=== PATIENT | female | born 1955 | race Caucasian/White ===

== ENCOUNTER 2020-05-09 11:45 | Emergency (ER) | payer OTHER, SELFPAY ==
--- NOTE | ~2020-05-09 | XR_ITS ---
EXAMINATION: XR CHEST CLINICAL INFORMATION: Chest pain COMPARISON: CT chest 03/09/2017 and chest radiograph 04/19/2007 TECHNIQUE: Frontal view of the chest was obtained. FINDINGS: No significant abnormality is noted involving the heart, lungs or mediastinum. Patient has undergone rotator cuff surgery on the right with 3 anchors. In addition, there may have been prior resection of the distal ends of both clavicles. XR/XR chest 1V IMPRESSION: No acute intrathoracic disease
[2020-05-09 14:26] VITALS: BP 124/74; PULSE 76; RESP 16; O2SAT 98; BMI 26.4
[2020-05-09 14:33] VITALS: TEMP 36.7
[2020-05-09 16:21] VITALS: BP 128/62; PULSE 63; RESP 18; TEMP 36.7; O2SAT 98
--- NOTE | 2020-05-09 16:21 | ED_ITS ---
HPI - Chest Pain General Chief Complaint: Chest Pain Stated Complaint: chest pain Time Seen by Provider: 05/09/20 16:21 Source: patient Mode of arrival: ambulatory Limitations: no limitations History of Present Illness HPI narrative: Patient with no known coronary artery disease nonsmoker history of GERD on Protonix is complaining of mid chest pain for last few weeks off and on seen by her PCP 3 days ago started on aspirin came here for similar pain started today in the morning around 08:00 lasted for about 30 minutes with mild aching pain in the right shoulder area. No shortness of breath no cough no fever or chills. No diaphoresis no nausea no vomiting patient been feeling increased shortness of breath on mild exertion for last few days also MD complaint: chest pain Onset (ago): hour(s) Timing of current episode: episodic Prior episodes: Yes Related Data Allergies Allergy/AdvReac Type Severity Reaction Status Date / Time Sulfa (Sulfonamide Allergy Unknown Hives Verified 05/09/20 14:32 Antibiotics) Review of Systems Review of Systems: Constitutional : No Weight loss, No Fever, No Chills ENT/Mouth : No sore throat, No Rhinorrhea Eyes: No Eye Pain, No Swelling Cardiovascular : + Chest Pain, no palpitations Respiratory : No Cough, No Sputum, +shortness of breath Gastrointestinal : no Nausea, No Vomiting, No Diarrhea, No abdominal Pain, no bl ack stools Genitourinary : No Dysuria, No Urinary Frequency Musculoskeletal : No joint pain, No Myalgias, No Joint Swelling Skin : No Skin Lesions, No rash Neuro : No Weakness, No Numbness, No Dizziness, No Headache Psych : No Anxiety/Panic, No Depression Heme/Lymph: No Bruising, No Lymphadenopathy Endocrine : No Polyuria, No Polydipsia All other systems reviewed and are negative [facility] Social History Social History Alcohol intake: current Alcohol intake frequency: a few times a month Smoking Status: Never smoker Use of substances other than those prescribed or required for medical reasons: No Advance Directives: No Advance Directives Information Provided: Yes Physical Exam Vital Signs: Vital Signs: Last Vital Signs Temp 98.1 F 05/09/20 16:21 Pulse 63 05/09/20 16:21 Resp 18 05/09/20 16:21 BP 128/62 05/09/20 16:21 Pulse Ox 98 02/17/21 16:21 Body Mass Index 26.4 Appearance: Alert. Oriented X3. No acute distress. Eyes: Pupils equal, round and reactive to light. ENT: Pharynx normal. Neck: Normal inspection. Neck supple. CVS: Normal heart rate and rhythm. Pulses normal. Respiratory: No respiratory distress. Breath sounds normal. Abdomen: Soft and nontender. Bowel sounds are present, no mass palpable, no CVA tenderness Skin: Skin warm and dry. Normal skin color. Normal skin turgor. Extremities: No lower extremity edema. No calf tenderness Neuro: Oriented X 3. No motor deficit. No sensory deficit. MDM - Chest Pain MDM Narrative Medical decision making narrative: Patient has atypical chest pain for couple of weeks high sensitive troponin negative normal EKG D-dimer also negative patient does have history of GERD on Protonix patient advised to continue same and start taking baby aspirin follow with PCP for stress test as outpatient Differential Diagnosis Differential diagnosis: Likely unstable angina pectoris and atypical chest pain Medical Records Data Attestation: I reviewed the patient's medical records. Lab Data Attestation: I reviewed the patient's lab results. Result diagrams: 05/09/20 16:42 05/09/20 16:43 Labs: Lab Results 05/09/20 05/09/20 05/09/20 Range/Units 16:42 16:42 16:43 WBC 6.7 (4.8-10.8) X10*3/uL RBC 4.48 (4.20-5.50) X10*6/uL Hgb 14.0 (12.0-16.0) g/dl Hct 40.8 (37-47) % MCV 91.1 (80-98) fL MCH 31.3 (27.0-33.0) pg MCHC 34.3 (31.0-35.0) g/dl RDW 12.1 (11.0-16.0) % Plt Count 244 (160-400) X10*3/uL MPV 9.7 (9.4-12.3) fL Immature Gran % (Auto) 0.2 (0.0-0.4) % Neut % (Auto) 70.1 (45-73) % Lymph % (Auto) 21.8 (20-40) % Mccormick % (Auto) 5.9 (2-11) % Eos % (Auto) 1.4 (0-4) % Baso % (Auto) 0.6 (0-2) % Lymph # (Auto) 1.5 (1.2-4.9) X10*3/uL Mccormick # (Auto) 0.4 (0.1-1.2) X10*3/uL Eos # (Auto) 0.1 (0.0-0.4) X10*3/uL Baso # (Auto) 0.0 (0.0-0.2) X10*3/uL Abs Immat Gran (auto) 0.01 (0.00-0.03) X10*3/uL Absolute Neuts (auto) 4.7 (2.0-8.3) X10*3/uL Absolute Nucleated RBC 0.000 (0.0-0.012) X10*3/uL Nucleated RBC % (auto) 0.0 (0.0-0.2) /100WBC PT 11.1 (10.8-13.0) SEC INR 0.9 (0.9-1.1) APTT 36.7 (24.1-38.0) SEC D-Dimer < 200 NG/ML Sodium (135-145) mmol/L Potassium (3.3-5.1) mmol/L Chloride (96-108) mmol/L Carbon Dioxide (22-29) mmol/L Anion Gap (12-20) BUN (9-16) mg/dL Creatinine (0.5-1.4) mg/dL Estim Creat Clear Calc Estimated GFR Random Glucose (60-115) mg/dL Calcium (8.4-10.2) mg/dL Troponin I High Sens < 3.5 (<3.5-17.0) ng/L 05/09/20 Range/Units 16:43 WBC (4.8-10.8) X10*3/uL RBC (4.20-5.50) X10*6/uL Hgb (12.0-16.0) g/dl Hct (37-47) % MCV (80-98) fL MCH (27.0-33.0) pg MCHC (31.0-35.0) g/dl RDW (11.0-16.0) % Plt Count (160-400) X10*3/uL MPV (9.4-12.3) fL Immature Gran % (Auto) (0.0-0.4) % Neut % (Auto) (45-73) % Lymph % (Auto) (20-40) % Mccormick % (Auto) (2-11) % Eos % (Auto) (0-4) % Baso % (Auto) (0-2) % Lymph # (Auto) (1.2-4.9) X10*3/uL Mccormick # (Auto) (0.1-1.2) X10*3/uL Eos # (Auto) (0.0-0.4) X10*3/uL Baso # (Auto) (0.0-0.2) X10*3/uL Abs Immat Gran (auto) (0.00-0.03) X10*3/uL Absolute Neuts (auto) (2.0-8.3) X10*3/uL Absolute Nucleated RBC (0.0-0.012) X10*3/uL Nucleated RBC % (auto) (0.0-0.2) /100WBC PT (10.8-13.0) SEC INR (0.9-1.1) APTT (24.1-38.0) SEC D-Dimer NG/ML Sodium 139 (135-145) mmol/L Potassium 4.5 (3.3-5.1) mmol/L Chloride 104 (96-108) mmol/L Carbon Dioxide 25 (22-29) mmol/L Anion Gap 15 (12-20) BUN 15 (9-16) mg/dL Creatinine 0.70 (0.5-1.4) mg/dL Estim Creat Clear Calc 70.2 Estimated GFR > 60 Random Glucose 90 (60-115) mg/dL Calcium 9.2 (8.4-10.2) mg/dL Troponin I High Sens (<3.5-17.0) ng/L ECG Data ECG #1: Attestation: I personally reviewed and interpreted this ECG as follows: Interpretation: Normal sinus rhythm heart rate 66 beats per minute normal intervals normal axis no acute ST T wave changes impression normal EKG Discharge Plan Discharge Clinical Impression: Chest pain Patient Disposition: Home, Self-Care Instructions: Chest Pain (ED) Additional Instructions: Continue Protonix and baby aspirin and follow with PCP for further testing including stress test. Report to the ER if worsening of the chest pain
--- NOTE | 2020-05-09 16:44 | PC.NURSE ---
iv inserted, labs drawn, vss, pt ekg done in triage, will continue to monitor.
[2020-05-09 16:48] LABS: MANUAL DIFF FLAG NO
[2020-05-09 16:56] LABS: Basophils Percent Auto 0.6 % (0-2); Eosinophils Absolute Auto 0.1 X10*3/uL (0.0-0.4); Eosinophils Percent Auto 1.4 % (0-4); Hematocrit 40.8 % (37-47); Imm Gran Abs Auto 0.01 X10*3/uL (0.00-0.03); Imm Gran Pct Auto 0.2 % (0.0-0.4); Lymphocytes Absolute Auto 1.5 X10*3/uL (1.2-4.9); Lymphocytes Percent Auto 21.8 % (20-40); Mean Corpuscular HGB Conc 34.3 g/dl (31.0-35.0); Mean Corpuscular Hemoglobin 31.3 pg (27.0-33.0); Mean Corpuscular Volume 91.1 fL (80-98); Mean Platelet Volume 9.7 fL (9.4-12.3); Monocytes Absolute Auto 0.4 X10*3/uL (0.1-1.2); Monocytes Percent Auto 5.9 % (2-11); Neutrophils Absolute Auto 4.7 X10*3/uL (2.0-8.3); Neutrophils Percent Auto 70.1 % (45-73); Platelet Count 244 X10*3/uL (160-400); Red Blood Count 4.48 X10*6/uL (4.20-5.50); Red Cell Distribution Width 12.1 % (11.0-16.0); White Blood Count 6.7 X10*3/uL (4.8-10.8)
[2020-05-09 17:10] LABS: INTERNATIONAL NORM RATIO 0.9 (0.9-1.1); Prothrombin Time 11.1 SEC (10.8-13.0)
--- NOTE | 2020-05-09 17:12 | PC.NURSE ---
patient ekg was done at 1430pm
[2020-05-09 17:13] LABS: Partial Thromboplastin Time 36.7 SEC (24.1-38.0)
[2020-05-09 17:14] LABS: D Dimer < 200 NG/ML
[2020-05-09 17:16] LABS: Anion Gap 15 (12-20); Blood Urea Nitrogen 15 mg/dL (9-16); Calcium 9.2 mg/dL (8.4-10.2); Carbon Dioxide 25 mmol/L (22-29); Chloride 104 mmol/L (96-108); Creatinine Clr Calc Pharmacy 70.2; Estimated Glomerular Filt Rate > 60; Glucose Random 90 mg/dL (60-115); Potassium 4.5 mmol/L (3.3-5.1); Sodium 139 mmol/L (135-145)
[2020-05-09 17:22] LABS: Troponin-I High Sensitivity < 3.5 ng/L (<3.5-17.0)
[2020-05-09 17:47] VITALS: BP 113/56; PULSE 60; RESP 18; TEMP 36.8; O2SAT 97
--- NOTE | 2020-05-09 17:49 | PC.NURSE ---
patient a&ox3, vitals stable, sinus lawanda 60s on monitor, will continue to monitor.
--- NOTE | 2020-05-10 | ECG_ITS ---
Test Reason : CHEST PAIN Blood Pressure : / mmHG Vent. Rate : 066 BPM Atrial Rate : 066 BPM P-R Int : 142 ms QRS Dur : 072 ms QT Int : 384 ms P-R-T Axes : 043 056 053 degrees QTc Int : 402 ms Normal sinus rhythm Normal ECG When compared with ECG of 13-APR-2007 14:33, No significant change was found Referred By: Markos Mackay Electronically Signed By:Les Wong
== END 2020-05-09 18:00 | disposition home or self-care (01) ==
PROVIDERS: Emergency Provider Internal Medicine; PCP Pediatrics
DX: R07.9 Chest pain, unspecified (principal)
CPT/HCPCS: 36415; 71045; 80048; 84484; 85025; 85379; 85610; 85730; 93005; 99283; 99285

== ENCOUNTER 2022-01-28 13:49 | Outpatient (REF) | payer OTHER, SELFPAY ==
--- NOTE | ~2022-01-28 | MM_ITS ---
EXAMINATION: BONE DENSITOMETRY CLINICAL INDICATION: Asymptomatic menopausal state. COMPARISON: This is the patient's baseline examination. TECHNIQUE: Using a MILI DXA System (software version: 13.1) manufactured by [employer], dual-energy x-ray absorptiometry was performed of the lumbar spine and left hip. The images are of good technical quality. Summary results are attached. FINDINGS: AP SPINE L1-L4: BMD 1.105 g/cm2, Z-score 1.1, T-score -0.6, normal. LEFT FEMUR, NECK: BMD 0.794 g/cm2, Z-score -0.2, T-score -1.8, osteopenia. LEFT FEMUR, TOTAL: BMD 0.817 g/cm2, Z-score -0.3, T-score -1.5, osteopenia. IDENTIFIED RISK FACTORS: Menopause. HISTORY OF FRACTURE: None listed. MEDICATIONS: Multivitamin. MM/XR DEXA axial skeleton IMPRESSION: 1. DIAGNOSIS: Osteopenia based on the lowest T-score value of -1.8 in the femoral neck applying World Health Organization criteria. 2. 10-YEAR FRACTURE RISK PREDICTION, FRAX: Major osteoporotic fracture (clinical spine, forearm, hip or shoulder) 9.8%. Hip fracture 1.3%. 3. Treatment Recommendations: NOF guidelines recommend consideration for treatment in postmenopausal women and men age 50 and older presenting with the following: -A hip or vertebral (clinical or morphometric) fracture. -T-score less than or equal to -2.5 at the femoral neck or spine after appropriate evaluation to exclude secondary causes. -Low bone mass at the hip or spine and a 10-year fracture probability by FRAX of greater than or equal to 3% for hip fracture or greater than or equal to 20% for major osteoporotic fracture based on the [place] adapted WHO algorithm. 4. Other Recommendations: All treatment decisions require clinical judgment and consideration of individual patient factors, including patient preferences, comorbidities, previous drug use, risk factors not captured in the FRAX model (e.g. frailty, falls, vitamin D deficiency, increased bone turnover, interval significant decline in bone density) and possible under or overestimation of fracture risk by FRAX. Additional medical evaluation for secondary cause of low bone mineral density may be appropriate. FUTURE SCAN RECOMMENDATION: People with diagnosed cases of osteoporosis or at high risk for fracture should have regular bone mineral density tests. For patients eligible for Medicare, routine testing is allowed once every 2 years. The testing frequency can be increased to one year for patients who have rapidly progressing disease, those who are receiving or discontinuing medical therapy to restore bone mass, or have additional risk factors.
== END 2022-01-28 13:50 | disposition home or self-care (01) ==
LOC: HO.MAMMO 13:49
PROVIDERS: PCP Nurse Practitioner Family; Visit Provider Nurse Practitioner Family
DX: Z13.820 Encounter for screening for osteoporosis (principal); Z78.0 Asymptomatic menopausal state
CPT/HCPCS: 77080

== ENCOUNTER 2022-02-01 07:04 | Outpatient (REF) | payer OTHER, SELFPAY ==
[2022-02-01 07:20] LABS: MANUAL DIFF FLAG NO
[2022-02-01 08:06] LABS: Appearance Urine Cloudy; Color Urine Yellow; Glucose Urine UA Negative (Negative); Leukocyte Esterase Urine Negative (Negative); Nitrite Urine Negative (Negative); Urine Blood Negative (Negative); Urine Ketones Negative (Negative); Urine Protein Negative (Neg-Trace)
[2022-02-01 08:20] LABS: Basophils Percent Auto 0.7 % (0-2); Eosinophils Absolute Auto 0.1 X10*3/uL (0.0-0.4); Eosinophils Percent Auto 1.7 % (0-4); Hematocrit 39.7 % (37.0-47.0); Hemoglobin 13.6 g/dl (12.0-16.0); Imm Gran Abs Auto 0.01 X10*3/uL (0.00-0.03); Imm Gran Pct Auto 0.2 % (0.0-0.4); Lymphocytes Absolute Auto 1.3 X10*3/uL (1.2-4.9); Lymphocytes Percent Auto 30.2 % (20-40); Mean Corpuscular HGB Conc 34.3 g/dl (31.0-35.0); Mean Corpuscular Hemoglobin 31.2 pg (27.0-33.0); Mean Corpuscular Volume 91.1 fL (80.0-98.0); Mean Platelet Volume 9.7 fL (9.4-12.3); Monocytes Absolute Auto 0.3 X10*3/uL (0.1-1.2); Monocytes Percent Auto 7.5 % (2-11); Neutrophils Absolute Auto 2.5 x10*3/uL (2.0-8.3); Neutrophils Percent Auto 59.7 % (45-73); Platelet Count 237 X10*3/uL (160-400); Red Blood Count 4.36 X10*6/uL (4.20-5.50); White Blood Count 4.2 X10*3/uL (4.8-10.8)
[2022-02-01 08:41] LABS: Alanine Aminotransferase 17 U/L (0-31); Alkaline Phosphatase 118 U/L (39-117); Anion Gap 11 (12-20); Aspartate Amino Transferase 15 U/L (5-31); Bilirubin Total 0.7 mg/dL (0.0-1.0); Blood Urea Nitrogen 14 mg/dL (9-16); Carbon Dioxide 29 mmol/L (22-29); Chloride 105 mmol/L (96-108); Cholesterol 246 mg/dL; Estimated Glomerular Filt Rate > 60; Glucose Fasting 96 mg/dL (60-99); HDL Cholesterol 55 mg/dL; LDL Cholesterol Calculated 179 mg/dl; Potassium 4.4 mmol/L (3.3-5.1); Sodium 141 mmol/L (135-145); TSH reflex Free T4 0.72 uIU/mL (0.32-4.0); Total Protein 6.5 g/dL (6.5-8.0); Triglycerides 61 mg/dL; Vitamin D 25-OH Total 43.9 ng/mL (>30)
== END 2022-02-01 07:05 | disposition home or self-care (01) ==
LOC: HO.LAB 07:04
PROVIDERS: PCP Nurse Practitioner Family; Visit Provider Nurse Practitioner Family
DX: Z00.00 Encounter for general adult medical examination without abnormal findings (principal); Z78.0 Asymptomatic menopausal state
CPT/HCPCS: 36415; 80053; 80061; 81003; 82306; 84443; 85025

== ENCOUNTER 2022-03-29 07:56 | Outpatient (REF) | payer MEDICARE, SELFPAY ==
--- NOTE | ~2022-03-29 | MM_ITS ---
EXAMINATION: MM SCREENING DIGITAL BREAST TOMOSYNTHESIS, BILATERAL CLINICAL INFORMATION: Screening. Asymptomatic. The lifetime risk of breast cancer based on the Tyrer-Cuzick Model is 7%. COMPARISON: Outside mammography: 03/18/2021, 03/12/2020, 03/07/2019 ([address]). TECHNIQUE: Digital breast tomosynthesis is performed in both the craniocaudal and mediolateral oblique views along with computer-aided detection (CAD). Synthesized 2D images are generated from the tomosynthesis. FINDINGS: The breasts are heterogeneously dense, which may obscure small masses (ACR BI-RADS breast composition Category c). There are no significant masses, abnormal calcifications, or other abnormalities. Parenchymal pattern is similar to prior outside studies. There is no developing density or architectural abnormality. The axilla and skin contours are unremarkable. No significant changes. MM/MM tomosynthesis screening BI IMPRESSION: No mammographic evidence of malignancy. ASSESSMENT: BI-RADS 1: Negative RECOMMENDATION: Routine annual mammography screening. This patient's information was entered into a reminder system with a target due date for their next mammogram.
== END 2022-03-29 07:57 | disposition home or self-care (01) ==
LOC: HO.MAMMO 07:56
PROVIDERS: PCP Nurse Practitioner Family; Visit Provider Nurse Practitioner Family
DX: Z12.31 Encounter for screening mammogram for malignant neoplasm of breast (principal)
CPT/HCPCS: 77063; 77067

== ENCOUNTER 2022-04-09 09:21 | Outpatient (REF) | payer MEDICARE, SELFPAY ==
[2022-04-09 12:49] LABS: Influenza A PCR NEGATIVE (Negative); Influenza B PCR NEGATIVE (Negative); Resp Syncy Virus RNA Qual PCR NEGATIVE (Negative); SARS COV2 PCR INHOUSE POSITIVE (Negative)
== END 2022-04-09 09:22 | disposition home or self-care (01) ==
LOC: HO.LAB 09:21
PROVIDERS: Visit Provider Nurse Practitioner Family
DX: J06.9 Acute upper respiratory infection, unspecified (principal); Z20.822 Contact with and (suspected) exposure to COVID-19
CPT/HCPCS: 0241U

== ENCOUNTER 2022-05-26 11:54 | Outpatient (REF) | payer MEDICARE, SELFPAY ==
[2022-05-26 13:54] LABS: MANUAL DIFF FLAG NO
[2022-05-26 14:06] LABS: Basophils Percent Auto 0.5 % (0-2); Eosinophils Absolute Auto 0.3 X10*3/uL (0.0-0.4); Eosinophils Percent Auto 4.6 % (0-4); Hematocrit 41.5 % (37.0-47.0); Imm Gran Abs Auto 0.02 X10*3/uL (0.00-0.03); Imm Gran Pct Auto 0.3 % (0.0-0.4); Lymphocytes Absolute Auto 1.5 X10*3/uL (1.2-4.9); Mean Corpuscular HGB Conc 33.7 g/dl (31.0-35.0); Mean Corpuscular Hemoglobin 30.6 pg (27.0-33.0); Mean Corpuscular Volume 90.6 fL (80.0-98.0); Mean Platelet Volume 9.6 fL (9.4-12.3); Monocytes Absolute Auto 0.3 X10*3/uL (0.1-1.2); Monocytes Percent Auto 5.1 % (2-11); Neutrophils Absolute Auto 4.1 x10*3/uL (2.0-8.3); Neutrophils Percent Auto 65.5 % (45-73); Platelet Count 236 X10*3/uL (160-400); Red Blood Count 4.58 X10*6/uL (4.20-5.50); Red Cell Distribution Width 12.4 % (11.0-16.0); White Blood Count 6.3 X10*3/uL (4.8-10.8)
[2022-05-26 14:21] LABS: Alanine Aminotransferase 25 U/L (0-31); Albumin Level 4.2 g/dL (3.5-5.0); Alkaline Phosphatase 100 U/L (39-117); Anion Gap 15 (12-20); Aspartate Amino Transferase 21 U/L (5-31); Blood Urea Nitrogen 15 mg/dL (9-16); Calcium 9.5 mg/dL (8.4-10.2); Carbon Dioxide 26 mmol/L (22-29); Chloride 104 mmol/L (96-108); Estimated Glomerular Filt Rate > 60; Glucose Random 92 mg/dL (60-115); Sodium 141 mmol/L (135-145); Total Protein 6.6 g/dL (6.5-8.0)
== END 2022-05-26 11:55 | disposition home or self-care (01) ==
LOC: HO.HMGCLDS 11:54
PROVIDERS: PCP Nurse Practitioner Family; Visit Provider Nurse Practitioner Family
DX: R19.7 Diarrhea, unspecified (principal)
CPT/HCPCS: 36415; 80053; 85025

== ENCOUNTER 2022-06-02 15:29 | Outpatient (REF) | payer MEDICARE, SELFPAY ==
[2022-06-02 16:35] LABS: CDiff Gene PCR NEGATIVE (Negative)
[2022-06-03 12:48] LABS: Adenovirus F 40/41 Not Detected (Not Detect.); Astrovirus Not Detected (Not Detect.); Campylobacter Not Detected (Not Detect.); Cryptosporidium Not Detected (Not Detect.); Cyclospora cayetanensis Not Detected (Not Detect.); E. coli EAEC Not Detected (Not Detect.); E. coli EPEC Not Detected (Not Detect.); E. coli ETEC Not Detected (Not Detect.); E. coli STEC Not Detected (Not Detect.); Entamoeba histolytica Not Detected (Not Detect.); Giardia lamblia Not Detected (Not Detect.); Norovirus GI/GII Not Detected (Not Detect.); Plesiomonas shigelloides Not Detected (Not Detect.); Rotavirus A Not Detected (Not Detect.); Salmonella Not Detected (Not Detect.); Sapovirus Not Detected (Not Detect.); Shigella sp./EIEC Not Detected (Not Detect.); Vibrio Not Detected (Not Detect.); Vibrio Cholerae Not Detected (Not Detect.); Yersinia enterocolitica Not Detected (Not Detect.)
== END 2022-06-02 15:30 | disposition home or self-care (01) ==
LOC: HO.LNP 15:29
PROVIDERS: Visit Provider Nurse Practitioner Family
DX: R19.7 Diarrhea, unspecified (principal)
CPT/HCPCS: 87177; 87209; 87493; 87507

== ENCOUNTER 2022-06-16 16:06 | Outpatient (REF) | payer MEDICARE, SELFPAY ==
--- NOTE | ~2022-06-16 | XR_ITS ---
EXAMINATION: XR HIP, LEFT CLINICAL INFORMATION: Left hip pain. COMPARISON: None available. TECHNIQUE: Two views of the left hip. XR/XR hip LT min 2V FINDINGS/IMPRESSION: Examination demonstrates moderate osteoarthritis of the left hip, with joint space narrowing, sclerosis, and osteophyte formation. There is no acute radiographic finding. No fracture or dislocation is seen. Bony mineralization appears preserved. The soft tissues appear unremarkable.
== END 2022-06-16 16:07 | disposition home or self-care (01) ==
LOC: HO.HMGCX 16:06
PROVIDERS: Visit Provider Emergency Medicine
DX: M25.552 Pain in left hip (principal)
CPT/HCPCS: 73502

== ENCOUNTER 2022-07-19 07:18 | Outpatient (REF) | payer MEDICARE, SELFPAY ==
[2022-07-19 07:32] LABS: MANUAL DIFF FLAG NO
[2022-07-19 08:07] LABS: Basophils Absolute Auto 0.1 X10*3/uL (0.0-0.2); Basophils Percent Auto 1.3 % (0-2); Eosinophils Absolute Auto 0.3 X10*3/uL (0.0-0.4); Eosinophils Percent Auto 7.9 % (0-4); Hematocrit 41.3 % (37.0-47.0); Hemoglobin 13.7 g/dl (12.0-16.0); Imm Gran Abs Auto 0.01 X10*3/uL (0.00-0.03); Imm Gran Pct Auto 0.3 % (0.0-0.4); Lymphocytes Absolute Auto 1.2 X10*3/uL (1.2-4.9); Lymphocytes Percent Auto 30.2 % (20-40); Mean Corpuscular HGB Conc 33.2 g/dl (31.0-35.0); Mean Corpuscular Hemoglobin 30.4 pg (27.0-33.0); Mean Corpuscular Volume 91.6 fL (80.0-98.0); Mean Platelet Volume 9.4 fL (9.4-12.3); Monocytes Absolute Auto 0.3 X10*3/uL (0.1-1.2); Monocytes Percent Auto 6.9 % (2-11); Neutrophils Absolute Auto 2.1 x10*3/uL (2.0-8.3); Neutrophils Percent Auto 53.4 % (45-73); Platelet Count 226 X10*3/uL (160-400); Red Blood Count 4.51 X10*6/uL (4.20-5.50); Red Cell Distribution Width 12.5 % (11.0-16.0); White Blood Count 3.9 X10*3/uL (4.8-10.8)
[2022-07-19 14:06] LABS: Alanine Aminotransferase 20 U/L (0-31); Albumin Level 4.2 g/dL (3.5-5.0); Alkaline Phosphatase 97 U/L (39-117); Anion Gap 12 (12-20); Aspartate Amino Transferase 18 U/L (5-31); Blood Urea Nitrogen 11 mg/dL (9-16); Calcium 9.1 mg/dL (8.4-10.2); Carbon Dioxide 26 mmol/L (22-29); Chloride 106 mmol/L (96-108); Cholesterol 238 mg/dL; Estimated Glomerular Filt Rate > 60; Glucose Fasting 91 mg/dL (60-99); HDL Cholesterol 54 mg/dL; Potassium 4.2 mmol/L (3.3-5.1); Sodium 140 mmol/L (135-145); Total Protein 6.7 g/dL (6.5-8.0)
[2022-07-19 16:00] LABS: LDL Cholesterol Calculated 170 mg/dl; Triglycerides 72 mg/dL
== END 2022-07-19 07:19 | disposition home or self-care (01) ==
LOC: HO.LAB 07:18
PROVIDERS: PCP Nurse Practitioner Family; Visit Provider Nurse Practitioner Family
DX: D72.819 Decreased white blood cell count, unspecified (principal); E78.00 Pure hypercholesterolemia, unspecified
CPT/HCPCS: 36415; 80053; 80061; 85025

== ENCOUNTER 2022-07-21 15:46 | Outpatient (REF) | payer MEDICARE, SELFPAY ==
--- NOTE | ~2022-07-21 | XR_ITS ---
EXAMINATION: XR CERVICAL SPINE CLINICAL INFORMATION: Neck pain COMPARISON: None available. TECHNIQUE: 3 views of the cervical spine were obtained. FINDINGS: Limited visualization of the C7 vertebral body on the lateral. Bone alignment is normal. No fracture or dislocation. Mild degenerative spondylosis and disc space narrowing at C4-C5, C5-C6 and C6-C7. Bilateral facet arthritis. Prevertebral soft tissues are normal. XR/XR cervical spine 2V IMPRESSION: Degenerative changes. Limited visualization of the C7 vertebral body.
== END 2022-07-21 15:47 | disposition home or self-care (01) ==
LOC: HO.HMGCX 15:46
PROVIDERS: PCP Nurse Practitioner Family; Visit Provider Nurse Practitioner Family
DX: M54.2 Cervicalgia (principal)
CPT/HCPCS: 72040

== ENCOUNTER 2022-08-05 14:03 | Outpatient (REF) | payer MEDICARE, SELFPAY ==
--- NOTE | ~2022-08-05 | US_ITS ---
EXAMINATION: Ultrasound extremity nonvascular CLINICAL INFORMATION: Lymphadenopathy COMPARISON: None. TECHNIQUE: Grayscale and color imaging of the left lateral hip. Palpable abnormality using a linear transducer FINDINGS: There are 2 solid hyperechoic lesion is seen in the area of palpable abnormality. Largest measures 1.2 x 0.6 x 1.6 cm. This has a slightly hypoechoic center and minimal vascularity. This is 0.5 cm deep from the skin. There is a second 0.7 x 0.5 x 1.4 cm oval shaped hypoechoic area. This appears avascular. There is question of hypoechoic center. This is 0.5 cm deep from the skin. Ultrasound appearance is nonspecific. This does not have the typical appearance of a lymph node. This does not represent a hernia. Possible fat necrosis or atypical appearing lipomas should be considered. US/US extremity nonvascular roth IMPRESSION: Palpable abnormality corresponds to 2 small superficial hyperechoic lesions with hypoechoic center. Areas of fat necrosis and atypical appearance of lipoma should be considered.
== END 2022-08-05 14:04 | disposition home or self-care (01) ==
LOC: HO.US 14:03
PROVIDERS: PCP Nurse Practitioner Family; Visit Provider Nurse Practitioner Family
DX: R59.1 Generalized enlarged lymph nodes (principal)
CPT/HCPCS: 76882

== ENCOUNTER 2022-10-25 06:55 | Outpatient (REF) | payer MEDICARE, SELFPAY ==
[2022-10-25 07:12] LABS: MANUAL DIFF FLAG NO
[2022-10-25 07:41] LABS: Basophils Percent Auto 0.7 % (0-2); Eosinophils Absolute Auto 0.1 X10*3/uL (0.0-0.4); Eosinophils Percent Auto 2.1 % (0-4); Hematocrit 40.5 % (37.0-47.0); Hemoglobin 13.6 g/dl (12.0-16.0); Imm Gran Abs Auto 0.01 X10*3/uL (0.00-0.03); Imm Gran Pct Auto 0.2 % (0.0-0.4); Lymphocytes Absolute Auto 1.2 X10*3/uL (1.2-4.9); Lymphocytes Percent Auto 28.4 % (20-40); Mean Corpuscular HGB Conc 33.6 g/dl (31.0-35.0); Mean Corpuscular Hemoglobin 31.7 pg (27.0-33.0); Mean Corpuscular Volume 94.4 fL (80.0-98.0); Mean Platelet Volume 9.5 fL (9.4-12.3); Monocytes Absolute Auto 0.3 X10*3/uL (0.1-1.2); Monocytes Percent Auto 6.5 % (2-11); Neutrophils Absolute Auto 2.7 x10*3/uL (2.0-8.3); Neutrophils Percent Auto 62.1 % (45-73); Platelet Count 218 X10*3/uL (160-400); Red Blood Count 4.29 X10*6/uL (4.20-5.50); Red Cell Distribution Width 12.7 % (11.0-16.0); White Blood Count 4.3 X10*3/uL (4.8-10.8)
[2022-10-25 08:46] LABS: Alanine Aminotransferase 22 U/L (0-31); Albumin Level 4.1 g/dL (3.5-5.0); Alkaline Phosphatase 108 U/L (39-117); Anion Gap 14 (12-20); Aspartate Amino Transferase 18 U/L (5-31); Bilirubin Total 0.8 mg/dL (0.0-1.0); Blood Urea Nitrogen 14 mg/dL (9-16); Calcium 9.3 mg/dL (8.4-10.2); Carbon Dioxide 26 mmol/L (22-29); Chloride 105 mmol/L (96-108); Cholesterol 170 mg/dL; Estimated Glomerular Filt Rate > 60; Glucose Fasting 95 mg/dL (60-99); HDL Cholesterol 65 mg/dL; LDL Cholesterol Calculated 97 mg/dl; Potassium 4.3 mmol/L (3.3-5.1); Sodium 141 mmol/L (135-145); Total Protein 6.8 g/dL (6.5-8.0); Triglycerides 44 mg/dL
== END 2022-10-25 06:56 | disposition home or self-care (01) ==
LOC: HO.LAB 06:55
PROVIDERS: PCP Nurse Practitioner Family; Visit Provider Nurse Practitioner Family
DX: D72.819 Decreased white blood cell count, unspecified (principal); E78.00 Pure hypercholesterolemia, unspecified
CPT/HCPCS: 36415; 80053; 80061; 85025

== ENCOUNTER 2022-10-30 15:00 | Outpatient (RCR) | payer MEDICARE, SELFPAY | END 2022-11-05 13:50 | disposition home or self-care (01) | LOC: HO.PT 15:00 | PROVIDERS: PCP Nurse Practitioner Family; Visit Provider Nurse Practitioner Family | DX: M54.2 Cervicalgia (principal) | CPT/HCPCS: 97012; 97110; 97140; 97162 ==

== ENCOUNTER 2022-12-09 07:33 | Outpatient (AMB) | payer MEDICARE, SELFPAY ==
--- NOTE | 2022-12-09 07:20 | A.OFFPC_ITS ---
Intake Visit Reasons: Neck pain Allergies Sulfa (Sulfonamide Antibiotics) Allergy (Unknown, Verified 07/21/22 15:08) Hives Medication List - Last Reconciled 12/09/22 by AUGIE Wooten atorvastatin 10 mg PO BEDTIME calcium carbonate-vitamin D3 600 mg-10 mcg (400 unit) (Calcium with Vitamin D) 1 tab PO BID 30 days citalopram 20 mg PO DAILY 90 days pantoprazole 40 mg PO BID 90 days Tobacco use date assessed: 07/21/22 HPI Neck pain HPI Details Pt c/o left-sided cervical neck pain. She had an xr which showed degenerative changes. Pt has gone to PT with no relief. She reports that the pain radiates to her left shoulder. Will order labs. Pt has a hx of Barretts esophagus and esophageal ulcers. She reports GERD symptoms, her GI is retiring. She is on a PPI. Will refer to GI. Pt also reports chronic sinusitis. She would like a referral to ENT, will refer. Denies fever, chills, and dizziness. [facility] Medical History Paresthesias Pulmonary nodule Ground glass opacity present on imaging of lung Diffuse cystic mastopathy of breast Mixed incontinence urge and stress Kidney cyst Esophageal ulcer Hiatal hernia Elevated alkaline phosphatase level Kidney stones Leukopenia Barretts esophagus GERD (gastroesophageal reflux disease) Achalasia and cardiospasm Hypercholesteremia Stable angina Family History Brother Substance use disorder Progressive supranuclear palsy Mother Progressive supranuclear palsy Social History Housing: House Alcohol intake: current Alcohol intake frequency: a few times a month Patient Tobacco Use Status: Former Tobacco user Quit Date: 25 years ago e-Cigarette/Vaping Use: Never Used Second Hand Smoke Exposure: No service: No Current occupational status: employed Current occupation: [employer] Current occupational exposures/hazards: No Cognitive needs: No Hearing needs: No Vision needs: No Questionnaire Thrive Questionnaire Date Thrive assessed: 01/22/22 GENNA-7 AMB Questionnaire GENNA-7 Date GENNA - 7 assessed: 11/02/22 Source: Developed by Drs. Donovan Beck, Zohreh Desir, Kaveh Hernandez and colleagues, with an educational aruna from [employer]. Review of Systems Const Reports as per HPI Physical exam (Primary Care) Tobacco/Smoking Status: Tobacco use Status Tobacco use date assessed 07/21/22 12/09/22 07:26 Patient Tobacco Use Status Former Tobacco user 12/09/22 07:26 e-Cigarette/Vaping Use Never Used 12/09/22 07:26 Thrive Assessment: Date of Thrive Assessment Date Thrive assessed 01/22/22 12/09/22 07:26 Const General: cooperative Orientation/consciousness: patient oriented x3 Neuro General: patient oriented x3 Psych Appearance: grossly normal Mental Status: mental status grossly normal Speech and movement: Clear speech present Affect: normal affect Attitude: cooperative Thought process: Normal thought process present Thought content: Normal thought content present Insight: Good insight present (Psych) Judgement: Good judgement present (Psych) Telehealth Telehealth Location of provider rendering services: practice address Location of patient: address on file Patient Identification confirmed using: Name, : Yes Telehealth method: video Patient verbally consented to treatment: Yes Patient verbally consented to billing insurance company: Yes Patient informed of any privacy concerns related to visit: Yes Minutes spent on Phone/Video with Pt.: 10 Assessment and Plan Assessment & Plan (1) Esophageal ulcer: Code(s): K22.10 - Ulcer of esophagus without bleeding Plan: Referred to GI (2) Barretts esophagus: Code(s): K22.70 - Moraes's esophagus without dysplasia Plan: Referred to GI (3) Chronic sinusitis: Code(s): J32.9 - Chronic sinusitis, unspecified Plan: Referred to ENT Plan The patient agreed to the use of a durable medical equipment repairer for this encounter. Scribed for VALENTINA Dean-BROWN by april Frost scribe, on 12/09/2022 at 07:20 EST. Orders: Orders MR cervical spine wo con Today M54.2 - Cervicalgia Referrals Gastroenterology Referral K22.10 - Ulcer of esophagus without bleeding, K22.70 - Moraes's esophagus without dysplasia Ear/Nose/Throat Referral J32.9 - Chronic sinusitis, unspecified Coding Level of Care Code Tele Est Pt Level 3 (34862) Diagnoses Esophageal ulcer K22.10 Barretts esophagus K22.70 Chronic sinusitis J32.9
== END 2022-12-09 16:18 | disposition home or self-care (01) ==
LOC: HO.HMGC 07:33
PROVIDERS: PCP Nurse Practitioner Family; Visit Provider Nurse Practitioner Family
DX: K22.70 Barrett's esophagus without dysplasia (principal); J32.9 Chronic sinusitis, unspecified
CPT/HCPCS: 99213

== ENCOUNTER 2023-01-21 09:48 | Outpatient (REF) | payer MEDICARE, SELFPAY ==
--- NOTE | ~2023-01-21 | MR_ITS ---
EXAMINATION: MR CERVICAL SPINE WITHOUT CONTRAST CLINICAL INFORMATION: Cervicalgia. Neck pain. COMPARISON: Plain films of the cervical spine 07/21/2022. TECHNIQUE: MRI of the cervical spine was obtained using routine sequences without contrast. FINDINGS: VERTEBRAL BODIES AND PARASPINAL SOFT TISSUES: There is anatomic alignment of the vertebral bodies. There is multilevel narrowing of intervertebral disc height with loss of signal, most severe at C6-C7. There are mild degenerative endplate contour changes with fatty signal at C3-C4 toward the left. The vertebral bodies have normal height and contour, and no fractures are demonstrated. Overall, marrow signal is homogenous. The visualized regional soft tissues are unremarkable. CERVICOMEDULLARY JUNCTION AND VISUALIZED POSTERIOR FOSSA: There is a partially empty sella. There are a few foci of increased T2 and STIR signal in the tyree, most consistent with chronic microvascular ischemic changes. The craniocervical junction appears normal. Accounting for artifact, spinal cord signal appears normal. SPINAL LEVELS: C2-C3: The facet joints appear normal bilaterally. There is a small posterior soft disc protrusion without cord compression or central stenosis. The neural foramina are patent bilaterally. C3-C4: There is mild left facet arthropathy, with edematous signal in the left C3 facet. There is a broad-based posterior soft disc protrusion with minimal distortion of the ventral thecal sac, but there is no cord compression or central stenosis. There are uncovertebral osteophytes, and there is moderate bilateral foraminal narrowing. C4-C5: There is mild bilateral facet arthropathy. There is a posterior soft disc protrusion most prominent in the midline with some effacement of CSF ventral to the cord, but there is no cord compression or central stenosis. There are uncovertebral osteophytes and is moderate right and mild left foraminal narrowing. C5-C6: The facet joints appear normal bilaterally. There is a broad-based posterior disc protrusion which effaces CSF around the cord without cord compression. There is mild central stenosis. There are uncovertebral osteophytes and there is mild bilateral foraminal narrowing. C6-C7: The facet joints appear normal bilaterally. There is a broad-based posterior soft disc protrusion which effaces CSF ventral to the cord without cord compression. There is mild central stenosis. There are uncovertebral osteophytes, and there is moderate left and mild right foraminal narrowing. C7-T1: The facet joints appear normal bilaterally. Posterior disc contour is normal. There is no spinal cord compression or central stenosis. The neural foramina are patent bilaterally. T1-T2: There is mild bilateral facet arthropathy. Posterior disc contour is normal. There is no central stenosis or cord compression and the neural foramina are patent bilaterally. MR/MR cervical spine wo con IMPRESSION: 1. At C3-C4 there is left facet arthropathy with edematous signal in the left C3 facet. There is a posterior disc protrusion without cord compression or central stenosis. There is moderate bilateral foraminal narrowing. 2. At C4-C5 there is facet arthropathy and there is a posterior soft disc protrusion without cord compression or central stenosis. There is moderate right and mild left foraminal narrowing. 3. At C5-C6 there is a broad-based posterior disc protrusion without cord compression. There is mild central stenosis. There is mild bilateral foraminal narrowing. 4. At C6-C7 there is a broad-based posterior soft disc protrusion without cord compression. There is mild central stenosis. There is moderate left and mild right foraminal narrowing.
== END 2023-01-21 09:49 | disposition home or self-care (01) ==
LOC: HO.MRI 09:48
PROVIDERS: PCP Nurse Practitioner Family; Visit Provider Nurse Practitioner Family
DX: M54.2 Cervicalgia (principal)
CPT/HCPCS: 72141

== ENCOUNTER 2023-01-26 15:24 | Outpatient (AMB) | payer MEDICARE, SELFPAY ==
--- NOTE | 2023-01-26 15:26 | MHC.PC.OV ---
Vital Signs 01/26/23 15:31 Height 5 ft 1 in Weight 176 lb BMI 33.3 BP 104/68 Blood Pressure Location Lt brachial Position Sitting Pulse 59 Pulse Source Pulse Oximeter Pulse Oximetry (%) 95 Oxygen Delivery Method Room Air Intake Visit Reasons: Annual PE Allergies Sulfa (Sulfonamide Antibiotics) Allergy (Unknown, Verified 01/26/23 15:31) Hives Medication List - Last Reconciled 01/26/23 by UAGIE Wooten atorvastatin 10 mg PO BEDTIME calcium carbonate-vitamin D3 600 mg-10 mcg (400 unit) (Calcium with Vitamin D) 1 tab PO BID 30 days citalopram 20 mg PO DAILY 90 days pantoprazole 40 mg PO BID 90 days Tobacco use date assessed: 07/21/22 Fall risk assessment: No Falls in past year Last assessed Fall Risk: 01/26/23 Dental Screening Dental Screen Date: 01/26/23 Did you have a dental visit in the last 12 months?: Yes Did you have a dental problem in the last 6 months where you did not have access to dental care?: No Was dental information given to patient?: Patient has dentist HPI Annual PE HPI Details Pt had a recent cervical MRI due to pain, see results. Neurosurgery was consulted and recommended referral to physiatry. Will refer. Denies fever, chills, and dizziness. [facility] Medical History Paresthesias Pulmonary nodule Ground glass opacity present on imaging of lung Diffuse cystic mastopathy of breast Mixed incontinence urge and stress Kidney cyst Esophageal ulcer Hiatal hernia Elevated alkaline phosphatase level Kidney stones Leukopenia Barretts esophagus GERD (gastroesophageal reflux disease) Achalasia and cardiospasm Hypercholesteremia Stable angina Family History Brother Substance use disorder Progressive supranuclear palsy Mother Progressive supranuclear palsy Social History Housing: House Alcohol intake: current Alcohol intake frequency: a few times a month Patient Tobacco Use Status: Former Tobacco user Quit Date: 25 years ago e-Cigarette/Vaping Use: Never Used Second Hand Smoke Exposure: No service: No Current occupational status: employed Current occupation: [employer] Current occupational exposures/hazards: No Cognitive needs: No Hearing needs: No Vision needs: No Questionnaire PHQ-9 Over the last 2 weeks, how often have you been bothered by any of the following problems? 1. Little interest or pleasure in doing things: not at all 2. Feeling down, depressed, or hopeless: not at all 3. Trouble falling or staying asleep, or sleeping too much: several days 4. Feeling tired or having little energy: several days 5. Poor appetite or overeating: not at all 6. Feeling bad about yourself - or that you are a failure or have let yourself or your family down: not at all 7. Trouble concentrating on things, such as reading the newspaper or watching television: not at all 8. Moving or speaking so slowly that other people could have noticed. Or the opposite - being so fidgety or restless that you have been moving around a lot more than usual: not at all 9. Thoughts that you would be better off or of hurting yourself in some way: not at all Total score: 2 Depression Screening Interpretation: Negative Depression Screening Done: Yes 17190 - PHQ-9 Billing: Yes Source: Developed by Drs. Donovan Beck, Zohreh Desir, Kaveh Hernandez and colleagues, with an educational aruna from [employer]. Thrive Questionnaire Date Thrive assessed: 01/22/22 AUDIT C Alcohol Use Questionnaire (AUDIT-C) 1. How often do you have a drink containing alcohol?: 2-4 times a month 2. How many drinks containing alcohol do you have on a typical day when you are drinking?: 1 or 2 3. How often do you have six or more drinks on one occasion?: Never Total Score: 2 GENNA-7 AMB Questionnaire GENNA-7 Date GENNA - 7 assessed: 01/22/22 Feeling nervous, anxious, or on edge: 1 = Several days Not being able to stop or control worryin = Not at all Worrying too much about different things: 1 = Several days Trouble relaxin = Not at all Being so restless that it is hard to sit still: 0 = Not at all Becoming easily annoyed or irritable: 1 = Several days Feeling afraid as if something awful might happen: 0 = Not at all Total GENAN-7 score (0-4 normal; 5-9 mild; 10-14 moderate; 15-21 severe): 3 Source: Developed by Drs. Donovan Beck, Zohreh Desir, Kaveh Hernandez and colleagues, with an educational aruna from [employer]. Review of Systems Const Reports as per HPI Physical exam (Primary Care) Vital Signs: Last Vital Signs Pulse 59 01/26/23 15:31 BP 104/68 01/26/23 15:31 Pulse Ox 95 01/26/23 15:31 Oxygen Delivery Method Room Air 01/26/23 15:31 BMI result Body Mass Index 33.3 Tobacco/Smoking Status: Tobacco use Status Tobacco use date assessed 07/21/22 01/26/23 15:28 Patient Tobacco Use Status Former Tobacco user 01/26/23 15:28 e-Cigarette/Vaping Use Never Used 01/26/23 15:28 PHQ-9: PHQ-9 Score PHQ-9: Total score 2 01/26/23 16:27 Depression Screening Interpretation: Negative Thrive Assessment: Date of Thrive Assessment Date Thrive assessed 01/22/22 01/26/23 15:28 Const General: cooperative Orientation/consciousness: patient oriented x3 Resp Effort & Inspection: normal respiratory effort Auscultation: clear to auscultation bilaterally Cardio Rate: regular rate Rhythm: regular rhythm Heart sounds: S1 normal heart sound present and S2 normal heart sound present Neuro General: patient oriented x3 Psych Appearance: grossly normal Mental Status: mental status grossly normal Speech and movement: Normal speech and movement present Affect: normal affect Attitude: cooperative Thought process: Normal thought process present Thought content: Normal thought content present Insight: Good insight present (Psych) Judgement: Good judgement present (Psych) Immunizations pneumoc 20-mohsen conj-dip cr(PF) 0.5 mL IM syringe Performing Provider: AUGIE Wooten Performing Location: [facility] Administered by: KRIS Soares on 01/26/23 16:25 Dose Route Admin Location Dispensed Lot Number Expiration Date NDC Currency Exchange Specialist 0.5 mL IM Left Deltoid 0.5 mL [id number] 10/22/23 8024-3414-38 WYETH/PFIZER VIS Given Date VIS Provided VIS Publication Date 01/26/23 Single Vaccine 21 Eligibility Eligibility Date Funding Source Not [facility] Eligible 01/26/23 Private Assessment and Plan Assessment & Plan (1) DDD (degenerative disc disease), cervical: Code(s): M50.30 - Other cervical disc degeneration, unspecified cervical region Plan: Referred to physiatry Plan The patient agreed to the use of a medical record administrator for this encounter. Scribed for VALENTINA Dean- by Tatiana Dalton medical record administrator, on 01/26/2023 at 15:45 EST. Orders: Orders Vitamin D 25-OH Total Today Z00.00 - Encounter for general adult medical examination without abnormal findings Pneumococcal 20 Immunization Today Z23 - Encounter for immunization Referrals Physiatry Referral M50.30 - Other cervical disc degeneration, unspecified cervical region Coding Level of Care Code Est Pt Level 3 (21166) Diagnoses DDD (degenerative disc disease), cervical M50.30
[2023-01-26 15:31] VITALS: BP 104/68; PULSE 59; O2SAT 95; BMI 33.3
== END 2023-01-26 16:34 | disposition home or self-care (01) ==
PROVIDERS: Visit Provider Nurse Practitioner Family
DX: Z23 Encounter for immunization (principal); M50.30 Other cervical disc degeneration, unspecified cervical region
CPT/HCPCS: 90471; 90677; 99213

== ENCOUNTER 2023-02-11 10:39 | Outpatient (AMB) | payer MEDICARE, SELFPAY ==
[2023-02-11 10:40] VITALS: BP 98/58; PULSE 61; RESP 13; O2SAT 96; BMI 23.4
--- NOTE | 2023-02-11 10:40 | MHC.OFFWIV ---
Intake Vital Signs 02/11/23 10:40 Height 5 ft 1 in Weight 124 lb BMI 23.4 BP 98/58 L Blood Pressure Location Lt brachial Position Sitting Respiration 13 Pulse 61 Pulse Source Pulse Oximeter Pulse Oximetry (%) 96 Oxygen Delivery Method Room Air Intake Visit Reasons: ? Sinus infection Intake Note: Patient reports she believes she has a sinus infection. Patient reports symptoms of headache, sinus pressure, and stuffy feeling. Patient reports she tested for covid at home and it was negative. 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 Accompanied by: Self / Same As Patient Allergies Sulfa (Sulfonamide Antibiotics) Allergy (Unknown, Verified 02/11/23 11:02) Hives Medication List - Last Reconciled 02/11/23 by AUGIE Snow atorvastatin 10 mg PO BEDTIME calcium carbonate-vitamin D3 600 mg-10 mcg (400 unit) (Calcium with Vitamin D) 1 tab PO BID 30 days citalopram 20 mg PO DAILY 90 days pantoprazole 40 mg PO BID 90 days Do you need a note to return to daycare/school/sports/work: No HPI HPI Comments History of Present Illness Details Here today w worries for sinus infection Hx of recurrent sinus infections at least once per year always around this time of year + allergies, rec'd allergy shots in the past with + effect. sx today include: headache, sinus pressure, dental pain bilat upper , + nasal d/c + PND Home COVID test negative Takes allergy pill QD w/o much relief Using nasonex and/or nasacort to help w/ chronic sx. UTD on vaccines Denies fever, chills. Referred to ENT by PCP [facility] Medical History Paresthesias Pulmonary nodule Ground glass opacity present on imaging of lung Diffuse cystic mastopathy of breast Mixed incontinence urge and stress Kidney cyst Esophageal ulcer Hiatal hernia Elevated alkaline phosphatase level Kidney stones Leukopenia Barretts esophagus GERD (gastroesophageal reflux disease) Achalasia and cardiospasm Hypercholesteremia Stable angina Family History Brother Substance use disorder Progressive supranuclear palsy Mother Progressive supranuclear palsy Housing: House Alcohol intake: current Alcohol intake frequency: a few times a month Patient Tobacco Use Status: Former Tobacco user Quit Date: 25 years ago e-Cigarette/Vaping Use: Never Used Second Hand Smoke Exposure: No service: No Current occupational status: employed Current occupation: [employer] Current occupational exposures/hazards: No Cognitive needs: No Hearing needs: No Vision needs: No Review of Systems Const All systems reviewed & are unremarkable except as noted in HPI and below Physical Exam Vital Signs: Last Vital Signs Pulse 61 02/11/23 10:40 Resp 13 02/11/23 10:40 BP 98/58 L 02/11/23 10:40 Pulse Ox 96 02/11/23 10:40 Oxygen Delivery Method Room Air 02/11/23 10:40 BMI result Body Mass Index 23.4 Const Other: awake alert NAD conjunctive clear bilat TM intact, mild bulging and injection bilat L>R nares patent, turbinates + erythema and edema L>R, + frontal and max sinus tenderness to palp pharynx + PND, no exudate LS CTAB RRR Assessment & Plan Assessment & Plan (1) Chronic sinusitis: Code(s): J32.9 - Chronic sinusitis, unspecified Qualifiers: Sinusitis location: pansinusitis Qualified Code(s): J32.4 - Chronic pansinusitis Orders: Referrals Ear/Nose/Throat Referral J32.9 - Chronic sinusitis, unspecified Medications: New azithromycin For 250 mg dose pack: take 500 mg today (day 1), then 250 mg for 4 days (days 2-5) PO 5 days 6 tabs 0RF Patient Instructions: TAKE AB INSTRUCTED ENCOURAGED REFERRAL TO [facility] FOR ALLERGY SHOTS GIVEN CHRONICITY AND RECURRENCE IF ABLE TO GET IN TO [facility] NO NEED TO F/U WITH [facility] - REFERRAL PLACED 11/2022 NO APPT OF YET [facility] ON REASONS TO SEEK ADDL CARE HAPPY THANKSGIVING! Coding Level of Care Code Est Pt Level 3 (56399) Diagnoses Chronic pansinusitis J32.4 Sinusitis location: pansinusitis
== END 2023-02-11 11:21 | disposition home or self-care (01) ==
PROVIDERS: PCP Nurse Practitioner Family; Visit Provider Nurse Practitioner Family
DX: J32.4 Chronic pansinusitis (principal)
CPT/HCPCS: 99213

== ENCOUNTER 2023-03-06 11:03 | Outpatient (AMB) | payer MEDICARE, SELFPAY ==
--- NOTE | 2023-03-06 11:08 | MHC.OFFVIS ---
Intake Vital Signs 03/06/23 11:14 Height 5 ft 1 in Weight 127 lb BMI 24.0 BP 107/50 L Blood Pressure Location Lt brachial Position Sitting Pulse 59 Intake Visit Reasons: Ulcer of esophagus without bleeding Intake Note: Patient new consult Ulcer of Esophagus without bleeding. Patient cc: abdominal bloating, acid reflex with burning sensation, swallowing with solid and liquid, and constipation. Also no appetite and loosing weight. Foot Worker Required: No Accompanied by: Self / Same As Patient Allergies Sulfa (Sulfonamide Antibiotics) Allergy (Unknown, Verified 03/06/23 11:07) Hives HPI Ulcer of esophagus without bleeding HPI Details 67 yr old f here for assessment she feels well she does get pins and needles around her tongue and citalopram helps she gets awful heartburn she takes pantoprazole bid but she feels it makes her worse she has had dysphagia for years, she has had balloon dilation many years ago she has had manometry testing at [facility] she has nausea and regurgitation she has IBS and has diarrhea usually, now recently more constipated last colonoscopy few yrs ago was normal Medical History Paresthesias Pulmonary nodule Ground glass opacity present on imaging of lung Diffuse cystic mastopathy of breast Mixed incontinence urge and stress Kidney cyst Esophageal ulcer Hiatal hernia Elevated alkaline phosphatase level Kidney stones Leukopenia Barretts esophagus GERD (gastroesophageal reflux disease) Achalasia and cardiospasm Hypercholesteremia Stable angina Family History Brother Substance use disorder Progressive supranuclear palsy Mother Progressive supranuclear palsy Social History Housing: House Alcohol intake: current Alcohol intake frequency: a few times a month Patient Tobacco Use Status: Former Tobacco user Quit Date: 25 years ago e-Cigarette/Vaping Use: Never Used Second Hand Smoke Exposure: No ROS: Constitutional : No Weight loss, No Fever, No Chills ENT/Mouth : No sore throat, No Rhinorrhea Eyes: No Swelling, No Redness Cardiovascular : No Chest Pain, No SOB, No Edema Respiratory : No Cough, No Sputum, No Wheezing Gastrointestinal : see HPI Genitourinary : NO Dysuria, No Urinary Frequency, No Hematuria, No Urgency Musculoskeletal : No joint pain, No Myalgias, No Joint Swelling Skin : No Skin Lesions, No rash Neuro : No Weakness, No Numbness, No Dizziness, No Headache Psych : No Anxiety/Panic, No Depression Heme/Lymph: No Bruising, No Lymphadenopathy Endocrine : No Polyuria, No Polydipsia All other systems reviewed and are negative. EXAM: GENERAL: The patient is well developed and nontoxic. VITAL SIGNS:see workflow HEENT: Nonicteric sclerae, PERRLA, EOMI. Oropharynx clear. Moist mucous membranes. Conjunctivae appear well perfused. No thyroid mass. CHEST: Chest wall is nontender. HEART: Regular rate and rhythm without murmurs. LUNGS: Clear to auscultation bilaterally. ABDOMEN: Soft, positive bowel sounds, nontender, no organomegaly.no flank tenderness SKIN: No rash, no excessive bruising, petechiae, or purpura. NEUROLOGIC: Cranial nerves II-XII intact without motor/sensory deficit. Psych: nml affect A/P: 1/ uncontrolled GERD, likely causing dysphagia, and sinusitis --also hx of barretts PLAN: 1/ EGD with WATS and dilation 2/ change to nexium for better effect 3/ if ongoing sx then GES, can also consider [facility] Medical History (Updated 02/11/23 @ 11:09 by Kylie Vázquez, [facility]) Paresthesias Pulmonary nodule Ground glass opacity present on imaging of lung Diffuse cystic mastopathy of breast Mixed incontinence urge and stress Kidney cyst Esophageal ulcer Hiatal hernia Elevated alkaline phosphatase level Kidney stones Leukopenia Barretts esophagus GERD (gastroesophageal reflux disease) Achalasia and cardiospasm Hypercholesteremia Stable angina Surgical History (Updated 03/06/23 @ 11:14 by Sneha Rutherford) Hx of colonoscopy History of esophagogastroduodenoscopy (EGD) Family History Brother Substance use disorder Progressive supranuclear palsy Mother Progressive supranuclear palsy Social History Housing: House Alcohol intake: current Alcohol intake frequency: a few times a month Patient Tobacco Use Status: Former Tobacco user Quit Date: 25 years ago e-Cigarette/Vaping Use: Never Used Second Hand Smoke Exposure: No service: No Current occupational status: employed Current occupation: [employer] Current occupational exposures/hazards: No Cognitive needs: No Hearing needs: No Vision needs: No Physical Exam Vital Signs: Last Vital Signs Pulse 59 03/06/23 11:14 BP 107/50 L 03/06/23 11:14 BMI result Body Mass Index 24.0 Assessment & Plan Assessment & Plan (1) Barretts esophagus: Code(s): K22.70 - Moraes's esophagus without dysplasia Plan: A/P: 1/ uncontrolled GERD, likely causing dysphagia, and sinusitis --also hx of barretts PLAN: 1/ EGD with WATS and dilation 2/ change to nexium for better effect 3/ if ongoing sx then GES, can also consider [facility] Medications: New esomeprazole magnesium (Nexium 24HR) 20 mg PO BID 90 tabs 2RF Discontinued pantoprazole Discontinued Reason: Doctor's Order 40 mg PO BID 90 days 180 tabs 1RF Coding Level of Care Code New Pt Level 4 (70633) Diagnoses Barretts esophagus K22.70
[2023-03-06 11:14] VITALS: BP 107/50; PULSE 59; BMI 24.0
== END 2023-03-06 13:06 | disposition home or self-care (01) ==
PROVIDERS: PCP Nurse Practitioner Family; Visit Provider Internal Medicine Gastroenterology
DX: K22.70 Barrett's esophagus without dysplasia (principal)
CPT/HCPCS: 99204

== ENCOUNTER → 2023-03-06 11:03 | Outpatient (BNVA) | payer MEDICARE, SELFPAY | PROVIDERS: PCP Nurse Practitioner Family; Visit Provider Internal Medicine Gastroenterology | DX: K22.70 Barrett's esophagus without dysplasia (principal) | CPT/HCPCS: 99202 ==

== ENCOUNTER 2023-03-31 15:07 | Outpatient (REF) | payer MEDICARE, SELFPAY | END 2023-03-31 15:08 | disposition home or self-care (01) | LOC: HO.MAMMO 15:07 | PROVIDERS: PCP Nurse Practitioner Family; Visit Provider Nurse Practitioner Family | DX: Z12.31 Encounter for screening mammogram for malignant neoplasm of breast (principal) | CPT/HCPCS: 77063; 77067 ==

== ENCOUNTER → 2023-03-31 15:30 | Outpatient (BNV) | payer MEDICARE, SELFPAY | PROVIDERS: PCP Nurse Practitioner Family; Visit Provider Radiology Diagnostic Radiology | DX: Z12.31 Encounter for screening mammogram for malignant neoplasm of breast (principal) | CPT/HCPCS: 77063; 77067 ==

== ENCOUNTER 2023-04-11 09:05 | Outpatient (AMB) | payer MEDICARE, SELFPAY ==
--- NOTE | 2023-04-11 09:07 | AM.OFFWIN_ITS ---
Intake Vital Signs 04/11/23 09:08 Height 5 ft 1 in Weight 127 lb BMI 24.0 BP 102/70 Blood Pressure Location Rt brachial Position Sitting Pulse 65 Pulse Source Pulse Oximeter Temp 97.7 F Temp Source Oral Pulse Oximetry (%) 98 Intake Visit Reasons: EST/left eye irritation/lobby (lobby) Intake Note: pt is here for c.o left eye irritation Patient Tobacco Use Status: Former Tobacco user Quit Date: 25 years ago Allergies Sulfa (Sulfonamide Antibiotics) Allergy (Unknown, Verified 04/11/23 09:14) Hives Medication List - Last Reconciled 04/11/23 by Emily Padilla CNP atorvastatin 10 mg PO BEDTIME calcium carbonate-vitamin D3 600 mg-10 mcg (400 unit) (Calcium with Vitamin D) 1 tab PO BID 30 days citalopram 20 mg PO DAILY 90 days esomeprazole magnesium (Nexium 24HR) 20 mg PO BID Do you need a note to return to daycare/school/sports/work: Yes HPI HPI Comments History of Present Illness Details 68-year-old female presents today to [facility] with complaint of left eye irritation, woke up this morning with new onset symptoms; mucousy discharge, irritation, redness, swelling and left eye lid stuck shut w/ yellowish crust. She does endorse having a cold x 1 week, w/ sinus pressure, congestion, sore throat that comes and goes, and dry cough. She tested negative for home covid test yesterday and 04/06/23. She denies fever, chills, general body aches, CP, SOB, abdominal pain, nausea, vomiting, diarrhea or changes in bladder. She does have a hx of frequent sinus infections, and has an upcoming left hip surgery scheduled on 05/07/23. [facility] Medical History Paresthesias Pulmonary nodule Ground glass opacity present on imaging of lung Diffuse cystic mastopathy of breast Mixed incontinence urge and stress Kidney cyst Esophageal ulcer Hiatal hernia Elevated alkaline phosphatase level Kidney stones Leukopenia Barretts esophagus GERD (gastroesophageal reflux disease) Achalasia and cardiospasm Hypercholesteremia Stable angina Surgical History (Updated 03/06/23 @ 11:14 by Sneha Rutherford) Hx of colonoscopy History of esophagogastroduodenoscopy (EGD) Family History Brother Substance use disorder Progressive supranuclear palsy Mother Progressive supranuclear palsy Social History Housing: House Alcohol intake: current Alcohol intake frequency: a few times a month Patient Tobacco Use Status: Former Tobacco user Quit Date: 25 years ago e-Cigarette/Vaping Use: Never Used Second Hand Smoke Exposure: No service: No Current occupational status: employed Current occupation: [employer] Current occupational exposures/hazards: No Cognitive needs: No Hearing needs: No Vision needs: No Review of Systems Const All systems reviewed & are unremarkable except as noted in HPI and below Reports as per HPI Eyes Reports as per HPI ENT Reports no additional complaints Card Reports as per HPI Resp Reports as per HPI GI Reports as per HPI Reports no additional complaints Musc Reports no additional complaints Skin/Breast Reports system reviewed and no additional complaints, except as documented Neuro Reports no additional complaints Aller/Immun Reports no additional complaints Physical Exam Vital Signs: Last Vital Signs Temp 97.7 F 04/11/23 09:08 Pulse 65 04/11/23 09:08 BP 102/70 04/11/23 09:08 Pulse Ox 98 04/11/23 09:08 BMI result Body Mass Index 24.0 Const General: healthy appearing, no acute distress and well developed Nutritional Appearance: average body habitus Orientation/consciousness: patient oriented x3 Limitations: no limitations HEENT Head: Yes normal to inspection, Yes normocephalic and Yes atraumatic Ears: hearing grossly normal bilaterally and TM's normal bilaterally General nose exam: Normal nasal mucous membranes and turbinates present Face and sinus: Yes sinus tenderness Mouth: moist mucous membranes Throat: Yes tonsils normal, Yes uvula midline and Yes other (pharyngeal slightly erythematous ) Eyes Eyelids: Yes eyelid abnormality (left eyelid edema) Conjunctivae: conjunctival abnormal left conjunctival injection and discharge purulent Sclerae: sclerae normal Corneas: corneas normal Neck Neck: Yes normal visual inspection Lymphatic: lymphedema (left cervical) Chest Chest palpation & inspection: normal inspection of the chest and no crepitus Resp Effort & Inspection: normal respiratory effort, Actively coughing Quality: dry, no respiratory distress and not tachypneic Auscultation: clear to auscultation bilaterally, no rales, no rhonchi and no wheezes Cardio Rate: regular rate Rhythm: regular rhythm Heart sounds: S1 normal heart sound present and S2 normal heart sound present Peripheral pulses: Peripheral pulses 2+ throughout GI Inspection: Yes normal to inspection Palpation (GI): Soft to palpation and nontender Auscultation: normal bowel sounds General: Yes no CVA tenderness Back/Spine/Pelvis Back: no CVA tenderness Skin General skin exam: no rashes or lesions noted and turgor normal Neuro General: patient oriented x3, gait normal, moves all extremities and no focal motor deficits Extrem General: Yes normal to inspection, Yes capillary refill normal and Yes no clubbing, cyanosis or edema Psych Appearance: well kempt Mental Status: mental status grossly normal Affect: normal affect Assessment & Plan Assessment & Plan (1) Conjunctivitis due to adenovirus, left eye: Code(s): B30.1 - Conjunctivitis due to adenovirus Plan: 68-year-old female seen today in walk-in clinic for complaint of left eye irritation, woke up this morning with new onset symptoms; mucousy discharge, irritation, redness, swelling and left eye lid stuck shut w/ yellowish crust. She does endorse having a cold x 1 week, w/ sinus pressure, congestion, sore throat that comes and goes, and dry cough.?Upon physical examination patient w/ + left eyelid edema,purulent discharge at the lid margins and in the corners of the eye. ? Most likely Viral is nature as conjunctivitis is typically caused by adenovirus,and may be part of a viral prodrome, which patient does admit to having cold like symptoms x 1 week. ? Will treat with Erythromycin Ophthalmic ointment to eye lid bid. Encouraged to wash her hands frequently, keep hands out of eye, and warm compress soaks to left eyelid. (2) Upper respiratory infection: Code(s): J06.9 - Acute upper respiratory infection, unspecified Qualifiers: Pharyngitis/tonsillitis etiology: unspecified etiology URI type: acute pharyngitis Qualified Code(s): J02.9 - Acute pharyngitis, unspecified Plan: Will also treat upper respiratory infection w/ Z-pack, 2 tabs po today, followed by 1 tab po qd x 4 days. Encouraged to take with food to reduce GI upset. Drink plenty of fluids, and get plenty of rest. Return to clinic with unresolved or worsening symptoms Medications: New erythromycin 0.5 inches ophthalmic (eye) BID 3.5 grams 0RF B30.1 - Conjunctivitis due to adenovirus azithromycin For 250 mg dose pack: take 500 mg today (day 1), then 250 mg for 4 days (days 2-5) PO 6 tabs 0RF J06.9 - Acute upper respiratory infection, unspecified Coding Level of Care Code Est Pt Level 3 (34363) Diagnoses Conjunctivitis due to adenovirus, left eye B30.1 Acute pharyngitis, unspecified etiology J02.9 Pharyngitis/tonsillitis etiology: unspecified etiology URI type: acute pharyngitis
[2023-04-11 09:08] VITALS: BP 102/70; PULSE 65; TEMP 36.5; O2SAT 98; BMI 24.0
== END 2023-04-11 09:27 | disposition home or self-care (01) ==
PROVIDERS: PCP Nurse Practitioner Family; Visit Provider Nurse Practitioner Acute Care
DX: B30.1 Conjunctivitis due to adenovirus (principal); J02.9 Acute pharyngitis, unspecified
CPT/HCPCS: 99213

== ENCOUNTER 2023-04-13 08:03 | Outpatient (AMB) | payer MEDICARE, SELFPAY ==
[2023-04-13 08:07] VITALS: BP 102/70; PULSE 82; TEMP 36.8; O2SAT 98; BMI 24.0
--- NOTE | 2023-04-13 08:07 | AM.OFFWIN_ITS ---
Intake Vital Signs 04/13/23 08:07 Height 5 ft 1 in Weight 127 lb BMI 24.0 BP 102/70 Blood Pressure Location Lt brachial Position Sitting Pulse 82 Pulse Source Pulse Oximeter Temp 98.2 F Temp Source Oral Pulse Oximetry (%) 98 Oxygen Delivery Method Room Air Intake Visit Reasons: EP [place] eye Intake Note: pt is here for c.o pink eye medication causing more redness and irritation, erythromycin eye ointment Patient Tobacco Use Status: Former Tobacco user Quit Date: 25 years ago Allergies Sulfa (Sulfonamide Antibiotics) Allergy (Unknown, Verified 04/13/23 08:11) Hives Do you need a note to return to daycare/school/sports/work: No HPI HPI Comments History of Present Illness Details Patient presents to the walkin today with complaints of left eye irritation X 2 days She was here on Thursday, diagnosed with pink eye and sinus infection. Prescribed erythromycin ointment which she has been using. Reports no improvement in symptoms but states the ointment makes the eye more red and irritated. She denies change in vision, pain with EOM, headaches or feeling of FB in the eye. She has been taking azithromycin as prescribed on Thursday as well. [facility] Medical History Paresthesias Pulmonary nodule Ground glass opacity present on imaging of lung Diffuse cystic mastopathy of breast Mixed incontinence urge and stress Kidney cyst Esophageal ulcer Hiatal hernia Elevated alkaline phosphatase level Kidney stones Leukopenia Barretts esophagus GERD (gastroesophageal reflux disease) Achalasia and cardiospasm Hypercholesteremia Stable angina Surgical History Hx of colonoscopy History of esophagogastroduodenoscopy (EGD) Family History Brother Substance use disorder Progressive supranuclear palsy Mother Progressive supranuclear palsy Social History Housing: House Alcohol intake: current Alcohol intake frequency: a few times a month Patient Tobacco Use Status: Former Tobacco user Quit Date: 25 years ago e-Cigarette/Vaping Use: Never Used Second Hand Smoke Exposure: No service: No Current occupational status: employed Current occupation: [employer] Current occupational exposures/hazards: No Cognitive needs: No Hearing needs: No Vision needs: No Review of Systems Const All systems reviewed & are unremarkable except as noted in HPI and below Physical Exam Vital Signs: Last Vital Signs Temp 98.2 F 04/13/23 08:07 Pulse 82 04/13/23 08:07 BP 102/70 04/13/23 08:07 Pulse Ox 98 04/13/23 08:07 Oxygen Delivery Method Room Air 04/13/23 08:07 BMI result Body Mass Index 24.0 General: awake, alert, oriented. Answers questions appropriately. Fully engaged in examination. Skin: warm, dry, intact HEENT: Normocephalic. Hearing intact. left eye: + mucoid discharge, conjunctival injection. EOM intact. PERRL Cardiac: External chest normal in appearance. Respiratory: No cough, audible wheezing or stridor. Abdomen: without gross distension. MS: No obvious swelling or deformities. Neurological: Oriented to person, place, time and situation. Thought process intact. Psychiatric: Appropriate mood and affect. Good judgment and insight. Assessment & Plan Assessment & Plan (1) Conjunctivitis, left eye: Code(s): H10.9 - Unspecified conjunctivitis Plan Patient reassured that most likely viral conjunctivitis and will resolve with the cold symptoms. Continue with proper hand hygiene and avoid cross contamination with right eye. D/C erythromycin as this is causing worsening irritation ofloxacin 0.3% 1 drp ophthalmic (eye) QID Follow up with pcp or return to walkin as needed. Medications: New ofloxacin 0.3% 1 drp ophthalmic (eye) QID 5 mL 0RF Coding Level of Care Code Est Pt Level 4 (27335) Diagnoses Conjunctivitis, left eye H10.9
== END 2023-04-13 08:46 | disposition home or self-care (01) ==
PROVIDERS: PCP Nurse Practitioner Family; Visit Provider Registered Nurse Emergency
DX: H10.9 Unspecified conjunctivitis (principal)
CPT/HCPCS: 99213

== ENCOUNTER 2023-05-25 12:48 | Outpatient (AMB) | payer MEDICARE, SELFPAY ==
[2023-05-25 12:54] VITALS: BP 110/62; PULSE 64; O2SAT 98; BMI 24.9
--- NOTE | 2023-05-25 12:54 | MHC.PC.OV ---
Vital Signs 05/25/23 12:54 Height 5 ft 1 in Weight 132 lb BMI 24.9 BP 110/62 Blood Pressure Location Rt brachial Position Sitting Pulse 64 Pulse Source Pulse Oximeter Pulse Oximetry (%) 98 Oxygen Delivery Method Room Air Intake Visit Reasons: 3 month follow up Intake Note: Pt is here to follow up for her High Choles Allergies Sulfa (Sulfonamide Antibiotics) Allergy (Unknown, Verified 05/25/23 12:57) Hives Tobacco use date assessed: 05/25/23 Fall risk assessment: No Falls in past year Last assessed Fall Risk: 05/25/23 Dental Screening Dental Screen Date: 05/25/23 Did you have a dental visit in the last 12 months?: Yes Did you have a dental problem in the last 6 months where you did not have access to dental care?: No Was dental information given to patient?: Patient has dentist HPI 3 month follow up HPI Details Pt underwent a left total hip on May 04. Pt is still going to PT. She reports doing well. Dyslipidemia: On atorvastatin 10mg. Will order labs. Hx of leukopenia, will order labs. Denies fever, chills, chest pain, shortness of breath, and dizziness. [facility] Medical History Paresthesias Pulmonary nodule Ground glass opacity present on imaging of lung Diffuse cystic mastopathy of breast Mixed incontinence urge and stress Kidney cyst Esophageal ulcer Hiatal hernia Elevated alkaline phosphatase level Kidney stones Leukopenia Barretts esophagus GERD (gastroesophageal reflux disease) Achalasia and cardiospasm Hypercholesteremia Stable angina Surgical History (Updated 05/25/23 @ 13:07 by AUGIE Wooten) S/P total left hip arthroplasty Hx of colonoscopy History of esophagogastroduodenoscopy (EGD) Family History Brother Substance use disorder Progressive supranuclear palsy Mother Progressive supranuclear palsy Social History Housing: House Alcohol intake: current Alcohol intake frequency: a few times a month Patient Tobacco Use Status: Former Tobacco user Quit Date: 25 years ago e-Cigarette/Vaping Use: Never Used Second Hand Smoke Exposure: No service: No Current occupational status: employed Current occupation: [employer] Current occupational exposures/hazards: No Cognitive needs: No Hearing needs: No Vision needs: No Questionnaire Thrive Questionnaire Date Thrive assessed: 01/22/22 AUDIT C Alcohol Use Questionnaire (AUDIT-C) 1. How often do you have a drink containing alcohol?: Monthly or less 2. How many drinks containing alcohol do you have on a typical day when you are drinking?: 1 or 2 3. How often do you have six or more drinks on one occasion?: Never Total Score: 1 GENNA-7 AMB Questionnaire GENNA-7 Date GENNA - 7 assessed: 01/22/22 Feeling nervous, anxious, or on edge: 0 = Not at all Not being able to stop or control worryin = Not at all Worrying too much about different things: 0 = Not at all Trouble relaxin = Several days Being so restless that it is hard to sit still: 0 = Not at all Becoming easily annoyed or irritable: 0 = Not at all Feeling afraid as if something awful might happen: 0 = Not at all Total GENNA-7 score (0-4 normal; 5-9 mild; 10-14 moderate; 15-21 severe): 1 Source: Developed by Drs. Donovan Beck, Zohreh Desir, Kaveh Hernandez and colleagues, with an educational aruna from [employer]. Review of Systems Const Reports as per HPI Physical exam (Primary Care) Vital Signs: Last Vital Signs Pulse 64 05/25/23 12:54 BP 110/62 05/25/23 12:54 Pulse Ox 98 05/25/23 12:54 Oxygen Delivery Method Room Air 05/25/23 12:54 BMI result Body Mass Index 24.9 Tobacco/Smoking Status: Tobacco use Status Tobacco use date assessed 05/25/23 05/25/23 13:01 Patient Tobacco Use Status Former Tobacco user 05/25/23 12:54 e-Cigarette/Vaping Use Never Used 05/25/23 12:54 Thrive Assessment: Date of Thrive Assessment Date Thrive assessed 01/22/22 05/25/23 12:54 Const General: cooperative, healthy appearing, comfortable and no acute distress Orientation/consciousness: patient oriented x3 Resp Effort & Inspection: normal respiratory effort Auscultation: clear to auscultation bilaterally Cardio Rate: regular rate Rhythm: regular rhythm Heart sounds: S1 normal heart sound present, S2 normal heart sound present and no murmurs Skin Other: + DP pulse to LLE. left anterior hip incision with scabbing, faint erythema up proximal aspect. Minimal tenderness with touch. No signs of infection. Neuro Other: + patellar reflexes bilat General: patient oriented x3 Psych Appearance: grossly normal Mental Status: mental status grossly normal Speech and movement: Normal speech and movement present Affect: normal affect Attitude: cooperative Thought process: Normal thought process present Thought content: Normal thought content present Insight: Good insight present (Psych) Judgement: Good judgement present (Psych) Assessment and Plan Assessment & Plan (1) S/P total left hip arthroplasty: Comment: apr 2023 Code(s): Z96.642 - Presence of left artificial hip joint Plan: incision without signs of infection, continue PT. (2) Leukopenia: Code(s): D72.819 - Decreased white blood cell count, unspecified Plan: Labs ordered Plan The patient agreed to the use of a medical imaging director for this encounter. Scribed for VALENTINA Dean- by Tatiana Dalton medical imaging director, on 05/25/2023 at 13:05 EST. Orders: Orders Complete Blood Count Auto Diff Today Z96.642 - Presence of left artificial hip joint TSH reflex Free T4 Today Z96.642 - Presence of left artificial hip joint UA CC w/rflx Micro + Cult Today Z96.642 - Presence of left artificial hip joint Vitamin D 25-OH Total Today Z96.642 - Presence of left artificial hip joint Comprehensive Met. Panel Today Z96.642 - Presence of left artificial hip joint Lipid Panel Today D72.819 - Decreased white blood cell count, unspecified, E78.00 - Pure hypercholesterolemia, unspecified Coding Level of Care Code Est Pt Level 3 (43718) Diagnoses S/P total left hip arthroplasty Z96.642 Leukopenia D72.819
== END 2023-05-25 13:21 | disposition home or self-care (01) ==
PROVIDERS: PCP Nurse Practitioner Family; Visit Provider Nurse Practitioner Family
DX: Z96.642 Presence of left artificial hip joint (principal); D72.819 Decreased white blood cell count, unspecified
CPT/HCPCS: 99213

== ENCOUNTER 2023-06-02 08:02 | Outpatient (AMB) | payer MEDICARE, SELFPAY ==
[2023-06-02 08:18] VITALS: BP 100/62; PULSE 78; TEMP 36.8; O2SAT 98
--- NOTE | 2023-06-02 08:18 | AM.OFFWIN_ITS ---
Intake Vital Signs 06/02/23 08:18 Height 5 ft 1 in BP 100/62 Blood Pressure Location Lt brachial Position Sitting Pulse 78 Pulse Source Pulse Oximeter Temp 98.2 F Temp Source Oral Pulse Oximetry (%) 98 Oxygen Delivery Method Room Air Intake Visit Reasons: EP ?Sinus infection (masked) Intake Note: pt is here for sinus pain and congestion for the past 5 days pt says her teeth hurt as well pt says she just had a hip replacement and was told she need to be placed on antibiotics Patient Tobacco Use Status: Former Tobacco user Quit Date: 25 years ago Allergies Sulfa (Sulfonamide Antibiotics) Allergy (Unknown, Verified 06/02/23 08:21) Hives HPI HPI Comments History of Present Illness Details Patient is a 68-year-old female in for a sick visit. She has a past medical history significant for esophageal ulcers, chronic sinusitis, GERD. Patient states that she has developed symptoms of sinus tenderness, and headache x5 days. She states that the symptoms feel similar to sinus infection she has had in the past. Denies fever, chest pain, numbness, dizziness, nausea, vomiting, diarrhea. Will give azithromycin. Patient has been educated on the signs of worsening symptoms when to report back to the walk-in or when to present to the ED. [facility] Medical History (Updated 06/02/23 @ 08:38 by VALENTINA Walton) Paresthesias Pulmonary nodule Ground glass opacity present on imaging of lung Diffuse cystic mastopathy of breast Mixed incontinence urge and stress Kidney cyst Esophageal ulcer Hiatal hernia Elevated alkaline phosphatase level Kidney stones Leukopenia Barretts esophagus GERD (gastroesophageal reflux disease) Achalasia and cardiospasm Hypercholesteremia Stable angina Surgical History (Updated 05/25/23 @ 13:07 by VALENTINA Wooten-BROWN) S/P total left hip arthroplasty Hx of colonoscopy History of esophagogastroduodenoscopy (EGD) Family History Brother Substance use disorder Progressive supranuclear palsy Mother Progressive supranuclear palsy Social History Housing: House Alcohol intake: current Alcohol intake frequency: a few times a month Patient Tobacco Use Status: Former Tobacco user Quit Date: 25 years ago e-Cigarette/Vaping Use: Never Used Second Hand Smoke Exposure: No service: No Current occupational status: employed Current occupation: [employer] Current occupational exposures/hazards: No Cognitive needs: No Hearing needs: No Vision needs: No Review of Systems Const All systems reviewed & are unremarkable except as noted in HPI and below Reports headache(s) Eyes Denies change in vision and Denies eye discharge ENT Denies dizziness, Denies otalgia, Reports headache(s), Reports sinus pain and Re ports sinus pressure Neuro Denies dizziness and Reports headache(s) Physical Exam Vital Signs: Last Vital Signs Temp 98.2 F 06/02/23 08:18 Pulse 78 06/02/23 08:18 BP 100/62 06/02/23 08:18 Pulse Ox 98 06/02/23 08:18 Oxygen Delivery Method Room Air 06/02/23 08:18 Vital signs reviewed stable Const Other: Appearance: Alert.? Oriented X3.? No acute distress.? Head: Normocephalic, atraumatic, Eyes: Pupils equal, round and reactive to light.? ENT: Pharynx normal.?+ sinus tenderness, TM intact and pearly vu. Neck: Normal inspection.? Neck supple.? CVS: Normal heart rate and rhythm.? Pulses normal.? Respiratory: No respiratory distress.? Breath sounds normal.? Skin: Skin warm and dry.? Normal skin color.? Normal skin turgor.? Neuro: Oriented X 3.? No motor deficit.? No sensory deficit. CN 2-12 intact Assessment & Plan Assessment & Plan (1) Sinusitis: Comment: Will give patient azithromycin to be taken as directed. Code(s): J32.9 - Chronic sinusitis, unspecified Qualifiers: Chronicity: unspecified Sinusitis location: other Qualified Code(s): J32.9 - Chronic sinusitis, unspecified Plan: Take your medications as prescribed. If you were prescribed antibiotics today, it is important that you take your medication to their entirety, do not skip any doses, do not finish them early. Follow-up with your primary care provider this week. Return to the emergency department with new or worsening symptoms. Such as fevers, chills, chest pain, shortness of breath, nausea, vomiting, dizziness, headache, vision changes, lethargy In case of emergency call 911 Plan Follow-up with PCP. Orders: Orders SARS-CoV2/FLU/RSV Today J06.9 - Acute upper respiratory infection, unspecified Coding Level of Care Code Est Pt Level 3 (82010) Diagnoses Other sinusitis, unspecified chronicity J32.9 Chronicity: unspecified Sinusitis location: other Time Spent (min) 23
== END 2023-06-02 10:08 | disposition home or self-care (01) ==
PROVIDERS: PCP Nurse Practitioner Family; Visit Provider Nurse Practitioner Primary Care
DX: J32.9 Chronic sinusitis, unspecified (principal)
CPT/HCPCS: 99213

== ENCOUNTER 2023-06-02 12:12 | Outpatient (REF) | payer MEDICARE, SELFPAY ==
[2023-06-02 13:29] LABS: Influenza A PCR NEGATIVE (Negative); Influenza B PCR NEGATIVE (Negative); Resp Syncy Virus RNA Qual PCR NEGATIVE (Negative); SARS COV2 PCR INHOUSE NEGATIVE (Negative)
== END 2023-06-02 12:13 | disposition home or self-care (01) ==
LOC: HO.LNP 12:12
PROVIDERS: Visit Provider Nurse Practitioner Primary Care
DX: J06.9 Acute upper respiratory infection, unspecified (principal); Z11.52 Encounter for screening for COVID-19
CPT/HCPCS: 0241U

== ENCOUNTER 2023-09-14 14:26 | Outpatient (AMB) | payer MEDICARE, SELFPAY ==
[2023-09-14 14:28] VITALS: BP 102/66; PULSE 68; TEMP 36.2; O2SAT 95
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
== END 2023-09-14 15:05 | disposition home or self-care (01) ==
PROVIDERS: PCP Nurse Practitioner Family; Visit Provider Nurse Practitioner Family
DX: T63.45 Toxic effect of venom of hornets (principal)
CPT/HCPCS: 99213

== ENCOUNTER 2023-10-13 14:04 | Outpatient (REF) | payer MEDICARE, SELFPAY ==
--- NOTE | ~2023-10-13 | XR_ITS ---
EXAMINATION: XR CHEST CLINICAL INFORMATION: Chest pain. COMPARISON: 05/09/2020. TECHNIQUE: 2 views of the chest were obtained. FINDINGS: Three (3) surgical anchors in the right humeral head characteristic of rotator cuff surgery and widening of the right acromioclavicular joint redemonstrated. There is no gross pneumothorax. Lungs are well-inflated. S-shaped thoracolumbar scoliosis with multilevel degenerative changes. Heart size within normal limits. No pleural effusion. Mild anterior wedging, of the lower thoracic vertebral body of indeterminate age. XR/XR chest 2V IMPRESSION: No focal consolidation. This study was presented today October 28, 2023 for interpretation. Stat results provided at this time as requested by referring provider.
--- NOTE | 2023-10-13 14:08 | ECG_ITS ---
Test Reason : CP Blood Pressure : / mmHG Vent. Rate : 074 BPM Atrial Rate : 074 BPM P-R Int : 130 ms QRS Dur : 074 ms QT Int : 404 ms P-R-T Axes : 033 069 067 degrees QTc Int : 448 ms Artifact in tracing Normal sinus rhythm Normal EKG When compared with ECG of 09-MAY-2020 14:30, No significant changes seen Referred By: Glen Gusman Electronically Signed By:UBALDO LADD
== END 2023-10-13 14:05 | disposition home or self-care (01) ==
LOC: HO.XRAY 14:04
PROVIDERS: PCP Nurse Practitioner Family; Visit Provider Nurse Practitioner Family
DX: R07.89 Other chest pain (principal)
CPT/HCPCS: 71046; 93005

== ENCOUNTER → 2023-10-13 14:08 | Outpatient (BNV) | payer MEDICARE, SELFPAY | PROVIDERS: PCP Nurse Practitioner Family; Visit Provider Internal Medicine | DX: R07.9 Chest pain, unspecified (principal) | CPT/HCPCS: 93010 ==

== ENCOUNTER 2023-10-29 10:22 | Day surgery (SDC) | payer MEDICARE, SELFPAY ==
--- NOTE | 2023-04-27 09:57 | P.CONAN_ITS ---
HPI - Anesthesia Eval Consult details Narrative: 68yo F for Upper Endoscopy with WATS and Dilation [facility] Active Problems Active Problems: All Active Problems (Updated 04/13/23 @ 08:55 by Chacha Garrison APRN, KANNNA) Conjunctivitis, left eye (Acute) Upper respiratory infection (Acute) Conjunctivitis due to adenovirus, left eye (Acute) DDD (degenerative disc disease), cervical (Acute) Chronic sinusitis (Acute) Esophageal ulcer (Acute) Barretts esophagus (Acute) Cervical pain (neck) (Acute) Lymphadenopathy (Acute) Arthritis of left hip (Acute) Strep pharyngitis (Acute) Leukopenia (Acute) Hypercholesteremia (Acute) Postmenopausal (Acute) Physical exam (Acute) Past Medical History Medical History Paresthesias Pulmonary nodule Ground glass opacity present on imaging of lung Diffuse cystic mastopathy of breast Mixed incontinence urge and stress Kidney cyst Esophageal ulcer Hiatal hernia Elevated alkaline phosphatase level Kidney stones Leukopenia Barretts esophagus GERD (gastroesophageal reflux disease) Achalasia and cardiospasm Hypercholesteremia Stable angina Family History Family History Brother Substance use disorder Progressive supranuclear palsy Mother Progressive supranuclear palsy Surgical History Surgical History Hx of colonoscopy History of esophagogastroduodenoscopy (EGD) Social History Social History Housing: House Alcohol intake: current Alcohol intake frequency: a few times a month Patient Tobacco Use Status: Former Tobacco user Quit Date: 25 years ago e-Cigarette/Vaping Use: Never Used Second Hand Smoke Exposure: No service: No Current occupational status: employed Current occupation: [employer] Current occupational exposures/hazards: No Cognitive needs: No Hearing needs: No Vision needs: No Meds Allergies Allergy/AdvReac Type Severity Reaction Status Date / Time Sulfa (Sulfonamide Allergy Unknown Hives Verified 04/13/23 08:11 Antibiotics) Exam Pertinent Lab Results Pertinent Lab Results: Laboratory Tests 10/25/22 07:11 WBC 4.3 L Hgb 13.6 Hct 40.5 Plt Count 218 Sodium 141 Potassium 4.3 Chloride 105 Carbon Dioxide 26 BUN 14 Creatinine 0.78 Assessment and Plan Assessment Anesthesia Assessment: Chart Reviewed
[2023-10-28 06:54] VITALS: BMI 24.9
--- NOTE | 2023-10-28 12:10 | P.CONAN_ITS ---
Documented by User: Dorothy Deshpande NP 10/28/23 12:14 HPI - Anesthesia Eval Consult details Narrative: 68yo F for Upper Endoscopy with WATS and Dilation Recent outpatient EKG and CXR neg (ordered by pcp d/t pt c/o atypical CP) - pt thinks d/t issues with esophagus PMFSH Active Problems Active Problems: All Active Problems Chest discomfort (Acute) Screening for colon cancer (Acute) Sinusitis (Acute) S/P total left hip arthroplasty (Acute) Conjunctivitis, left eye (Acute) Upper respiratory infection (Acute) Conjunctivitis due to adenovirus, left eye (Acute) DDD (degenerative disc disease), cervical (Acute) Chronic sinusitis (Acute) Esophageal ulcer (Acute) Barretts esophagus (Acute) Cervical pain (neck) (Acute) Lymphadenopathy (Acute) Arthritis of left hip (Acute) Strep pharyngitis (Acute) Leukopenia (Acute) Hypercholesteremia (Acute) Postmenopausal (Acute) Physical exam (Acute) Past Medical History Medical History Paresthesias Pulmonary nodule Ground glass opacity present on imaging of lung Diffuse cystic mastopathy of breast Mixed incontinence urge and stress Kidney cyst Esophageal ulcer Hiatal hernia Elevated alkaline phosphatase level Kidney stones Leukopenia Barretts esophagus GERD (gastroesophageal reflux disease) Achalasia and cardiospasm Hypercholesteremia Stable angina Family History Family History Brother Substance use disorder Progressive supranuclear palsy Mother Progressive supranuclear palsy Surgical History Surgical History S/P total left hip arthroplasty Hx of colonoscopy History of esophagogastroduodenoscopy (EGD) Social History Social History Housing: House Alcohol intake: current Alcohol intake frequency: holidays/special occasions only Patient Tobacco Use Status: Former Tobacco user e-Cigarette/Vaping Use: Never Used Second Hand Smoke Exposure: No Are you DNR?: No Advance Directives: No Advance Directives Information Provided: Yes service: No Current occupational status: employed Current occupation: [employer] Current occupational exposures/hazards: No Cognitive needs: No Hearing needs: No Vision needs: No Meds Allergies Allergy/AdvReac Type Severity Reaction Status Date / Time Sulfa (Sulfonamide Allergy Unknown Hives Verified 09/14/23 14:29 Antibiotics) Exam Height,Weight and Vital Signs: Height 5 ft 1 in Weight 59.874 kg Narrative Narrative: EKG 09/2023 Vent. Rate : 074 BPM Atrial Rate : 074 BPM P-R Int : 130 ms QRS Dur : 074 ms QT Int : 404 ms P-R-T Axes : 033 069 067 degrees QTc Int : 448 ms Artifact in tracing Normal sinus rhythm Normal EKG When compared with ECG of 09-MAY-2020 14:30, No significant changes seen XR chest 2V 09/2023 IMPRESSION: No focal consolidation. Assessment and Plan Assessment Anesthesia Assessment: Chart Reviewed Documented by User: Bonnie Edmonds MD 10/29/23 11:26 [facility] Past Medical History Medical History Paresthesias Pulmonary nodule Ground glass opacity present on imaging of lung Diffuse cystic mastopathy of breast Mixed incontinence urge and stress Kidney cyst Esophageal ulcer Hiatal hernia Elevated alkaline phosphatase level Kidney stones Leukopenia Barretts esophagus GERD (gastroesophageal reflux disease) Achalasia and cardiospasm Hypercholesteremia Stable angina Family History Family History Brother Substance use disorder Progressive supranuclear palsy Mother Progressive supranuclear palsy Family history of problems with anesthesia: No Surgical History Surgical History S/P total left hip arthroplasty Hx of colonoscopy History of esophagogastroduodenoscopy (EGD) History of Problems with Anesthesia: No Social History Social History Housing: House Alcohol intake: current Alcohol intake frequency: holidays/special occasions only Patient Tobacco Use Status: Former Tobacco user e-Cigarette/Vaping Use: Never Used Second Hand Smoke Exposure: No Are you DNR?: No Advance Directives: No Advance Directives Information Provided: Yes service: No Current occupational status: employed Current occupation: [employer] Current occupational exposures/hazards: No Cognitive needs: No Hearing needs: No Vision needs: No Meds Allergies Allergy/AdvReac Type Severity Reaction Status Date / Time Sulfa (Sulfonamide Allergy Unknown Hives Verified 09/14/23 14:29 Antibiotics) Exam Airway Mallampati Class: II TM Dist: >3cm Neck ROM: Full Assessment and Plan Assessment Anesthesia Assessment: Anesthesia Plan Discussed Final Anesthetic Review Family History of Problems with Anesthesia: No History of Problems with Anesthesia: No NPO: Yes ASA Class: II and Emergency Final Preanesthetic Review: No Changes in Pt Med Stat, Meds/Allgs Chart Reviewed and Consent Obtained/Reviewed Patient Risk: Low Procedure Risk: Low Anesthetic Plan Anesthetic Plan: TIVA Disposition: Standard PACU
[2023-10-29 10:39] VITALS: BP 130/58; PULSE 59; RESP 19; TEMP 36.1; O2SAT 99
[2023-10-29] MEDS: Lactated Ringers 1,000 ML 100 ML IVCONT (11:05)
--- NOTE | 2023-10-29 11:11 | P.HPSUR_ITS ---
Pre-Procedural Eval Section A - 24 Hr Update-Section A only Date of Service: 10/29/23 Section B - Complete if H&P > 30 days Chief Complaint: Moraes's esophagus without dysplasia Relevant Family History (Specify if Yes): No Relevant Social History: None Present Medications: see Short Stay Collaborative assessment Medical History: Significant History ( Paresthesias Pulmonary nodule Ground glass opacity present on imaging of lung Diffuse cystic mastopathy of breast Mixed incontinence urge and stress Kidney cyst Esophageal ulcer Hiatal hernia Elevated alkaline phosphatase level Kidney stones Leukopenia Barretts esophagus GERD (gastroesophageal refl) History of Previous Operations: Relevant previous surgery/procedure and date(s) (Hx of colonoscopy History of esophagogastroduodenoscopy (EGD)) Allergies: Allergies Allergy/AdvReac Type Severity Reaction Status Date / Time Sulfa (Sulfonamide Allergy Unknown Hives Verified 09/14/23 14:29 Antibiotics) Review of Systems Sugical H&P ROS: Negative: Constitution, Cardiovascular, Respiratory, Neurologic al, Psychiatric, Hem-Onc, Allergic/Immunologic, Gastrointestinal, Genitourinary, Musculoskeletal, Integumentary, Endocrine and Eyes/Ears/Nose/Throat Exam Surgical H&P Exam: Normal: HEENT, Normal: Heart, Normal: Lungs, Normal: Extremities, Normal: Abdomen, Normal: Skin and Normal: Neurological Plan Diagnosis/Plan: Unchanged I have reviewed the history and physical and performed a pertinent physical examination on my patient. No changes have occurred unless specified. Time Spent With Patient Time: Total time managing care of this patient today ____ minutes.
--- NOTE | 2023-10-29 12:37 | W.PM.OPN ---
Operative Note Operative Note Date of Service: 10/29/23 Narrative: Procedure Description: EGD Indication: dysphagia and GERd, ?hx of barretts Anesthesia: MAC FLEXIBLE TRANSORAL UPPER GASTROINTESTINAL ENDOSCOPY UPPER ENDOSCOPY Consent: Indications for the procedure and potential complications of bleeding, perforation, reaction to medications and missed diagnosis were discussed with the patient and informed consent was obtained. Instrument: Olympus GIF H 190 J mid size upper endoscope Monitoring: Vital signs and clinical assessment, continuous EKG monitoring, Pulse oximetry, Carbon Dioxide monitoring and blood pressure monitoring were done throughout the procedure. Procedure: The patient was placed in the left lateral decubitis position and pre-procedure medications were administered and a bite block was placed. The endoscope was inserted into the mouth and advanced under direct vision to the third part of duodenum. A careful inspection was made as the upper endoscope was withdrawn including a retroflexed examination of the proximal stomach; Findings and interventions are described below. Findings: Larynx:normal Esophagus: GE junction at 32 cm, diaphragm hiatus at 35 cm, consistent with 3 cm hiatal hernia, balloon dilation done at GEJ with tear noted to 20 mm at LES, also dilation at UES with superficial tear noted, also La grade A erosive esophagitis noted with some edema and erythema, congestion, bx taken also from distal and proximal esophagus Stomach: patchy erythema . Biopsies were obtained. Grade 2 flap valve on retroflexed examination of the cardia. Duodenum: Normal bulb and descending duodenum, Intervention: Biopsies as noted above, balloon dilation Impression/Findings: gastritis hiatal hernia erosive esophagitis esophageal stricture PLAN: cont with PPI consider adding famotidine at night may benefit from hernia repair GERD precautions
[2023-10-29 12:43] VITALS: BP 107/60; PULSE 71; RESP 18; TEMP 36.4; O2SAT 100
[2023-10-29 12:58] VITALS: BP 114/54; PULSE 72; RESP 16; TEMP 36.4; O2SAT 98
== END 2023-10-29 13:34 | disposition home or self-care (01) ==
PROVIDERS: PCP Nurse Practitioner Family; Visit Provider Internal Medicine Gastroenterology
PROC: 0DJ08ZZ Inspection of Upper Intestinal Tract, Via Natural or Artificial Opening Endoscopic (ICD-10-PCS; CPT 43235; principal; 2023-10-29 13:20)
DX: K22.2 Esophageal obstruction (principal); Z87.19 Personal history of other diseases of the digestive system; K21.9 Gastro-esophageal reflux disease without esophagitis; K22.10 Ulcer of esophagus without bleeding; K29.60 Other gastritis without bleeding; K44.9 Diaphragmatic hernia without obstruction or gangrene; Z79.899 Other long term (current) drug therapy; Z88.2 Allergy status to sulfonamides; Z87.891 Personal history of nicotine dependence
CPT/HCPCS: 43249; 43239; 88305; 88313; 88342; C1726; J2704

== ENCOUNTER → 2023-10-29 10:22 | Outpatient (BNV) | payer MEDICARE, SELFPAY | PROVIDERS: PCP Nurse Practitioner Family; Visit Provider Internal Medicine Gastroenterology | DX: R13.10 Dysphagia, unspecified (principal); K21.00 Gastro-esophageal reflux disease with esophagitis, without bleeding; K22.2 Esophageal obstruction | CPT/HCPCS: 43239; 43249 ==

== ENCOUNTER 2023-11-06 11:26 | Outpatient (AMB) | payer MEDICARE, SELFPAY ==
[2023-11-06 11:28] VITALS: BP 100/64; PULSE 54; O2SAT 98; BMI 26.0
--- NOTE | 2023-11-06 11:28 | A.OFFVIS_ITS ---
Vital Signs 11/06/23 11:28 Height 5 ft 1 in Weight 137 lb 9.095 oz BMI 26.0 BP 100/64 Blood Pressure Location Lt brachial Position Sitting Pulse 54 Pulse Source Pulse Oximeter Pulse Oximetry (%) 98 Oxygen Delivery Method Room Air Intake Visit Reasons: s/p egd Intake Note: Pt presents to the office today for a s/p EGD. Pt states she is still experiencing food getting stuck in her throat but otherwise is feeling okay. Allergies Sulfa (Sulfonamide Antibiotics) Allergy (Unknown, Verified 11/06/23 11:29) Hives HPI HPI s/p egd: Details: 68 yr old f here for f/u RECAP: she does get pins and needles around her tongue and citalopram helps she gets awful heartburn she takes pantoprazole bid but she feels it makes her worse she has had dysphagia for years, she has had balloon dilation many years ago she has had manometry testing [facility] she has nausea and regurgitation she has IBS and has diarrhea usually, now recently more constipated last colonoscopy few yrs ago was normal EGD: 11/13 balloon dilation to 20 mm gastritis hiatal hernia erosive esophagitis esophageal stricture INTERIM: She feels no better since dilation she still feels food sticking upper esophagus no nausea or vomiting she has been taking esomeprazole BID avoiding wine as makes sx worse EXAM: GENERAL: The patient is well developed and nontoxic. VITAL SIGNS:see workflow HEENT: Nonicteric sclerae, PERRLA, EOMI. Oropharynx clear. Moist mucous membranes. Conjunctivae appear well perfused. No thyroid mass. CHEST: Chest wall is nontender. HEART: Regular rate and rhythm without murmurs. LUNGS: Clear to auscultation bilaterally. ABDOMEN: Soft, positive bowel sounds, nontender, no organomegaly.no flank tenderness SKIN: No rash, no excessive bruising, petechiae, or purpura. NEUROLOGIC: Cranial nerves II-XII intact without motor/sensory deficit. Psych: nml affect A/P: 1/ uncontrolled GERD, likely causing dysphagia, and sinusitis -partial response to PPI PLAN: 1/ Referred to Dr Martin for further assessment, might need hernia repair 2/ cont with PPi meantime, take MV and Vit D supplement 3/ can consider EGD with jeremías if declines surgery [facility] Medical History Paresthesias Pulmonary nodule Ground glass opacity present on imaging of lung Diffuse cystic mastopathy of breast Mixed incontinence urge and stress Kidney cyst Esophageal ulcer Hiatal hernia Elevated alkaline phosphatase level Kidney stones Leukopenia Barretts esophagus GERD (gastroesophageal reflux disease) Achalasia and cardiospasm Hypercholesteremia Stable angina Surgical History S/P total left hip arthroplasty Hx of colonoscopy History of esophagogastroduodenoscopy (EGD) Family History Brother Substance use disorder Progressive supranuclear palsy Mother Progressive supranuclear palsy Social History Housing: House Alcohol intake: current Alcohol intake frequency: holidays/special occasions only Patient Tobacco Use Status: Former Tobacco user e-Cigarette/Vaping Use: Never Used Second Hand Smoke Exposure: No service: No Current occupational status: employed Current occupation: [email or web address] Current occupational exposures/hazards: No Cognitive needs: No Hearing needs: No Vision needs: No Physical Exam Vital Signs: Last Vital Signs Pulse 54 11/06/23 11:28 BP 100/64 11/06/23 11:28 Pulse Ox 98 11/06/23 11:28 Oxygen Delivery Method Room Air 11/06/23 11:28 BMI result Body Mass Index 26.0 Assessment & Plan Assessment & Plan (1) Chest discomfort: Code(s): R07.89 - Other chest pain Category: Medical Plan: see above Coding Level of Care Code Est Pt Level 3 (06531) Diagnoses Chest discomfort R07.89
== END 2023-11-06 12:09 | disposition home or self-care (01) ==
PROVIDERS: PCP Nurse Practitioner Family; Visit Provider Internal Medicine Gastroenterology
DX: R07.89 Other chest pain (principal)
CPT/HCPCS: 99213

== ENCOUNTER → 2023-11-06 11:26 | Outpatient (BNVA) | payer MEDICARE, SELFPAY | PROVIDERS: PCP Nurse Practitioner Family; Visit Provider Internal Medicine Gastroenterology | DX: R09.A2 Foreign body sensation, throat (principal); K58.0 Irritable bowel syndrome with diarrhea; R47.02 Dysphasia; R12 Heartburn | CPT/HCPCS: 99212 ==

== ENCOUNTER 2023-11-27 10:11 | Outpatient (AMB) | payer MEDICARE, SELFPAY ==
--- NOTE | 2023-11-27 10:14 | MHC.OFFWIV ---
Intake Vital Signs 11/27/23 10:19 Height 5 ft 1 in Weight 137 lb 6 oz BMI 26.0 BP 106/58 L Blood Pressure Location Rt brachial Position Sitting Pulse 52 Pulse Source Pulse Oximeter Temp 98.2 F Temp Source Oral Pulse Oximetry (%) 98 Oxygen Delivery Method Room Air Intake Visit Reasons: est/ rib pain Intake Note: Rib pain left side. Patient Tobacco Use Status: Former Tobacco user Allergies Sulfa (Sulfonamide Antibiotics) Allergy (Unknown, Verified 11/27/23 10:33) Hives Medication List - Last Reconciled 11/27/23 by Megan Mccoy CNP atorvastatin 10 mg PO BEDTIME calcium carbonate-vitamin D3 600 mg-10 mcg (400 unit) (Calcium with Vitamin D) 1 tab PO BID citalopram 20 mg PO DAILY 90 days esomeprazole magnesium 20 mg PO BID Do you need a note to return to daycare/school/sports/work: No HPI HPI Comments History of Present Illness Details 68 y/o female presents with complaints of pain to her left ribs, underneath her breast. She notes that her symptoms have been ongoing for the past week and half and has progressively gotten worse. She notes that she was reaching down for an object when her left ribcage struck an object; her symptoms started afterward. She denies fall or trauma. She has been applying cool compresses. She describes the pain as soreness, 5-6/10 on the pain scale. She is not taking any medication for her symptoms. She reports history of esophageal disease, GERD, and stomach ulcers. [facility] Medical History Paresthesias Pulmonary nodule Ground glass opacity present on imaging of lung Diffuse cystic mastopathy of breast Mixed incontinence urge and stress Kidney cyst Esophageal ulcer Hiatal hernia Elevated alkaline phosphatase level Kidney stones Leukopenia Barretts esophagus GERD (gastroesophageal reflux disease) Achalasia and cardiospasm Hypercholesteremia Stable angina Surgical History S/P total left hip arthroplasty Hx of colonoscopy History of esophagogastroduodenoscopy (EGD) Family History Brother Substance use disorder Progressive supranuclear palsy Mother Progressive supranuclear palsy Social History (Reviewed 11/06/23 @ 11:29 by CHANEL Sharp Housing: House Alcohol intake: current Alcohol intake frequency: holidays/special occasions only Patient Tobacco Use Status: Former Tobacco user e-Cigarette/Vaping Use: Never Used Second Hand Smoke Exposure: No service: No Current occupational status: employed Current occupation: [employer] Current occupational exposures/hazards: No Cognitive needs: No Hearing needs: No Vision needs: No Review of Systems Const Details: Const Denies chills, Denies fatigue, Denies fever(s), Denies headache(s) and Denies weakness ENT Denies change in vision, Denies dizziness, Denies headache(s), Denies hearing loss, Denies nasal congestion, Denies sinus pain, Denies sinus pressure and Denies sore throat Resp Denies cough, Denies dyspnea, Denies wheezing and Denies other (shortness of breath) Cardio Denies chest pain, Denies lightheadedness, Denies dyspnea and Denies other (palpitations) Neuro Denies dizziness, Denies headache(s), Denies numbness, Denies tingling and Denies weakness Musc Reports as per HPI Endo Denies fatigue Aller/Immun Denies wheezing Physical Exam Vital Signs: Last Vital Signs Temp 98.2 F 11/27/23 10:19 Pulse 52 11/27/23 10:19 BP 106/58 L 11/27/23 10:19 Pulse Ox 98 11/27/23 10:19 Oxygen Delivery Method Room Air 11/27/23 10:19 BMI result Body Mass Index 26.0 Const Other: Const General: well developed; No acute distress Nutritional Appearance: well nourished Orientation/consciousness: patient oriented x3 HEENT Head: Yes normocephalic and Yes atraumatic Eyes General: appearance normal, both eyes and all related structures Pupils: Equal, round and reactive pupils present EOM: EOMs intact bilaterally Resp Effort & Inspection: normal respiratory effort Auscultation: clear to auscultation bilaterally Cardio Rate: regular rate Rhythm: regular rhythm Heart sounds: S1 normal heart sound present, S2 normal heart sound present, no gallops, no murmurs and no rubs Bruits: no abdominal aortic bruits and no carotid bruits Neuro General: patient oriented x3 and gait normal, no focal neuro deficit Cranial nerves: Yes Equal, round and reactive pupils present Musc Slight tenderness with palpation of the left upper ribcage below the breast. No erythema, edema, or overt injury/trauma Psych Affect: normal affect Assessment & Plan Assessment & Plan (1) Rib pain on left side: Code(s): R07.81 - Pleurodynia Plan: Left-sided rib pain x1.5 week from striking the side on an object, progressively worsened Slight tenderness with palpation of the left upper ribcage below the breast. No erythema, edema, or overt injury/trauma Will avoid ordering NSAIDs due to history of esophageal disease and stomach ulcers Prednisone 20 mg daily ordered. Advised to take as prescribed. Instructed on the risks, benefits, and potential adverse reactions of the medications Warm/cool compresses encouraged Follow-up with PCP or the walk-in clinic with worsening or new symptoms Verbalized understanding and agreed with treatment plan Medications: New prednisone 20 mg PO DAILY 5 tabs 0RF 5 days Coding Level of Care Code New Pt Level 3 (12952) Diagnoses Rib pain on left side R07.81
[2023-11-27 10:19] VITALS: BP 106/58; PULSE 52; TEMP 36.8; O2SAT 98; BMI 26.0
== END 2023-11-27 11:56 | disposition home or self-care (01) ==
PROVIDERS: PCP Nurse Practitioner Family; Visit Provider Nurse Practitioner Family
DX: R07.81 Pleurodynia (principal)
CPT/HCPCS: 99213

== ENCOUNTER 2023-11-28 07:15 | Outpatient (REF) | payer MEDICARE, SELFPAY ==
[2023-11-28 07:54] LABS: MANUAL DIFF FLAG NO
[2023-11-28 08:24] LABS: Basophils Percent Auto 0.7 % (0-2); Eosinophils Absolute Auto 0.1 X10*3/uL (0.0-0.4); Eosinophils Percent Auto 2.9 % (0-4); Hematocrit 39.2 % (37.0-47.0); Hemoglobin 13.4 g/dl (12.0-16.0); Imm Gran Abs Auto 0.02 X10*3/uL (0.00-0.03); Imm Gran Pct Auto 0.5 % (0.0-0.4); Lymphocytes Absolute Auto 1.3 X10*3/uL (1.2-4.9); Lymphocytes Percent Auto 30.3 % (20-40); Mean Corpuscular HGB Conc 34.2 g/dl (31.0-35.0); Mean Corpuscular Hemoglobin 31.4 pg (27.0-33.0); Mean Corpuscular Volume 91.8 fL (80.0-98.0); Mean Platelet Volume 9.3 fL (9.4-12.3); Monocytes Absolute Auto 0.2 X10*3/uL (0.1-1.2); Monocytes Percent Auto 5.4 % (2-11); Neutrophils Absolute Auto 2.7 x10*3/uL (2.0-8.3); Neutrophils Percent Auto 60.2 % (45-73); Platelet Count 244 X10*3/uL (160-400); Red Blood Count 4.27 X10*6/uL (4.20-5.50); Red Cell Distribution Width 12.1 % (11.0-16.0); White Blood Count 4.4 X10*3/uL (4.8-10.8)
[2023-11-28 08:58] LABS: Alanine Aminotransferase 22 U/L (0-31); Alkaline Phosphatase 117 U/L (39-117); Anion Gap 12 (12-20); Aspartate Amino Transferase 16 U/L (5-31); Bilirubin Total 0.6 mg/dL (0.0-1.0); Blood Urea Nitrogen 16 mg/dL (9-16); Carbon Dioxide 29 mmol/L (22-29); Chloride 104 mmol/L (96-108); Cholesterol 147 mg/dL (<200); Estimated Glomerular Filt Rate > 60; Glucose Random 111 mg/dL (60-115); HDL Cholesterol 48 mg/dL (>40); LDL Cholesterol Calculated 86 mg/dL (<100); Sodium 141 mmol/L (135-145); Total Protein 6.8 g/dL (6.5-8.0); Triglycerides 69 mg/dL (<150)
[2023-11-28 09:00] LABS: Appearance Urine Clear; Color Urine Yellow; Glucose Urine UA Negative (Negative); Leukocyte Esterase Urine Negative (Negative); Nitrite Urine Negative (Negative); PH 5.5 (5.0-9.0); Urine Blood Negative (Negative); Urine Ketones Negative (Negative); Urine Protein Negative (Neg-Trace)
[2023-11-28 09:13] LABS: TSH reflex Free T4 0.86 uIU/mL (0.32-4.0); Vitamin D 25-OH Total 46.8 ng/mL (>30)
== END 2023-11-28 07:16 | disposition home or self-care (01) ==
LOC: HO.LAB 07:15
PROVIDERS: PCP Nurse Practitioner Family; Visit Provider Nurse Practitioner Family
DX: Z96.642 Presence of left artificial hip joint (principal); E78.00 Pure hypercholesterolemia, unspecified; D72.819 Decreased white blood cell count, unspecified
CPT/HCPCS: 36415; 80053; 80061; 81003; 82306; 84443; 85025

== ENCOUNTER 2023-12-09 13:51 | Outpatient (AMB) | payer MEDICARE, SELFPAY ==
--- NOTE | 2023-12-09 13:53 | MHC.PC.OV ---
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 She reports that she is able to sleep at night. Will order labs. Will also refer for sleep study. Pt also c/o joint pain and cracking. She does not have joint swelling or erythema. Will order further labs, though know arthritis/aging is a likely cause. Denies fever, chills, and dizziness. GERD: recommended by GI for HH repair. PFSH Medical History Paresthesias Pulmonary nodule Ground glass opacity present on imaging of lung Diffuse cystic mastopathy of breast Mixed incontinence urge and stress Kidney cyst Esophageal ulcer Hiatal hernia Elevated alkaline phosphatase level Kidney stones Leukopenia Barretts esophagus GERD (gastroesophageal reflux disease) Achalasia and cardiospasm Hypercholesteremia Stable angina Surgical History S/P total left hip arthroplasty Hx of colonoscopy History of esophagogastroduodenoscopy (EGD) Family History Brother Substance use disorder Progressive supranuclear palsy Mother Progressive supranuclear palsy Social History Housing: House Alcohol intake: current Alcohol intake frequency: holidays/special occasions only Patient Tobacco Use Status: Former Tobacco user e-Cigarette/Vaping Use: Never Used Second Hand Smoke Exposure: No service: No Current occupational status: employed Current occupation: [employer] Current occupational exposures/hazards: No Cognitive needs: No Hearing needs: No Vision needs: No Questionnaire PHQ-9 Over the last 2 weeks, how often have you been bothered by any of the following problems? 1. Little interest or pleasure in doing things: not at all 2. Feeling down, depressed, or hopeless: not at all 3. Trouble falling or staying asleep, or sleeping too much: not at all 4. Feeling tired or having little energy: several days 5. Poor appetite or overeating: not at all 6. Feeling bad about yourself - or that you are a failure or have let yourself or your family down: not at all 7. Trouble concentrating on things, such as reading the newspaper or watching television: not at all 8. Moving or speaking so slowly that other people could have noticed. Or the opposite - being so fidgety or restless that you have been moving around a lot more than usual: not at all 9. Thoughts that you would be better off or of hurting yourself in some way: not at all Total score: 1 Depression Screening Interpretation: Positive Depression Screening Done: Yes 66760 - PHQ-9 Billing: Yes Source: Developed by Drs. Donovan Beck, Zohreh Desir, Kaveh Hernandez and colleagues, with an educational aruna from [employer]. Thrive Questionnaire Date Thrive assessed: 12/09/23 I am a: Patient What is your living situation today?: I have a steady place to live Within the past 12 months, did the food you bought not last and you didn't have the money to get more?: Never true Within the past 12 months, did you worry whether your food would run out before you got money to buy more?: Never true Do you have trouble paying for medicines?: No Do you have trouble getting transportation to medical appointments?: No Do you have trouble paying your heating and electricity bill?: No Do you have trouble taking care of your child, family member or friend?: No Do you have trouble with day-to-day activities such as bathing, preparing meals, shopping, managing finances, etc.?: No Are you currently unemployed and looking for a job?: No Are you interested in more education?: No Please select the resources that you would like help with: None Currently or been in a relationship where the following occur: No concerns reported THRIVE Score: 0 AUDIT C Alcohol Use Questionnaire (AUDIT-C) 1. How often do you have a drink containing alcohol?: 2-4 times a month 2. How many drinks containing alcohol do you have on a typical day when you are drinking?: 1 or 2 3. How often do you have six or more drinks on one occasion?: Never Total Score: 2 Score Reviewed/Action Taken: Yes GENNA-7 AMB Questionnaire GENNA-7 Date GENNA - 7 assessed: 12/09/23 Feeling nervous, anxious, or on edge: 0 = Not at all Not being able to stop or control worryin = Not at all Worrying too much about different things: 0 = Not at all Trouble relaxin = Not at all Being so restless that it is hard to sit still: 0 = Not at all Becoming easily annoyed or irritable: 0 = Not at all Feeling afraid as if something awful might happen: 0 = Not at all Total GENNA-7 score (0-4 normal; 5-9 mild; 10-14 moderate; 15-21 severe): 0 Source: Developed by Drs. Donovan Beck, Zohreh Desir, Kaveh Hernandez and colleagues, with an educational aruna from [employer]. GENNA-7 Assessment Billing GENNA-7 Assessment Tool: GENNA-7 Assessment 55255 Review of Systems Const Reports as per HPI Physical exam (Primary Care) Vital Signs: Last Vital Signs Pulse 65 12/09/23 13:56 BP 110/62 12/09/23 13:56 Pulse Ox 98 12/09/23 13:56 BMI result Body Mass Index 26.2 Tobacco/Smoking Status: Tobacco use Status Tobacco use date assessed 05/25/23 12/09/23 13:55 Patient Tobacco Use Status Former Tobacco user 12/09/23 13:55 e-Cigarette/Vaping Use Never Used 12/09/23 13:55 PHQ-9: PHQ-9 Score PHQ-9: Total score 1 12/09/23 14:18 Depression Screening Interpretation: Positive Thrive Assessment: Date of Thrive Assessment Date Thrive assessed 12/09/23 12/09/23 13:59 Currently or been in a relationship where the following occur: No concerns reported Const General: cooperative Orientation/consciousness: patient oriented x3 Resp Effort & Inspection: normal respiratory effort Auscultation: clear to auscultation bilaterally Cardio Rate: regular rate Rhythm: regular rhythm Heart sounds: S1 normal heart sound present and S2 normal heart sound present Neuro General: patient oriented x3 Psych Appearance: grossly normal Mental Status: mental status grossly normal Speech and movement: Normal speech and movement present Affect: normal affect Attitude: cooperative Thought process: Normal thought process present Thought content: Normal thought content present Insight: Good insight present (Psych) Judgement: Good judgement present (Psych) Assessment and Plan Assessment & Plan (1) Fatigue: Code(s): R53.83 - Other fatigue Plan: Labs ordered, referred for sleep study (2) Arthralgia: Code(s): M25.50 - Pain in unspecified joint Plan: Labs ordered Plan The patient agreed to the use of a coroner/medical examiner for this encounter. Scribed for Glen Gusman [employer]USTRI[employer] AUTOMATION ENGINEER- by Tatiana Dalton coroner/medical examiner, on 12/09/2023 at 14:00 EST. Orders: Orders Complete Blood Count Auto Diff Today R53.83 - Other fatigue Ferritin Today R53.83 - Other fatigue Vitamin B12 and Folate Today R53.83 - Other fatigue Tick-borne Disease Molecular Today R53.83 - Other fatigue Lyme IgG/IgM w/reflex to WB Today R53.83 - Other fatigue C Reactive Protein Today M25.50 - Pain in unspecified joint IRON PROFILE Today R53.83 - Other fatigue ALEXANDRO Reflex Titer and Pattern Today R53.83 - Other fatigue Sjogren's Antibodies Today R53.83 - Other fatigue Erythrocyte Sedimentation Rate Today M25.50 - Pain in unspecified joint Rheumatoid Factor Today M25.50 - Pain in unspecified joint Cyclic Citrullinated Peptide Today M25.50 - Pain in unspecified joint DNA Double Stranded-Crithidia Today M25.50 - Pain in unspecified joint Anti DNA DS Antibody Today M25.50 - Pain in unspecified joint Referrals Sleep Medicine Referral R53.83 - Other fatigue Coding Level of Care Code Est Pt Level 3 (75174) Diagnoses Fatigue R53.83 Arthralgia M25.50 Additional Codes GENNA-7 Assessment Billing - GENNA-7 Assessment Tool: GENNA-7 Assessment 38061 ([id number])
[2023-12-09 13:56] VITALS: BP 110/62; PULSE 65; O2SAT 98; BMI 26.2
== END 2023-12-09 14:58 | disposition home or self-care (01) ==
PROVIDERS: PCP Nurse Practitioner Family; Visit Provider Nurse Practitioner Family
DX: R53.83 Other fatigue (principal); M25.50 Pain in unspecified joint

== ENCOUNTER → 2023-12-09 13:51 | Outpatient (BNVA) | payer MEDICARE, SELFPAY | PROVIDERS: PCP Nurse Practitioner Family; Visit Provider Nurse Practitioner Family ==

== ENCOUNTER 2023-12-09 14:23 | Outpatient (REF) | payer MEDICARE, SELFPAY ==
[2023-12-09 16:15] LABS: MANUAL DIFF FLAG NO
[2023-12-09 16:20] LABS: Basophils Absolute Auto 0.1 X10*3/uL (0.0-0.2); Basophils Percent Auto 0.9 % (0-2); Eosinophils Absolute Auto 0.1 X10*3/uL (0.0-0.4); Eosinophils Percent Auto 2.2 % (0-4); Hematocrit 37.6 % (37.0-47.0); Imm Gran Abs Auto 0.01 X10*3/uL (0.00-0.03); Imm Gran Pct Auto 0.2 % (0.0-0.4); Lymphocytes Absolute Auto 1.2 X10*3/uL (1.2-4.9); Lymphocytes Percent Auto 22.6 % (20-40); Mean Corpuscular HGB Conc 34.6 g/dl (31.0-35.0); Mean Corpuscular Hemoglobin 31.3 pg (27.0-33.0); Mean Corpuscular Volume 90.6 fL (80.0-98.0); Mean Platelet Volume 9.8 fL (9.4-12.3); Monocytes Absolute Auto 0.4 X10*3/uL (0.1-1.2); Monocytes Percent Auto 6.5 % (2-11); Neutrophils Absolute Auto 3.6 x10*3/uL (2.0-8.3); Neutrophils Percent Auto 67.6 % (45-73); Platelet Count 248 X10*3/uL (160-400); Red Blood Count 4.15 X10*6/uL (4.20-5.50); Red Cell Distribution Width 12.2 % (11.0-16.0); White Blood Count 5.4 X10*3/uL (4.8-10.8)
[2023-12-09 16:30] LABS: Iron 65 mcg/dL (30-160); Percent Iron Saturation 24 % (15-50); Total Iron Binding Capacity 271 mcg/dL (228-428); Unsaturated Iron Binding 206 ug/dL
[2023-12-09 16:39] LABS: C Reactive Protein 0.19 mg/dL (< or = 0.50); Rheumatoid Factor < 13.0 IU/mL (<15.0)
[2023-12-09 17:00] LABS: Ferritin 172 ng/mL (10-250)
[2023-12-09 17:10] LABS: Vitamin B12 567 pg/mL (200-900)
[2023-12-09 17:15] LABS: Erythrocyte Sedimentation Rate 18 MM/HR (0-20)
[2023-12-11 06:23] LABS: Lyme Abs Screen <0.90 index
[2023-12-11 11:54] LABS: A. Phagocytphilium DNA,RT-PCR NOT DETECTED (NOT DETECTED); Babesia Microti DNA, RT-PCR NOT DETECTED (NOT DETECTED); Borrelia Miyamotoi,DNA RT-PCR NOT DETECTED (NOT DETECTED); E.Chaffeensis DNA RT-PCR NOT DETECTED (NOT DETECTED); Lyme(Borrelia ssp)DNA RT-PCR NOT DETECTED (NOT DETECTED)
[2023-12-11 21:18] LABS: Anti DNA DS Antibody <1 IU/mL; Antibody to SS-A Antigen <1.0 NEG AI (<1.0 NEG); Antibody to SS-B Antigen <1.0 NEG AI (<1.0 NEG)
[2023-12-13 12:49] LABS: Cyclic Citrullinated Peptide <16 UNITS
[2023-12-14 11:44] LABS: Anti Nuclear Antibody Screen POSITIVE (NEGATIVE)
[2023-12-18 05:28] LABS: DNAds, Crithidia Antibody Negative (Negative)
== END 2023-12-09 14:24 | disposition home or self-care (01) ==
LOC: HO.HMGCLDS 14:23
PROVIDERS: PCP Nurse Practitioner Family; Visit Provider Nurse Practitioner Family
DX: R53.83 Other fatigue (principal); M25.50 Pain in unspecified joint
CPT/HCPCS: 36415; 82607; 82728; 82746; 83540; 85025; 85652; 86038; 86039; 86140; 86200; 86225; 86235; 86255; 86431; 86617; 86618; 87468; 87469; 87478; 87484; 87798; 96127; 99212

== ENCOUNTER 2024-01-15 10:08 | Outpatient (AMB) | payer MEDICARE, SELFPAY ==
--- NOTE | 2024-01-15 10:11 | A.OFFVIS_ITS ---
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 Pryor Ref. Allergies Sulfa (Sulfonamide Antibiotics) Allergy (Unknown, Verified 01/15/24 10:42) Hives Medication List - Last Reconciled 01/15/24 by Marcus Jolly MD albuterol sulfate 90 mcg/actuation inhalation atorvastatin 10 mg PO BEDTIME calcium carbonate-vitamin D3 600 mg-10 mcg (400 unit) (Calcium with Vitamin D) 1 tab PO BID citalopram 20 mg PO DAILY 90 days esomeprazole magnesium 20 mg PO BID HPI Comments Details: Patient was referred by Dr. Pryor for a hiatal hernia. 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 Pryor 10/2023: 3cm HH without Moraes's on biopsies [facility] Medical History Paresthesias Pulmonary nodule Ground glass opacity present on imaging of lung Diffuse cystic mastopathy of breast Mixed incontinence urge and stress Kidney cyst Esophageal ulcer Hiatal hernia Elevated alkaline phosphatase level Kidney stones Leukopenia Barretts esophagus GERD (gastroesophageal reflux disease) Achalasia and cardiospasm Hypercholesteremia Stable angina Surgical History S/P total left hip arthroplasty Hx of colonoscopy History of esophagogastroduodenoscopy (EGD) Family History Brother Substance use disorder Progressive supranuclear palsy Mother Progressive supranuclear palsy Social History Housing: House Alcohol intake: current Alcohol intake frequency: holidays/special occasions only Patient Tobacco Use Status: Former Tobacco user e-Cigarette/Vaping Use: Never Used Second Hand Smoke Exposure: No service: No Current occupational status: employed Current occupation: [employer] Current occupational exposures/hazards: No Cognitive needs: No Hearing needs: No Vision needs: No Physical Exam Vital Signs: Last Vital Signs Temp 97.8 F 01/15/24 10:39 Pulse 63 01/15/24 10:39 BP 116/55 L 01/15/24 10:39 Pulse Ox 97 01/15/24 10:39 Oxygen Delivery Method Room Air 01/15/24 10:39 BMI result Body Mass Index 26.0 GI Inspection: Yes normal to inspection (Android body habitus) and Yes incision (well healed) Palpation (GI): Soft to palpation Extrem Right lower extremity: normal to inspection Left lower extremity: normal to inspection Assessment & Plan Assessment & Plan (1) Diaphragmatic hernia: Code(s): K44.9 - Diaphragmatic hernia without obstruction or gangrene Category: Medical Qualifiers: Obstruction and gangrene presence: with obstruction but without gangrene Qualified Code(s): K44.0 - Diaphragmatic hernia with obstruction, without gangrene Plan: 1. We discussed the potential etiology of the hernia. We discussed the details of the diaphragmatic hernia repair and the potential technical challenges such as being able to achieve enough mobilization of the esophagus back in the abdomen and being able to close the diaphragmatic muscle (crura) primarily with sutures. We also discussed the possibility of using a biologic mesh to close the hernia defect if the crura cannot be adequately re-approximated primarily with sutures. We also discussed the option of doing a gastropexy or a fundoplication to prevent postoperative reflux and prevent hernia recurrence. As we discussed, I favor the gastropexy as the fundoplication can cause several distrurbing symptoms such as gas-bloating, flatulence, inability to burp which can be bothersome to patients. Also we discussed the complexity of a potential hernia recurrence in association with a hernia recurrence. Shee was in agreement not to have a fundoplication. The patient is in agreement to proceed with surgery in [facility] and we will schedule it.
[2024-01-15 10:39] VITALS: BP 116/55; PULSE 63; TEMP 36.6; O2SAT 97; BMI 26.0
== END 2024-01-15 11:33 | disposition home or self-care (01) ==
PROVIDERS: PCP Nurse Practitioner Family; Visit Provider Surgery
DX: K44.0 Diaphragmatic hernia with obstruction, without gangrene (principal)
CPT/HCPCS: 99204

== ENCOUNTER → 2024-01-15 10:08 | Outpatient (BNVA) | payer MEDICARE, SELFPAY | PROVIDERS: PCP Nurse Practitioner Family; Visit Provider Surgery | DX: K44.9 Diaphragmatic hernia without obstruction or gangrene (principal) | CPT/HCPCS: 99202 ==

== ENCOUNTER 2024-02-15 09:45 | Outpatient (AMB) | payer MEDICARE, SELFPAY ==
--- NOTE | 2024-02-15 09:48 | MHC.OFFVISWM ---
VS Expanded 02/15/24 10:04 BP 115/58 L Blood Pressure Location Rt brachial Blood Pressure Position Sitting Pulse 65 Pulse Source Pulse Oximeter Temp 96.7 F L Temperature Source Temporal Artery Scan Pulse Oximetry 96 Oxygen Delivery Method Room Air Height 5 ft 1 in Weight 136 lb 3.2 oz BMI 25.7 Body Fat % 35.8 Body Fat Mass 48.8 Fat Free Mass 87.4 Visceral Fat Rating 9.0 Body Water % 45.2 Body Water Mass 61.6 Muscle Mass/Score 82.8 Basal Metabolic Rate/Score 1,197 Intake Visit Reasons: (OV) Pre Op Diaphragmatic Hernia 02/23/24 Allergies Sulfa (Sulfonamide Antibiotics) Allergy (Unknown, Verified 02/15/24 10:41) Hives Medication List - Last Reconciled 02/15/24 by Marcus Jolly MD albuterol sulfate 90 mcg/actuation inhalation atorvastatin 10 mg PO BEDTIME calcium carbonate-vitamin D3 600 mg-10 mcg (400 unit) (Calcium with Vitamin D) 1 tab PO BID citalopram 20 mg PO DAILY 90 days epinephrine 0.3 mg IM Q10M PRN esomeprazole magnesium 20 mg PO BID HPI HPI (OV) Pre Op Diaphragmatic Hernia 02/23/24: Details: Start time: 10.23am, End time: 10.53am ?I spent 25 minutes speaking with the patient on the phone plus an additional 5 minutes reviewing and updating records for a total of 30 minutes HPI Comments Details: Here for her preop appointment for laparoscopic diaphragmatic hernia repair Wakes up: 6.30am and Sleeps: 10pm [facility] Medical History (Updated 02/15/24 @ 10:46 by Marcus Jolly MD) Paresthesias Pulmonary nodule Ground glass opacity present on imaging of lung Diffuse cystic mastopathy of breast Mixed incontinence urge and stress Kidney cyst Esophageal ulcer Hiatal hernia Elevated alkaline phosphatase level Kidney stones Leukopenia Barretts esophagus GERD (gastroesophageal reflux disease) Achalasia and cardiospasm Hypercholesteremia Stable angina Surgical History S/P total left hip arthroplasty Hx of colonoscopy History of esophagogastroduodenoscopy (EGD) Family History Brother Substance use disorder Progressive supranuclear palsy Mother Progressive supranuclear palsy Social History Housing: House Alcohol intake: current Alcohol intake frequency: holidays/special occasions only Patient Tobacco Use Status: Former Tobacco user e-Cigarette/Vaping Use: Never Used Second Hand Smoke Exposure: No service: No Current occupational status: employed Current occupation: [place] [employer] Current occupational exposures/hazards: No Cognitive needs: No Hearing needs: No Vision needs: No Physical Exam Vital Signs: Last Vital Signs Temp 96.7 F L 02/15/24 10:04 Pulse 65 02/15/24 10:04 BP 115/58 L 02/15/24 10:04 Pulse Ox 96 02/15/24 10:04 Oxygen Delivery Method Room Air 02/15/24 10:04 BMI result Body Mass Index 25.7 Telehealth Telehealth Telehealth Platform: Telephone Location of provider rendering services: practice address Location of patient: address on file Patient Identification confirmed using: Name, : Yes Telehealth method: voice only Patient verbally consented to treatment: Yes Patient verbally consented to billing insurance company: Yes Patient informed of any privacy concerns related to visit: Yes Minutes spent on Phone/Video with Pt.: 30 Assessment & Plan Assessment & Plan (1) GERD (gastroesophageal reflux disease): Code(s): K21.9 - Gastro-esophageal reflux disease without esophagitis Category: Medical Qualifiers: Esophagitis presence: with esophagitis Esophagitis bleeding: without hemorrhage Qualified Code(s): K21.00 - Gastro-esophageal reflux disease with esophagitis, without bleeding Plan: 1. We discussed the potential etiology of the hernia that could be of traumatic etiology worsened by his weight. We discussed the details of the diaphragmatic hernia repair and the potential technical challenges such as being able to achieve enough mobilization of the esophagus back in the abdomen and being able to close the diaphragmatic muscle (crura) primarily with sutures. We also discussed the possibility of using a biologic mesh to close the hernia defect if the crura cannot be adequately re-approximated primarily with sutures. We also discussed the option of doing a gastropexy or a fundoplication to prevent postoperative reflux and prevent hernia recurrence. As we discussed, I favor the gastropexy as the fundoplication can cause several distrurbing symptoms such as gas-bloating, flatulence, inability to burp which can be bothersome to patients especially for him with a history of IBS. Also we discussed the complexity of a potential hernia recurrence in association with a hernia recurrence. He was in agreement not to have a fundoplication. 2. Preop prescriptions were provided and explained the purpose of each one. Need to be purchased preop. Start Pantoprazole now as you get it from the pharmacy, 1 pill per day. Sucralfate and Zofran are for after surgery as needed. 3. Bowel prep: please do 7 packets ?of Miralax mixing each one with a an 8oz glass of water, crystal light, gatorade zero, or propel ?on 02/21/24 and the same amount on 02/22/24. The Miralax you begin with one packet at a time in 8oz water or crystal light, gatorade zero, or propel ?as early in the day as you can and you do them back to back until you finish them. Continue the protein shakes during ?the bowel prep. 4. Needs to purchase 1oz medicine cups . 5. Needs to purchase Children's liquid Tylenol for postop pain control. 6. Avoid aspirin, motrin, Advil, Aleve, Ibuprofen, Naproxyn. Tylenol is OK. 7. She needs to purchase the Celebrate Rebuild protein shakes from the hospital's gift shop. 8. Will do basic preop blood work-up any day between Thursday02/24/22 and Thursday02/28/22 fasting for 12 hours and is scheduled to see the Anesthesiologist prior to the day of surgery. 9. Importance of adherence to postop folllow-up and recommendations was underscored and she understands that. 10. Stop food and bars as of tomorrow 02/16/24 and continue with 5 Celebrate REBUILD protein shakes (ONE scoop EACH in 8oz almond milk) at 7am-9am, 10am-12pm, 1pm-3pm, 4pm-6pm and at 7pm-9pm. The day you can replace 2 shakes with a small meal with your family, 11. No soups, broths or V8 12. The patient's?medical?history has been reviewed and they are considered low risk for post op DVT and therefore DVT prophylaxis is not considered necessary. Travel after surgery was reviewed. The patient has not disclosed any travel plans during the first 30 days after surgery and they have been advised that within the first 30 days after surgery any bus, plane, train or car travel over 2 hours in duration is contraindicated due to the possibility of developing blood clots from immobility. Any travel, needs to include periods of ambulation of 10 minutes in duration every 2 hours.? Patient was instructed to discuss any plans for travel during this period with their bariatric surgeon.? 13. Please take at the day of surgery the following medications: NONE 14. Stop any control pills and don't use them for one month after surgery 15. Absolutely no smoking or vaping, or marijuana until the surgery and for at least the first 4 weeks. Only nicotine patches are allowed. 16. Send me weight measurement on Thursday02/23/24, the day of surgery before you go to the hospital. 17. Avoid any steroids by mouth for any reason. Let me know if someone prescribes them to you Orders: Orders TSH reflex Free T4 Today E78.00 - Pure hypercholesterolemia, unspecified, K44.0 - Diaphragmatic hernia with obstruction, without gangrene Prothrombin Time INR Today E78.00 - Pure hypercholesterolemia, unspecified, K44.0 - Diaphragmatic hernia with obstruction, without gangrene Vitamin B1 Today E78.00 - Pure hypercholesterolemia, unspecified, K44.0 - Diaphragmatic hernia with obstruction, without gangrene Lipid Panel Today E78.00 - Pure hypercholesterolemia, unspecified, K44.0 - Diaphragmatic hernia with obstruction, without gangrene Type and Screen Today E78.00 - Pure hypercholesterolemia, unspecified, K44.0 - Diaphragmatic hernia with obstruction, without gangrene Vitamin B12 Today E78.00 - Pure hypercholesterolemia, unspecified, K44.0 - Diaphragmatic hernia with obstruction, without gangrene Complete Blood Count Auto Diff Today E78.00 - Pure hypercholesterolemia, unspecified, K44.0 - Diaphragmatic hernia with obstruction, without gangrene IRON PROFILE Today E78.00 - Pure hypercholesterolemia, unspecified, K44.0 - Diaphragmatic hernia with obstruction, without gangrene Comprehensive Met. Panel Today E78.00 - Pure hypercholesterolemia, unspecified, K44.0 - Diaphragmatic hernia with obstruction, without gangrene Vitamin A Today E78.00 - Pure hypercholesterolemia, unspecified, K44.0 - Diaphragmatic hernia with obstruction, without gangrene Hemoglobin A1c Today E78.00 - Pure hypercholesterolemia, unspecified, K44.0 - Diaphragmatic hernia with obstruction, without gangrene C Reactive Protein Today E78.00 - Pure hypercholesterolemia, unspecified, K44.0 - Diaphragmatic hernia with obstruction, without gangrene Partial Thromboplastin Time Today E78.00 - Pure hypercholesterolemia, unspecified, K44.0 - Diaphragmatic hernia with obstruction, without gangrene Vitamin D 25-OH Total Today E78.00 - Pure hypercholesterolemia, unspecified, K44.0 - Diaphragmatic hernia with obstruction, without gangrene Ferritin Today E78.00 - Pure hypercholesterolemia, unspecified, K44.0 - Diaphragmatic hernia with obstruction, without gangrene Zinc Today E78.00 - Pure hypercholesterolemia, unspecified, K44.0 - Diaphragmatic hernia with obstruction, without gangrene Insulin Today E78.00 - Pure hypercholesterolemia, unspecified, K44.0 - Diaphragmatic hernia with obstruction, without gangrene Medications: New sucralfate 10 mL PO BID 600 mL 2RF K21.9 - Gastro-esophageal reflux disease without esophagitis polyethylene glycol 3350 Mix each measuring cup with 8oz of water, Crystal light, or Gatorade zero, or Propel and do 7 measuring cups on 02/21/24 and another 7 measuring cups on 02/22/24 17 grams PO DAILY 238 grams 0RF Z01.818 - Encounter for other preprocedural examination ondansetron Only take one every 12 hours as needed if you have nausea 4 mg PO Q12H PRN 20 tabs 0RF nausea and vomiting R11.0 - Nausea
[2024-02-15 10:04] VITALS: BP 115/58; PULSE 65; TEMP 35.9; O2SAT 96; BMI 25.7
== END 2024-02-15 10:54 | disposition home or self-care (01) ==
PROVIDERS: PCP Nurse Practitioner Family; Visit Provider Surgery
DX: K21.00 Gastro-esophageal reflux disease with esophagitis, without bleeding (principal)
CPT/HCPCS: 99499

== ENCOUNTER 2024-02-15 09:45 | Outpatient (REF) | payer MEDICARE, SELFPAY ==
[2024-02-15 11:10] LABS: MANUAL DIFF FLAG NO
[2024-02-15 11:51] LABS: Basophils Percent Auto 0.9 % (0-2); Eosinophils Absolute Auto 0.1 X10*3/uL (0.0-0.4); Eosinophils Percent Auto 2.5 % (0-4); Hematocrit 40.7 % (37.0-47.0); Hemoglobin 14.1 g/dl (12.0-16.0); Imm Gran Abs Auto 0.02 X10*3/uL (0.00-0.03); Imm Gran Pct Auto 0.5 % (0.0-0.4); Lymphocytes Absolute Auto 1.2 X10*3/uL (1.2-4.9); Lymphocytes Percent Auto 27.5 % (20-40); Mean Corpuscular HGB Conc 34.6 g/dl (31.0-35.0); Mean Corpuscular Hemoglobin 31.4 pg (27.0-33.0); Mean Corpuscular Volume 90.6 fL (80.0-98.0); Mean Platelet Volume 9.4 fL (9.4-12.3); Monocytes Absolute Auto 0.3 X10*3/uL (0.1-1.2); Monocytes Percent Auto 6.5 % (2-11); Neutrophils Absolute Auto 2.8 x10*3/uL (2.0-8.3); Neutrophils Percent Auto 62.1 % (45-73); Platelet Count 239 X10*3/uL (160-400); Red Blood Count 4.49 X10*6/uL (4.20-5.50); Red Cell Distribution Width 12.6 % (11.0-16.0); White Blood Count 4.4 X10*3/uL (4.8-10.8)
[2024-02-15 11:53] LABS: INTERNATIONAL NORM RATIO 0.9 (0.9-1.1); Prothrombin Time 10.2 SEC (10.9-12.4)
[2024-02-15 11:56] LABS: Partial Thromboplastin Time 27.7 SEC (26.0-36.8)
[2024-02-15 12:04] LABS: Estimated Average Glucose 105 mg/dL; Hemoglobin A1C 124.6327 umol/L; Hemoglobin A1c % 5.3 % (<6.0); Total Hemoglobin (HGBA1C) 3590.1636 umol/L
[2024-02-15 12:23] LABS: Alanine Aminotransferase 32 U/L (0-31); Albumin Level 4.3 g/dL (3.5-5.0); Alkaline Phosphatase 116 U/L (39-117); Anion Gap 9 (12-20); Aspartate Amino Transferase 28 U/L (5-31); Bilirubin Total 0.9 mg/dL (0.0-1.0); Blood Urea Nitrogen 14 mg/dL (9-16); C Reactive Protein < 0.10 mg/dL (< or = 0.50); Calcium 9.5 mg/dL (8.4-10.2); Carbon Dioxide 32 mmol/L (22-29); Chloride 103 mmol/L (96-108); Cholesterol 186 mg/dL (<200); Estimated Glomerular Filt Rate > 60; Glucose Random 97 mg/dL (60-115); HDL Cholesterol 67 mg/dL (>40); Iron 110 mcg/dL (30-160); LDL Cholesterol Calculated 103 mg/dL (<100); Percent Iron Saturation 35 % (15-50); Potassium 4.1 mmol/L (3.3-5.1); Sodium 140 mmol/L (135-145); Total Iron Binding Capacity 313 mcg/dL (228-428); Total Protein 7.1 g/dL (6.5-8.0); Triglycerides 80 mg/dL (<150); Unsaturated Iron Binding 203 ug/dL
[2024-02-15 12:45] LABS: Vitamin B12 504 pg/mL (200-900)
[2024-02-15 12:49] LABS: Ferritin 130 ng/mL (10-250); TSH reflex Free T4 0.92 uIU/mL (0.32-4.0); Vitamin D 25-OH Total 47.9 ng/mL (>30)
[2024-02-15 13:05] LABS: Insulin 5 uU/mL (2-29)
[2024-02-18 17:03] LABS: Zinc 63 mcg/dL (60-130)
[2024-02-20 17:18] LABS: Vitamin B1 18 nmol/L (8-30)
[2024-02-21 14:09] LABS: Vitamin A 61 mcg/dL (38-98)
== END 2024-02-15 09:46 | disposition home or self-care (01) ==
LOC: HO.LAB 09:45
PROVIDERS: PCP Nurse Practitioner Family; Visit Provider Surgery
DX: Z01.818 Encounter for other preprocedural examination (principal); E78.00 Pure hypercholesterolemia, unspecified; K44.0 Diaphragmatic hernia with obstruction, without gangrene; Z79.01 Long term (current) use of anticoagulants; Z13.1 Encounter for screening for diabetes mellitus; R11.0 Nausea
CPT/HCPCS: 36415; 80053; 80061; 82306; 82607; 82728; 83036; 83525; 83540; 84425; 84443; 84590; 84630; 85025; 85610; 85730; 86140

== ENCOUNTER 2024-02-17 09:58 | Outpatient (AMB) | payer MEDICARE, SELFPAY ==
[2024-02-17 09:59] VITALS: BP 112/72; PULSE 78; BMI 25.8
--- NOTE | 2024-02-17 09:59 | A.OFFVIS_ITS ---
Vital Signs 02/17/24 09:59 Height 5 ft 1 in Weight 136 lb 10.986 oz BMI 25.8 BP 112/72 Blood Pressure Location Rt brachial Position Sitting Pulse 78 Pulse Source Pulse Oximeter Intake Visit Reasons: joint pain/CM Intake Note: NEW Patient presents today to establish treatment for join Pain: Pain Scale 1- 10, 4 Supervisor Photocomposition Required: No Accompanied by: Self / Same As Patient Allergies Sulfa (Sulfonamide Antibiotics) Allergy (Unknown, Verified 02/17/24 10:00) Hives Medication List - Last Reconciled 02/17/24 by Stephanie Galvez MD albuterol sulfate 90 mcg/actuation 2 inhalations inhalation Q4H PRN atorvastatin 10 mg PO BEDTIME calcium carbonate-vitamin D3 600 mg-10 mcg (400 unit) (Calcium with Vitamin D) 1 tab PO BID citalopram 20 mg PO DAILY 90 days epinephrine 0.3 mg IM Q10M PRN esomeprazole magnesium 20 mg PO BID ondansetron 4 mg PO Q12H PRN polyethylene glycol 3350 17 grams PO DAILY sucralfate 10 mL PO BID HPI Comments Details: Patient is a 68-year-old female with GERD, hyperlipidemia, coronary artery disease with stable angina, bilateral hip OA status post left hip arthroplasty who presents for evaluation of polyarthralgias in the setting of a positive ALEXANDRO. Patient reports progressive joint pain involving her bilateral hands, bilateral knees and hips over the past several years. Pain is worse in the evenings. Not associated with prolonged morning stiffness Denies rashes, photosensitivity, alopecia, oral/nasal ulcers, sicca symptoms, lymphadenopathy, chest pain/shortness of breath, inflammatory type joint pain, foamy urine, lower extremity edema, muscle weakness, Raynaud's Also denies history of seizure, CVA, psychosis, history of kidney problems, history of cytopenias, history of VTE including PE or DVTs OB History: Had difficulty getting . Did IVF x2 had to terminate 1 at 6 months due to complications and another was miscarried during the 2nd trimester while she was in her late 30s (about [age]). She finally conceived using her sister's egg. [facility] Medical History (Updated 02/17/24 @ 14:08 by Stephanie Galvez MD) Osteopenia Osteoarthritis, hand Paresthesias Pulmonary nodule Ground glass opacity present on imaging of lung Diffuse cystic mastopathy of breast Mixed incontinence urge and stress Kidney cyst Esophageal ulcer Hiatal hernia Elevated alkaline phosphatase level Kidney stones Leukopenia Barretts esophagus GERD (gastroesophageal reflux disease) Achalasia and cardiospasm Hypercholesteremia Stable angina Surgical History S/P total left hip arthroplasty Hx of colonoscopy History of esophagogastroduodenoscopy (EGD) Family History Brother Substance use disorder Progressive supranuclear palsy Mother Progressive supranuclear palsy Social History Housing: House Alcohol intake: current Alcohol intake frequency: holidays/special occasions only Patient Tobacco Use Status: Former Tobacco user e-Cigarette/Vaping Use: Never Used Second Hand Smoke Exposure: No service: No Current occupational status: employed Current occupation: [employer] Current occupational exposures/hazards: No Cognitive needs: No Hearing needs: No Vision needs: No Review of Systems Const Details: Review of Systems Constitutional: Denies fever, chills, weight loss ENT: Denies vision changes, eye pain or eye redness, dental caries, dry mouth GI: Denies nausea, vomiting, diarrhea, abdominal pain, change in BM Pulm: Denies SOB, CARRANZA, hemoptysis, wheezing Cards: Denies chest pain, palpitations Skin: Denies Raynaud's, rash, nail changes, photosensitivity, LOAN ASSOCIATE: Denies headaches, weakness, paresthesias, recurrent falls MSK: as per HPI All other systems reviewed and are unremarkable except noted above Physical Exam Vital Signs: Last Vital Signs Pulse 78 02/17/24 09:59 BP 112/72 02/17/24 09:59 BMI result Body Mass Index 25.8 Physical Examination CONSTITUITIONAL Patient alert and cooperative. Well appearing and in no apparent painful distress HEENT Conjunctiva and sclera clear. ?Pupils equal round and reactive to light. ?No lymphadenopathy. ?Normal dentition. No oral or nasal ulcers noted. No evidence of discoid rash to the bianca of ears CHEST/RESPIRATORY SYSTEM Normal respiratory effort and able to speak in complete sentences. ?Clear to auscultation bilaterally. ?No crackles, rales, rhonchi, wheezes heard. CARDIAC SYSTEM Regular rate and rhythm. ?S1 and S2 heard no murmurs. ?Radial pulses intact bilaterally MSK Hands: ?Good public service officer strength bilaterally - 5/5. ?Heberden's and Sukhdev's nodes noted throughout bilateral hands. ?No synovitis noted to the MCPs, PIPs or DIPs. ?No tenderness to palpation of these joints. Wrists: ?Full range of motion at the wrists without pain. ?No tenderness to palpation or synovitis noted to the wrists. Elbows: Full range of motion without pain. No tenderness, weakness, swelling, increased warmth or erythema. Shoulders: Full range of motion without pain. No tenderness, weakness, swelling, increased warmth or erythema. Clicking heard with shoulder movement. Hips: Full range of motion without pain. Hip bursa: No tenderness to palpation Knees: ?Full range of motion. ?No tenderness, swelling, increased warmth or erythema.? Crepitations noted. Ankles: Full range of motion. ?No tenderness, swelling, increased warmth or erythema.? Feet: ?Negative squeeze test. ?No tenderness to palpation or swelling of the MTPs. Tender points:??No tenderness to palpation of the neck, shoulders, chest, elbows, hips, buttocks or knees. SKIN Skin intact without rashes. Results Reviewed Results Reviewed: Laboratory Tests 12/09/23 02/15/24 14:35 11:07 WBC 4.4 L RBC 4.49 Hgb 14.1 Hct 40.7 Plt Count 239 ESR 18 Sodium 140 Potassium 4.1 Chloride 103 Carbon Dioxide 32 H BUN 14 Creatinine 0.78 AST 28 ALT 32 H Alkaline Phosphatase 116 C-Reactive Protein 0.19 < 0.10 25-OH Vitamin D Total 47.9 TSH 0.92 Rheumatoid Factor < 13.0 Cycl Citrul Peptide IgG <16 ALEXANDRO Screen POSITIVE A ALEXANDRO Titer 1:80 H SS-A/Ro Antibody <1.0 NEG SS-B/La Antibody <1.0 NEG Double Strand DNA Ab <1 Anti-ds DNA (Crithidia) Negative DEXA 01/28/22 AP SPINE L1-L4: BMD 1.105 g/cm2, Z-score 1.1, T-score -0.6, normal. LEFT FEMUR, NECK: BMD 0.794 g/cm2, Z-score -0.2, T-score -1.8, osteopenia. LEFT FEMUR, TOTAL: BMD 0.817 g/cm2, Z-score -0.3, T-score -1.5, osteopenia. Assessment & Plan Assessment & Plan (1) Osteoarthritis, hand: Code(s): M19.049 - Primary osteoarthritis, unspecified hand Category: Medical Qualifiers: Osteoarthritis type: primary Laterality: bilateral Qualified Code(s): M19.041 - Primary osteoarthritis, right hand; M19.042 - Primary osteoarthritis, left hand Plan: #Polyarthralgias #Primary Hand OA Patient with polyarthralgias involving her hands which is likely secondary to hand osteoarthritis. Low suspicion for autoimmune disease at this time. We will check x-rays of her hands. Recommended topical diclofenac Hand exercises printed and given (2) Osteopenia: Code(s): M85.80 - Other specified disorders of bone density and structure, unspecified site Category: Medical Qualifiers: Osteopenia location: multiple sites Qualified Code(s): M85.89 - Other specified disorders of bone density and structure, multiple sites Plan: #Osteopenia Osteopenia involving her left neck of the femur and left femur. Spine is normal. Weight-bearing exercises printed and given to patient Vitamin-D is normal (3) ALEXANDRO positive: Code(s): R76.8 - Other specified abnormal immunological findings in serum Category: Medical Plan: #Positive ALEXANDRO The presence of antinuclear antibodies (ALEXANDRO) is mainly associated with connective tissue diseases (CTD). ?However, their presence is found in healthy people especially in women and patients >65. ?In healthy individuals, the frequency of ALEXANDRO has been shown to be 31.7% of individuals at 1:40 serum dilution, 13.3% at 1:80, 5.0% at 1:160, and 3.3% at 1:320 (2). Some drugs and xenobiotics are also important for the development of ALEXANDRO (hydralazine, hydrochlorothiazide, minocycline, terbinafine, ciprofloxacin, furosemide, omeprazole). Moreover, the deficiency of vitamin D in the body of patients correlates with occurrence of these antibodies (1). At this time there is low suspicion for a connective tissue disease. ? 1. Candie?manuel Greer, Wilma Méndez, Mac Crowder. Antinuclear antibodies in healthy people and non-rheumatic diseases - diagnostic and clinical implications. Reumatologia. 2018;56(4):243-248. doi: 10.5114/reum.2018.45303. Epub 2017Nov 20. PMID: 05698730; PMCID: [id number]. 2. Borrego EM, Channing TE, Eugenia JS, Evie B, Tim R, Cammy MJ, Patel T, Walker JA, Alvarado JR, Verena RG, Jonny RN, Elaine JS, Fatemeh NF, Glenn RJ, Portillo Y, Nia A, Karthik MR, Keiko KNOWLES. Range of antinuclear antibodies in healthy individuals. Arthritis Rheum. 1996;40(9):1601-11. doi: 10.1002/art.1567948283. PMID: 7705231. Plan I spent 30 minutes reviewing the record and labs, seeing the patient, discussing the treatment plan and documenting in the medical record ? For next visit: * Orders: Orders XR hand wrist RT Today M19.049 - Primary osteoarthritis, unspecified hand XR hand wrist LT Today M19.049 - Primary osteoarthritis, unspecified hand Medications: New diclofenac sodium 1% (Arthritis Pain (diclofenac)) apply to single knee, ankle, foot; for foot includes sole/toes/top of foot 4 grams topical QID 100 grams 3RF M19.049 - Primary osteoarthritis, unspecified hand Coding Level of Care Code New Pt Level 3 (91443) Diagnoses Primary osteoarthritis of both hands M19.041; M19.042 Osteoarthritis type: primary Laterality: bilateral Osteopenia of multiple sites M85.89 Osteopenia location: multiple sites ALEXANDRO positive R76.8
== END 2024-02-17 10:57 | disposition home or self-care (01) ==
PROVIDERS: PCP Nurse Practitioner Family; Visit Provider Student in an Organized Health Care Education/Training Program
DX: M19.041 Primary osteoarthritis, right hand (principal); M19.042 Primary osteoarthritis, left hand; M85.89 Other specified disorders of bone density and structure, multiple sites; R76.8 Other specified abnormal immunological findings in serum
CPT/HCPCS: 99203

== ENCOUNTER 2024-02-17 09:58 | Outpatient (REF) | payer MEDICARE, SELFPAY | END 2024-02-17 09:59 | disposition home or self-care (01) | LOC: HO.XRAY 09:58 | PROVIDERS: PCP Nurse Practitioner Family; Visit Provider Student in an Organized Health Care Education/Training Program | DX: M19.041 Primary osteoarthritis, right hand (principal); M19.042 Primary osteoarthritis, left hand; M85.89 Other specified disorders of bone density and structure, multiple sites; R76.8 Other specified abnormal immunological findings in serum | CPT/HCPCS: 73110; 73130; 99202 ==

== ENCOUNTER 2024-02-23 06:19 | Inpatient (IN) | payer MEDICARE, SELFPAY ==
[2024-02-17 09:16] VITALS: BMI 25.7
--- NOTE | 2024-02-22 10:08 | HO.ANESPROP2 ---
Documented by User: Dorothy Deshpande NP 02/22/24 10:09 HPI - Anesthesia Eval Consult details Narrative: 68yo F for Hernia Diaphragmatic Lap s/p EGD 10/2023 with [facility] Active Problems Active Problems: All Active Problems Osteopenia (Acute) Osteoarthritis, hand (Acute) Diaphragmatic hernia (Acute) ALEXANDRO positive (Acute) Arthralgia (Acute) Fatigue (Acute) Rib pain on left side (Acute) Chest discomfort (Acute) Screening for colon cancer (Acute) Sinusitis (Acute) Conjunctivitis, left eye (Acute) Upper respiratory infection (Acute) Conjunctivitis due to adenovirus, left eye (Acute) DDD (degenerative disc disease), cervical (Acute) Chronic sinusitis (Acute) Cervical pain (neck) (Acute) Lymphadenopathy (Acute) Arthritis of left hip (Acute) Strep pharyngitis (Acute) Leukopenia (Acute) Postmenopausal (Acute) Physical exam (Acute) GERD (gastroesophageal reflux disease) (Acute) S/P total left hip arthroplasty (Acute) Esophageal ulcer (Acute) Barretts esophagus (Acute) Hypercholesteremia (Acute) Past Medical History Medical History Anxiety Depression Asthma Osteopenia Osteoarthritis, hand Paresthesias Pulmonary nodule Ground glass opacity present on imaging of lung Diffuse cystic mastopathy of breast Mixed incontinence urge and stress Kidney cyst Esophageal ulcer Hiatal hernia Elevated alkaline phosphatase level Kidney stones Leukopenia Barretts esophagus GERD (gastroesophageal reflux disease) Achalasia and cardiospasm Hypercholesteremia Stable angina Family History Family History Brother Substance use disorder Progressive supranuclear palsy Mother Progressive supranuclear palsy Family history of problems with anesthesia: No Surgical History Surgical History S/P total left hip arthroplasty Hx of colonoscopy History of esophagogastroduodenoscopy (EGD) History of Problems with Anesthesia: No Social History Social History Housing: House Are you a primary date night caregiver to a significant other at home: No Do you presently have visiting nurse or other home services: No Alcohol intake: current Alcohol intake frequency: holidays/special occasions only Patient Tobacco Use Status: Former Tobacco user e-Cigarette/Vaping Use: Never Used Second Hand Smoke Exposure: No Use of substances other than those prescribed or required for medical reasons: No Have you been hit, kicked, punched, or otherwise hurt by someone within the past year? 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 Current occupational exposures/hazards: No Cognitive needs: No Hearing needs: No Vision needs: No Meds Allergies Allergy/AdvReac Type Severity Reaction Status Date / Time Sulfa (Sulfonamide Allergy Unknown Hives Verified 02/17/24 10:00 Antibiotics) Home Medications ?Medication ?Instructions ?Recorded ?Confirmed ?Last Taken ?Type albuterol sulfate 90 mcg/actuation 2 inh inhalation Q4H PRN Shortness 01/15/24 02/17/24 Unknown History aerosol inhaler Of Breath Or Wheezing epinephrine 0.3 mg/0.3 mL 0.3 mg IM Q10M PRN Anaphylaxis 02/15/24 02/17/24 Unknown History injection, auto-injector Exam Height,Weight and Vital Signs: Height 5 ft 1 in Weight 61.689 kg Pertinent Lab Results Pertinent Lab Results: Laboratory Tests 02/15/24 10:57 Blood Type O Positive Antibody Screen NEGATIVE Narrative Narrative: EKG 09/2023 Vent. Rate : 074 BPM Atrial Rate : 074 BPM P-R Int : 130 ms QRS Dur : 074 ms QT Int : 404 ms P-R-T Axes : 033 069 067 degrees QTc Int : 448 ms Artifact in tracing Normal sinus rhythm Normal EKG When compared with ECG of 09-MAY-2020 14:30, No significant changes seen XR chest 2V 09/2023 IMPRESSION: No focal consolidation. Assessment and Plan Assessment Anesthesia Assessment: Chart Reviewed Final Anesthetic Review Family History of Problems with Anesthesia: No History of Problems with Anesthesia: No Documented by User: Jazmine Al MD 02/23/24 08:11 [facility] Past Medical History Medical History Anxiety Depression Asthma Osteopenia Osteoarthritis, hand Paresthesias Pulmonary nodule Ground glass opacity present on imaging of lung Diffuse cystic mastopathy of breast Mixed incontinence urge and stress Kidney cyst Esophageal ulcer Hiatal hernia Elevated alkaline phosphatase level Kidney stones Leukopenia Barretts esophagus GERD (gastroesophageal reflux disease) Achalasia and cardiospasm Hypercholesteremia Stable angina Family History Family History Brother Substance use disorder Progressive supranuclear palsy Mother Progressive supranuclear palsy Surgical History Surgical History S/P total left hip arthroplasty Hx of colonoscopy History of esophagogastroduodenoscopy (EGD) Social History Social History Housing: House Are you a primary date night caregiver to a significant other at home: No Do you presently have visiting nurse or other home services: No Alcohol intake: current Alcohol intake frequency: holidays/special occasions only Patient Tobacco Use Status: Former Tobacco user e-Cigarette/Vaping Use: Never Used Second Hand Smoke Exposure: No Use of substances other than those prescribed or required for medical reasons: No Have you been hit, kicked, punched, or otherwise hurt by someone within the past year? 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 [employer] Current occupational exposures/hazards: No Cognitive needs: No Hearing needs: No Vision needs: No Meds Allergies Allergy/AdvReac Type Severity Reaction Status Date / Time Sulfa (Sulfonamide Allergy Unknown Hives Verified 02/17/24 10:00 Antibiotics) Home Medications ?Medication ?Instructions ?Recorded ?Confirmed ?Last Taken ?Type albuterol sulfate 90 mcg/actuation 2 inh inhalation Q4H PRN Shortness 01/15/24 02/17/24 Unknown History aerosol inhaler Of Breath Or Wheezing epinephrine 0.3 mg/0.3 mL 0.3 mg IM Q10M PRN Anaphylaxis 02/15/24 02/17/24 Unknown History injection, auto-injector Exam Airway Mallampati Class: III (prominent upper central incisors) TM Dist: >3cm Neck ROM: Full Loose/Missing/Broken Teeth: No Heart: RRR Lungs: CTA Assessment and Plan Assessment Anesthesia Assessment: Anesthesia Plan Discussed Final Anesthetic Review NPO: Yes ASA Class: II Final Preanesthetic Review: Meds/Allgs Chart Reviewed, Consent Obtained/Reviewed and Anes Risks/Benef Reviewed Patient Risk: Low Procedure Risk: Intermediate Anesthetic Plan Anesthetic Plan: GA Disposition: Standard PACU
[2024-02-23] VITALS (18 sets, daily range): BP systolic 94–115; BP diastolic 53–71; PULSE 68–103; RESP 13–18; TEMP 36.6–37.2; O2SAT 92–100
[2024-02-23] MEDS: Aprepitant 32 MG/4.4 ML VIAL IVPUSH (06:40)
[2024-02-23] MEDS: Lactated Ringers 1,000 ML 999 ML IV (06:42)
--- NOTE | 2024-02-23 07:31 | MHC.SHP ---
Pre-Procedural Eval Section A - 24 Hr Update-Section A only Date of Service: 02/23/24 The patient is an INPATIENT: Yes The patient has been examined within 24 hours of the surgical procedure. The History & Physical has been completed within 30 days and I have reviewed it.: Yes Section B - Complete if H&P > 30 days Chief Complaint: Diaphragmatic hernia Relevant Family History (Specify if Yes): No Relevant Social History: None Present Medications: None Medical History: No relevant PMH History of Previous Operations: No relevant previous surgery Allergies: Allergies Allergy/AdvReac Type Severity Reaction Status Date / Time Sulfa (Sulfonamide Allergy Unknown Hives Verified 02/17/24 10:00 Antibiotics) Review of Systems Sugical H&P ROS: Negative: Constitution, Cardiovascular, Respiratory, Neurological, Psychiatric, Hem-Onc, Allergic/Immunologic, Gastrointestinal, Genitourinary, Musculoskeletal, Integumentary, Endocrine and Eyes/Ears/Nose/Throat Exam Surgical H&P Exam: Normal: HEENT, Normal: Heart, Normal: Lungs, Normal: Extremities, Normal: Abdomen, Normal: Skin and Normal: Neurological Plan Diagnosis/Plan: Unchanged I have reviewed the history and physical and performed a pertinent physical examination on my patient. No changes have occurred unless specified. Time Spent With Patient Time: Total time managing care of this patient today ____ minutes.
--- NOTE | 2024-02-23 07:33 | PM.OP ---
Brief Operative Note Date of Service: 02/23/24 Pre-op diagnosis: Diaphragmatic hernia Post-op diagnosis: same Procedure: Date of Service: 02/23/2024 Pre-op diagnosis: Diaphragmatic hernia Post-op diagnosis: same Procedure: Procedure: COMORBIDITIES: GERD, diaphragmatic hernia, hyperlipidemia, anxiety, depression, hypertension, knee pain ?INDICATIONS: The patient is a 68 year old female who was referred to me from Dr. Pryor for a diaphragmatic hernia and GERD confirmed by EGD and UGI. The patient is scheduled today for diaphragmatic hernia repair. Risks of recurrent hernia, dysphagia, persistent GERD, VTE, leak, infection and bleeding were discussed with the patient and he is in agreement with the plan. PROCEDURE: Esophago-gastroscopy, laparoscopic lysis of adhesions, laparoscopic repair of incarcerated diaphragmatic hernia and laparoscopic gastropexy. DESCRIPTION OF PROCEDURE: After informed consent was obtained from the patient, the patient was given preoperative antibiotics, and was transferred to the operating room. After successful induction of general anesthesia, pneumatic compression devices were placed on both lower extremities. An upper endoscopy was performed next. The oropharynx and upper esophagus appeared to be within normal limits. The stomach was entered and the scope was advanced all the way to the pylorus.? After all fluid and air were suctioned and the stomach was fully decompressed, the scope was withdrawn and secured in the mid esophagus. The patient was then prepped and draped in the usual sterile manner. Abdominal access was established at the right upper quadrant with the Umer technique. A 12 mm blunt trocar was inserted and the abdomen was insufflated with CO2 to a pressure of 15 mmHg. Following that additional ports were placed, specifically two 5 mm Versi-step ports to the left upper and one 5 mm Versi-step to the right upper quadrant. 1% lidocaine plain was used to infiltrate all port sites as well as all fascia defects. Following that, the patient was placed in a steep reverse Trendelenburg position. An additional 5 mm port was placed to the right flank for the Mediflex retractor that was used to retract the left lobe of the liver. There was a moderate size diaphragmatic hernia present. I then opened the gastrocolic ligament between the transverse colon and the greater curvature of the stomach with the ultrasonic device to enter the lesser sac and facilitate the ligation of the short gastric vessels. I started at at the upper third along the greater curvature and using the Thunderbeat, all attachments were divided. There was a moderate size diaphragmatic hernia. The stomach was incarcerated into the mediastinum with multiple thick adhesions. Mobilization of the hernia was very difficult as there were several large vessels near the left gordo and required tedious and careful dissection. I continued dissecting along the hiatus toward the left gordo into the mediastinum mobilizing the hernia sac from the mediastinum. The esophagus was carefully dissected off the aorta. The pleura spaces were not violated in either side. The pars flaccida was opened. The vena cava was not dilated and it was carefully protected. I then continued by dissecting even further into the posterior retro-esophageal space all the way to the angle of His. I continued to mobilize the esophagus into the mediastinum circumferentially. The esophagus was densely adherent to the aorta and the majority of these adhesions were mobilized. Both vagal nerves were seen and preserved. With extensive circumferential dissection into the mediastinum, I was able to bring the GE junction at least 3cm below the crura. I closed the hernia defect with three interrupted #0 Surgidac sutures using the Endo Stitch device, two of which were placed posterior and one of which anterior to the esophagus. The bites were carefully placed to include both the ventral and dorsal aspect of the two crura, advancing slightly more at the left gordo as it was located more diagonally than the right. ? A gastropexy was not required as the short gastric vessels were not ligated. ?An upper endoscopy was performed. There was no narrowing at the GE junction or any esophageal injury. The scope was easily advanced all the way to the pylorus which was clearly visualized. There was no narrowing anywhere. I confirmed that the GE junction was 3cm intra-abdominally. At that point the gastroscope was withdrawn from the patient?s mouth while we were decompressing the bowel and the stomach from any remaining air. I looked into the lesser sac to see how the stomach was situating and it was situating well. There was no bleeding from the, spleen, or short gastric vessels. The Mediflex retractor was removed, and the undersurface of the liver was inspected and there was no bleeding. The patient was placed in supine position. Then 30cc of Ropivacaine plain with 10 mg of Dexamethasone were used to infiltrate the fascial closure as well as all skin incisions. At this point, the abdomen was deflated, all ports were removed under direct vision, and no bleeding was noted from any of the port sites. The skin incisions were irrigated with saline and were closed with 4-0 absorbable monofilament sutures. Steri-Strips and OpSites were used to cover all incisions. The patient was extubated and was transferred in stable condition to the recovery room for further care. I was present and performed all clement parts of the procedure. Vinicio George was the first sampler. There were no residents to assist with this case. Tito Jolly MD, PhD, FACS Surgeon: Marcus Jolly MD Anesthesia: GETA, local and other (TAP block) Was an Burglar Alarm Installer used for this Procedure?: No Burglar Alarm Installer: Seun George Estimated blood loss (mL): 10 IV fluids (mL): 2,100 Urine output (mL): 0 (No Pope to record output) Pathology: other (Gastro-esophageal fat pad) Condition: stable Disposition: PACU
--- NOTE | 2024-02-23 07:35 | P.PNGS_ITS ---
Subjective Subjective Date of Service: 02/24/24 Interval history: Feels well. Mild incisional pain. She is tolerating phase 1 bariatric diet Physical Exam 2 Vital Signs: Vital Signs: Last Vital Signs Temp 98.9 F 02/23/24 06:28 Pulse 74 02/23/24 06:28 Resp 16 02/23/24 06:28 BP 111/63 02/23/24 06:28 Pulse Ox 98 02/23/24 06:28 O2 Del Method Room Air 02/23/24 06:28 BMI result Body Mass Index 25.7 GI: Inspection: Yes normal to inspection and Yes incision (dry, clean and intact) Palpation (GI): Soft to palpation Extrem: Right lower extremity: normal to inspection (no calf tenderness) L eft lower extremity: normal to inspection (no calf tenderness) Objective Data Active Medications Lactated Ringer's (Lr) 1,000 mls @ 100 mls/hr IVCONT .Q10H [facility] Labs 02/24/24 06:01 02/24/24 06:01 Procedures Date of Service Date of Service: 02/24/24 Progress Note: A&P Assessment and plan (1) Diaphragmatic hernia: Status: Acute Assessment and Plan: s/p laparoscopic lysis of adhesions, diaphragmatic hernia repair Doing well Will check am labs and if OK the patient will be discharged home (2) GERD (gastroesophageal reflux disease): Status: Acute (3) Barretts esophagus: Status: Acute (4) DDD (degenerative disc disease), cervical: Status: Acute (5) Hypercholesteremia: Status: Acute (6) Asthma: Status: Acute (7) Depression: Status: Acute (8) Anxiety: Status: Acute (9) Status post repair of paraesophageal diaphragmatic hernia: Status: Acute Time Spent With Patient Time: Total time managing care of this patient today ____ minutes. Quality Stroke Does the patient have a stroke diagnosis?: No VTE Prior VTE?: No VTE Risk Level:: Surgical - moderate VTE Device Contraindication: N/A - Device Ordered VTE Drug Contraindication: Treatment Not Indicated
--- NOTE | 2024-02-23 10:03 | PM.DS ---
DS: Providers Provider Date of Service: 02/24/24 Date of admission: 02/23/24 06:19 Primary care physician: Glen Gusman [facility]ANG[facility] TENDERCarlos Eduardo DS: Diagnosis Discharge Diagnosis (1) Diaphragmatic hernia: Status: Acute (2) GERD (gastroesophageal reflux disease): Status: Acute (3) Barretts esophagus: Status: Acute (4) DDD (degenerative disc disease), cervical: Status: Acute (5) Hypercholesteremia: Status: Acute (6) Asthma: Status: Acute (7) Depression: Status: Acute (8) Anxiety: Status: Acute DS: Summary Hospital Course Hospital Course: ADMITTING DIAGNOSIS: diaphragmatic hernia, gerd ? DISCHARGE DIAGNOSIS: same, s/p repair diaphragmatic hernia ? PAST SURGICAL HISTORY: Left THR ? PROCEDURE: upper endoscopy, laparoscopic repair of diaphragmatic hernia ? DISCHARGE SUMMARY: ? History of Present Illness: ? The patient is a?58 year-old woman with a BMI of?25.7 kg/m2 and associated co-morbidities as described above. The patient had extensive work-up, and was electively scheduled for laparoscopic, possible open repair of diaphragmatic hernia. Risks and complications of the surgery were discussed with the patient in advance, particularly the possibility of , pulmonary embolism, anastomotic leak, bleeding, bowel injury, GERD, cardiac, renal or pulmonary complications. The patient understood all the risks and was in agreement with the surgical plan. ? Hospital Course: ? The patient underwent an uneventful laparoscopic sleeve repair of diaphragmatic hernia on the day of admission. Postoperatively, the patient was transferred to the surgical floor. The patient received IV Acetaminophen and IV dilaudid for pain control. Patient was started on bariatric phase 1 diet POD #0. On postoperative day one, the patient was feeling well without nausea, vomiting, fevers, or tachycardia. The patient had some mild incisional pain and the abdomen was soft. ? On the morning of postoperative day one, the patient was continued on 1 ounce of water or ice every half hour. During the day, the patient did fairly well, having some incisional pain, but able to ambulate adequately and to tolerate liquids well. ? Since the patient is doing well, we decided that the patient was ready to be discharged. The patient was given instructions to follow-up with me next week and to call my office for any fever over 101, persistent abdominal pain, nausea, vomiting, GERD, symptoms of DVT such as calf tenderness, or leg swelling, or pulmonary embolism such as chest pain or shortness of breath. The patient was also instructed to drink 40-60 ounces of liquids per day using the 1-ounce cups. The patient had been given prescriptions for Tylenol for pain, Zofran prn for nausea, and pantoprazole and carafate previously. The patient was encouraged to ambulate and use the incentive spirometer. The patient was allowed to shower, but no baths, and encouraged to stay active at home. All of these instructions were given to the patient personally. All questions were answered and the patient understood all instructions, the instructions were also given to the patient in print. Time Attestation Total time managing care of this patient today: 25 mintues. Discharge Coordination Time (in mins): 25 Quality: Safe Use of Opioids Does Pt have an Active Cancer Diagnosis on the Problem List?: No Quality: Stroke Does the patient have a stroke diagnosis?: No Physical Exam Vital Signs: Vital Signs: Last Vital Signs Temp 98.9 F 02/23/24 06:28 Pulse 74 02/23/24 06:28 Resp 16 02/23/24 06:28 BP 111/63 02/23/24 06:28 Pulse Ox 98 02/23/24 06:28 O2 Del Method Room Air 02/23/24 06:28 BMI result Body Mass Index 25.7 DS: Data Data Completed and Pending Pending studies at discharge: Pending at discharge 02/23/24 09:30 Surgical [PTH] Routine Discharge Plan Discharge Anticipated Discharge Date/Time: 02/24/24 10:00 Patient Disposition: Home, Self-Care Discharge Diagnosis: s/p laparoscopic diaphragmatic hernia repair Referrals: Glen Gusman, [facility] [Primary Care Provider] - 1 Week Discharge Medications: Continued esomeprazole magnesium 20 mg capsule,delayed release(DR/EC) 20 mg PO BID Qty: 90 2RF citalopram 20 mg tablet 20 mg PO DAILY 90 Days Qty: 90 1RF atorvastatin 10 mg tablet 10 mg PO BEDTIME Qty: 90 1RF calcium carbonate-vitamin D3 [Calcium with Vitamin D] 600 mg-10 mcg (400 unit) tablet 1 tab PO BID Qty: 180 1RF albuterol sulfate 90 mcg/actuation HFA aerosol inhaler 2 inh inhalation Q4H PRN (Reason: Shortness Of Breath Or Wheezing) epinephrine 0.3 mg/0.3 mL auto-injector 0.3 mg IM Q10M PRN (Reason: Anaphylaxis) Rx Instructions: for 2 doses sucralfate 100 mg/mL suspension 10 ml PO BID Qty: 600 2RF ondansetron 4 mg tablet,disintegrating 4 mg PO Q12H PRN (Reason: nausea and vomiting) Qty: 20 0RF Rx Instructions: Only take one every 12 hours as needed if you have nausea Discharge Orders: Discharge Order (Routine); Ordered 02/24/24 Ordered By: Marcus Jolly Activity on Discharge: No heavy lifting Stand Alone Forms: Patient Portal Discharge page Print Language: Panamanian Care Plan Goals: improve gerd Health Concerns: diaphragmatic hernia Plan of Treatment: No tub baths, sex or returning to work until discussed at first post op appointment. No exercise, alcohol, tobacco or illegal drug use. Continue to use incentive spirometer hourly while awake. Walk in home for 5- 10 minutes every 2 hours during the first week. Follow all instructions in the bariatric handbook and call with any questions.Discharge Instructions 1. Please call your doctor or come back to the emergency room should any new symptoms arise. 2. You will receive a courtesy call from [facility] 24-48 hours after discharge. 3. Activity: abstain from alcohol, practice limited stair climbing, no bending, no driving, no exercise, no illicit substances, no lifting, no sex, no tub bath, no work. 4. Diet: continue as discussed with Dr. Jolly. 5. Dressing Change/Wound Care: Your incision is covered by clear bandages and guaze underneath. If the area is tender, you may apply an ice pack for short intervals (no more than 20 minutes on, followed by at least 20 minutes off). Do not apply heat. Do not use creams, lotions, or topical antibiotics unless instructed to do so by your surgeon. These can cause infection or allergic reaction. 6. Call your doctor if: - Your temperature exceeds 101.5 F - You experience excessive pain or swelling - You have an unexpected reaction to medication - You have excessive bleeding - You experience continued vomiting/nausea - Your incision begins to separate - Your incision shows signs of infection such as increased redness, swelling, excessive pain, heat, or drainage (light blood or clear fluid is normal) 7. General instructions: No lifting greater than 5 lbs for 1 week and not more than 20lbs the next 3?weeks. No driving until seen at the office in 5-7 days after surgery. If you do not move your bowels in the next 2 days, please tell?Dr. Jolly. Please walk around your home every hour or two to prevent blood clots from forming in your legs. You do not need to wake from sleeping to walk. Please sleep in a bed or couch to prevent kinking at the hips and knees. Please take your incentive spirometer (your lung nurse epidemiologist) home with you and use it for the next few days to prevent pneumonia. You may shower, no hot tubs, baths or swimming pools.?Please follow the post op diet instructions you are?given by Dr Jolly? and text me daily at 5-6pm for an update.?If you have any issues or concerns or questions please communicate this to him via text.? The Celebrate shakes have all of the bariatric vitamins you need if you consume these shakes. If you are drinking other protein shakes, you will need to purchase the Celebrate multivitamins and calcium that are available in the hospital gift shop on the first floor of the main hospital.??Do not take anything without first discussing with Dr Jolly. Please make sure you are consuming at least 40 ounces of fluids per day starting the?day AFTER your discharge from the hospital. Always drink 1-2 ml per minute using the 5ml?syringe. If you drink faster you may experience?bloating,?gas pain, burping, nausea or heartburn. In that case please slow down your pace and use the syringe to?understand better the?proper?pace and volume of drinking. Do not hesitate to contact the office with any questions at . The patient's medical history has been reviewed and they are considered low risk for post op DVT and therefore DVT prophylaxis is not considered necessary. Travel after surgery was reviewed. The patient has not disclosed any travel plans during the first 30 days after surgery and they have been advised that within the first 30 days after surgery any bus, plane, train or car travel over 2 hours in duration is contraindicated due to the possibility of developing blood clots from immobility. Any travel, needs to include periods of ambulation of 10 minutes in duration every 2 hours.? The patient was instructed to discuss any plans for travel during this period with their bariatric surgeon. Assessment: stable s/p laparoscopic diaphragmatic hernia repair
[2024-02-23 10:54] LABS: Hematocrit 36.7 % (37.0-47.0); Hemoglobin 12.6 g/dl (12.0-16.0)
[2024-02-23 11:24] LABS: Anion Gap 13 (12-20); Blood Urea Nitrogen 13 mg/dL (9-16); Calcium 8.3 mg/dL (8.4-10.2); Carbon Dioxide 22 mmol/L (22-29); Chloride 106 mmol/L (96-108); Estimated Glomerular Filt Rate > 60; Glucose Random 119 mg/dL (60-115); Sodium 137 mmol/L (135-145)
[2024-02-23] MEDS: Lactated Ringers 1,000 ML 100 ML IVCONT ×2 (13:07→23:31)
[2024-02-23] MEDS: Acetaminophen 1,000 MG/100 ML PIGGYBACK 16.7 MG IV ×2 (13:08→21:44)
--- NOTE | 2024-02-23 13:58 | PHA.MEDREC ---
Pharmacy Consult ? Medication Reconciliation Followed up med rec done by nursing. Matches claims well, home meds already continued. Plan to discharge tomorrow morning.
[2024-02-23] MEDS: ceFAZolin Sodium/Dextrose,Iso 2 GM/50 ML PIGGYBACK IV (14:33)
[2024-02-23] MEDS: Atorvastatin Calcium 10 MG TABLET PO (21:06)
[2024-02-23] MEDS: Calcium + Vitamin D 250 MG TABLET 500 MG PO (21:06)
[2024-02-24] MEDS: Acetaminophen 1,000 MG/100 ML PIGGYBACK 16.7 MG IV (02:04)
[2024-02-24 03:09] VITALS: BP 92/63; PULSE 66; RESP 18; TEMP 36.8; O2SAT 97
[2024-02-24] MEDS: Pantoprazole Sodium 40 MG/10 ML VIAL IVPUSH (05:52)
[2024-02-24 06:33] LABS: MANUAL DIFF FLAG NO
[2024-02-24 06:49] LABS: Hematocrit 35.1 % (37.0-47.0); Hemoglobin 12.3 g/dl (12.0-16.0); Imm Gran Abs Auto 0.03 X10*3/uL (0.00-0.03); Imm Gran Pct Auto 0.4 % (0.0-0.4); Lymphocytes Absolute Auto 0.7 X10*3/uL (1.2-4.9); Lymphocytes Percent Auto 10.2 % (20-40); Mean Corpuscular Hemoglobin 31.2 pg (27.0-33.0); Mean Corpuscular Volume 89.1 fL (80.0-98.0); Mean Platelet Volume 9.6 fL (9.4-12.3); Monocytes Absolute Auto 0.4 X10*3/uL (0.1-1.2); Monocytes Percent Auto 5.6 % (2-11); Neutrophils Absolute Auto 6.1 x10*3/uL (2.0-8.3); Neutrophils Percent Auto 83.8 % (45-73); Platelet Count 219 X10*3/uL (160-400); Red Blood Count 3.94 X10*6/uL (4.20-5.50); Red Cell Distribution Width 12.1 % (11.0-16.0); White Blood Count 7.3 X10*3/uL (4.8-10.8)
[2024-02-24 07:00] LABS: Anion Gap 12 (12-20); Blood Urea Nitrogen 11 mg/dL (9-16); Calcium 8.7 mg/dL (8.4-10.2); Carbon Dioxide 24 mmol/L (22-29); Chloride 107 mmol/L (96-108); Creatinine Clr Calc Pharmacy 72.8; Estimated Glomerular Filt Rate > 60; Glucose Random 105 mg/dL (60-115); Potassium 4.1 mmol/L (3.3-5.1); Sodium 139 mmol/L (135-145)
[2024-02-24 07:52] VITALS: BP 105/50; PULSE 56; RESP 18; TEMP 36.6; O2SAT 94
[2024-02-24] MEDS: Calcium + Vitamin D 250 MG TABLET 500 MG PO (09:00)
[2024-02-24] MEDS: Escitalopram Oxalate 10 MG TABLET PO (09:00)
--- NOTE | 2024-02-24 09:30 | MHC.CM.PN ---
pt dcd home self care has own ride home
--- NOTE | 2024-02-24 09:34 | HO.POSTANES ---
Post Anesthesia Evaluation Post Anesthesia Evaluation Date of Service: 02/24/24 Vital Signs: Vital Signs Temp Pulse Resp BP Pulse Ox O2 Del Method 02/24/24 07:52 98 F 56 18 105/50 L 94 Room Air 02/24/24 03:09 98.2 F 66 18 92/63 97 Room Air 02/23/24 23:40 98.0 F 68 18 101/54 L 94 Room Air Anesthesia: General Endotracheal-GETA Mental Status: Awake Pain Control: Satisfactory Nausea/Vomiting: None Hydration: Adequate Anesthesia-Related Issues: No Anes. Related Issues
== END 2024-02-24 09:53 | disposition home or self-care (01) | DRG 328 ==
LOC: HO.SSSA 10:12 → HO.S3 11:44
PROVIDERS: Physician Assistant Surgical; Admitting Provider Surgery; PCP Nurse Practitioner Family; Visit Provider Surgery
PROC: 0BQT4ZZ Repair Diaphragm, Percutaneous Endoscopic Approach (ICD-10-PCS; principal; 2024-02-23 07:30)
DX: K44.0 Diaphragmatic hernia with obstruction, without gangrene (principal); E78.5 Hyperlipidemia, unspecified; K21.9 Gastro-esophageal reflux disease without esophagitis; F41.9 Anxiety disorder, unspecified; J45.909 Unspecified asthma, uncomplicated; K66.0 Peritoneal adhesions (postprocedural) (postinfection); F32.A Depression, unspecified; I10 Essential (primary) hypertension; Z87.891 Personal history of nicotine dependence; Z79.899 Other long term (current) drug therapy
CPT/HCPCS: 36415; 80048; 85014; 85018; 85025; 86850; 86900; 86901; 88304; 88305; C9145; J0131; J0690; J1100; J1171; J2003; J2250; J2371; J2405; J2470; J2704; J2795; J3010; J7120

== ENCOUNTER → 2024-02-23 06:19 | Outpatient (BNV) | payer MEDICARE, SELFPAY | PROVIDERS: Admitting Provider Surgery; PCP Nurse Practitioner Family; Visit Provider Surgery | DX: K44.0 Diaphragmatic hernia with obstruction, without gangrene (principal) | CPT/HCPCS: 43281; 99024; 99499 ==

== ENCOUNTER 2024-02-29 13:42 | Outpatient (AMB) | payer MEDICARE, SELFPAY ==
--- NOTE | 2024-02-29 13:45 | MHC.OFFVISWM ---
VS Expanded 02/29/24 14:03 BP 117/56 L Blood Pressure Location Rt brachial Blood Pressure Position Sitting Pulse 74 Pulse Source Pulse Oximeter Temp 95.5 F L Temperature Source Temporal Artery Scan Pulse Oximetry 97 Oxygen Delivery Method Room Air Height 5 ft 1 in Weight 136 lb 3.2 oz BMI 25.7 Body Fat % 35.8 Body Fat Mass 48.8 Fat Free Mass 87.4 Visceral Fat Rating 9.0 Body Water % 45.2 Body Water Mass 61.6 Muscle Mass/Score 32.4 Basal Metabolic Rate/Score 1,197 Intake Visit Reasons: (OV) s/p Diaphragmatic Hernia 02/23/24 Allergies Sulfa (Sulfonamide Antibiotics) Allergy (Unknown, Verified 02/29/24 13:53) Hives HPI Comments Details: 68-year-old female, status post hiatal hernia repair on 02/23/2024. She is approximately 6 days postoperative. She states that she his been tolerating 3 celebrate rebuild shakes and approximately 50 to 55 oz of water daily. She has moved her bowels. Offers no significant complaints. [facility] Medical History Anxiety Depression Asthma Osteopenia Osteoarthritis, hand Paresthesias Pulmonary nodule Ground glass opacity present on imaging of lung Diffuse cystic mastopathy of breast Mixed incontinence urge and stress Kidney cyst Esophageal ulcer Hiatal hernia Elevated alkaline phosphatase level Kidney stones Leukopenia Barretts esophagus GERD (gastroesophageal reflux disease) Achalasia and cardiospasm Hypercholesteremia Stable angina Surgical History S/P total left hip arthroplasty Hx of colonoscopy History of esophagogastroduodenoscopy (EGD) Family History Brother Substance use disorder Progressive supranuclear palsy Mother Progressive supranuclear palsy Social History Household Members: Spouse Housing: House Are you a primary resident care supervisor to a significant other at home: No Do you presently have visiting nurse or other home services: No Alcohol intake: current Alcohol intake frequency: holidays/special occasions only Patient Tobacco Use Status: Former Tobacco user e-Cigarette/Vaping Use: Never Used Second Hand Smoke Exposure: No service: No Current occupational status: employed Current occupation: [employer] Current occupational exposures/hazards: No Cognitive needs: No Hearing needs: No Vision needs: No Physical Exam Vital Signs: Last Vital Signs Temp 95.5 F L 02/29/24 14:03 Pulse 74 02/29/24 14:03 BP 117/56 L 02/29/24 14:03 Pulse Ox 97 02/29/24 14:03 Oxygen Delivery Method Room Air 02/29/24 14:03 BMI result Body Mass Index 25.7 GI Inspection: Yes incision (Clean, dry, intact.) Assessment & Plan Assessment & Plan (1) Status post repair of paraesophageal diaphragmatic hernia: Code(s): Z98.890 - Other specified postprocedural states; Z87.19 - Personal history of other diseases of the digestive system Category: Surgical Plan: Continue to follow meal plan as directed by Dr. Jolly. Wear abdominal binder for the next 2 weeks with exercise and activity. Return to the office in 3 weeks
[2024-02-29 14:03] VITALS: BP 117/56; PULSE 74; TEMP 35.3; O2SAT 97; BMI 25.7
== END 2024-02-29 14:35 | disposition home or self-care (01) ==
PROVIDERS: PCP Nurse Practitioner Family; Visit Provider Physician Assistant Surgical
DX: Z98.890 Other specified postprocedural states (principal); Z87.19 Personal history of other diseases of the digestive system
CPT/HCPCS: 99024

== ENCOUNTER → 2024-02-29 13:42 | Outpatient (BNVA) | payer MEDICARE, SELFPAY | PROVIDERS: PCP Nurse Practitioner Family; Visit Provider Physician Assistant Surgical | DX: Z48.815 Encounter for surgical aftercare following surgery on the digestive system (principal); Z98.890 Other specified postprocedural states; Z87.19 Personal history of other diseases of the digestive system | CPT/HCPCS: 99212 ==

== ENCOUNTER 2024-03-25 09:18 | Outpatient (AMB) | payer MEDICARE, SELFPAY ==
--- NOTE | 2024-03-25 09:43 | MHC.OFFVISWM ---
VS Expanded 03/25/24 09:49 BP 114/55 L Blood Pressure Location Rt brachial Blood Pressure Position Sitting Pulse 72 Pulse Source Pulse Oximeter Temp 96.4 F L Temperature Source Temporal Artery Scan Pulse Oximetry 96 Oxygen Delivery Method Room Air Height 5 ft 1 in Weight 126 lb BMI 23.8 Body Fat % 35.6 Body Fat Mass 44.8 Fat Free Mass 81.2 Visceral Fat Rating 8.0 Body Water % 45.2 Body Water Mass 56.8 Muscle Mass/Score 77.0 Basal Metabolic Rate/Score 1,121 Intake Visit Reasons: (OV) s/p Diaphragmatic Hernia 02/23/24 Allergies Sulfa (Sulfonamide Antibiotics) Allergy (Unknown, Verified 03/25/24 09:46) Hives HPI Comments Details: 68-year-old female, status post hiatal hernia repair on 02/23/2024. She is approximately 1 month postoperative. Weight today is 126 lb with a BMI of 23.8. She has changed her meal plan to two shakes and a bar and a yogurt, meal recommended meal plan: 1 celebrate rebuild shake, 1 scoop, 8-10, 2-4, 7-9 celebrate bar 11-1 meal 4 forks, 5 forks, 5 pm drinkin to 55 oz of water daily. exercise: stationary bike 3-4 x per week, can't track calories, 1 hr walking outside 1-2 x per week, not tracking calories [facility] Medical History (Updated 02/25/24 @ 00:02 by Sharlene Danate) Chest discomfort Screening for colon cancer Sinusitis Conjunctivitis, left eye Upper respiratory infection Conjunctivitis due to adenovirus, left eye Strep pharyngitis Leukopenia Physical exam Anxiety Depression Asthma Osteopenia Osteoarthritis, hand Paresthesias Pulmonary nodule Ground glass opacity present on imaging of lung Diffuse cystic mastopathy of breast Mixed incontinence urge and stress Kidney cyst Esophageal ulcer Hiatal hernia Elevated alkaline phosphatase level Kidney stones Leukopenia Barretts esophagus GERD (gastroesophageal reflux disease) Achalasia and cardiospasm Hypercholesteremia Stable angina Surgical History (Updated 03/25/24 @ 09:46 by Kenia Vega CMA) Status post repair of paraesophageal diaphragmatic hernia S/P total left hip arthroplasty Hx of colonoscopy History of esophagogastroduodenoscopy (EGD) Family History Brother Substance use disorder Progressive supranuclear palsy Mother Progressive supranuclear palsy Social History Household Members: Spouse Housing: House Are you a primary child care assistant to a significant other at home: No Do you presently have visiting nurse or other home services: No Alcohol intake: current Alcohol intake frequency: holidays/special occasions only Patient Tobacco Use Status: Former Tobacco user e-Cigarette/Vaping Use: Never Used Second Hand Smoke Exposure: No service: No Current occupational status: employed Current occupation: [employer] Current occupational exposures/hazards: No Cognitive needs: No Hearing needs: No Vision needs: No Physical Exam Vital Signs: Last Vital Signs Temp 96.4 F L 03/25/24 09:49 Pulse 72 03/25/24 09:49 BP 114/55 L 03/25/24 09:49 Pulse Ox 96 03/25/24 09:49 Oxygen Delivery Method Room Air 03/25/24 09:49 BMI result Body Mass Index 23.8 Const General: healthy appearing and no acute distress Resp Effort & Inspection: normal respiratory effort Auscultation: clear to auscultation bilaterally Cardio Rate: regular rate Rhythm: regular rhythm GI Auscultation: normal bowel sounds Extrem General: Yes normal to inspection Assessment & Plan Assessment & Plan (1) Status post repair of paraesophageal diaphragmatic hernia: Code(s): Z98.890 - Other specified postprocedural states; Z87.19 - Personal history of other diseases of the digestive system Category: Surgical Plan: Change meal plans slightly based on her previous changes New Zealander yogurt at 8-10 1 celebrate rebuild shake, 1 scoop, 2-4, 7-9 1/2 celebrate bar 11-1 meal 4 forks, 5 forks, 5 pm Increase exercise to 4 days per week consistently. Continue to text weekly with weights and any questions. Follow-up in the office in 1 month
[2024-03-25 09:49] VITALS: BP 114/55; PULSE 72; TEMP 35.8; O2SAT 96; BMI 23.8
== END 2024-03-25 10:08 | disposition home or self-care (01) ==
PROVIDERS: PCP Nurse Practitioner Family; Visit Provider Physician Assistant Surgical
DX: Z98.890 Other specified postprocedural states (principal); Z87.19 Personal history of other diseases of the digestive system
CPT/HCPCS: 99024

== ENCOUNTER → 2024-03-25 09:18 | Outpatient (BNVA) | payer MEDICARE, SELFPAY | PROVIDERS: PCP Nurse Practitioner Family; Visit Provider Physician Assistant Surgical | DX: Z48.815 Encounter for surgical aftercare following surgery on the digestive system (principal); Z87.19 Personal history of other diseases of the digestive system; Z98.890 Other specified postprocedural states | CPT/HCPCS: 99212 ==

== ENCOUNTER 2024-04-05 14:57 | Outpatient (REF) | payer MEDICARE, SELFPAY | END 2024-04-05 14:58 | disposition home or self-care (01) | LOC: HO.MAMMO 14:57 | PROVIDERS: PCP Nurse Practitioner Family; Visit Provider Nurse Practitioner Family | DX: Z12.31 Encounter for screening mammogram for malignant neoplasm of breast (principal) | CPT/HCPCS: 77063; 77067 ==

== ENCOUNTER 2024-04-25 14:06 | Outpatient (AMB) | payer MEDICARE, SELFPAY ==
--- NOTE | 2024-04-25 14:14 | MHC.NURWM ---
Intake Intake Visit Reasons: (OV) s/p Diaphragmatic Hernia 02/23/24 Allergies Sulfa (Sulfonamide Antibiotics) Allergy (Unknown, Verified 03/25/24 09:46) Hives Coding
--- NOTE | 2024-04-25 14:25 | MHC.OFFVISWM ---
VS Expanded 04/25/24 14:27 BP 121/58 L Blood Pressure Location Rt brachial Blood Pressure Position Sitting Pulse 69 Pulse Source Pulse Oximeter Temp 97.3 F Temperature Source Temporal Artery Scan Pulse Oximetry 98 Oxygen Delivery Method Room Air Height 5 ft 1 in Weight 129 lb 3.2 oz BMI 24.4 Body Fat % 32.6 Body Fat Mass 42.2 Fat Free Mass 87.0 Visceral Fat Rating 8.0 Body Water % 47.4 Body Water Mass 61.2 Muscle Mass/Score 82.6 Basal Metabolic Rate/Score 1,183 Intake Visit Reasons: (OV) s/p Diaphragmatic Hernia 02/23/24 Allergies Sulfa (Sulfonamide Antibiotics) Allergy (Unknown, Verified 04/25/24 14:25) Hives HPI Comments Details: 68-year-old female, status post hiatal hernia repair on 02/23/2024. She is approximately 2 months postoperative. Weight today is 129.2 lb with a BMI of 24.4. She has changed her meal plan to two shakes and a bar and a yogurt, meal. She has no complaints of reflux but has been eating some junk food (chips, chocolate). She has started eating cottage cheese and yogurt on her own. recommended meal plan: 1 celebrate rebuild shake, 1 scoop, 8-10, 2-4, 7-9 celebrate bar 11-1 meal 4 forks, 5 forks, 5 pm 2 eggs in the morning w a banana or 1/2 c yogurt w 2 tbsp granola protein and cucumbers meat and veg at night, not measuring. drinkin to 55 oz of water daily. exercise: stationary bike 3 x per week, can't track calories, 45 min walking outside 2 x per week, not tracking calories [facility] Medical History Chest discomfort Screening for colon cancer Sinusitis Conjunctivitis, left eye Upper respiratory infection Conjunctivitis due to adenovirus, left eye Strep pharyngitis Leukopenia Physical exam Anxiety Depression Asthma Osteopenia Osteoarthritis, hand Paresthesias Pulmonary nodule Ground glass opacity present on imaging of lung Diffuse cystic mastopathy of breast Mixed incontinence urge and stress Kidney cyst Esophageal ulcer Hiatal hernia Elevated alkaline phosphatase level Kidney stones Leukopenia Barretts esophagus GERD (gastroesophageal reflux disease) Achalasia and cardiospasm Hypercholesteremia Stable angina Surgical History Status post repair of paraesophageal diaphragmatic hernia S/P total left hip arthroplasty Hx of colonoscopy History of esophagogastroduodenoscopy (EGD) Family History Brother Substance use disorder Progressive supranuclear palsy Mother Progressive supranuclear palsy Social History Household Members: Spouse Housing: House Are you a primary gericare aide to a significant other at home: No Do you presently have visiting nurse or other home services: No Alcohol intake: current Alcohol intake frequency: holidays/special occasions only Patient Tobacco Use Status: Former Tobacco user e-Cigarette/Vaping Use: Never Used Second Hand Smoke Exposure: No service: No Current occupational status: employed Current occupation: [employer] Current occupational exposures/hazards: No Cognitive needs: No Hearing needs: No Vision needs: No Physical Exam Const General: healthy appearing and no acute distress Resp Effort & Inspection: normal respiratory effort Auscultation: clear to auscultation bilaterally Cardio Rate: regular rate Rhythm: regular rhythm GI Auscultation: normal bowel sounds Extrem General: Yes normal to inspection Assessment & Plan Assessment & Plan (1) Status post repair of paraesophageal diaphragmatic hernia: Code(s): Z98.890 - Other specified postprocedural states; Z87.19 - Personal history of other diseases of the digestive system Category: Surgical Plan: Discussed the importance of measuring food quantity, being consistent, measuring calories burned while exercising. Change meal plan: 1 celebrate salima garcia, 1 scoop, 8-10, 2-4 [place] yogurt with berries at 11:21 meal 4 forks, 5 forks, 5 pm She may use the recumbent bike at [employer], where she works, to identify how many calories that she wolfe in a parallel fashion when she uses her recumbent bike at home. Her bike at home was brought 2nd hand and does not track calories. Recommend [employer] radha to be used when she walks outside. Return to clinic 1 month.
[2024-04-25 14:27] VITALS: BP 121/58; PULSE 69; TEMP 36.3; O2SAT 98; BMI 24.4
--- OUTSIDE RECORDS SUMMARY | 2024-04-25 15:45 | XMS_ITS | Encounter Summary ---
Author Organization [facility] Address [address] [place] [address] Care Team Providers Care Photostat Operator Helper Name Role Phone Smitha Garcia MD Primary Care Provider Jorgito Hyde MD Unavailable [phone] [facility], Pcp Primary Care Provider Unavailabl e Reason for Referral * EXTERNAL (Routine) - Authorized/Booked Specialty Diagnoses / Procedures Referred By Contchau t Referred To Contact Chiropractor / Chiropractic Procedures REFERRAL TO CHIROPRACTIC Smitha Garcia MD [address] [place] [id number] External Chiropractic Referral ID Status Reason Start Date Expiration Date V isits Requested Visits Authorized SEE NOTE Authorized/B ooked 05/20/2018 08/21/2018 1 1 Encounter Details Date Type Department Care Team Description 05/19/2018 Pt. Non Urgent Medic al Question Medicine/Pediatrics - [address] [phone] Smitha Garcia MD Social History Tobacco Use Types Packs/Day Years Used Date Smoking Tobacco: Former Cigarettes 1 4 Q uit: 03/23/1997 Smokeless Tobacco: Never Comments:quit 1989 1pp week prior Alcohol Use Standard Drinks/Week Comments Yes 5 (1 standard drink = 0.6 oz pure alcohol) 1 drink daily in summer & 1-2 per week in winter Physical Activity Answer Date Recorded On average, how many days pe r week do you engage in moderate to strenuous exercise (like walking fast, running, jogging, dancing, swimming, biking, or other activities that cause a light or heavy sweat)? 0 days 06/15/2020 On average, how many minutes do you engage in exercise at this level? 0 min 06/15/2020 Sex Assigned at Date Recorded Not on file Job Start Date Occupation Industry Not on file Not on file Not on file documented as of this encounter Progress Notes * Airam Garcia RN - 05/19/2018 4:39 PM ESTFrom: Vanesa Wayne To: Smitha Garcia MD Sent: 05/19/2018 4:34 PM EST Subject: Chiropractor Hi Dr. Garcia If I'm going to see a Chiroprator I don't want to go to [facility]. Just not a good match for me.I did go today he said to go 3 times a week and not sure it would help. I will go to someone else if that's what you believe would help. Just need to find someone else on my plan. Thanks, Deena documented in this encounter Plan of Treatment Not on file documented as of this encounter Visit Diagnoses Not on filedocumented in this encounter Care Teams Photostat Operator Helper Relationship Specialty Start Date End Date Smitha Garcia MD PCP - General Internal Medicine 04/03/14 01/01/22 [facility], Pcp [address] [address] PCP - General Internal Medicine 01/02/22 Jorgito Robles MD [address] [address] Specialist Cardiovascular Disease 08/16/20 documented as of this encounter
--- OUTSIDE RECORDS SUMMARY | 2024-04-25 15:46 | XMS_ITS | Encounter Summary ---
Author Organization [facility] Address [address] [place] [address] Care Team Providers Care Interactive Marketing Strategist Name Role Phone Smitha Garcia MD Primary Care Provider Jorgito Hyde MD Unavailable [phone] [facility], [facility] Primary Care [facility] Encounter Details Date Type Department Care Team Description 12/30/2018 Steam Cleaner Report Medical Records [address] [place] [address] Mauricio Stovall MD Social History Tobacco Use Types Packs/Day [...] on file documented as of this encounter Plan of Treatment Not on file documented as of this encounter Visit Diagnoses Not on filedocumented in this encounter Care Teams Interactive Marketing Strategist Relationship Specialty Start Date End Date Smitha Garcia MD PCP - General Internal Medicine 04/03/14 01/01/22 [facility], Pcp [address] [place] [address] PCP - General Internal Medicine 01/02/22 Jorgito Robles MD 300 [facility] [address] [place] [address] Specialist Cardiovascular Disease 08/16/20 documented as of this encounter
--- OUTSIDE RECORDS SUMMARY | 2024-04-25 15:46 | XMS_ITS | Encounter Summary ---
Author Organization [facility] Address [address] [place] [address] Care Team Providers Care Hide Grader Name Role Phone mSitha Garcia MD Primary Care Provider Jorgito Hyde MD Unavailable [phone] [facility], Pcp Primary Care Provider [facility] Encounter Details Date Type Department Care Team Description 04/11/2017 Release of Information Medical Records [address] [place] [address] Abstract, Provider Social History Tobacco Use Types Packs/Day Years [...] on filedocumented in this encounter Care Teams Hide Grader Relationship Specialty Start Date End Date Smitha Garcia MD PCP - General Internal Medicine 04/03/14 01/01/22 [facility], Pcp [address] [place] [address] PCP - General Internal Medicine 01/02/22 [facility]les MD [facility] [address] [place] [address] Specialist Cardiovascular Disease 08/16/20 documented as of this encounter
--- OUTSIDE RECORDS SUMMARY | 2024-04-25 15:46 | XMS_ITS | Encounter Summary ---
Author Organization [facility] Address [address] [place] [address] Care Team Providers Care Lan Support Specialist Name Role Phone Smitha Garcia MD Primary Care Provider Jorgito Hyde MD Unavailable [phone] [facility], Pcp Primary Care Provider [facility] e Encounter Details Date Type Department Care Team Description 03/24/2019 Release of Information Medical Records [address] [place] [id number] Abstract, Provider Social History Tobacco Use Types [...] on filedocumented in this encounter Care Teams Lan Support Specialist Relationship Specialty Start Date End Date Smitha Garcia MD PCP - General Internal Medicine 04/03/14 01/01/22 [facility], Pcp [address] [place] [address] PCP - General Internal Medicine 01/02/22 Jorgito Robles MD [facility] [address] [place] [address] Specialist Cardiovascular Disease 08/16/20 documented as of this encounter
--- OUTSIDE RECORDS SUMMARY | 2024-04-25 15:46 | XMS_ITS | Encounter Summary ---
Author Organization [facility] Address [address] [place] [address] Care Team Providers Care Technical Trainer Name Role Phone Darren Parekh MD Primary Care Provider Smitha Del Rosario MD Primary Care Provider Jorgito Hyde MD Unavailable [phone] [facility], Pcp Primary Care Provider [facility] Encounter Details Date Type Department Care Team Description 06/01/2013 Hospital Medical Records [address] [place] [address] Social History Tobacco Use Types Packs/Day Years Used Date Smoking Tobacco: Former Cigarettes 1 4 Q uit: 03/23/1997 Smokeless Tobacco: Never Comments:quit 1989 1pp week prior Alcohol Use Standard Drinks/Week Comments Yes 4 (1 standard drink = 0.6 oz pure [...] on filedocumented in this encounter Care Teams Technical Trainer Relationship Specialty Start Date End Date Darren Parekh MD PCP - General 11/17/03 03/22/14 Smitha Garcia MD PCP - General Internal Medicine 04/03/14 01/01/22 [facility], Pcp [address] [address] PCP - General Internal Medicine 01/02/22 Jorgito Robles MD 300 [facility] [address] [place] [address] Specialist Cardiovascular Disease 08/16/20 documented as of this encounter
--- OUTSIDE RECORDS SUMMARY | 2024-04-25 15:46 | XMS_ITS | Encounter Summary ---
Author Organization [facility] Address [address] [place] [address] Care Team Providers Care Job Placement Counselor Name Role Phone Smitha Garcia MD Primary Care Provider Jorgito Hyde MD Unavailable [facility], [facility] Primary Care Provider Unavailabl e Encounter Details Date Type Department Care Team Description 05/06/2021 Refill Medicine/Pediatrics - [address] [phone] Napoleon Lares PA-C Social History Tobacco Use Types Packs/Day Years [...] file Not on file Not on file COVID-19 Exposure Response Date Recorded In the last month, have you been in contact with someone who was confirmed or suspected to have Coronavirus / COVID-19? No / Unsure 05/07/2021 1:56 PM EST documented as of this encounter Miscellaneous Notes * Telephone Encounter - Moreno Tapia - 05/07/2021 10:00 AM EST Last OV 01/16/21. Upcoming Appt: TODAY. Lab Results Component Value Date ALB 3.8 05/08/2020 SGOT 16 05/08/2020 SGPT 36 05/08/2020 TBILI 0.7 05/08/2020 ALKPHOS 136 05/08/2020 TP 7.4 05/08/2020 documented in this encounter Plan of Treatment Not on file documented as of this encounter Visit Diagnoses Not on filedocumented in this encounter Care Teams Job Placement Counselor Relationship Specialty Start Date End Date Smitha Garcia MD PCP - General Internal Medicine 04/03/14 01/01/22 [facility], Pcp [address] [address] PCP - General Internal Medicine 01/02/22 Jorgito Robles MD 300 [facility] [address] [place] [address] Specialist Cardiovascular Disease 08/16/20 documented as of this encounter
--- OUTSIDE RECORDS SUMMARY | 2024-04-25 15:46 | XMS_ITS | Encounter Summary ---
Author Organization [facility] Address [address] [place] [address] Care Team Providers Care Gold Leaf Printer Name Role Phone Smitha Garcia MD Primary Care Provider Jorgito Hyde MD Unavailable [phone] [facility] Primary Care Provider [facility] Encounter Details Date Type Department Care Team Description 07/07/2018 Orders Only Medical Records [address] [place] [address] Shahriar Levin MD Social History Tobacco Use Types Packs/Day [...] on file documented as of this encounter Procedures Procedure Name Priority Date/Time Associated Diagnosis Comments OUTSIDE PATHOLOGY Routine 07/02/2018 documented in this encounter Results * OUTSIDE PATHOLOGY (07/02/2018) Shahriar Levin MD OUTSIDE LAB documented in this encounter Visit Diagnoses Not on filedocumented in this encounter Care Teams Gold Leaf Printer Relationship Specialty Start Date End Date Smitha Garcia MD PCP - General Internal Medicine 04/03/14 01/01/22 [facility], Pcp 300 [facility] [address] [place] [address] PCP - General Internal Medicine 01/02/22 Jorgito Robles MD 300 [facility] [address] [place] [address] Specialist Cardiovascular Disease 08/16/20 documented as of this encounter
--- OUTSIDE RECORDS SUMMARY | 2024-04-25 15:46 | XMS_ITS | Encounter Summary ---
Author Organization [facility] Address [address] [place] [address] Care Team Providers Care Lunch Truck Driver Name Role Phone Smitha Garcia MD Primary Care Provider Jorgito Hyde MD Unavailable [phone] [facility], [facility] Primary Care Provider [facility] Encounter Details Date Type Department Care Team Description 02/08/2016 Pt. Non Urgent Medic al Question Medicine/Pediatrics - [address] [address] Smitha Garcia MD Social History Tobacco Use Types Packs/Day Years Used Date Smoking Tobacco: Former Cigarettes 1 4 Q uit: 03/23/1997 Smokeless Tobacco: Never Comments:quit 1989 1pp week prior Alcohol Use Standard Drinks/Week Comments Yes 0 (1 standard drink = 0.6 oz pure [...] as of this encounter Progress Notes * Layla Rodríguez Rn - 02/08/2016 3:37 PM ESTFrom: Vanesa Wayne To: Smitha Garcia MD Sent: 02/08/2016 3:07 PM EST Subject: MRI Hi Dr. Garcia , I'M wondering if my MRI from workers comp results have come in. I called but was told Oumou Costello was out this week . Would you have the results. Thank you, Vanesa Wayne documented in this encounter Plan of Treatment Not on file documented as of this encounter Visit Diagnoses Not on filedocumented in this encounter Care Teams Lunch Truck Driver Relationship Specialty Start Date End Date Smitha Garcia MD PCP - General Internal Medicine 04/03/14 01/01/22 [facility], Pcp [address] [facility] [address] [place] [address] PCP - General Internal Medicine 01/02/22 Jorgito Robles MD 300 [facility] [address] [place] [address] Specialist Cardiovascular Disease 08/16/20 documented as of this encounter
--- OUTSIDE RECORDS SUMMARY | 2024-04-25 15:46 | XMS_ITS | Encounter Summary ---
Author Organization [facility] Address [address] [place] [address] Care Team Providers Care Political Scientist Name Role Phone Smitha Garcia MD Primary Care Provider Jorgito Hyde MD Unavailable [phone] [facility], [facility] Primary Care Provider Unavailabl e Encounter Details Date Type Department Care Team Description 2017 Orders Only Pulmonology [address] [place] [address] Klaus France MD 175 [facility] [address] [place] [address] Pulmonary nodule Social History Tobacco Use Types Packs/Day Years [...] Procedure Name Priority Date/Time Associated Diagnosis Comments CAT SCAN OF CHEST NO CONTRAST Routine 03/09/2017 Pulmonary nodule documented in this encounter Results * CAT SCAN OF CHEST NO CONTRAST (03/09/2017) Klaus France MD CT SCANS documented in this encounter Visit Diagnoses Diagnosis Pulmonary nodule Solitary pulmonary nodule documented in this encounter Care Teams Political Scientist Relationship Specialty Start Date End Date Smitha Garcia MD PCP - General Internal Medicine 04/03/14 01/01/22 [facility], Pcp [address] [place] [address] PCP - General Internal Medicine 01/02/22 Jorgito Robles MD [address] [place] [address] Specialist Cardiovascular Disease 08/16/20 documented as of this encounter
--- OUTSIDE RECORDS SUMMARY | 2024-04-25 15:46 | XMS_ITS | Encounter Summary ---
Author Organization [facility] Address [address] [place] [address] Care Team Providers Care Flat Bed Knitter Name Role Phone Smitha Garcia MD Primary Care Provider Jorgito Hyde MD Unavailable [phone] [facility], [facility] Primary Care Provider [facility] e Encounter Details Date Type Department Care Team Description 09/17/2016 Pt. Non Urgent Medic al Question Medicine/Pediatrics - [address] [phone] Kina Kohli PA-C Social History Tobacco Use Types Packs/Day [...] as of this encounter Progress Notes * Samira Diaz M.A. - 09/18/2016 9:36 AM EDTFrom: Vanesa Wayne To: Kina Kohli PA-C Sent: 09/17/2016 9:03 PM EDT Subject: X-ray Hi Kina, I would like to get the results of the chest X-ray on lungs if you could call me. I got a call and scheduled a appointment for pulmonary test. It's not until November. Is it possible to get it sooner? Thanks, Deena [phone] documented in this encounter Plan of Treatment Not on file documented as of this encounter Visit Diagnoses Not on filedocumented in this encounter Care Teams Flat Bed Knitter Relationship Specialty Start Date End Date Smitha Garcia MD PCP - General Internal Medicine 04/03/14 01/01/22 [facility], Pcp [address] [address] PCP - General Internal Medicine 01/02/22 Jorgito Robles MD 300 [facility] [address] [place] [address] Specialist Cardiovascular Disease 08/16/20 documented as of this encounter
--- OUTSIDE RECORDS SUMMARY | 2024-04-25 15:46 | XMS_ITS | Encounter Summary ---
Author Organization [facility] Address [address] [place] [address] Care Team Providers Care Roving Teller Name Role Phone Smitha Garcia MD Primary Care Provider Jorgito Hyde MD Unavailable [phone] [facility], Pcp Primary Care Provider [facility] e Encounter Details Date Type Department Care Team Description 07/02/2020 Pt. Non Urgent Medic al Question Gastroenterology - [address] [place] [address] Shahriar Levin MD Social History Tobacco Use [...] have Coronavirus / COVID-19? No / Unsure 06/26/2020 2:39 PM EDT documented as of this encounter Plan of Treatment Not on file documented as of this encounter Visit Diagnoses Not on filedocumented in this encounter Care Teams Roving Teller Relationship Specialty Start Date End Date Smitha Garcia MD PCP - General Internal Medicine 04/03/14 01/01/22 [facility], Pcp [address] [address] PCP - General Internal Medicine 01/02/22 Jorgito Robles MD [address] [address] Specialist Cardiovascular Disease 08/16/20 documented as of this encounter
--- OUTSIDE RECORDS SUMMARY | 2024-04-25 15:46 | XMS_ITS | Encounter Summary ---
Author Organization [facility] Address [address] [place] [address] Care Team Providers Care Freight Car Loader Name Role Phone Smitha Garcia MD Primary Care Provider Jorgito Hyde MD Unavailable [facility]cp [facility] Encounter Details Date Type Department Care Team Description 02/06/2016 Release of Information Medical Records [address] [place] [address] Abstract, Provider Social History Tobacco Use Types [...] on filedocumented in this encounter Care Teams Freight Car Loader Relationship Specialty Start Date End Date Smitha Garcia MD PCP - General Internal Medicine 04/03/14 01/01/22 [facility] Pcp [address] [place] [address] PCP - General Internal Medicine 01/02/22 Jorgito Robles MD [address] [facility] [address] [place] [address] Specialist Cardiovascular Disease 08/16/20 documented as of this encounter
--- OUTSIDE RECORDS SUMMARY | 2024-04-25 15:46 | XMS_ITS | Encounter Summary ---
Author Organization [facility] Address [address] [place] [address] Care Team Providers Care Collateral Analyst Name Role Phone Darren Parekh MD Primary Care Provider Smitha Del Rosario MD Primary Care Provider Jorgito Hyde MD Unavailable [phone] [facility] [place], Pcp Primary Care Provider [facility] e Encounter Details Date Type Department Care Team Description 09/12/2013 Release of Information Medical Records [address] [place] [address] Abstract, Provider Social History Tobacco Use Types [...] on filedocumented in this encounter Care Teams Collateral Analyst Relationship Specialty Start Date End Date Darren Parekh MD PCP - General 11/17/03 03/22/14 Smitha Garcia MD PCP - General Internal Medicine 04/03/14 01/01/22 [facility] [place], [facility] 300 [facility] 154 [place] [address] PCP - General Internal Medicine 01/02/22 Jorgito Robles MD 300 [facility] 154 [place] [address] Specialist Cardiovascular Disease 08/16/20 documented as of this encounter
--- OUTSIDE RECORDS SUMMARY | 2024-04-25 15:46 | XMS_ITS | Encounter Summary ---
Author Organization [facility] Address [address] [place] [address] Care Team Providers Care Head Nurse Name Role Phone Smitha Garcia MD Primary Care Provider Jorgito Hyde MD Unavailable [phone] [facility], [facility] Primary Care Provider [facility] Encounter Details Date Type Department Care Team Description 07/27/2020 Physical Therapy Aide Report Medical Records [address] [place] [address] Nico Hutchinson I., PH.D Social History Tobacco Use Types Packs/Day Years [...] on filedocumented in this encounter Care Teams Head Nurse Relationship Specialty Start Date End Date Smitha Garcia MD PCP - General Internal Medicine 04/03/14 01/01/22 [facility], Pcp [address] [place] [address] PCP - General Internal Medicine 01/02/22 Jorgito Robles MD 300 [facility] [address] [place] [address] Specialist Cardiovascular Disease 08/16/20 documented as of this encounter
--- OUTSIDE RECORDS SUMMARY | 2024-04-25 15:46 | XMS_ITS | Encounter Summary ---
Author Organization [facility] Address [address] [place] [address] Care Team Providers Care Habilitation Training Specialist Name Role Phone Smitha Garcia MD Primary Care Provider Jorgito Hyde MD Unavailable [phone] [facility] Primary [facility] Encounter Details Date Type Department Care Team Description 10/21/2019 Orders Only Medical Records [address] [place] [address] Shahriar Levin MD Social History Tobacco Use [...] Date/Time Associated Diagnosis Comments OUTSIDE PATHOLOGY Routine 10/19/2019 documented in this encounter Results * OUTSIDE PATHOLOGY (10/19/2019) Shahriar Levin MD OUTSIDE LAB documented in this encounter Visit Diagnoses Not on filedocumented in this encounter Care Teams Habilitation Training Specialist Relationship Specialty Start Date End Date Smitha Garcia MD PCP - General Internal Medicine 04/03/14 01/01/22 [facility], Pcp 300 [facility] [address] [place] [address] PCP - General Internal Medicine 01/02/22 Jorgito Robles MD 300 [facility] [address] [place] [address] Specialist Cardiovascular Disease 08/16/20 documented as of this encounter
--- OUTSIDE RECORDS SUMMARY | 2024-04-25 15:46 | XMS_ITS | Encounter Summary ---
Author Organization [facility] Address [address] [place] [address] Care Team Providers Care Certified Emergency Vehicle Technician Name Role Phone Smitha Garcia MD Primary Care Provider Jorgito Hyde MD Unavailable [phone] [facility] [place], [facility] Primary Care Provider [facility] Encounter Details Date Type Department Care Team Description 10/21/2019 Telephone Gastroenterology - [place] [address] [facility] [address] [place] [address] Shahriar Levin MD Social History [...] on file documented as of this encounter Miscellaneous Notes * Telephone Encounter - Xiomy Mckay - 10/21/2019 2:37 PM EDT Called patient to schedule office visit per dr. Levin; M for her to call to schedule. documented in this encounter Plan of Treatment Not on file documented as of this encounter Visit Diagnoses Not on filedocumented in this encounter Care Teams Certified Emergency Vehicle Technician Relationship Specialty Start Date End Date Smitha Garcia MD PCP - General Internal Medicine 04/03/14 01/01/22 [facility] [place], Pcp 300 [facility] [address] [place] [address] PCP - General Internal Medicine 01/02/22 Jorgito Robles MD 300 [facility] [address] [place] [address] Specialist Cardiovascular Disease 08/16/20 documented as of this encounter
--- OUTSIDE RECORDS SUMMARY | 2024-04-25 15:46 | XMS_ITS | Encounter Summary ---
Author Organization [facility] Address [address] [place] [address] Care Team Providers Care Chemistry Associate Name Role Phone Darren Parekh MD Primary Care Provider Donovan Baez Primary Care Provider [phone] Smitha Garcia MD Primary Care Provider Jorgito Hyde MD Unavailable [phone] [facility] Pcp Primary Care Provider Opal santacruz Encounter Details Date Type Department Care Team Description 03/11/2001 Orders Only OBGYN - [place] [address] [place] [address] Emil Tom MD Social History Tobacco Use Types Packs/Day Years Used Date Smoking Tobacco: Never Assessed Physical Activity Answer Date Recorded On average, [...] on filedocumented in this encounter Care Teams Chemistry Associate Relationship Specialty Start Date End Date Darren Parekh MD PCP - General 11/17/03 03/22/14 Donovan Maria [address] [place] [address] PCP - General 03/23/1995 11/16/03 Smitha Garcia MD [address] [place] [address] PCP - General Internal Medicine 04/03/14 01/01/22 [facility], Pcp [address] [address] PCP - General Internal Medicine 01/02/22 Jorgito Robles MD 300 [facility] 154 [place] [address] Specialist Cardiovascular Disease 08/16/20 documented as of this encounter
--- OUTSIDE RECORDS SUMMARY | 2024-04-25 15:46 | XMS_ITS | Encounter Summary ---
Author Organization [facility] Address [address] [place] [address] Care Team Providers Care Ticket Dispatcher Name Role Phone Smitha Garcia MD Primary Care Provider Jorgito Hyde MD Unavailable [phone] [facility], [facility] Primary Care Provider Unavailabl e Encounter Details Date Type Department Care Team Description 10/19/2019 Orders Only Gastroenterology - [address] [place] [address] Shahriar Levin MD Social History [...] on filedocumented in this encounter Care Teams Ticket Dispatcher Relationship Specialty Start Date End Date Smitha Garcia MD PCP - General Internal Medicine 04/03/14 01/01/22 [facility], Pcp 300 [facility] [address] [place] [address] PCP - General Internal Medicine 01/02/22 Jorgito Robles MD 300 [facility] [address] [place] [address] Specialist Cardiovascular Disease 08/16/20 documented as of this encounter
--- OUTSIDE RECORDS SUMMARY | 2024-04-25 15:46 | XMS_ITS | Encounter Summary ---
Author Organization [facility] Address [address] [place] [address] Care Team Providers Care Records Coordinator Name Role Phone Smitha Garcia MD Primary Care Provider Jorgito Hyde MD Unavailable [phone] [facility], Pcp Primary Care [facility] e Encounter Details Date Type Department Care Team Description 03/13/2018 Release of Information Medical Records [address] [place] [address] Abstract, Provider Social History Tobacco Use Types [...] on filedocumented in this encounter Care Teams Records Coordinator Relationship Specialty Start Date End Date Smitha Garcia MD PCP - General Internal Medicine 04/03/14 01/01/22 [facility], Pcp [address] [place] [address] PCP - General Internal Medicine 01/02/22 Jorgito Robles MD 300 [facility] [address] [place] [address] Specialist Cardiovascular Disease 08/16/20 documented as of this encounter
--- OUTSIDE RECORDS SUMMARY | 2024-04-25 15:46 | XMS_ITS | Encounter Summary ---
Author Organization [facility] Address [address] [place] [address] Care Team Providers Care Physics And Astronomy Professor Name Role Phone Darren Parekh MD Primary Care Provider Donovan Baez Primary Care Provider [phone] Smitha Garcia MD Primary Care Provider Jorgito Hyde MD Unavailable [phone] [facility] Primary Care Provider Opal Reason for Visit * Reason Comments APPOINTMENT Encounter Details Date Type Department Care Team Description 05/03/2002 Telephone Orthopedics-[address] [address] Scotty Thompson PA APPOINTMENT Social History Tobacco Use Types Packs/Day Years [...] encounter Miscellaneous Notes * Telephone Encounter - 05/03/2002 10:47 AM ESTCALL RECEIVED. Contact: 05/03/02==left message on machine for patient to call to make an appt with gordon Miller documented in this encounter Plan of Treatment Not on file documented as of this encounter Visit Diagnoses Not on filedocumented in this encounter Care Teams Physics And Astronomy Professor Relationship Specialty Start Date End Date Darren Parekh MD PCP - General 11/17/03 03/22/14 Donovan Maria [address] [place] [address] PCP - General 03/23/1995 11/16/03 Smitha Garcia MD [address] [place] [address] PCP - General Internal Medicine 04/03/14 01/01/22 [facility] [address] [address] PCP - General Internal Medicine 01/02/22 Jorgito Robles MD 300 [facility] 154 [place] [address] Specialist Cardiovascular Disease 08/16/20 documented as of this encounter
--- OUTSIDE RECORDS SUMMARY | 2024-04-25 15:46 | XMS_ITS | Encounter Summary ---
Author Organization [facility] Address [address] [place] [address] Care Team Providers Care Director Risk Name Role Phone Smitha Garcia MD Primary Care Provider Jorgito Hyde MD Unavailable [phone] [facility], [facility] Primary Care Provider [facility] e Encounter Details Date Type Department Care Team Description 05/09/2020 SCAN Medical Records [address] [place] [address] Abstract, Provider Social History Tobacco Use Types [...] have Coronavirus / COVID-19? No / Unsure 05/11/2020 1:59 PM EST documented as of this encounter Plan of Treatment Not on file documented as of this encounter Procedures Procedure Name Priority Date/Time Associated Diagnosis Comments OUTSIDE IMAGING Routine 05/09/2020 documented in this encounter Results * OUTSIDE IMAGING (05/09/2020) Provider Default RADIOLOGY documented in this encounter Visit Diagnoses Not on filedocumented in this encounter Care Teams Director Risk Relationship Specialty Start Date End Date Smitha Garcia MD PCP - General Internal Medicine 04/03/14 01/01/22 [facility], Pcp 300 [facility] [address] [place] [address] PCP - General Internal Medicine 01/02/22 Jorgito Robles MD 300 [facility] [address] [place] [address] Specialist Cardiovascular Disease 08/16/20 documented as of this encounter
--- OUTSIDE RECORDS SUMMARY | 2024-04-25 15:46 | XMS_ITS | Encounter Summary ---
Author Organization [facility] Address [address] [place] [address] Care Team Providers Care Capsule Inspector Name Role Phone Smitha Garcia MD Primary Care Provider Jorgito Hyde MD Unavailable [phone] [facility], [facility] Primary Care Provider [facility] Encounter Details Date Type Department Care Team Description 06/27/2014 Field Specialist Report Medical Records [address] [place] [address] Afshin Barbour MD Social History Tobacco Use Types Packs/Day [...] on filedocumented in this encounter Care Teams Capsule Inspector Relationship Specialty Start Date End Date Smitha Garcia MD PCP - General Internal Medicine 04/03/14 01/01/22 [facility], Pcp [address] [place] [address] PCP - General Internal Medicine 01/02/22 Jorgito Robles MD 300 [facility] 154 [place] [address] Specialist Cardiovascular Disease 08/16/20 documented as of this encounter
--- OUTSIDE RECORDS SUMMARY | 2024-04-25 15:46 | XMS_ITS | Encounter Summary ---
Author Organization [facility] Address [address] [place] [address] Care Team Providers Care Slip Seat Coverer Name Role Phone Darren Parekh MD Primary Care Provider Smitha Del Rosario MD Primary Care Provider Jorgito Hyde MD Unavailable [facility], Pcp Primary Care Provider [facility] e Encounter Details Date Type Department Care Team Description 06/03/2013 Hospital Medical Records [address] [place] [address] Benedicto Austin MD Social History Tobacco Use Types Packs/Day [...] on filedocumented in this encounter Care Teams Slip Seat Coverer Relationship Specialty Start Date End Date Darren Parekh MD PCP - General 11/17/03 03/22/14 Smitha Garcia MD PCP - General Internal Medicine 04/03/14 01/01/22 [facility], Pcp [address] [address] PCP - General Internal Medicine 01/02/22 Jorgito Robles MD 300 [facility] [address] [place] [address] Specialist Cardiovascular Disease 08/16/20 documented as of this encounter
--- OUTSIDE RECORDS SUMMARY | 2024-04-25 15:46 | XMS_ITS | Encounter Summary ---
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) Social History Tobacco Use Types Packs/Day Years [...] on file documented as of this encounter Results * CYCLIC CITRULLINATED PEPTIDE (02/08/2018 4:30 PM EST) CCP NEGATIVE NEGATIVE 02/09/2018 12:22 PM EST [facility] CCP QUANT 19 <20 UNITS 02/09/2018 12:22 PM EST [facility] 02/08/2018 4:30 PM EST 02/08/2018 4:30 PM EST Cyndy Flores DO LAB [facility] documented in this encounter Visit Diagnoses Diagnosis 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
--- OUTSIDE RECORDS SUMMARY | 2024-04-25 15:46 | XMS_ITS | Encounter Summary ---
Author Organization [facility] Address [address] [place] [address] Care Team Providers Care Hose Finisher Name Role Phone Darren Parekh MD Primary Care Provider Smitha Del Rosario MD Primary Care Provider Jorgito Hyde MD Unavailable [phone] [facility], Pcp Primary Care Provider [facility] e Encounter Details Date Type Department Care Team Description 10/23/2011 Casing Fluid Tender Report Medical Records [address] [place] [address] Martin Morales Social History Tobacco Use Types Packs/Day Years Used Date Smoking Tobacco: Former Cigarettes 4 Q uit: 03/23/1997 Smokeless Tobacco: Never [...] on filedocumented in this encounter Care Teams Hose Finisher Relationship Specialty Start Date End Date Darren Parekh MD PCP - General 11/17/03 03/22/14 Smitha Garcia MD PCP - General Internal Medicine 04/03/14 01/01/22 [facility], Pcp 300 [facility] [address] [place] [address] PCP - General Internal Medicine 01/02/22 Jorgito Robles MD 300 [facility] [address] [place] [address] Specialist Cardiovascular Disease 08/16/20 documented as of this encounter
--- OUTSIDE RECORDS SUMMARY | 2024-04-25 15:46 | XMS_ITS | Encounter Summary ---
Author Organization [facility] Address [address] [place] [address] Care Team Providers Care Parking Assistant Name Role Phone Smitha Garcia MD Primary Care Provider Jorgito Hyde MD Unavailable [phone] [facility], [facility] Primary Care Provider Unavailabl e Encounter Details Date Type Department Care Team Description 08/21/2017 Orders Only Medicine/Pediatrics - [address] [address] Kina Kohli PA-C Odynophagia; Dysphagia, unspecified type; Achalasia and cardiospasm; Gastroesophageal reflux disease, esophagitis presence not specified Social History Tobacco Use Types Packs/Day Years [...] Procedure Name Priority Date/Time Associated Diagnosis Comments CHG RADIOLOGIC EXAM ESOPHAGUS SINGLE CONTRAST STUDY Routine 08/06/2017 Odynophagia Dysphagia, unspecified type Achalasia and cardiospasm Gastroesophageal reflux disease, esophagitis presence not specified documented in this encounter Results * BARIUM SWALLOW (08/06/2017) Kina Kohli PA-C RADIOLOGY documented in this encounter Visit Diagnoses Diagnosis Odynophagia Dysphagia, unspecified Dysphagia, unspecified type Achalasia and cardiospasm Gastroesophageal reflux disease, esophagitis presence not specified documented in this encounter Care Teams Parking Assistant Relationship Specialty Start Date End Date Smitha Garcia MD PCP - General Internal Medicine 04/03/14 01/01/22 [facility], Pcp 300 [facility] [address] [place] [address] PCP - General Internal Medicine 01/02/22 Jorgito Robles MD 300 [facility] [address] [place] [address] Specialist Cardiovascular Disease 08/16/20 documented as of this encounter
--- OUTSIDE RECORDS SUMMARY | 2024-04-25 15:46 | XMS_ITS | Encounter Summary ---
Author Organization [facility] Address [address] [place] [address] Care Team Providers Care Bath Attendant Name Role Phone Darren Parekh MD Primary Care Provider Smitha Del Rosario MD Primary Care Provider Jorgito Hyde MD Unavailable [phone] [facility], Pcp Primary Care Provider [facility] Encounter Details Date Type Department Care Team Description 08/06/2010 Release of Information Medical Records [address] [place] [address] Abstract, Provider Social History Tobacco Use Types Packs/Day Years Used Date Smoking Tobacco: Former Smokeless Tobacco: Never Comments:quit 1989 1pp week prior Alcohol Use Standard Drinks/Week Comments Yes 0 (1 standard drink = 0.6 oz pur e alcohol) rare Physical Activity Answer Date Recorded On average, [...] on filedocumented in this encounter Care Teams Bath Attendant Relationship Specialty Start Date End Date Iglesia, Darren M., MD PCP - General 11/17/03 03/22/14 Smitha Garcia MD PCP - General Internal Medicine 04/03/14 01/01/22 [facility], Pcp 300 [facility] [address] [place] [address] PCP - General Internal Medicine 01/02/22 Jorgito Robles MD 300 [facility] [address] [place] [address] Specialist Cardiovascular Disease 08/16/20 documented as of this encounter
--- OUTSIDE RECORDS SUMMARY | 2024-04-25 15:46 | XMS_ITS | Encounter Summary ---
Author Organization [facility] Address [address] [place] [address] Care Team Providers Care Uncrater Name Role Phone Smitha Garcia MD Primary Care Provider Jorgito Hyde MD Unavailable [phone] [facility], Pcp Primary Care Provider [facility] e Encounter Details Date Type Department Care Team Description 04/11/2019 Release of Information Medical Records [address] [place] [address] Abstract, Provider Social History Tobacco Use Types [...] on filedocumented in this encounter Care Teams Uncrater Relationship Specialty Start Date End Date Smitha Garcia MD PCP - General Internal Medicine 04/03/14 01/01/22 [facility], Pcp [address] [place] [address] PCP - General Internal Medicine 01/02/22 Jorgito Robles MD 300 [facility] [address] [place] [address] Specialist Cardiovascular Disease 08/16/20 documented as of this encounter
--- OUTSIDE RECORDS SUMMARY | 2024-04-25 15:46 | XMS_ITS | Encounter Summary ---
Author Organization [facility] Address [address] [place] [address] Care Team Providers Care Control Equipment Electrician Name Role Phone Smitha Garcia MD Primary Care Provider Jorgito Hyde MD Unavailable [phone] [facility], [facility] Primary Care [facility] e Encounter Details Date Type Department Care Team Description 09/08/2019 [place] Fishing Boat Crewman Report Medical Records [address] [place] [address] Paolo Guerrero MD Social History Tobacco Use Types Packs/Day [...] on filedocumented in this encounter Care Teams Control Equipment Electrician Relationship Specialty Start Date End Date Smitha Garcia MD PCP - General Internal Medicine 04/03/14 01/01/22 [facility], Pcp [address] [place] [address] PCP - General Internal Medicine 01/02/22 Jorgito Robles MD 300 [facility] [address] [place] [address] Specialist Cardiovascular Disease 08/16/20 documented as of this encounter
--- OUTSIDE RECORDS SUMMARY | 2024-04-25 15:46 | XMS_ITS | Encounter Summary ---
Author Organization [facility] Address [address] [place] [address] Care Team Providers Care Can Filling Room Sweeper Name Role Phone mSitha Garcia MD Primary Care Provider Tarava Jorgito Nevarez MD Unavailable [phone] [facility], [facility] Primary Care Provider Unavailabl e Reason for Referral * Non ABEL (Routine) - Authorized/Booked Specialty Diagnoses / Procedures Referred By Contact Referred To Contact Chiropractor / Chiropractic Diagnoses Cervical radicular pain Procedures REFERRAL TO CHIROPRACTIC Aman Lynn MD [address] [place] [address] Chaitanya Brown D.C. [address] [place] [address] Referral ID Status Reason Start Date Expiration Date V isits Requested Visits Authorized [id number] Authorized/B ooked 05/19/2018 03/22/2019 60 53 Encounter Details Date Type Department Care Team Description 05/17/2018 Pt. Non Urgent Medical Question Medicine/Pediatrics - [address] [phone] Smitha Garcia MD Cervical radicular pain (Primary Dx) Social History Tobacco Use Types [...] as of this encounter Progress Notes * Marisol Berman L.P.N. - 05/18/2018 8:36 AM ESTFrom: Vanesa Wayne To: Smitha Garcia MD Sent: 05/17/2018 8:03 PM EST Subject: Medication Hi Dr. Gracia, The Ranitidine is helping some. Could you send in a refill? My shoulder pain is gone but I still have pins and needle feeling in the finger tip and sometimes the hand depending on position of my arm. Deena documented in this encounter Plan of Treatment Not on file documented as of this encounter Visit Diagnoses Diagnosis Cervical radicular pain- Primary Brachial neuritis or radiculitis nos documented in this encounter Care Teams Can Filling Room Sweeper Relationship Specialty Start Date End Date Smitha Garcia MD PCP - General Internal Medicine 04/03/14 01/01/22 [facility], Pcp [address] [address] PCP - General Internal Medicine 01/02/22 Jorgito Robles MD [address] [address] Specialist Cardiovascular Disease 08/16/20 documented as of this encounter
--- OUTSIDE RECORDS SUMMARY | 2024-04-25 15:46 | XMS_ITS | Encounter Summary ---
Author Organization [facility] Address [address] [place] [address] Care Team Providers Care Turbo Generator Oiler Name Role Phone Darren Parekh MD Primary Care Provider Smitha Del Rosario MD Primary Care Provider Jorgito Hyde MD Unavailable [phone] On License Of [facility], Pcp Primary Care Provider [facility] e Encounter Details Date Type Department Care Team Description 08/21/2011 Head Men'S Golf Coach Report Medical Records [address] [place] [id number] Martin Morales Social History Tobacco Use Types [...] on filedocumented in this encounter Care Teams Turbo Generator Oiler Relationship Specialty Start Date End Date Darren Parekh MD PCP - General 11/17/03 03/22/14 Smitha Garcia MD PCP - General Internal Medicine 04/03/14 01/01/22 On License Of [facility], Pcp 300 [facility] [address] [place] [address] PCP - General Internal Medicine 01/02/22 Jorgito Robles MD 300 [facility] [address] [place] [address] Specialist Cardiovascular Disease 08/16/20 documented as of this encounter
--- OUTSIDE RECORDS SUMMARY | 2024-04-25 15:46 | XMS_ITS | Encounter Summary ---
Author Organization [facility] Address [address] [place] [address] Care Team Providers Care Compliance Advisor Name Role Phone Darren Parekh MD Primary Care Provider Donovan Baez Primary Care Provider [phone] Smitha Garcia MD Primary Care Provider Jorgito Hyde MD Unavailable [phone] [facility] Pcp Primary Care Provider Opal santacruz Encounter Details Date Type Department Care Team Description 04/09/2001 Telephone OBGYN - [place] [address] [place] [address] Social History Tobacco Use Types Packs/Day Years [...] on filedocumented in this encounter Care Teams Compliance Advisor Relationship Specialty Start Date End Date Darren Parekh MD PCP - General 11/17/03 03/22/14 Donovan Maria [address] [place] [address] PCP - General 03/23/1995 11/16/03 Smitha Garcia MD [address] [place] [address] PCP - General Internal Medicine 04/03/14 01/01/22 [facility], Pcp [address] [address] PCP - General Internal Medicine 01/02/22 Jorgito Robles MD [address] [address] Specialist Cardiovascular Disease 08/16/20 documented as of this encounter
--- OUTSIDE RECORDS SUMMARY | 2024-04-25 15:47 | XMS_ITS | Encounter Summary ---
Author Organization [facility] Address [address] [place] [address] Care Team Providers Care Fifth Hand Name Role Phone Smitha Garcia MD Primary Care Provider Jorgito Hyde MD Unavailable [phone] [facility], [facility] Primary Care Provider Unavailabl e Reason for Visit * Reason Onset Date Comments Principal Technical Writer Feedback 04/10/2014 Dr. Wilman Méndez eurology Encounter Details Date Type Department Care Team Description 04/10/2014 Telephone Medicine/Pediatrics - [address] [phone] Smitha Garcia MD Principal Technical Writer Feedback (Dr. Stovall Neurology) Social History Tobacco Use Types Packs/Day Years [...] encounter Miscellaneous Notes * Telephone Encounter - Katlyn Contreras - 04/27/2014 1:47 PM EST MARLENY mailed to patient for sensitive information Order faxed to [phone] * Telephone Encounter - Myrtle Castillo - 04/12/2014 8:25 AM EST No insurance referral required. Letter with appointment information mailed to patient. DX tongue numbness and tingling; abn MRI, demyelinating lesions, migraine Message forwarded to fax notes [phone] * Telephone Encounter - Myrtle Castillo - 04/10/2014 2:13 PM EST Faxed the Order and Insurance [phone] documented in this encounter Plan of Treatment Not on file documented as of this encounter Visit Diagnoses Not on filedocumented in this encounter Care Teams Fifth Hand Relationship Specialty Start Date End Date Smitha Garcia MD PCP - General Internal Medicine 04/03/14 01/01/22 [facility], Pcp [address] [address] PCP - General Internal Medicine 01/02/22 Jorgito Robles MD [address] [address] Specialist Cardiovascular Disease 08/16/20 documented as of this encounter
--- OUTSIDE RECORDS SUMMARY | 2024-04-25 15:47 | XMS_ITS | Encounter Summary ---
Author Organization [facility] Address [address] [place] [address] Care Team Providers Care Mental Health Tech Name Role Phone Smitha Garcia MD Primary Care Provider Tarava Jorgito Nevarez MD Unavailable [phone] [facility] Primary Care Provider Unavailabl e Reason for Visit * Reason Onset Date Comments Faxed Refill 06/08/2020 Encounter Details Date Type Department Care Team Description 06/08/2020 Refill Gastroenterology - [address] [place] [phone] Shahriar Levin MD Faxed Refill Social History Tobacco Use Types Packs/Day Years [...] have Coronavirus / COVID-19? No / Unsure 06/05/2020 4:01 PM EDT documented as of this encounter Miscellaneous Notes * Telephone Encounter - Natalia Negrete M.A. - 06/08/2020 3:36 PM EDT MARY KATE 11/23/2019 No future apt 90 day supply * Telephone Encounter - Michael Hartmann - 06/08/2020 3:25 PM EDT MARY KATE 11/23/2019 No future apt 90 day supply documented in this encounter Plan of Treatment Not on file documented as of this encounter Visit Diagnoses Not on filedocumented in this encounter Care Teams Mental Health Tech Relationship Specialty Start Date End Date Smitha Garcia MD PCP - General Internal Medicine 04/03/14 01/01/22 Counts Include [address] [facility], Pcp 300 [facility] [address] [place] [address] PCP - General Internal Medicine 01/02/22 Jorgito Robles MD 300 [facility] [address] [place] [address] Specialist Cardiovascular Disease 08/16/20 documented as of this encounter
--- OUTSIDE RECORDS SUMMARY | 2024-04-25 15:47 | XMS_ITS | Encounter Summary ---
Author Organization [facility] Address [address] [place] [address] Care Team Providers Care Clinical Research Associate Name Role Phone Smitha Garcia MD Primary Care Provider Jorgito Hyde MD Unavailable [phone] [facility], Pcp Primary Care Provider [facility] e Encounter Details Date Type Department Care Team Description 06/08/2020 Pt. Non Urgent Medical Question Medicine/Pediatrics - [address] [phone] Jennifer Salazar NP [address] [place] [address] Social History Tobacco Use Types Packs/Day Years [...] encounter Miscellaneous Notes * Telephone Encounter - Monique Brown M.A. - 06/08/2020 9:52 AM EDTFrom: Vanesa Wayne To: Jennifer Salazar NP Sent: 06/08/2020 9:51 AM EDT Subject: Barium swallow I have a barium swallow scheduled on July 03. documented in this encounter Plan of Treatment Not on file documented as of this encounter Visit Diagnoses Not on filedocumented in this encounter Care Teams Clinical Research Associate Relationship Specialty Start Date End Date Smitha Garcia MD PCP - General Internal Medicine 04/03/14 01/01/22 [facility], Pcp [address] [address] PCP - General Internal Medicine 01/02/22 Jorgito Robles MD 300 [facility] [address] [place] [address] Specialist Cardiovascular Disease 08/16/20 documented as of this encounter
--- OUTSIDE RECORDS SUMMARY | 2024-04-25 15:47 | XMS_ITS | Encounter Summary ---
Author Organization [facility] Address [address] [place] [address] Care Team Providers Care Automatic Machines Supervisor Name Role Phone Smitha Garcia MD Primary Care Provider Jorgito Hyde MD Unavailable [phone] [facility], Pcp Primary Care [facility] e Encounter Details Date Type Department Care Team Description 05/15/2014 Release of Information Medical Records [address] [place] [id number] Abstract, Provider Social History Tobacco Use Types [...] on filedocumented in this encounter Care Teams Automatic Machines Supervisor Relationship Specialty Start Date End Date Smitha Garcia MD PCP - General Internal Medicine 04/03/14 01/01/22 [facility], Pcp [address] [place] [address] PCP - General Internal Medicine 01/02/22 [facility]orgito Robles MD [facility] [address] [place] [address] Specialist Cardiovascular Disease 08/16/20 documented as of this encounter
== END 2024-04-25 14:50 | disposition home or self-care (01) ==
PROVIDERS: PCP Nurse Practitioner Family; Visit Provider Physician Assistant Surgical
DX: Z98.890 Other specified postprocedural states (principal); Z87.19 Personal history of other diseases of the digestive system
CPT/HCPCS: 99024

== ENCOUNTER → 2024-04-25 14:06 | Outpatient (BNVA) | payer MEDICARE, SELFPAY | PROVIDERS: PCP Nurse Practitioner Family; Visit Provider Physician Assistant Surgical | DX: Z98.890 Other specified postprocedural states (principal); Z87.19 Personal history of other diseases of the digestive system | CPT/HCPCS: 99212 ==

== ENCOUNTER 2024-05-04 10:36 | Outpatient (REF) | payer MEDICARE, SELFPAY ==
--- NOTE | ~2024-05-04 | XR_ITS ---
EXAMINATION: XR CERVICAL SPINE CLINICAL INFORMATION: W19.XXXA - Unspecified fall, initial encounter COMPARISON: 07/21/2022. TECHNIQUE: 7 views of the cervical spine, inclusive of bilateral oblique views, and flexion and extension views, were obtained. FINDINGS: Normal lordosis. No scoliosis. Mild osteopenia. No fracture, compression deformity or traumatic subluxation evident. There is a trace degenerative retrolisthesis C5 on C6. Alignment is otherwise anatomic. Craniocervical junction and C1-2 articulation are intact and aligned. There is mild to moderate disc space narrowing noted at C5-6 and C6-7. Facets are normally aligned with multilevel facet degeneration and multilevel uncinate spurring. Oblique views demonstrate no high-grade bony neural foraminal narrowing. There is moderate left neural foraminal narrowing at C6-7. On the right, there is mild bony neural foraminal narrowing at C4-5. Flexion and extension views demonstrate no new or worsening subluxation to suggest instability. Prevertebral soft tissues appear normal. Lung apices appear clear. XR/XR cervical spine w flex/ext IMPRESSION: 1. No acute findings of the cervical spine. 2. Mild to moderate degenerative spondylosis as detailed. There is no evidence of instability on flexion and extension. Electronically signed by: Ian Lopez MD 05/04/2024 02:17 PM [facility]
--- NOTE | ~2024-05-04 | XR_ITS ---
EXAMINATION: XR SHOULDER, RIGHT CLINICAL INFORMATION: W19.XXXA - Unspecified fall, initial encounter COMPARISON: None available. TECHNIQUE: Two views of the right shoulder. FINDINGS: Minimal osteopenia. No fracture, dislocation, or suspicious bone lesion. Normal alignment. There are surgical anchors in the humeral head greater tuberosity. The glenohumeral joint intact with mild degenerative arthrosis. There has been partial resection of the distal clavicle related to subacromial decompression. Mildly downsloping lateral acromion with small undersurface spurs. There is mild subacromial narrowing. The scapula is intact. Remainder of the soft tissue and bony structures appear normal. XR/XR shoulder RT min 2V IMPRESSION: 1. No acute findings right shoulder. 2. Prior rotator cuff repair with subacromial decompression. 3. Mild glenohumeral joint degenerative arthritis. 4. Mild narrowing of the subacromial space. Electronically signed by: Ian Lopez MD 05/04/2024 02:13 PM [facility]
--- NOTE | ~2024-05-04 | XR_ITS ---
EXAMINATION: XR SCAPULA, RIGHT CLINICAL INFORMATION: W19.XXXA - Unspecified fall, initial encounter COMPARISON: None available. TECHNIQUE: AP and scapular Y views of the right scapula. FINDINGS: No acute cortical disruption. No lytic or blastic lesions. Radiopaque anchors in the greater tuberosity of the humerus. Well-corticated irregularity of the acromioclavicular joint likely postsurgical changes. XR/XR scapula RT IMPRESSION: No acute fracture, right scapula. Post surgical changes. Electronically signed by: Iraj Lorenzo MD 05/04/2024 02:12 PM [facility]
--- NOTE | ~2024-05-04 | XR_ITS ---
EXAMINATION: XR THORACIC SPINE CLINICAL INFORMATION: W19.XXXA - Unspecified fall, initial encounter COMPARISON: None available. TECHNIQUE: AP and lateral views of the thoracic spine. FINDINGS: There is a mild levoconvex scoliosis of the lower thoracic spine. Mildly exaggerated kyphosis. There is mild osteopenia. No fracture, compression deformity, or subluxation. No suspicious bone lesion. Mild degenerative disc disease present throughout the thoracic spine. Normal facet alignment. The imaged soft tissues, lungs, and mediastinal structures appear normal. XR/XR thoracic spine 2V IMPRESSION: No acute findings of the thoracic spine. Electronically signed by: Ian Lopez MD 05/04/2024 02:09 PM [facility]
== END 2024-05-04 10:37 | disposition home or self-care (01) ==
LOC: HO.HMGCX 10:36
PROVIDERS: PCP Nurse Practitioner Family; Visit Provider Nurse Practitioner Family
DX: M54.2 Cervicalgia (principal); M25.511 Pain in right shoulder; M89.8X1 Other specified disorders of bone, shoulder; M79.601 Pain in right arm; M85.89 Other specified disorders of bone density and structure, multiple sites
CPT/HCPCS: 72052; 72070; 73010; 73030; 99212

== ENCOUNTER → 2024-05-04 10:36 | Outpatient (AMB) | payer MEDICARE, SELFPAY ==
--- NOTE | 2024-05-04 11:06 | AM.OFFWIN_ITS ---
Intake Vital Signs 05/04/24 11:10 Height 5 ft 1 in Weight 129 lb BMI 24.4 BP 122/60 Blood Pressure Location Lt brachial Position Sitting Pulse 66 Pulse Source Pulse Oximeter Temp 97.5 F Temp Source Oral Pulse Oximetry (%) 97 Intake Visit Reasons: est/ fell on ice/back/neck/shoulder pain Patient Tobacco Use Status: Former Tobacco user Allergies Sulfa (Sulfonamide Antibiotics) Allergy (Unknown, Verified 05/04/24 11:21) Hives Medication List - Last Reconciled 05/04/24 by Kylie Vázquez, [facility]- albuterol sulfate 90 mcg/actuation 2 inhalations inhalation Q4H PRN atorvastatin 10 mg PO BEDTIME calcium carbonate-vitamin D3 600 mg-10 mcg (400 unit) (Calcium with Vitamin D) 1 tab PO BID citalopram 20 mg PO DAILY 90 days epinephrine 0.3 mg IM Q10M PRN esomeprazole magnesium 20 mg PO BID ondansetron 4 mg PO Q12H PRN sucralfate 10 mL PO BID Do you need a note to return to daycare/school/sports/work: No HPI HPI Comments History of Present Illness Details The patient is a 69-year-old female presenting with right shoulder pain and cervical spine pain following a recent fall. The fall occurred on when the patient slipped on ice and landed on her back and head during a weekend trip to [place]. The incident did not result in loss of consciousness, but the patient experienced immediate pain in the R shoulder and discomfort in the cervical region. Since the fall, the patient has reported constant pain in the right shoulder and neck, which extends to the lower part of her head. The neck pain includes achiness and some discomfort on movement. The patient has tried various interventions including CBD oil and Tylenol but reports persistent pain that she describes as burning and hurting arely to muscle pain. The patient has a history of osteopenia diagnosed in 2021, raising concerns for potential fractures. Physical Exam Awake, alert. No apparent distress, atraumatic PERRLA, EOMI Full but restricted ROM with bilat lateral flexion c/o pain/tightness into her shoulders, no nuchal rigidity Tenderness over midthoracic spine w/ palpation Pain paraspinally on the right, anterior to scalpula No clavicular pain or obvious deformity on the R Right arm neurovasc intact; FROM R arm. Mild weakess d/t pain. C/o pain below deltoid on the R side No obvious deformity GUPTA x 4 No neuro deficits LS CTAB Results Xrays ordered and pending Discussion Notes During this visit, I recommended obtaining X-rays of the cervical spine, thoracic spine, and right shoulder to rule out any fractures, considering the patient's recent fall and history of osteopenia. We discussed the possibility of supportive care if no fractures are found, including the use of topical analgesic like Voltaren for localized pain management and magnesium supplements as a muscle relaxant. The patient expressed concerns about medication effects due to existing atorvastatin but was reassured about magnesium's compatibility. We explored additional non-invasive options such as Voltaren gel for pain relief localized to the shoulder area. I advised the patient to have the diagnostic imaging done at the [facility] for quicker results. I also provided anticipatory guidance on avoiding further falls and staying safe on icy surfaces. Follow-up actions depend on the imaging outcomes, with possible referral to spine or shoulder specialists if fractures are identified. Assessment and Plan 69-year-old female with history of osteo penia presenting with right shoulder pain and cervical spine pain post-fall. The immediate post-fall pain has persisted, raising concerns for musculoskeletal injury. The cervical spine pain is notable for restricted movements, suggesting soft tissue involvement or possible underlying bony injury, particularly given the osteopenia history. Differential diagnoses include soft tissue damage, fracture, or exacerbation of pre-existing conditions such as osteopenia. 1. Right Shoulder Pain The plan is to perform a right shoulder X-ray to rule out any fractures or structural injury following the fall. Management includes topical diclofenac (Voltaren) for analgesia and avoidance of systemic NSAIDs owing to patient preference. Consider physical therapy and follow up with orthopedic evaluation if imaging reveals abnormalities. 2. Cervical Spine Pain A cervical spine X-ray is recommended to assess for any fractures. In absence of fractures, recommend conservative management including magnesium supplementation as a natural muscle relaxant. Consideration for cervical physical therapy contingent on imaging results. 3. Chronic Cough Address underlying inflammation with supportive treatments such as honey and mucolytic agents for post-influenza bronchial irritation. 4. Osteopenia Continue current management with bone-strengthening strategies considering the increased fracture risk, highlighted by the recent fall. Bi-yearly bone density assessment to monitor progression. Patient Instructions - Proceed to [facility] for cervi ryder and thoracic spine, and shoulder X- rays. - Use Voltaren gel on the affected shoul maggie area for pain relief as needed. - Consider magnesium supplementation for muscle relaxation after discussing with a medical professional. - Avoid activities that may exacerbate t he shoulder and neck pain or lead to another fall. - Follow up once imaging results are echo ilable to determine the next steps in treatment. - Use honey and warm fluids like tea to help with cough and throat irritation. - Report any new or worsening symptoms, particularly if experiencing severe pain, weakness, or other concerning changes. Patient was informed and verbally consented to the use of an ambient scribe for clinic note documentation during this visit. Total time spent caring for the patient today was 45 minutes. This includes time spent before the visit reviewing the chart, time spent during the visit, and time spent after the visit on documentation, reviewing laboratory results, diagnostic imaging, medications, performing a medically necessary evaluation, counseling on diagnoses, care coordination, ordering appropriate tests, ordering appropriate medications, review of tests performed by other providers, reporting test results with the patient, communication with other healthcare providers. [facility] Medical History Chest discomfort Screening for colon cancer Sinusitis Conjunctivitis, left eye Upper respiratory infection Conjunctivitis due to adenovirus, left eye Strep pharyngitis Leukopenia Physical exam Anxiety Depression Asthma Osteopenia Osteoarthritis, hand Paresthesias Pulmonary nodule Ground glass opacity present on imaging of lung Diffuse cystic mastopathy of breast Mixed incontinence urge and stress Kidney cyst Esophageal ulcer Hiatal hernia Elevated alkaline phosphatase level Kidney stones Leukopenia Barretts esophagus GERD (gastroesophageal reflux disease) Achalasia and cardiospasm Hypercholesteremia Stable angina Surgical History Status post repair of paraesophageal diaphragmatic hernia S/P total left hip arthroplasty Hx of colonoscopy History of esophagogastroduodenoscopy (EGD) Family History Brother Substance use disorder Progressive supranuclear palsy Mother Progressive supranuclear palsy Social History Household Members: Spouse Housing: House Are you a primary day care director to a significant other at home: No Do you presently have visiting nurse or other home services: No Alcohol intake: current Alcohol intake frequency: holidays/special occasions only Patient Tobacco Use Status: Former Tobacco user e-Cigarette/Vaping Use: Never Used Second Hand Smoke Exposure: No service: No Current occupational status: employed Current occupation: [employer] Current occupational exposures/hazards: No Cognitive needs: No Hearing needs: No Vision needs: No Physical Exam Vital Signs: Last Vital Signs Temp 97.5 F 05/04/24 11:10 Pulse 66 05/04/24 11:10 BP 122/60 05/04/24 11:10 Pulse Ox 97 05/04/24 11:10 BMI result Body Mass Index 24.4 Assessment & Plan Assessment & Plan (1) Fall: Code(s): W19.XXXA - Unspecified fall, initial encounter Qualifiers: Encounter type: initial encounter Qualified Code(s): W19.XXXA - Unspecified fall, initial encounter (2) Cervical pain (neck): Code(s): M54.2 - Cervicalgia (3) Right shoulder pain: Code(s): M25.511 - Pain in right shoulder Qualifiers: Chronicity: acute Qualified Code(s): M25.511 - Pain in right shoulder (4) Pain of right scapula: Code(s): M89.8X1 - Other specified disorders of bone, shoulder (5) Right arm pain: Code(s): M79.601 - Pain in right arm (6) Osteopenia: Code(s): M85.80 - Other specified disorders of bone density and structure, unspecified site Qualifiers: Osteopenia location: multiple sites Qualified Code(s): M85.89 - Other specified disorders of bone density and structure, multiple sites Plan . Orders: Orders XR cervical spine w flex/ext Today M25.511 - Pain in right shoulder, M54.2 - Cervicalgia, M79.601 - Pain in right arm, M85.89 - Other specified disorders of bone density and structure, multiple sites, M89.8X1 - Other specified disorders of bone, shoulder, W19.XXXA - Unspecified fall, initial encounter XR thoracic spine 2V Today M25.511 - Pain in right shoulder, M54.2 - Cervicalgia, M79.601 - Pain in right arm, M85.89 - Other specified disorders of bone density and structure, multiple sites, M89.8X1 - Other specified disorders of bone, shoulder, W19.XXXA - Unspecified fall, initial encounter XR shoulder RT min 2V Today M25.511 - Pain in right shoulder, M54.2 - Cervicalgia, M79.601 - Pain in right arm, M85.89 - Other specified disorders of bone density and structure, multiple sites, M89.8X1 - Other specified disorders of bone, shoulder, W19.XXXA - Unspecified fall, initial encounter XR scapula RT Today M25.511 - Pain in right shoulder, M54.2 - Cervicalgia, M79.601 - Pain in right arm, M85.89 - Other specified disorders of bone density and structure, multiple sites, M89.8X1 - Other specified disorders of bone, shoulder, W19.XXXA - Unspecified fall, initial encounter Coding Level of Care Code Est Pt Level 5 (69265) Diagnoses Fall, initial encounter W19.XXXA Encounter type: initial encounter Cervical pain (neck) M54.2 Acute pain of right shoulder M25.511 Chronicity: acute Pain of right scapula M89.8X1 Right arm pain M79.601 Osteopenia of multiple sites M85.89 Osteopenia location: multiple sites
[2024-05-04 11:10] VITALS: BP 122/60; PULSE 66; TEMP 36.4; O2SAT 97; BMI 24.4
--- OUTSIDE RECORDS SUMMARY | 2024-05-04 12:22 | XMS_ITS | Encounter Summary ---
Author Organization [facility] Address [address] [place] [address] Care Team Providers Care Bath Steward Name Role Phone Smitha Garcia MD Primary Care Provider Jorgito Hyde MD Unavailable [phone] [facility] Primary Care Provider [facility] Encounter Details Date Type Department Care Team Description 12/27/2014 Main Entree Cook And Cashier Report Medical Records [address] [place] [address] Mauricio Stovall MD Social History Tobacco Use [...] filedocumented in this encounter Care Teams Bath Steward Relationship Specialty Start Date End Date Smitha Garcia MD PCP - General Internal Medicine 04/03/14 01/01/22 [facility], Pcp [address] [place] [address] PCP - General Internal Medicine 01/02/22 Jorgito Robles MD 300 [facility] [address] [place] [address] Specialist Cardiovascular Disease 08/16/20 documented as of this encounter
--- OUTSIDE RECORDS SUMMARY | 2024-05-04 12:22 | XMS_ITS | Encounter Summary ---
Author Organization [facility] Address [address] [place] [address] Care Team Providers Care Spray Gun Repairer Helper Name Role Phone Smitha Garcia MD Primary Care Provider Jorgito Hyde MD Unavailable [phone] [facility], Pcp Primary Care Provider [facility] Encounter Details Date Type Department Care Team Description 03/13/2018 Release of Information Medical Records [address] [place] [id number] Abstract, Provider Social History Tobacco Use Types [...] on filedocumented in this encounter Care Teams Spray Gun Repairer Helper Relationship Specialty Start Date End Date Smitha Garcia MD PCP - General Internal Medicine 04/03/14 01/01/22 [facility], Pcp [address] [place] [address] PCP - General Internal Medicine 01/02/22 Jorgito Robles MD 300 [facility] [address] [place] [address] Specialist Cardiovascular Disease 08/16/20 documented as of this encounter
--- OUTSIDE RECORDS SUMMARY | 2024-05-04 12:22 | XMS_ITS | Encounter Summary ---
Author Organization [facility] Address [address] [place] [address] Care Team Providers Care Hunter Trapper Name Role Phone Smitha Garcia MD Primary Care Provider Jorgito Hyde MD Unavailable [phone] [facility], [facility] Primary Care Provider [facility] Encounter Details Date Type Department Care Team Description 01/28/2018 Pt. Non Urgent Medic al Question Sports Medicine [address] [phone] Aman Lynn MD Social History Tobacco Use Types Packs/Day [...] Progress Notes * Marisol Berman L.P.N. - 01/28/2018 8:39 AM ESTFrom: Vanesa Wayne To: Aman Lynn MD Sent: 01/28/2018 3:54 AM EST Subject: MRI I'm wondering if the MRI has been approved? Thanks Deena Wayne documented in this encounter Plan of Treatment Not on file documented as of this encounter Visit Diagnoses Not on filedocumented in this encounter Care Teams Hunter Trapper Relationship Specialty Start Date End Date Smitha Garcia MD PCP - General Internal Medicine 04/03/14 01/01/22 [facility], Pcp 300 [facility] [address] [place] [address] PCP - General Internal Medicine 01/02/22 Jorgito Robles MD 300 [facility] [address] [place] [address] Specialist Cardiovascular Disease 08/16/20 documented as of this encounter
--- OUTSIDE RECORDS SUMMARY | 2024-05-04 12:22 | XMS_ITS | Encounter Summary ---
Author Organization [facility] Address [address] [place] [address] Care Team Providers Care Cath Lab Nurse Name Role Phone Smitha Garcia MD Primary Care Provider Jorgito Hyde MD Unavailable [phone] [facility], [facility] Primary Care Provider [facility] e Encounter Details Date Type Department Care Team Description 09/08/2019 Command Post Craftsman Report Medical Records [address] [place] [address] Paolo Guerrero MD Social History Tobacco Use [...] on filedocumented in this encounter Care Teams Cath Lab Nurse Relationship Specialty Start Date End Date Smitha Garcia MD PCP - General Internal Medicine 04/03/14 01/01/22 [facility], Pcp [address] [place] [address] PCP - General Internal Medicine 01/02/22 Jorgito Robles MD 300 [facility] [address] [place] [address] Specialist Cardiovascular Disease 08/16/20 documented as of this encounter
--- OUTSIDE RECORDS SUMMARY | 2024-05-04 12:22 | XMS_ITS | Encounter Summary ---
Author Organization [facility] Address [address] [place] [address] Care Team Providers Care Bit Bender Name Role Phone Darren Parekh MD Primary Care Provider Smitha Del Rosario MD Primary Care Provider Jorgito Hyde MD Unavailable [phone] [facility], Pcp Primary Care Provider [facility] e Encounter Details Date Type Department Care Team Description 10/23/2011 Stiff Leg Operator Report Medical Records [address] [place] [address] Martin Morales Social History Tobacco Use Types [...] on filedocumented in this encounter Care Teams Bit Bender Relationship Specialty Start Date End Date Darren Parekh MD PCP - General 11/17/03 03/22/14 Smitha Garcia MD PCP - General Internal Medicine 04/03/14 01/01/22 [facility], Pcp 300 [facility] [address] [place] [address] PCP - General Internal Medicine 01/02/22 Jorgito Robles MD 300 [facility] [address] [place] [address] Specialist Cardiovascular Disease 08/16/20 documented as of this encounter
--- OUTSIDE RECORDS SUMMARY | 2024-05-04 12:22 | XMS_ITS | Encounter Summary ---
Author Organization [facility] Address [address] [place] [address] Care Team Providers Care Leather Stretcher Name Role Phone Smitha Garcia MD Primary Care Provider Jorgito Hyde MD Unavailable [phone] [facility], [facility] Primary Care Provider Unavailabl e Encounter Details Date Type Department Care Team Description 10/19/2019 Orders Only Gastroenterology - [address] [place] [address] Shahriar Levin MD Social History [...] on filedocumented in this encounter Care Teams Leather Stretcher Relationship Specialty Start Date End Date Smitha Garcia MD PCP - General Internal Medicine 04/03/14 01/01/22 [facility], Pcp 300 [facility] [address] [place] [address] PCP - General Internal Medicine 01/02/22 Jorgito Robles MD 300 [facility] [address] [place] [address] Specialist Cardiovascular Disease 08/16/20 documented as of this encounter
--- OUTSIDE RECORDS SUMMARY | 2024-05-04 12:22 | XMS_ITS | Encounter Summary ---
Author Organization [facility] Address [address] [place] [address] Care Team Providers Care Physical Therapy Supervisor Name Role Phone Smitha Garcia MD Primary Care Provider Jorgito Hyde MD Unavailable [phone] [facility], [facility] Primary Care Provider [facility] Encounter Details Date Type Department Care Team Description 07/27/2020 Vehicle Cost Engineer Report Medical Records [address] [place] [address] Nico Hutchinson I., PH.D Social History Tobacco [...] on filedocumented in this encounter Care Teams Physical Therapy Supervisor Relationship Specialty Start Date End Date Smitha Garcia MD PCP - General Internal Medicine 04/03/14 01/01/22 [facility], Pcp [address] [place] [address] PCP - General Internal Medicine 01/02/22 Jorgito Robles MD 300 [facility] [address] [place] [address] Specialist Cardiovascular Disease 08/16/20 documented as of this encounter
--- OUTSIDE RECORDS SUMMARY | 2024-05-04 12:22 | XMS_ITS | Clinical Summary ---
Author Organization [facility] Address [address] [place] [address] Care Team Providers Care Fisher Trawl Line Name Role Phone Jorgito Robles MD Unavailable [phone] [facility], Pcp Primary Care Provider Unavailabl e Allergies Active Allergy Reactions Severity Noted Date Comments Omeprazole Diarrhea Low 05/17/2018 diarrhea Sulfacetamide Sodium Rash/Dermatitis 02/18/2005 Medications Medication Sig Dispensed Refills Start Date End Date Status MULTIPLE VITAMIN OR TABS 1 po qd 0 Active ALBUTEROL SULFATE (PROAIR HFA) 108 (90 Base) MCG/ACT Aero Soln Inhale 2 Puffs into the lungs every 4 hours as needed for Shortness of Breath for up to 180 days. 1 Inhaler 1 12/06/2019 Active Estradiol [address] 1 tablet vaginally at bedtime. 20 tablet 5 01/23/2021 Active pantoprazole (PROTONIX) 40 MG tablet Take 1 Tablet by mouth every morning (before breakfast). 90 Tablet 1 07/26/2021 Active citalopram (CELEXA) 20 MG tablet TAKE 1 TABLET BY MOUTH EVERY DAY 90 Tablet 0 10/02/2021 Active Active Problems Problem Noted Date Paresthesias of the mouth 05/08/2021 Overview: Treated w/ Celexa w/ benefit Stable angina 06/14/2020 Short-segment Moraes's esophagus 2019 Overview: EGD and biopsies 10/19/2019. Consider endoscopy again in [address] Levin Esophageal ulcer 07/02/2018 Overview: EGD; Dr. Levin Hypercholesterolemia 02/08/2018 Overview: 10 year risk 2.3% 08/07 Hiatal hernia 08/06/2017 FH: neurologic disorder 12/15/2016 Chronic sinusitis 10/13/2016 Ground glass opacity present on imaging of lung 10/13/2016 Former smoker 10/13/2016 Pulmonary nodule 10/13/2016 Elevated alkaline phosphatase level 08/22 Gastroesophageal reflux disease without esophagitis 10/02/2015 Kidney stone 06/16/2014 Kidney cysts 06/16/2014 Leukopenia 04/04/2014 FH: thyroid disease 04/04/2014 Mixed incontinence urge and stress 04/04 Achalasia and cardiospasm 02/18/2005 Overview: Diagnosis when she was in her 20s. Had large balloon dilation in [place] when she was in her 20's. Normal EGD 06/03 Dr. Austin [facility]. Esophageal motility study consistent with achalasia 06/01/13 at [facility], with poor esophageal contractility and LES pressure, and relaxation normal. Diffuse cystic mastopathy 02/18/2005 Resolved Problems Problem Noted Date Resolved Date Shortness of breath 10/13/2016 06/20/[address] of the chest 10/13/2016 021 Reflux 05/05/2012 10/02/2015 SINUSITIS (CHRONIC) 03/25/2006 05/07/2020 Overview: IMO update Immunizations Name Administration Dates Next Due COVID-19 (Pfizer) Pt Reported 06/27/2020, 021 Influenza (> 6 Months) 04/21/2017,2013,12/14/2012, 013 Influenza Vaccine-preservati ve Free-quadrivalent 4 Years 01/16/2021,12/06/2019,01/05/2019, 018 Shingrix (Recombinant zoster vaccine) 03/24/2020,01/10/2020 TD (STATE SUPPLIED FOR ADULT S AND CHILDREN) 03/13/2005 Tdap 10/13/2011 Family History Medical History Relation Name Comments progressive supranuclear palsy Brother 1 CAD Father Mi age 68 Hypertension Father CA Breast Father's side p cousin 55 cousin, both b reasts Diabetes Mother progressive supernuclear palsy Mother [place] Paternal Grandfather age 41 Blindness Negative Hx CA Colon Negative Hx CA Ovarian Negative Hx Cancer of Small Bowel Negative Hx Cancer of the Pancreas Negative Hx Cancer of the Renal Cell Negative Hx Cataract Negative Hx Glaucoma Negative Hx Macular Degeneration Negative Hx Strabismus Negative Hx Uterine Cancer Negative Hx Relation Name Status Comments Brother 1 Grant; HTN, DM, heart issue (unk) Brother 2 Alive Donovan; 1956; d ementia - alcohol related Brother 3 Alive Redd - skin is lexx Father (Age 68) cad Father's side p cousin 55 Alive Mother (Age 64) supranucle ar palsy Paternal Grandfather Sister Alive hypothyroid, mi tral valve prolapse Son Alive healthy; ADHD; 2001 Social History Tobacco Use Types Packs/Day Years [...] file Not on file Not on file Last Filed Vital Signs Vital Sign Reading Time Taken Comments Blood Pressure 90/60 05/07/2021 2:01 PM EST Pulse 65 05/07/2021 2:01 PM EST Temperature 36.2 ??C (97.2 ??F) 05/07/2021 2:01 PM ES T Respiratory Rate 16 05/07/2021 2:01 PM EST Oxygen Saturation 98% 06/15/2020 1:47 PM EDT Inhaled Oxygen Concentration - - Weight 65 kg (143 lb 6.4 oz) 05/07/2021 2:01 PM EST Height 154.9 cm (5' 1 ) 05/07/2021 2:01 PM EST Body Mass Index 27.1 05/07/2021 2:01 PM EST Plan of Treatment Health Maintenance Due Date Last Done Comments DTAP/TDAP/TD (2 - Td or Tdap) 10/12/2021 10/13/2011, 03/13/2005 MAMMOGRAM 03/18/2022 03/18/2021, 02/21, 03/07/2019, Additional history exists BONE DENSITY SCREENING 2022 06/14/2008 PNEUMOCOCCAL VACCINE (1 - PCV) 2022 Covid-19 Vaccine (3 - 2022-2 4 season) 2023 06/27/2020, 06/06/2020 INFLUENZA (#1) 2023 01/16/2021, 11/21, 01/05/2019, Additional history exists BMI CHECK/ADVISE 03/23/2024 05/07/2021, 06/2020, 06/26/2020, Additional history exists COLON CANCER SCREENING 09/05/2024 , 2005 (External Completion) CHOLESTEROL SCREENING 12/23/2024 12/24/2019 , 08/04/2017, 09/15/2016, Additional history exists HEPATITIS C SCREENING Completed 09/29/2012 SHINGLES VACCINE Completed 03/24/2020, 01/10/2020 Care Teams Fisher Trawl Line Relationship Specialty Start Date End Date Community, Pcp 300 [facility] [address] [place] [address] PCP - General Internal Medicine 01/02/22 Jorgito Robles MD 300 [facility] [address] [place] [address] Specialist Cardiovascular Disease 08/16/20
--- OUTSIDE RECORDS SUMMARY | 2024-05-04 12:22 | XMS_ITS | Encounter Summary ---
Author Organization [facility] Address [address] [place] [address] Care Team Providers Care Coordinate Measuring Machine Programmer Name Role Phone Smitha Garcia MD Primary Care Provider Jorgito Hyde MD Unavailable [phone] [facility], Pcp Primary [facility] Encounter Details Date Type Department Care Team Description 03/24/2019 Release of Information Medical Records [address] [place] [address] Abstract, Provider Social History Tobacco Use Types [...] on filedocumented in this encounter Care Teams Coordinate Measuring Machine Programmer Relationship Specialty Start Date End Date Smitha Garcia MD PCP - General Internal Medicine 04/03/14 01/01/22 [facility], Pcp [address] [place] [address] PCP - General Internal Medicine 01/02/22 Jorgito [facility]les MD [facility] [address] [place] [address] Specialist Cardiovascular Disease 08/16/20 documented as of this encounter
--- OUTSIDE RECORDS SUMMARY | 2024-05-04 12:22 | XMS_ITS | Encounter Summary ---
Author Organization [facility] Address [address] [place] [address] Care Team Providers Care Axle Polisher Name Role Phone Smitha Garcia MD Primary Care Provider Jorgito Hyde MD Unavailable [phone] [facility], [facility] Primary Care Provider [facility] Encounter Details Date Type Department Care Team Description 02/08/2016 Pt. Non Urgent Medic al Question Medicine/Pediatrics - [address] [phone] Smitha Garcia MD Social History Tobacco Use [...] on filedocumented in this encounter Care Teams Axle Polisher Relationship Specialty Start Date End Date Smitha Garcia MD PCP - General Internal Medicine 04/03/14 01/01/22 [facility], Pcp [address] [facility] [address] [place] [address] PCP - General Internal Medicine 01/02/22 oJrgito Robles MD 300 [facility] [address] [place] [address] Specialist Cardiovascular Disease 08/16/20 documented as of this encounter
--- OUTSIDE RECORDS SUMMARY | 2024-05-04 12:22 | XMS_ITS | Encounter Summary ---
Author Organization [facility] Address [address] [place] [address] Care Team Providers Care Field Sales Consultant Name Role Phone Smitha Garcia MD Primary Care Provider Jorgito Hyde MD Unavailable [phone] [facility], [facility] Primary Care Provider [facility] Encounter Details Date Type Department Care Team Description 02/22/2018 Pt. Non Urgent Medic al Question Sports Medicine [address] [phone] Aman Lynn MD Social History Tobacco Use [...] as of this encounter Progress Notes * Lisa Garcia R.N. - 02/22/2018 11:26 AM ESTFrom: Vanesa Wayne To: Aman Lynn MD Sent: 02/22/2018 10:40 AM EST Subject: Knee results Good Morning I would like to know the next steps for my knee. Thank you Deena Wayne documented in this encounter Plan of Treatment Not on file documented as of this encounter Visit Diagnoses Not on filedocumented in this encounter Care Teams Field Sales Consultant Relationship Specialty Start Date End Date Smitha Garcia MD PCP - General Internal Medicine 04/03/14 01/01/22 [facility], Pcp 300 [facility] [address] [place] [address] PCP - General Internal Medicine 01/02/22 Jorgito Robles MD 300 [facility] [address] [place] [address] Specialist Cardiovascular Disease 08/16/20 documented as of this encounter
--- OUTSIDE RECORDS SUMMARY | 2024-05-04 12:22 | XMS_ITS | Encounter Summary ---
Author Organization [facility] Address [address] [place] [address] Care Team Providers Care Aeronautical Project Engineer Name Role Phone Smitha Garcia MD Primary Care Provider Jorgito Hyde MD Unavailable [phone] [facility], [facility] Primary Care Provider [facility] e Encounter Details Date Type Department Care Team Description 12/30/2017 Community Relations Advisor Report Medical Records [address] [place] [address] Mauricio Stovall MD Social History Tobacco Use [...] on filedocumented in this encounter Care Teams Aeronautical Project Engineer Relationship Specialty Start Date End Date Smitha Garcia MD PCP - General Internal Medicine 04/03/14 01/01/22 [facility], Pcp [address] [place] [address] PCP - General Internal Medicine 01/02/22 Jorgito Robles MD 300 [facility] [address] [place] [address] Specialist Cardiovascular Disease 08/16/20 documented as of this encounter
--- OUTSIDE RECORDS SUMMARY | 2024-05-04 12:22 | XMS_ITS | Encounter Summary ---
Author Organization [facility] Address [address] [place] [address] Care Team Providers Care Substation Operator Transforming Name Role Phone Smitha Garcia MD Primary Care Provider Jorgito Hyde MD Unavailable [phone] [facility], [facility] Primary Care Provider [facility] e Encounter Details Date Type Department Care Team Description 10/19/2019 Hospital Medical Records [address] [place] [address] Shahriar Levin MD Social History Tobacco Use [...] on filedocumented in this encounter Care Teams Substation Operator Transforming Relationship Specialty Start Date End Date Smitha Garcia MD PCP - General Internal Medicine 04/03/14 01/01/22 [facility], Pcp [address] [place] [address] PCP - General Internal Medicine 01/02/22 Jorgito Robles MD 300 [facility] [address] [place] [address] Specialist Cardiovascular Disease 08/16/20 documented as of this encounter
--- OUTSIDE RECORDS SUMMARY | 2024-05-04 12:22 | XMS_ITS | Encounter Summary ---
Author Organization [facility] Address [address] [place] [address] Care Team Providers Care Cosmetology Teacher Name Role Phone Smitha Garcia MD Primary Care Provider Jorgito Hyde MD Unavailable [phone] [facility], Pcp Primary Care Provider Opal santacruz Encounter Details Date Type Department Care Team Description 09/18/2014 Block Operator Report Medical Records [address] [place] [address] Deshawn Nick Social History Tobacco Use Types Packs/Day Years [...] on filedocumented in this encounter Care Teams Cosmetology Teacher Relationship Specialty Start Date End Date Smitha Garcia MD PCP - General Internal Medicine 04/03/14 01/01/22 [facility], Pcp [address] [facility] [address] [place] [address] PCP - General Internal Medicine 01/02/22 Jorgito Robles MD 300 [facility] [address] [place] [address] Specialist Cardiovascular Disease 08/16/20 documented as of this encounter
--- OUTSIDE RECORDS SUMMARY | 2024-05-04 12:22 | XMS_ITS | Encounter Summary ---
Author Organization [facility] Address [address] [place] [address] Care Team Providers Care Real Estate Attorney Name Role Phone Smitha Garcia MD Primary Care Provider Jorgito Hyde MD Unavailable [phone] [facility] Primary Care Provider Unavailabl e Reason for Visit * Reason Onset Date Comments TEST RESULTS 06/28/2015 Encounter Details Date Type Department Care Team Description 06/28/2015 Telephone Medicine/Pediatrics - [address] [phone] Smitha Garcia MD TEST RESULTS Social History Tobacco Use Types Packs/Day Years [...] encounter Miscellaneous Notes * Telephone Encounter - Layla Rodríguez Rn - 06/28/2015 12:20 PM EDT Pt notified, and agreed Asking for dosages of calcium and Vit D * Telephone Encounter - Kina Kohli P.A.-C. - 06/28/2015 12:12 PM EDT Labs significant for slightly elevated liver enzyme May need to be repeated Could be due to bone density loss. Take calcium and vit d daily Sjrogens abs not drawn. Not sure why? Will CC to CM * Telephone Encounter - Marisol Berman L.P.N. - 06/28/2015 9:41 AM EDT please review dr Garcia is off pt was seen for a Physical * Telephone Encounter - Marisa Smith - 06/28/2015 9:28 AM EDT Inform patient: ANY URGENT OR ABNORMAL RESULTS WIILL RESULT IN A CALL BACK TO THE PATIENT LEVON. Type of test: :labs Date test was performed: 06/21/15 Where was the test performed: [facility] Who ordered this test?: Dr Garcia Is the doctor here today?: NO Can the message wait until the doctor returns?: NO IF PATIENT'S PCP IS NOT IN INSTRUCT PATIENT THAT THEY WILL RECEIVE A CALL BACK WHEN THE PCP IS IN THE OFFICE NEXT. documented in this encounter Plan of Treatment Not on file documented as of this encounter Visit Diagnoses Not on filedocumented in this encounter Care Teams Real Estate Attorney Relationship Specialty Start Date End Date Smitha Garcia MD PCP - General Internal Medicine 04/03/14 01/01/22 [facility], [facility], Pcp [address] [place] [address] PCP - General Internal Medicine 01/02/22 Jorgito Robles MD [address] [place] [address] Specialist Cardiovascular Disease 08/16/20 documented as of this encounter
--- OUTSIDE RECORDS SUMMARY | 2024-05-04 12:23 | XMS_ITS | Encounter Summary ---
Author Organization [facility] Address [address] [place] [address] Care Team Providers Care Paleology Professor Name Role Phone Smitha Garcia MD Primary Care Provider Jorgito Hyde MD Unavailable [phone] [facility], [facility] Primary Care Provider Unavailabl e Reason for Visit * Reason Onset Date Comments Pin Inserter Feedback 04/10/2014 Dr. Wilman Méndez eurology Encounter Details Date Type Department Care Team Description 04/10/2014 Telephone Medicine/Pediatrics - [address] [phone] Smitha Garcia MD Pin Inserter Feedback (Dr. Stovall Neurology) Social History Tobacco [...] patient for sensitive information Order faxed to [phone] * Telephone Encounter - Myrtle Castillo - 04/12/2014 8:25 AM EST No insurance referral required. Letter with appointment information mailed to patient. DX tongue numbness and tingling; abn MRI, demyelinating lesions, migraine Message forwarded to fax notes [phone] * Telephone Encounter - Myrtle Castillo - 04/10/2014 2:13 PM EST Faxed the Order and Insurance [phone] documented in this encounter Plan of Treatment Not on file documented as of this encounter Visit Diagnoses Not on filedocumented in this encounter Care Teams Paleology Professor Relationship Specialty Start Date End Date Smitha Garcia MD PCP - General Internal Medicine 04/03/14 01/01/22 [facility], Pcp [address] [address] PCP - General Internal Medicine 01/02/22 Jorgito Robles MD [address] [address] Specialist Cardiovascular Disease 08/16/20 documented as of this encounter
--- OUTSIDE RECORDS SUMMARY | 2024-05-04 12:23 | XMS_ITS | Encounter Summary ---
Author Organization [facility] Address [address] [place] [address] Care Team Providers Care Senior Research Engineer Name Role Phone Smitha Garcia MD Primary Care Provider Jorgito Hyde MD Unavailable [phone] [facility], Pcp Primary Care Provider [facility] e Encounter Details Date Type Department Care Team Description 04/11/2017 Release of Information Medical Records [address] [place] [address] Abstract, Provider Social History Tobacco Use Types [...] on filedocumented in this encounter Care Teams Senior Research Engineer Relationship Specialty Start Date End Date Smitha Garcia MD PCP - General Internal Medicine 04/03/14 01/01/22 [facility], Pcp [address] [place] [address] PCP - General Internal Medicine 01/02/22 Jorgito Robles MD 300 [facility] [address] [place] [address] Specialist Cardiovascular Disease 08/16/20 documented as of this encounter
--- OUTSIDE RECORDS SUMMARY | 2024-05-04 12:23 | XMS_ITS | Encounter Summary ---
Author Organization [facility] Address [address] [place] [address] Care Team Providers Care Curriculum Assistant Principal Name Role Phone Darren Parekh MD Primary Care Provider Smitha Del Rosario MD Primary Care Provider Jorgito Hyde MD Unavailable [phone] [facility], Pcp Primary Care Provider [facility] Encounter Details Date Type Department Care Team Description 06/01/2013 Hospital Medical Records [address] [place] [address] [facility] MD Social History Tobacco Use Types Packs/Day [...] on filedocumented in this encounter Care Teams Curriculum Assistant Principal Relationship Specialty Start Date End Date Darren Parekh MD PCP - General 11/17/03 03/22/14 Smitha Garcia MD PCP - General Internal Medicine 04/03/14 01/01/22 [facility], Pcp [address] [address] PCP - General Internal Medicine 01/02/22 Jorgito Robles MD 300 [facility] [address] [place] [address] Specialist Cardiovascular Disease 08/16/20 documented as of this encounter
--- OUTSIDE RECORDS SUMMARY | 2024-05-04 12:23 | XMS_ITS | Encounter Summary ---
Author Organization [facility] Address [address] [place] [address] Care Team Providers Care Porcelain Enamel Laborer Name Role Phone Darren Parekh MD Primary Care Provider Smitha Del Rosario MD Primary Care Provider Jorgito Hyde MD Unavailable [facility], Pcp Primary Care Provider [facility] e Encounter Details Date Type Department Care Team Description 09/12/2013 Release of Information Medical Records [address] [place] [address] Abstract, Provider Social History Tobacco Use Types [...] on filedocumented in this encounter Care Teams Porcelain Enamel Laborer Relationship Specialty Start Date End Date Darren Parekh MD PCP - General 11/17/03 03/22/14 Smitha Garcia MD PCP - General Internal Medicine 04/03/14 01/01/22 [facility], [facility] 300 [facility] [address] [place] [address] PCP - General Internal Medicine 01/02/22 Jorgito Robles MD 300 [facility] [address] [place] [address] Specialist Cardiovascular Disease 08/16/20 documented as of this encounter
--- OUTSIDE RECORDS SUMMARY | 2024-05-04 12:23 | XMS_ITS | Encounter Summary ---
Author Organization [facility] Address [address] [place] [address] Care Team Providers Care Manufacturing Sales Representative Name Role Phone Smitha Garcia MD Primary Care Provider Jorgito Hyde MD Unavailable [phone] [facility] Primary Care Provider [facility] e Encounter Details Date Type Department Care Team Description 07/02/2018 Hospital Medical Records [address] [place] [address] Shahriar Levin MD Social History Tobacco Use [...] on filedocumented in this encounter Care Teams Manufacturing Sales Representative Relationship Specialty Start Date End Date Smitha Garcia MD PCP - General Internal Medicine 04/03/14 01/01/22 [facility], Pcp [address] [place] [address] PCP - General Internal Medicine 01/02/22 Jorgito Robles MD 300 [facility] [address] [place] [address] Specialist Cardiovascular Disease 08/16/20 documented as of this encounter
--- OUTSIDE RECORDS SUMMARY | 2024-05-04 12:23 | XMS_ITS | Encounter Summary ---
Author Organization [facility] Address [address] [place] [address] Care Team Providers Care Rehabilitation Team Lead Name Role Phone Darren Parekh MD Primary Care Provider Smitha Del Rosario MD Primary Care Provider Jorgito Hyde MD Unavailable [phone] [facility], Pcp Primary Care Provider [facility] e Encounter Details Date Type Department Care Team Description 07/10/2011 Retirement Actuary Report Medical Records [address] [place] [address] Martin Morales Social History Tobacco Use Types [...] on filedocumented in this encounter Care Teams Rehabilitation Team Lead Relationship Specialty Start Date End Date Darren Parekh MD PCP - General 11/17/03 03/22/14 Smitha Garcia MD PCP - General Internal Medicine 04/03/14 01/01/22 [facility], Pcp 300 [facility] [address] [place] [address] PCP - General Internal Medicine 01/02/22 Jorgito Robles MD 300 [facility] [address] [place] [address] Specialist Cardiovascular Disease 08/16/20 documented as of this encounter
--- OUTSIDE RECORDS SUMMARY | 2024-05-04 12:23 | XMS_ITS | Encounter Summary ---
Author Organization [facility] Address [address] [place] [address] Care Team Providers Care Conformal Pad Former Name Role Phone Smitha Garcia MD Primary Care Provider Jorgito Hyde MD Unavailable [phone] [facility], [facility] Primary Care Provider [facility] Encounter Details Date Type Department Care Team Description 08/28/2014 Imaging Assistant Report Medical Records [address] [place] [address] Mauricio Stovall MD Social History Tobacco Use [...] on filedocumented in this encounter Care Teams Conformal Pad Former Relationship Specialty Start Date End Date Smitha Garcia MD PCP - General Internal Medicine 04/03/14 01/01/22 [facility], Pcp [address] [place] [address] PCP - General Internal Medicine 01/02/22 Jorgito Robles MD 300 [facility] [address] [place] [address] Specialist Cardiovascular Disease 08/16/20 documented as of this encounter
--- OUTSIDE RECORDS SUMMARY | 2024-05-04 12:23 | XMS_ITS | Encounter Summary ---
Author Organization [facility] Address [address] [place] [address] Care Team Providers Care Weaver Tire Cord Name Role Phone Smitha Garcia MD Primary Care Provider Jorgito Hyde MD Unavailable [phone] [facility] Primary Care Provider Unavailabl e Encounter Details Date Type Department Care Team Description 08/21/2017 Orders Only Medicine/Pediatrics - [address] [phone] Kina Kohli PA-C Odynophagia; Dysphagia, unspecified type; [...] specified documented in this encounter Care Teams Weaver Tire Cord Relationship Specialty Start Date End Date Smitha Garcia MD PCP - General Internal Medicine 04/03/14 01/01/22 [facility], Pcp 300 [facility] [address] [place] [address] PCP - General Internal Medicine 01/02/22 Jorgito Robles MD 300 [facility] [address] [place] [address] Specialist Cardiovascular Disease 08/16/20 documented as of this encounter
--- OUTSIDE RECORDS SUMMARY | 2024-05-04 12:23 | XMS_ITS | Encounter Summary ---
Author Organization [facility] Address [address] [place] [address] Care Team Providers Care Hydroelectric Component Machinist Name Role Phone Darren Parekh MD Primary Care Provider Smitha Del Rosario MD Primary Care Provider Jorgito Hyde MD Unavailable [phone] On License Of [facility], Pcp Primary Care Provider [facility] e Encounter Details Date Type Department Care Team Description 08/21/2011 [facility] Report Medical Records [address] [place] [address] Martin Morales Social History Tobacco Use Types [...] on filedocumented in this encounter Care Teams Hydroelectric Component Machinist Relationship Specialty Start Date End Date Darren Parekh MD PCP - General 11/17/03 03/22/14 Smitha Garcia MD PCP - General Internal Medicine 04/03/14 01/01/22 On License Of [facility], Pcp 300 [facility] [address] [place] [address] PCP - General Internal Medicine 01/02/22 Jorgito Robles MD 300 [facility] [address] [place] [address] Specialist Cardiovascular Disease 08/16/20 documented as of this encounter
--- OUTSIDE RECORDS SUMMARY | 2024-05-04 12:23 | XMS_ITS | Encounter Summary ---
Author Organization [facility] Address [address] [place] [address] Care Team Providers Care Nurse Practitioner Per Diem Name Role Phone Smitha Garcia MD Primary Care Provider Jorgito Hyde MD Unavailable [phone] [facility], Pcp Primary Care Provider [facility] e Encounter Details Date Type Department Care Team Description 05/15/2014 Release of Information Medical Records [address] [place] [address] Abstract, Provider Social History Tobacco Use Types [...] on filedocumented in this encounter Care Teams Nurse Practitioner Per Diem Relationship Specialty Start Date End Date Smitha Garcia MD PCP - General Internal Medicine 04/03/14 01/01/22 [facility], Pcp [address] [place] [address] PCP - General Internal Medicine 01/02/22 Jorgito Robles MD 300 [facility] [address] [place] [address] Specialist Cardiovascular Disease 08/16/20 documented as of this encounter
--- OUTSIDE RECORDS SUMMARY | 2024-05-04 12:23 | XMS_ITS | Encounter Summary ---
Author Organization [facility] Address [address] [place] [address] Care Team Providers Care Real Estate Marketing Coordinator Name Role Phone Smitha Garcia MD Primary Care Provider Jorgito Hyde MD Unavailable [phone] [facility] Primary Care Provider Unavailabl e Reason for Visit * Reason Onset Date Comments Testing 02/17/2017 External Echo CP [id number] Encounter Details Date Type Department Care Team Description 02/17/2017 Telephone Adult Medicine - [address] [id number] Smitha Garcia MD Testing (External Echo [id number]) Social History Tobacco Use Types Packs/Day Years [...] encounter Miscellaneous Notes * Telephone Encounter - Tasia Bryon - 02/17/2017 12:29 PM EST Zeinabna Auth # [id number] 02/10/17 - 05/11/17 To be done at [address]/df documented in this encounter Plan of Treatment Not on file documented as of this encounter Visit Diagnoses Not on filedocumented in this encounter Care Teams Real Estate Marketing Coordinator Relationship Specialty Start Date End Date Smitha Garcia MD PCP - General Internal Medicine 04/03/14 01/01/22 [facility], Pcp [address] [place] [address] PCP - General Internal Medicine 01/02/22 Jorgito Robles MD [address] [place] [address] Specialist Cardiovascular Disease 08/16/20 documented as of this encounter
--- OUTSIDE RECORDS SUMMARY | 2024-05-04 12:23 | XMS_ITS | Encounter Summary ---
Author Organization [facility] Address [address] [place] [address] Care Team Providers Care Senior Planning Analyst Name Role Phone Darren Parekh MD Primary Care Provider Donovan Baez Primary Care Provider [phone] Smitha Garcia MD Primary Care Provider Jorgito Hyde MD Unavailable [phone] [facility] Pcp Primary Care Provider Opal santacruz Encounter Details Date Type Department Care Team Description 03/11/2001 Orders Only OBGYN - [place] [address] [place] [address] Emil Tom MD Social History Tobacco Use [...] filedocumented in this encounter Care Teams Senior Planning Analyst Relationship Specialty Start Date End Date Darren Parekh MD PCP - General 11/17/03 03/22/14 Donovan Maria [address] [place] [address] PCP - General 03/23/1995 11/16/03 Smitha Garcia MD [address] [place] [address] PCP - General Internal Medicine 04/03/14 01/01/22 [facility], Pcp [address] [address] PCP - General Internal Medicine 01/02/22 Jorgito Robles MD 300 [facility] [address] [place] [address] Specialist Cardiovascular Disease 08/16/20 documented as of this encounter
--- OUTSIDE RECORDS SUMMARY | 2024-05-04 12:23 | XMS_ITS | Encounter Summary ---
Author Organization [facility] Address [address] [place] [address] Care Team Providers Care Security Guards Dispatcher Name Role Phone Darren Parekh MD Primary Care Provider Smitha Del Rosario MD Primary Care Provider Jorgito Hyde MD Unavailable [facility], Pcp Primary Care Provider Unavailabl e Reason for Visit * Reason Onset Date Comments REFERRAL 07/29/2004 dr nhi drummond Encounter Details Date Type Department Care Team Description 07/29/2004 Telephone Adult Medicine [address] [address] Jah Gordon [address] [place] [id number] REFERRAL (dr nhi drummond) Social History Tobacco Use Types Packs/Day Years [...] encounter Miscellaneous Notes * Telephone Encounter - 07/29/2004 2:30 PM [id number] SRG 00 VISITS-6 START-5.9.05 DX-[id number]=ALLERGIES FAXED TO OFFICE * Telephone Encounter - 07/29/2004 9:52 AM EDT REFERRAL REQUESTS FIRST and LAST NAME of SPECIALIST PATIENT is seeing:dr nhi drummond DIAGNOSIS Patient is being seen for: allergies Have you seen this SPECIALIST for this PROBLEM/DX before?YES If YES, when:05/15/04 Referred to this Specialist by:dr gordon/dr escobedo Is this visit:Initial Visit Address of Specialist:[facility] Phone # of Specialist:[phone] Fax #: (if applicable): Date of Appointment: 08/12/04 If a Retro-Request what should the referral start date be? Patients current Insurance: Payor: [employer]/CAP COMM Plan: [employer] [place] $10 CAP Product Type: HMO PRE- PAID Is this appointment related to: Not MVA, WC or Surgery related documented in this encounter Plan of Treatment Not on file documented as of this encounter Visit Diagnoses Not on filedocumented in this encounter Care Teams Security Guards Dispatcher Relationship Specialty Start Date End Date Darren Parekh MD PCP - General 11/17/03 03/22/14 Smitha Garcia MD PCP - General Internal Medicine 04/03/14 01/01/22 [facility], Pcp [address] [address] PCP - General Internal Medicine 01/02/22 Jorgito Robles MD [address] [address] Specialist Cardiovascular Disease 08/16/20 documented as of this encounter
--- OUTSIDE RECORDS SUMMARY | 2024-05-04 12:23 | XMS_ITS | Encounter Summary ---
Author Organization [facility] Address [address] [place] [address] Care Team Providers Care Burglar Alarm Installer Name Role Phone Smitha Garcia MD Primary Care Provider Jorgito Hyde MD Unavailable [phone] [facility], Pcp Primary Care Provider [facility] e Encounter Details Date Type Department Care Team Description 07/29/2018 Pt. Non Urgent Medic al Question Medicine/Pediatrics - [address] [id number] Smitha Garcia MD Social History Tobacco Use [...] Progress Notes * Marisol Berman L.P.N. - 07/30/2018 8:59 AM EDTFrom: Vanesa Wayne To: Smitha Garcia MD Sent: 07/29/2018 5:02 PM EDT Subject: TB Hi Dr. Garcia, For a new job they are asking for last date of inoculation TB? Thanks Vanesa Wayne documented in this encounter Plan of Treatment Not on file documented as of this encounter Visit Diagnoses Not on filedocumented in this encounter Care Teams Burglar Alarm Installer Relationship Specialty Start Date End Date Smitha Garcia MD PCP - General Internal Medicine 04/03/14 01/01/22 [facility], Pcp 300 [facility] [address] [place] [address] PCP - General Internal Medicine 01/02/22 Jorgito Robles MD 300 [facility] [address] [place] [address] Specialist Cardiovascular Disease 08/16/20 documented as of this encounter
--- OUTSIDE RECORDS SUMMARY | 2024-05-04 12:23 | XMS_ITS | Encounter Summary ---
Author Organization [facility] Address [address] [place] [address] Care Team Providers Care Cableman Name Role Phone Smitha Garcia MD Primary Care Provider Jorgito Hyde MD Unavailable [phone] [facility] Primary Care Provider Unavailabl e Reason for Visit * Reason Onset Date Comments Cough 05/07/2020 Encounter Details Date Type Department Care Team Description 05/07/2020 Telephone Adult Medicine [address] [address] Smitha Garcia MD Cough Social History Tobacco Use Types Packs/Day Years [...] have Coronavirus / COVID-19? No / Unsure 05/08/2020 10:57 AM EST documented as of this encounter Miscellaneous Notes * Telephone Encounter - Marisol Berman L.P.N. - 05/07/2020 9:43 AM EST Spoke with pt she is having labored breathing No wheezing no temp Hurts to take a deep breath Apt booked * Telephone Encounter - Megan Bell - 05/07/2020 8:41 AM EST Symptoms patient is presenting: patient has lung nodules, is feeling her breathing is labored especially when Active, also acid reflux came up last week and patient had coughing fit For ALL patients calling to schedule any appointment (routine, sick visit, follow up, consult, etc.) in the outpatient setting please ask the following questions: ?? Do you have fever of higher than 101, sore throat with difficulty swallowing or severe shortnessof breath? YES If YES to any of these above symptoms, send a message to triage and do not book. Red dot. If no, an audio or video visit should be booked. ?? Have you had close contact with someone with Coronavirus in the last 14 days? NO ?? Have you traveled abroad? NO ?? Have you traveled recently to another state outside of [place], [place], [place], [place], [place], [place], [place]? NO o If yes, did you quarantine for 14 days or have a negative covid test? NO If yes to any of the above, patient is not to be scheduled in office until after 14 day quarantine or negative covid test. If pain or injury related was it due to an accident at work or from a motor vehicle accident? NO If yes, gather 3rd republican insurance information Date of accident/Injury: How long has patient had these symptoms?: weeks PCP: Smitha Garcia Payor: [employer] COMBS / Plan: O $20 [place] 1 / Product Type: HMO [id number] documented in this encounter Plan of Treatment Not on file documented as of this encounter Visit Diagnoses Not on filedocumented in this encounter Care Teams Cableman Relationship Specialty Start Date End Date Smitha Garcia MD PCP - General Internal Medicine 04/03/14 01/01/22 [facility], Pcp 300 [facility] [address] [place] [address] PCP - General Internal Medicine 01/02/22 Jorgito Robles MD 300 [facility] [address] [place] [address] Specialist Cardiovascular Disease 08/16/20 documented as of this encounter
--- OUTSIDE RECORDS SUMMARY | 2024-05-04 12:23 | XMS_ITS | Encounter Summary ---
Author Organization [facility] Address [address] [place] [address] Care Team Providers Care Wallcovering Hanger Name Role Phone Smitha Garcia MD Primary Care Provider Jorgito Hyde MD Unavailable [phone] [facility], [facility] Primary Care Provider [facility] e Encounter Details Date Type Department Care Team Description 06/27/2014 Director Of Training Report Medical Records [address] [place] [address] Afshin Barbour MD Social History Tobacco Use [...] on filedocumented in this encounter Care Teams Wallcovering Hanger Relationship Specialty Start Date End Date Smitha Garcia MD PCP - General Internal Medicine 04/03/14 01/01/22 [facility], Pcp [address] [place] [address] PCP - General Internal Medicine 01/02/22 Jorgito Robles MD 300 [facility] [address] [place] [address] Specialist Cardiovascular Disease 08/16/20 documented as of this encounter
--- OUTSIDE RECORDS SUMMARY | 2024-05-04 12:23 | XMS_ITS | Encounter Summary ---
Author Organization [facility] Address [address] [place] [address] Care Team Providers Care Senior Quality Methods Specialist Name Role Phone Smitha Garcia MD Primary Care Provider Jorgito Hyde MD Unavailable [phone] [facility], [facility] Primary Care Provider [facility] e Encounter Details Date Type Department Care Team Description 12/22/2017 Orders Only Rheumatology - [address] [address] Cyndy Flores DO Positive anti-CCP test (Primary [...] findings documented in this encounter Care Teams Senior Quality Methods Specialist Relationship Specialty Start Date End Date Smitha Garcia MD PCP - General Internal Medicine 04/03/14 01/01/22 [facility], Pcp [address] [facility] [address] [place] [address] PCP - General Internal Medicine 01/02/22 Jorgito Robles MD [address] [place] [address] Specialist Cardiovascular Disease 08/16/20 documented as of this encounter
--- OUTSIDE RECORDS SUMMARY | 2024-05-04 12:23 | XMS_ITS | Encounter Summary ---
Author Organization [facility] Address [address] [place] [address] Care Team Providers Care Campus Supervisor Name Role Phone Smitha Garcia MD Primary Care Provider Jorgito Hyde MD Unavailable [phone] [facility], [facility] Primary Care Provider [facility] e Encounter Details Date Type Department Care Team Description 10/21/2019 Telephone Gastroenterology - [place] [address] [facility] [address] [place] [address] Shahriar Levin MD Social History [...] on filedocumented in this encounter Care Teams Campus Supervisor Relationship Specialty Start Date End Date Smitha Garcia MD PCP - General Internal Medicine 04/03/14 01/01/22 [facility], Pcp 300 [facility] [address] [place] [address] PCP - General Internal Medicine 01/02/22 Jorgito Robles MD 300 [facility] [address] [place] [address] Specialist Cardiovascular Disease 08/16/20 documented as of this encounter
--- OUTSIDE RECORDS SUMMARY | 2024-05-04 12:23 | XMS_ITS | Encounter Summary ---
Author Organization [facility] Address [address] [place] [address] Care Team Providers Care Flatbed Stitcher Name Role Phone Smitha Garcia MD Primary Care Provider Jorgito Hyde MD Unavailable [phone] [facility], [facility] Primary Care Provider [facility] e Encounter Details Date Type Department Care Team Description 05/09/2020 SCAN Medical Records [address] [place] [address] Abstract, Provider Social History Tobacco Use Types [...] on filedocumented in this encounter Care Teams Flatbed Stitcher Relationship Specialty Start Date End Date Smitha Garcia MD PCP - General Internal Medicine 04/03/14 01/01/22 [facility], Pcp 300 [facility] [address] [place] [address] PCP - General Internal Medicine 01/02/22 Jorgito Robles MD 300 [facility] [address] [place] [address] Specialist Cardiovascular Disease 08/16/20 documented as of this encounter
--- OUTSIDE RECORDS SUMMARY | 2024-05-04 12:23 | XMS_ITS | Encounter Summary ---
Author Organization [facility] Address [address] [place] [address] Care Team Providers Care Field Laboratory Operator Name Role Phone Smitha Garcia MD Primary Care Provider Jorgito Hyde MD Unavailable [phone] [facility], [facility] Primary Care Provider [facility] e Encounter Details Date Type Department Care Team Description 05/09/2020 Hospital Medical Records [address] [place] [address] Markos Mackay MD Social History Tobacco Use Types Packs/Day [...] Name Priority Date/Time Associated Diagnosis Comments OUTSIDE EKG Routine 05/10/2020 documented in this encounter Results * OUTSIDE EKG (05/10/2020) Provider Default CARDIOLOGY documented in this encounter Visit Diagnoses Not on filedocumented in this encounter Care Teams Field Laboratory Operator Relationship Specialty Start Date End Date Smitha Garcia MD PCP - General Internal Medicine 04/03/14 01/01/22 [facility], Pcp [address] [place] [address] PCP - General Internal Medicine 01/02/22 Jorgito Robles MD 300 [facility] [address] [place] [address] Specialist Cardiovascular Disease 08/16/20 documented as of this encounter
--- OUTSIDE RECORDS SUMMARY | 2024-05-04 12:23 | XMS_ITS | Encounter Summary ---
Author Organization [facility] Address [address] [place] [address] Care Team Providers Care Apparel Machinery Instructor Name Role Phone Smitha Garcia MD Primary Care Provider Jorgito Hyde MD Unavailable [phone] [facility], Pcp [facility] Encounter Details Date Type Department Care Team Description 07/07/2018 Pt. Non Urgent Medic al Question Gastroenterology - [address] [place] [address] Shahriar Levin MD Social History [...] as of this encounter Progress Notes * Mana Russell M.A. - 07/07/2018 12:10 PM EDTFrom: Vanesa Wayne To: Shahriar Levin MD Sent: 07/07/2018 10:22 AM EDT Subject: Test results Hi Dr. Szymanski, I was wondering if the results have come back yet? Thank you, Vanesa Wayne documented in this encounter Plan of Treatment Not on file documented as of this encounter Visit Diagnoses Not on filedocumented in this encounter Care Teams Apparel Machinery Instructor Relationship Specialty Start Date End Date Smitha Garcia MD PCP - General Internal Medicine 04/03/14 01/01/22 [facility], Pcp 300 [facility] [address] [place] [address] PCP - General Internal Medicine 01/02/22 Jorgito Robles MD 300 [facility] [address] [place] [address] Specialist Cardiovascular Disease 08/16/20 documented as of this encounter
--- OUTSIDE RECORDS SUMMARY | 2024-05-04 12:23 | XMS_ITS | Encounter Summary ---
Author Organization [facility] Address [address] [place] [address] Care Team Providers Care Plaque Maker Name Role Phone Darren Parekh MD Primary Care Provider Donovan Baez Primary Care Provider [phone] Smitha Garcia MD Primary Care Provider Jorgito Hyde MD Unavailable [phone] [facility] Primary Care Provider Opal Reason for Visit * Reason Comments APPOINTMENT Encounter Details Date Type Department Care Team Description 05/03/2002 Telephone Orthopedics-[address] [address] Scotty Thompson PA APPOINTMENT Social History Tobacco [...] on filedocumented in this encounter Care Teams Plaque Maker Relationship Specialty Start Date End Date Darren Parekh MD PCP - General 11/17/03 03/22/14 Donovan Maria [address] [place] [address] PCP - General 03/23/1995 11/16/03 Smitha Garcia MD [address] [place] [address] PCP - General Internal Medicine 04/03/14 01/01/22 [facility] [address] [address] PCP - General Internal Medicine 01/02/22 Jorgito Robles MD 300 [facility] [address] [place] [address] Specialist Cardiovascular Disease 08/16/20 documented as of this encounter
--- OUTSIDE RECORDS SUMMARY | 2024-05-04 12:23 | XMS_ITS | Encounter Summary ---
Author Organization [facility] Address [address] [place] [address] Care Team Providers Care Covered Buckle Assembler Name Role Phone Smitha Garcia MD Primary Care Provider Jorgito Hyde MD Unavailable [facility], Pcp Primary Care Provider [facility] Encounter Details Date Type Department Care Team Description 06/08/2020 Pt. Non Urgent Medical Question Medicine/Pediatrics - [address] [address] Jennifer Salazar NP [address] [place] [address] Social History Tobacco Use Types Packs/Day Years [...] on filedocumented in this encounter Care Teams Covered Buckle Assembler Relationship Specialty Start Date End Date Smitha Garcia MD PCP - General Internal Medicine 04/03/14 01/01/22 [facility], Pcp [address] [address] PCP - General Internal Medicine 01/02/22 Jorgito Robles MD 300 [facility] [address] [place] [address] Specialist Cardiovascular Disease 08/16/20 documented as of this encounter
== END ==
LOC: HO.HMCWIW 10:36
PROVIDERS: PCP Nurse Practitioner Family; Visit Provider Nurse Practitioner Family
DX: M54.2 Cervicalgia (principal); M25.511 Pain in right shoulder; W19.XXXA Unspecified fall, initial encounter; M89.8X1 Other specified disorders of bone, shoulder; M79.601 Pain in right arm; M85.89 Other specified disorders of bone density and structure, multiple sites

== ENCOUNTER → 2024-05-04 13:11 | Outpatient (BNV) | payer MEDICARE, SELFPAY | PROVIDERS: PCP Nurse Practitioner Family; Visit Provider Radiology Diagnostic Radiology | DX: M25.511 Pain in right shoulder (principal); M54.2 Cervicalgia | CPT/HCPCS: 72052; 72070; 73010; 73030 ==

== ENCOUNTER 2024-05-06 09:51 | Outpatient (AMB) | payer MEDICARE, SELFPAY ==
[2024-05-06 09:59] VITALS: BP 97/53; PULSE 64; BMI 23.7
--- NOTE | 2024-05-06 09:59 | MHC.OFFVIS ---
Vital Signs 05/06/24 09:59 Height 5 ft 1 in Weight 125 lb 10.616 oz BMI 23.7 BP 97/53 L Blood Pressure Location Lt brachial Position Sitting Pulse 64 Intake Visit Reasons: 6 month follow up Intake Note: Vanesa presents in the office as as 6 month follow up. CC: Denies any GI concerns at this time. Wealth Management Manager Required: No Allergies Sulfa (Sulfonamide Antibiotics) Allergy (Unknown, Verified 05/06/24 10:04) Hives HPI HPI 6 month follow up: Details: 68 yr old f here for f/u RECAP: she does get pins and needles around her tongue and citalopram helps she gets awful heartburn she takes pantoprazole bid but she feels it makes her worse she has had dysphagia for years, she has had balloon dilation many years ago she has had manometry testing at [facility] she has nausea and regurgitation she has IBS and has diarrhea usually, now recently more constipated last colonoscopy few yrs ago was normal EGD: 11/13 balloon dilation to 20 mm gastritis hiatal hernia erosive esophagitis esophageal stricture She was referred and had hernia repair 03/15 INTERIM: she has v occasional problems with regurg and dysphagia but she had a lot of sputum recently no nausea or vomiting still taking PPI BID also taking carafate, but she feels overall better with the surgery EXAM: GENERAL: The patient is well developed and nontoxic. VITAL SIGNS:see workflow HEENT: Nonicteric sclerae, PERRLA, EOMI. Oropharynx clear. Moist mucous membranes. Conjunctivae appear well perfused. No thyroid mass. CHEST: Chest wall is nontender. HEART: Regular rate and rhythm without murmurs. LUNGS: Clear to auscultation bilaterally. ABDOMEN: Soft, positive bowel sounds, nontender, no organomegaly.no flank tenderness SKIN: No rash, no excessive bruising, petechiae, or purpura. NEUROLOGIC: Cranial nerves II-XII intact without motor/sensory deficit. Psych: nml affect A/P: 1/ S/p hiatal hernia repair, still having occ problems wit dysphagia and regurg but its still early PLAN: 1/ cont with BID PPI for the moment and reduce at next visit 2/ if ongoing sx as above after 1-2 months to call me and will book EGD with possible dilation [facility] Medical History Chest discomfort Screening for colon cancer Sinusitis Conjunctivitis, left eye Upper respiratory infection Conjunctivitis due to adenovirus, left eye Strep pharyngitis Leukopenia Physical exam Anxiety Depression Asthma Osteopenia Osteoarthritis, hand Paresthesias Pulmonary nodule Ground glass opacity present on imaging of lung Diffuse cystic mastopathy of breast Mixed incontinence urge and stress Kidney cyst Esophageal ulcer Hiatal hernia Elevated alkaline phosphatase level Kidney stones Leukopenia Barretts esophagus GERD (gastroesophageal reflux disease) Achalasia and cardiospasm Hypercholesteremia Stable angina Surgical History Status post repair of paraesophageal diaphragmatic hernia S/P total left hip arthroplasty Hx of colonoscopy History of esophagogastroduodenoscopy (EGD) Family History Brother Substance use disorder Progressive supranuclear palsy Mother Progressive supranuclear palsy Social History Household Members: Spouse Housing: House Are you a primary acute care registered nurse to a significant other at home: No Do you presently have visiting nurse or other home services: No Alcohol intake: current Alcohol intake frequency: holidays/special occasions only Patient Tobacco Use Status: Former Tobacco user e-Cigarette/Vaping Use: Never Used Second Hand Smoke Exposure: No service: No Current occupational status: employed 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 [employer] Current occupational exposures/hazards: No Cognitive needs: No Hearing needs: No Vision needs: No Physical Exam Vital Signs: Last Vital Signs Pulse 64 05/06/24 09:59 BP 97/53 L 05/06/24 09:59 BMI result Body Mass Index 23.7 Assessment & Plan Assessment & Plan (1) GERD (gastroesophageal reflux disease): Code(s): K21.9 - Gastro-esophageal reflux disease without esophagitis Category: Medical Qualifiers: Esophagitis presence: with esophagitis Esophagitis bleeding: without hemorrhage Qualified Code(s): K21.00 - Gastro-esophageal reflux disease with esophagitis, without bleeding Plan: as above Coding Level of Care Code Est Pt Level 3 (02837) Diagnoses Gastroesophageal reflux disease with esophagitis without hemorrhage K21.00 Esophagitis presence: with esophagitis Esophagitis bleeding: without hemorrhage
--- OUTSIDE RECORDS SUMMARY | 2024-05-06 10:23 | XMS_ITS | Encounter Summary ---
Author Organization [facility] Address [address] [place] [address] Care Team Providers Care Jumpbasting Canvas Baster Name Role Phone Darren Parekh MD Primary Care Provider Smitha Del Rosario MD Primary Care Provider Jorgito Hyde MD Unavailable [phone] [facility], Pcp Primary Care Provider [facility] Encounter Details Date Type Department Care Team Description 06/01/2013 Hospital Medical Records [address] [place] [address] Social History Tobacco Use Types Packs/Day [...] on filedocumented in this encounter Care Teams Jumpbasting Canvas Baster Relationship Specialty Start Date End Date Darren Parekh MD PCP - General 11/17/03 03/22/14 Smitha Garcia MD PCP - General Internal Medicine 04/03/14 01/01/22 [facility], Pcp [address] [address] PCP - General Internal Medicine 01/02/22 Jorgito Robles MD 300 [facility] [address] [place] [address] Specialist Cardiovascular Disease 08/16/20 documented as of this encounter
--- OUTSIDE RECORDS SUMMARY | 2024-05-06 10:23 | XMS_ITS | Encounter Summary ---
Author Organization [facility] Address [address] [place] [address] Care Team Providers Care Hook Up Name Role Phone Smitha Garcia MD Primary Care Provider Jorgito Hyde MD Unavailable [phone] [facility]cp Primary Care Provider Opal santacruz Encounter Details Date Type Department Care Team Description 05/20/2016 Hospital Medical Records [address] [place] [address] Deshawn Nick Social History Tobacco Use Types [...] on filedocumented in this encounter Care Teams Hook Up Relationship Specialty Start Date End Date Smitha Garcia MD PCP - General Internal Medicine 04/03/14 01/01/22 [facility] 300 [facility] [address] [place] [address] PCP - General Internal Medicine 01/02/22 Jorgito Robles MD 300 [facility] [address] [place] [address] Specialist Cardiovascular Disease 08/16/20 documented as of this encounter
--- OUTSIDE RECORDS SUMMARY | 2024-05-06 10:23 | XMS_ITS | Encounter Summary ---
Author Organization [facility] Address [address] [place] [address] Care Team Providers Care Pewter Fabricator Name Role Phone Smitha Garcia MD Primary Care Provider Jorgito Hyde MD Unavailable [phone] [facility], Pcp Primary Care Provider [facility] Encounter Details Date Type Department Care Team Description 02/06/2016 Release of Information Medical Records [address] [place] [address] Abstract, Provider Social History Tobacco Use Types [...] on filedocumented in this encounter Care Teams Pewter Fabricator Relationship Specialty Start Date End Date Smitha Garcia MD PCP - General Internal Medicine 04/03/14 01/01/22 [facility], Pcp [address] [place] [address] PCP - General Internal Medicine 01/02/22 Jorgito Robles MD 300 [facility] [address] [place] [address] Specialist Cardiovascular Disease 08/16/20 documented as of this encounter
--- OUTSIDE RECORDS SUMMARY | 2024-05-06 10:23 | XMS_ITS | Encounter Summary ---
Author Organization [facility] Address [address] [place] [address] Care Team Providers Care Dry Ice Maker Name Role Phone Smitha Garcia MD Primary Care Provider Jorgito yHde MD Unavailable [facility], [facility] Primary Care Provider [facility] Encounter Details Date Type Department Care Team Description 06/27/2014 Quality Control Analyst Report Medical Records [address] [place] [address] Afshin Barbour MD Social History Tobacco Use [...] on filedocumented in this encounter Care Teams Dry Ice Maker Relationship Specialty Start Date End Date Smitha Garcia MD PCP - General Internal Medicine 04/03/14 01/01/22 [facility], Pcp [address] [place] [address] PCP - General Internal Medicine 01/02/22 Jorgito Robles MD 300 [facility] [address] [place] [address] Specialist Cardiovascular Disease 08/16/20 documented as of this encounter
--- OUTSIDE RECORDS SUMMARY | 2024-05-06 10:23 | XMS_ITS | Encounter Summary ---
Author Organization [facility] Address [address] [place] [address] Care Team Providers Care Brokerage Manager Name Role Phone Smitha Garcia MD Primary Care Provider Jorgito Hyde MD Unavailable [phone] [facility], Pcp Primary Care Provider Unavailabl e Reason for Referral * Non ABEL (Routine) - Closed Specialty Diagnoses / Procedures Referred By Rosalia t Referred To Contact Rheumatology Procedures REFERRAL TO RHEUMATOLOGY Taj Matthews PA-C [address] [place] [address] Rheum/[place] [address] [place] [address] Referral ID Status Reason Start Date Expiration Date Visits Re quested Visits Authorized [id number] Closed 10/02/2017 10/02/2018 1 1 Encounter Details Date Type Department Care Team Description 10/02/2017 Orders Only Medicine/Pediatrics - [address] [id number] Taj Matthews PA-C Social History Tobacco Use Types Packs/Day [...] on filedocumented in this encounter Care Teams Brokerage Manager Relationship Specialty Start Date End Date Smitha Garcia MD PCP - General Internal Medicine 04/03/14 01/01/22 [facility], Pcp [address] [address] PCP - General Internal Medicine 01/02/22 Jorgito Robles MD 300 [facility] [address] [place] [address] Specialist Cardiovascular Disease 08/16/20 documented as of this encounter
--- OUTSIDE RECORDS SUMMARY | 2024-05-06 10:23 | XMS_ITS | Encounter Summary ---
Author Organization [facility] Address [address] [place] [address] Care Team Providers Care Ophthalmic Medical Assistant Name Role Phone Smitha Garcia MD Primary Care Provider Jorgito Hyde MD Unavailable [phone] [facility], Pcp Primary Care Provider [facility] e Encounter Details Date Type Department Care Team Description 03/13/2018 Release of Information Medical Records [address] [place] [address] Abstract, Provider Social History Tobacco Use Types [...] on filedocumented in this encounter Care Teams Ophthalmic Medical Assistant Relationship Specialty Start Date End Date Smitha Garcia MD PCP - General Internal Medicine 04/03/14 01/01/22 [facility], Pcp [address] [place] [address] PCP - General Internal Medicine 01/02/22 Jorgito Robles MD [facility] [address] [place] [address] Specialist Cardiovascular Disease 08/16/20 documented as of this encounter
--- OUTSIDE RECORDS SUMMARY | 2024-05-06 10:23 | XMS_ITS | Encounter Summary ---
Author Organization [facility] Address [address] [place] [address] Care Team Providers Care Cylinder Die Machine Helper Name Role Phone Smitha Garcia MD Primary Care Provider Jorgito Hyde MD Unavailable [phone] [facility] Primary Care Provider [facility] Encounter Details Date Type Department Care Team Description 12/27/2014 Nuisance Wildlife Control Operator Report Medical Records [address] [place] [address] Mauricio Stovall MD Social History Tobacco Use [...] on filedocumented in this encounter Care Teams Cylinder Die Machine Helper Relationship Specialty Start Date End Date Smitha Garcia MD PCP - General Internal Medicine 04/03/14 01/01/22 [facility], Pcp [address] [place] [address] PCP - General Internal Medicine 01/02/22 Jorgito Robles MD 300 [facility] [address] [place] [address] Specialist Cardiovascular Disease 08/16/20 documented as of this encounter
--- OUTSIDE RECORDS SUMMARY | 2024-05-06 10:23 | XMS_ITS | Encounter Summary ---
Author Organization [facility] Address [address] [place] [address] Care Team Providers Care Special Education Teachers Name Role Phone Smitha Garcia MD Primary Care Provider Jorgito Hyde MD Unavailable [phone] [facility], Pcp Primary Care Provider [facility] Encounter Details Date Type Department Care Team Description 07/02/2020 Pt. Non Urgent Medic al Question Gastroenterology - [address] [place] [address] Shahriar Levin MD Social History [...] on filedocumented in this encounter Care Teams Special Education Teachers Relationship Specialty Start Date End Date Smitha Garcia MD PCP - General Internal Medicine 04/03/14 01/01/22 [facility], Pcp [address] [address] PCP - General Internal Medicine 01/02/22 Jorgito Robles MD [address] [address] Specialist Cardiovascular Disease 08/16/20 documented as of this encounter
--- OUTSIDE RECORDS SUMMARY | 2024-05-06 10:23 | XMS_ITS | Encounter Summary ---
Author Organization [facility] Address [address] [place] [address] Care Team Providers Care Hotel Houseman Name Role Phone Smitha Garcia MD Primary Care Provider Jorgito Hyde MD Unavailable [phone] [facility] Primary Care Provider [facility] Encounter Details Date Type Department Care Team Description 09/08/2019 Interstate Bus Driver Report Medical Records [address] [place] [address] Paolo Guerrero MD Social History Tobacco Use [...] on filedocumented in this encounter Care Teams Hotel Houseman Relationship Specialty Start Date End Date Smitha Garcia MD PCP - General Internal Medicine 04/03/14 01/01/22 [facility], Pcp [address] [place] [address] PCP - General Internal Medicine 01/02/22 Jorgito Robles MD 300 [facility] [address] [place] [address] Specialist Cardiovascular Disease 08/16/20 documented as of this encounter
--- OUTSIDE RECORDS SUMMARY | 2024-05-06 10:23 | XMS_ITS | Encounter Summary ---
Author Organization [facility] Address [address] [place] [address] Care Team Providers Care Surgical Garment Fitter Name Role Phone Darren Parekh MD Primary Care Provider Donovan Baez Primary Care Provider [phone] Smitha Garcia MD Primary Care Provider Jorgito Hyde MD Unavailable [phone] [facility] Pcp Primary Care Provider Opal Reason for Visit * Reason Comments other Encounter Details Date Type Department Care Team Description 05/17/2001 Telephone OBGYN - [place] [address] [place] [address] MusaFawn salazar [facility] [address] [place] [address] other Social History Tobacco Use Types Packs/Day Years [...] encounter Miscellaneous Notes * Telephone Encounter - 05/17/2001 10:18 PM ESTCALL RECEIVED. Contact: self [phone] due June 02,some contractions,passing fluid, call to Arleen Vigil, Cinder Pit Worker documented in this encounter Plan of Treatment Not on file documented as of this encounter Visit Diagnoses Not on filedocumented in this encounter Care Teams Surgical Garment Fitter Relationship Specialty Start Date End Date Darren Parekh MD PCP - General 11/17/03 03/22/14 Donovan Maria [address] [place] [address] PCP - General 03/23/1995 11/16/03 Smitha Garcia MD [address] [place] [address] PCP - General Internal Medicine 04/03/14 01/01/22 [facility], Pcp [address] [address] PCP - General Internal Medicine 01/02/22 Jorgito Robles MD 300 [facility] [address] [place] [address] Specialist Cardiovascular Disease 08/16/20 documented as of this encounter
--- OUTSIDE RECORDS SUMMARY | 2024-05-06 10:23 | XMS_ITS | Encounter Summary ---
Author Organization [facility] Address [address] [place] [address] Care Team Providers Care Bridge Manager Name Role Phone Smitha Garcia MD Primary Care Provider Jorgito Hyde MD Unavailable [phone] [facility], Pcp Primary Care Provider [facility] e Encounter Details Date Type Department Care Team Description 07/07/2018 Pt. Non Urgent Medic al Question Gastroenterology - [address] [place] [address] Shahriar Levin MD Social History [...] on filedocumented in this encounter Care Teams Bridge Manager Relationship Specialty Start Date End Date Smitha Garcia MD PCP - General Internal Medicine 04/03/14 01/01/22 [facility], Pcp 300 [facility] [address] [place] [address] PCP - General Internal Medicine 01/02/22 Jorgito Robles MD 300 [facility] [address] [place] [address] Specialist Cardiovascular Disease 08/16/20 documented as of this encounter
--- OUTSIDE RECORDS SUMMARY | 2024-05-06 10:23 | XMS_ITS | Encounter Summary ---
Author Organization [facility] Address [address] [place] [address] Care Team Providers Care Tea Bag Machine Tender Name Role Phone Darren Parekh MD Primary Care Provider Smitha Del Rosario MD Primary Care Provider Jorgito Hyde MD Unavailable [phone] [facility], Pcp Primary Care Provider Unavailabl e Reason for Visit * Reason Onset Date Comments REFERRAL 03/10/2013 Encounter Details Date Type Department Care Team Description 03/10/2013 Telephone Adult Medicine [address] [address] Darren Parekh MD REFERRAL Social History Tobacco Use Types Packs/Day Years [...] encounter Miscellaneous Notes * Telephone Encounter - Kenyatta Lovell - 03/10/2013 11:44 AM EST ON CX LIST * Telephone Encounter - Shahriar Levin MD - 03/10/2013 10:47 AM EST We can put her on the cancel list. * Telephone Encounter - Darren Parekh MD - 03/10/2013 10:45 AM EST Shahriar, can you get her in sooner ? * Telephone Encounter - Lilliam Bee - 03/10/2013 9:01 AM EST Patient was referred to Dr. Flores and can not get into until May. Patient feels this is too long and does not want to go through pain eating for that long. Wants to know if there is something wecan do or is there some one else we can refer her to outside of [facility]. documented in this encounter Plan of Treatment Not on file documented as of this encounter Visit Diagnoses Not on filedocumented in this encounter Care Teams Tea Bag Machine Tender Relationship Specialty Start Date End Date Darren Parekh MD PCP - General 11/17/03 03/22/14 Smitha Garcia MD PCP - General Internal Medicine 04/03/14 01/01/22 [facility], Pcp 300 [facility] [address] [place] [address] PCP - General Internal Medicine 01/02/22 Jorgito Robles MD 300 [facility] [address] [place] [address] Specialist Cardiovascular Disease 08/16/20 documented as of this encounter
--- OUTSIDE RECORDS SUMMARY | 2024-05-06 10:23 | XMS_ITS | Encounter Summary ---
Author Organization [facility] Address [address] [place] [address] Care Team Providers Care Bank Vault Attendant Name Role Phone Smitha Garcia MD Primary Care Provider Jorgito Hyde MD Unavailable [phone] [facility], [facility] Primary Care Provider [facility] e Encounter Details Date Type Department Care Team Description 07/02/2018 Hospital Medical Records [address] [place] [address] Shahriar Levin MD Social History Tobacco Use [...] on filedocumented in this encounter Care Teams Bank Vault Attendant Relationship Specialty Start Date End Date Smitha Garcia MD PCP - General Internal Medicine 04/03/14 01/01/22 [facility], Pcp [address] [place] [address] PCP - General Internal Medicine 01/02/22 Jorgito Robles MD 300 [facility] [address] [place] [address] Specialist Cardiovascular Disease 08/16/20 documented as of this encounter
--- OUTSIDE RECORDS SUMMARY | 2024-05-06 10:23 | XMS_ITS | Encounter Summary ---
Author Organization [facility] Address [address] [place] [address] Care Team Providers Care Director Of Alumni Relations Name Role Phone Smitha Garcia MD Primary Care Provider Jrogito Hyde MD Unavailable [phone] [facility], Pcp Primary Care Provider Unavailabl e Reason for Referral * EXTERNAL (Routine) - Authorized/Booked Specialty Diagnoses / Procedures Referred By Contchau t Referred To Contact Chiropractor / Chiropractic Procedures REFERRAL TO CHIROPRACTIC Smitha Garcia MD [address] [place] [id number] External Chiropractic Referral ID Status Reason Start Date Expiration Date V isits Requested Visits Authorized SEE NOTE Authorized/B ooked 05/20/2018 08/21/2018 1 1 Encounter Details Date Type Department Care Team Description 05/19/2018 Pt. Non Urgent Medic al Question Medicine/Pediatrics - [address] [address] Smitha Garcia MD Social History Tobacco Use [...] filedocumented in this encounter Care Teams Director Of Alumni Relations Relationship Specialty Start Date End Date Smitha Garcia MD PCP - General Internal Medicine 04/03/14 01/01/22 [facility], Pcp [address] [address] PCP - General Internal Medicine 01/02/22 Jorgito Robles MD [address] [address] Specialist Cardiovascular Disease 08/16/20 documented as of this encounter
--- OUTSIDE RECORDS SUMMARY | 2024-05-06 10:23 | XMS_ITS | Encounter Summary ---
Author Organization [facility] Address [address] [place] [address] Care Team Providers Care Vegetable Ii Farmworker Name Role Phone Smitha Garcia MD Primary Care Provider Jorgito Hyde MD Unavailable [phone] [facility], [facility] Primary Care Provider [facility] e Encounter Details Date Type Department Care Team Description 02/08/2016 Pt. Non Urgent Medic al Question Medicine/Pediatrics - [address] [address] Smitha Garcia MD Social History Tobacco Use [...] on filedocumented in this encounter Care Teams Vegetable Ii Farmworker Relationship Specialty Start Date End Date Smitha Garcia MD PCP - General Internal Medicine 04/03/14 01/01/22 [facility], Pcp [address] [facility] [address] [place] [address] PCP - General Internal Medicine 01/02/22 Jorgito Robles MD 300 [facility] [address] [place] [address] Specialist Cardiovascular Disease 08/16/20 documented as of this encounter
--- OUTSIDE RECORDS SUMMARY | 2024-05-06 10:23 | XMS_ITS | Encounter Summary ---
Author Organization [facility] Address [address] [place] [address] Care Team Providers Care Marketing Regional Consultant Name Role Phone Smitha Garcia MD Primary Care Provider Jorgito Hyde MD Unavailable [facility], [facility] Primary Care Provider Unavailabl e Encounter Details Date Type Department Care Team Description 10/19/2019 Orders Only Gastroenterology - [address] [place] [address] Shahriar Levin MD Social [...] on filedocumented in this encounter Care Teams Marketing Regional Consultant Relationship Specialty Start Date End Date Smitha Garcia MD PCP - General Internal Medicine 04/03/14 01/01/22 [facility], Pcp 300 [facility] [address] [place] [address] PCP - General Internal Medicine 01/02/22 Jorgito Robles MD 300 [facility] [address] [place] [address] Specialist Cardiovascular Disease 08/16/20 documented as of this encounter
--- OUTSIDE RECORDS SUMMARY | 2024-05-06 10:23 | XMS_ITS | Encounter Summary ---
Author Organization [facility] Address [address] [place] [address] Care Team Providers Care Skilled Laborer Name Role Phone Smitha Garcia MD Primary Care Provider Jorgito Hyde MD Unavailable [phone] [facility], [facility] Primary Care Provider [facility] e Encounter Details Date Type Department Care Team Description 12/22/2017 Orders Only Rheumatology - [address] [address] Cyndy Flores DO Positive anti-CCP test (Primary [...] findings documented in this encounter Care Teams Skilled Laborer Relationship Specialty Start Date End Date Smitha Garcia MD PCP - General Internal Medicine 04/03/14 01/01/22 [facility], Pcp [address] [facility] [address] [place] [address] PCP - General Internal Medicine 01/02/22 Jorgito Robles MD [address] [place] [address] Specialist Cardiovascular Disease 08/16/20 documented as of this encounter
--- OUTSIDE RECORDS SUMMARY | 2024-05-06 10:23 | XMS_ITS | Encounter Summary ---
Author Organization [facility] Address [address] [place] [address] Care Team Providers Care Flight Communications Specialist Name Role Phone Smitha Garcia MD Primary Care Provider Jorgito Hyde MD Unavailable [phone] [facility], [facility] Primary Care Provider Unavailabl e Encounter Details Date Type Department Care Team Description 05/06/2021 Refill Medicine/Pediatrics - [address] [address] Napoleon Lares PA-C Social History Tobacco Use [...] on filedocumented in this encounter Care Teams Flight Communications Specialist Relationship Specialty Start Date End Date Smitha Garcia MD PCP - General Internal Medicine 04/03/14 01/01/22 [facility], Pcp [address] [address] PCP - General Internal Medicine 01/02/22 Jorgito Robles MD 300 [facility] [address] [place] [address] Specialist Cardiovascular Disease 08/16/20 documented as of this encounter
--- OUTSIDE RECORDS SUMMARY | 2024-05-06 10:23 | XMS_ITS | Encounter Summary ---
Author Organization [facility] Address [address] [place] [address] Care Team Providers Care Stock Repairer Name Role Phone Darren Parekh MD Primary Care Provider Smitha Del Rosario MD Primary Care Provider Jorgito Hyde MD Unavailable [phone] [facility], Pcp Primary Care Provider [facility] e Encounter Details Date Type Department Care Team Description 09/22/2013 Medical Data Entry Clerk Report Medical Records [address] [place] [address] Afshin Barbour MD Social History Tobacco Use [...] on filedocumented in this encounter Care Teams Stock Repairer Relationship Specialty Start Date End Date Darren Parekh MD PCP - General 11/17/03 03/22/14 Smitha Garcia MD PCP - General Internal Medicine 04/03/14 01/01/22 [facility], Pcp [address] [address] PCP - General Internal Medicine 01/02/22 Jorgito Robles MD 300 [facility] [address] [place] [address] Specialist Cardiovascular Disease 08/16/20 documented as of this encounter
--- OUTSIDE RECORDS SUMMARY | 2024-05-06 10:23 | XMS_ITS | Encounter Summary ---
Author Organization [facility] Address [address] [place] [address] Care Team Providers Care Child Care Giver Name Role Phone Smitha Garcia MD Primary Care Provider Jorgito Hyde MD Unavailable [phone] [facility], [facility] Primary Care Provider [facility] e Encounter Details Date Type Department Care Team Description 05/09/2020 Hospital Medical Records [address] [place] [address] Markos Mackay MD Social History Tobacco Use [...] on filedocumented in this encounter Care Teams Child Care Giver Relationship Specialty Start Date End Date Smitha Garcia MD PCP - General Internal Medicine 04/03/14 01/01/22 [facility], Pcp [address] [place] [address] PCP - General Internal Medicine 01/02/22 Jorgito Robles MD 300 [facility] 154 [place] [address] Specialist Cardiovascular Disease 08/16/20 documented as of this encounter
--- OUTSIDE RECORDS SUMMARY | 2024-05-06 10:23 | XMS_ITS | Encounter Summary ---
Author Organization [facility] Address [address] [place] [address] Care Team Providers Care Wastewater Operator Name Role Phone Smitha Garcia MD Primary Care Provider Jorgito Hyde MD Unavailable [phone] [facility], [facility] Primary Care Provider [facility] e Encounter Details Date Type Department Care Team Description 07/27/2020 Photo Manager Report Medical Records [address] [place] [address] Nico Hutchinson I., PH.D Social History Tobacco [...] on filedocumented in this encounter Care Teams Wastewater Operator Relationship Specialty Start Date End Date Smitha Garcia MD PCP - General Internal Medicine 04/03/14 01/01/22 [facility], Pcp [address] [place] [address] PCP - General Internal Medicine 01/02/22 Jorgito Robles MD 300 [facility] [address] [place] [address] Specialist Cardiovascular Disease 08/16/20 documented as of this encounter
--- OUTSIDE RECORDS SUMMARY | 2024-05-06 10:23 | XMS_ITS | Encounter Summary ---
Author Organization [facility] Address [address] [place] [address] Care Team Providers Care Kardex Clerk Name Role Phone Smitha Garcia MD Primary Care Provider Jorgito Hyde MD Unavailable [phone] [facility], Pcp Primary Care Provider [facility] e Encounter Details Date Type Department Care Team Description 05/15/2014 Release of Information Medical Records [address] [place] [address] Abstract, Provider Social History Tobacco Use Types [...] on filedocumented in this encounter Care Teams Kardex Clerk Relationship Specialty Start Date End Date Smitha Garcia MD PCP - General Internal Medicine 04/03/14 01/01/22 [facility], Pcp [address] [place] [address] PCP - General Internal Medicine 01/02/22 Jorgito Robles MD 300 [facility] [address] [place] [address] Specialist Cardiovascular Disease 08/16/20 documented as of this encounter
--- OUTSIDE RECORDS SUMMARY | 2024-05-06 10:23 | XMS_ITS | Encounter Summary ---
Author Organization [facility] Address [address] [place] [address] Care Team Providers Care Therapeutic Radiologist Name Role Phone Smitha Garcia MD Primary Care Provider Jorgito Hyde MD Unavailable [phone] [facility] Primary Care Provider Unavailabl e Reason for Visit * Reason Onset Date Comments Testing 02/17/2017 External Echo CP [id number] Encounter Details Date Type Department Care Team Description 02/17/2017 Telephone Adult Medicine - [address] [id number] Smitha Garcia MD Testing (External Echo [id number]) Social History Tobacco Use Types Packs/Day Years [...] 02/17/2017 12:29 PM EST [employer] Auth # [id number] 02/10/17 - 05/11/17 To be done at [facility] [address]/df documented in this encounter Plan of Treatment Not on file documented as of this encounter Visit Diagnoses Not on filedocumented in this encounter Care Teams Therapeutic Radiologist Relationship Specialty Start Date End Date Smitha Garcia MD PCP - General Internal Medicine 04/03/14 01/01/22 [facility], Pcp [address] [place] [address] PCP - General Internal Medicine 01/02/22 Jorgito Robles MD [address] [place] [address] Specialist Cardiovascular Disease 08/16/20 documented as of this encounter
--- OUTSIDE RECORDS SUMMARY | 2024-05-06 10:23 | XMS_ITS | Encounter Summary ---
Author Organization [facility] Address [address] [place] [address] Care Team Providers Care Conceptor Name Role Phone Darren Parekh MD Primary Care Provider Smitha Del Rosario MD Primary Care Provider Jorgito Hyde MD Unavailable [phone] [facility], Pcp Primary Care Provider [facility] e Encounter Details Date Type Department Care Team Description 07/10/2011 Health Safety Coordinator Report Medical Records [address] [place] [address] Martin Morales Social History Tobacco Use Types [...] on filedocumented in this encounter Care Teams Conceptor Relationship Specialty Start Date End Date Darren Parekh MD PCP - General 11/17/03 03/22/14 Smitha Garcia MD PCP - General Internal Medicine 04/03/14 01/01/22 [facility], Pcp 300 [facility] [address] [place] [address] PCP - General Internal Medicine 01/02/22 Jorgito Robles MD 300 [facility] [address] [place] [address] Specialist Cardiovascular Disease 08/16/20 documented as of this encounter
--- OUTSIDE RECORDS SUMMARY | 2024-05-06 10:23 | XMS_ITS | Encounter Summary ---
Author Organization [facility] Address [address] [place] [address] Care Team Providers Care Script Artist Name Role Phone Smitha Garcia MD Primary Care Provider Jorgito Hyde MD Unavailable [phone] Counts Include [facility], Pcp Primary Care Provider [facility]ways[facility] e Encounter Details Date Type Department Care Team Description 06/08/2020 Pt. Non Urgent Medical Question Medicine/Pediatrics - [address] [address] Jennifer Salazar NP [address] [place] [address] Social History Tobacco Use Types Packs/Day Years [...] on filedocumented in this encounter Care Teams Script Artist Relationship Specialty Start Date End Date Smitha Garcia MD PCP - General Internal Medicine 04/03/14 01/01/22 Counts Include [facility], Pcp [address] [address] PCP - General Internal Medicine 01/02/22 Jorgito Robles MD 300 [facility] [address] [place] [address] Specialist Cardiovascular Disease 08/16/20 documented as of this encounter
--- OUTSIDE RECORDS SUMMARY | 2024-05-06 10:23 | XMS_ITS | Encounter Summary ---
Author Organization [facility] Address [address] [place] [address] Care Team Providers Care Superintendent Electric Power Name Role Phone Darren Parekh MD Primary Care Provider Smitha Del Rosario MD Primary Care Provider Jorgito Hyde MD Unavailable [phone] [facility], Pcp Primary Care Provider [facility] e Encounter Details Date Type Department Care Team Description 09/12/2013 Duralumin Mechanic Report Medical Records [address] [place] [address] Afhsin Barbour MD Social History Tobacco Use Types [...] on filedocumented in this encounter Care Teams Superintendent Electric Power Relationship Specialty Start Date End Date Darren Parekh MD PCP - General 11/17/03 03/22/14 Smitha Garcia MD PCP - General Internal Medicine 04/03/14 01/01/22 [facility], Pcp [address] [address] PCP - General Internal Medicine 01/02/22 Jorgito Robles MD 300 [facility] 154 [place] [address] Specialist Cardiovascular Disease 08/16/20 documented as of this encounter
--- OUTSIDE RECORDS SUMMARY | 2024-05-06 10:23 | XMS_ITS | Encounter Summary ---
Author Organization [facility] Address [address] [place] [address] Care Team Providers Care Billet Assembler Name Role Phone Smitha Garcia MD Primary Care Provider Jorgito Hyde MD Unavailable [phone] [facility], [facility] Primary Care Provider Unavailabl e Encounter Details Date Type Department Care Team Description 08/21/2017 Orders Only Medicine/Pediatrics - [address] [address] Kina Kohli PA-C Odynophagia; Dysphagia, unspecified type; [...] this encounter Results * BARIUM SWALLOW (08/06/2017) iKna Kohli PA-C RADIOLOGY documented in this encounter Visit Diagnoses Diagnosis Odynophagia Dysphagia, unspecified Dysphagia, unspecified type Achalasia and cardiospasm Gastroesophageal reflux disease, esophagitis presence not specified documented in this encounter Care Teams Billet Assembler Relationship Specialty Start Date End Date Smitha Garcia MD PCP - General Internal Medicine 04/03/14 01/01/22 [facility], Pcp 300 [facility] [address] [place] [address] PCP - General Internal Medicine 01/02/22 Jorgito Robles MD 300 [facility] [address] [place] [address] Specialist Cardiovascular Disease 08/16/20 documented as of this encounter
--- OUTSIDE RECORDS SUMMARY | 2024-05-06 10:23 | XMS_ITS | Encounter Summary ---
Author Organization [facility] Address [address] [place] [address] Care Team Providers Care Reproductive Surgeon Name Role Phone Darren Parekh MD Primary Care Provider Smitha Del Rosario MD Primary Care Provider Jorgito Hyde MD Unavailable [phone] [facility], Pcp Primary Care Provider [facility] Encounter Details Date Type Department Care Team Description 06/03/2013 Hospital Medical Records [address] [place] [address] Benedicto Austin MD Social History Tobacco Use [...] on filedocumented in this encounter Care Teams Reproductive Surgeon Relationship Specialty Start Date End Date Darren Parekh MD PCP - General 11/17/03 03/22/14 Smitha Garcia MD PCP - General Internal Medicine 04/03/14 01/01/22 [facility], Pcp [address] [address] PCP - General Internal Medicine 01/02/22 Jorgito Robles MD 300 [facility] [address] [place] [address] Specialist Cardiovascular Disease 08/16/20 documented as of this encounter
--- OUTSIDE RECORDS SUMMARY | 2024-05-06 10:23 | XMS_ITS | Encounter Summary ---
Author Organization [facility] Address [address] [place] [address] Care Team Providers Care Promotions Officer Name Role Phone Smitha Garcia MD Primary Care Provider Jorgito Hyde MD Unavailable [phone] [facility], [facility] Primary Care Provider [facility] e Encounter Details Date Type Department Care Team Description 08/28/2014 Application Penetration Tester Report Medical Records [address] [place] [address] Mauricio Stovall MD Social History Tobacco Use [...] on filedocumented in this encounter Care Teams Promotions Officer Relationship Specialty Start Date End Date Smitha Garcia MD PCP - General Internal Medicine 04/03/14 01/01/22 [facility], Pcp [address] [place] [address] PCP - General Internal Medicine 01/02/22 Jorgito Robles MD 300 [facility] [address] [place] [address] Specialist Cardiovascular Disease 08/16/20 documented as of this encounter
--- OUTSIDE RECORDS SUMMARY | 2024-05-06 10:23 | XMS_ITS | Clinical Summary ---
Author Organization [facility] Address [address] [place] [address] Care Team Providers Care Motorcycle Sales Associate Name Role Phone Jorgito Robles MD Unavailable [phone] [facility], Pcp Primary Care Provider Unavailabl e Allergies [...] her 20s. Had large balloon dilation in [place] when she was in her 20's. Normal EGD 06/03 Dr. Austin [facility]. Esophageal motility study consistent with achalasia 06/01/13 at [facility], with poor esophageal contractility and LES pressure, [...] reasts Diabetes Mother progressive supernuclear palsy Mother [place] Paternal Grandfather age 41 Blindness Negative Hx [...] SHINGLES VACCINE Completed 03/24/2020, 01/10/2020 Care Teams Motorcycle Sales Associate Relationship Specialty Start Date End Date Community, Pcp 300 [facility] [address] [place] [address] PCP - General Internal Medicine 01/02/22 Jorgito Robles MD 300 [facility] [address] [place] [address] Specialist Cardiovascular Disease 08/16/20
--- OUTSIDE RECORDS SUMMARY | 2024-05-06 10:23 | XMS_ITS | Encounter Summary ---
Author Organization [facility] Address [address] [place] [address] Care Team Providers Care Billet Examiner Name Role Phone Smitha Garcia MD Primary Care Provider Jorgito Hyde MD Unavailable [phone] [facility], Pcp Primary Care Provider [facility] e Encounter Details Date Type Department Care Team Description 09/06/2018 Combination Welder Apprentice Report Medical Records [address] [place] [address] Abstract, Provider Social History Tobacco Use Types [...] on filedocumented in this encounter Care Teams Billet Examiner Relationship Specialty Start Date End Date Smitha Garcia MD PCP - General Internal Medicine 04/03/14 01/01/22 [facility], Pcp [address] [place] [address] PCP - General Internal Medicine 01/02/22 Jorgito Robles MD 300 [facility] [address] [place] [address] Specialist Cardiovascular Disease 08/16/20 documented as of this encounter
--- OUTSIDE RECORDS SUMMARY | 2024-05-06 10:23 | XMS_ITS | Encounter Summary ---
Author Organization [facility] Address [address] [place] [address] Care Team Providers Care System Development Manager Name Role Phone Smitha Garcia MD Primary Care Provider Jorgito Hyde MD Unavailable [phone] [facility], [facility] Primary Care Provider Unavailabl e Reason for Visit * Reason Onset Date Comments Museum Attendant Feedback 04/10/2014 Dr. Wilman Méndez eurology Encounter Details Date Type Department Care Team Description 04/10/2014 Telephone Medicine/Pediatrics - [address] [phone] Smitha Garcia MD Museum Attendant Feedback (Dr. Stovall Neurology) Social History Tobacco [...] patient for sensitive information Order faxed to [phone] * Telephone Encounter - Myrtle Castillo - 04/12/2014 8:25 AM EST No insurance referral required. Letter with appointment information mailed to patient. DX tongue numbness and tingling; abn MRI, demyelinating lesions, migraine Message forwarded to fax notes [phone] * Telephone Encounter - Myrtle Castillo - 04/10/2014 2:13 PM EST Faxed the Order and Insurance [phone] documented in this encounter Plan of Treatment Not on file documented as of this encounter Visit Diagnoses Not on filedocumented in this encounter Care Teams System Development Manager Relationship Specialty Start Date End Date Smitha Garcia MD PCP - General Internal Medicine 04/03/14 01/01/22 [facility], Pcp [address] [address] PCP - General Internal Medicine 01/02/22 Jorgito Robles MD [address] [address] Specialist Cardiovascular Disease 08/16/20 documented as of this encounter
--- OUTSIDE RECORDS SUMMARY | 2024-05-06 10:24 | XMS_ITS | Encounter Summary ---
Author Organization [facility] Address [address] [place] [address] Care Team Providers Care Supervisor Slitting And Shipping Name Role Phone Smitha Garcia MD Primary Care Provider Jorgito Hyde MD Unavailable [phone] [facility], [facility] Primary Care Provider [facility] e Encounter Details Date Type Department Care Team Description 05/24/2020 SCAN Medical Records [address] [place] [address] Abstract, Provider Social History Tobacco Use Types [...] on filedocumented in this encounter Care Teams Supervisor Slitting And Shipping Relationship Specialty Start Date End Date Smitha Garcia MD PCP - General Internal Medicine 04/03/14 01/01/22 [facility], Pcp 300 [facility] [address] [place] [address] PCP - General Internal Medicine 01/02/22 Jorgito Robles MD 300 [facility] [address] [place] [address] Specialist Cardiovascular Disease 08/16/20 documented as of this encounter
== END 2024-05-06 10:36 | disposition home or self-care (01) ==
PROVIDERS: PCP Nurse Practitioner Family; Visit Provider Internal Medicine Gastroenterology
DX: K21.00 Gastro-esophageal reflux disease with esophagitis, without bleeding (principal)
CPT/HCPCS: 99213

== ENCOUNTER → 2024-05-06 09:51 | Outpatient (BNVA) | payer MEDICARE, SELFPAY | PROVIDERS: PCP Nurse Practitioner Family; Visit Provider Internal Medicine Gastroenterology | DX: K21.00 Gastro-esophageal reflux disease with esophagitis, without bleeding (principal) | CPT/HCPCS: 99212 ==

== ENCOUNTER 2024-05-12 08:14 | Outpatient (AMB) | payer MEDICARE, SELFPAY ==
--- OUTSIDE RECORDS SUMMARY | 2024-05-12 08:16 | XMS_ITS | Encounter Summary ---
Author Organization [facility] Address [address] [place] [address] Care Team Providers Care Plate Mill Mill Hand Name Role Phone Smitha Garcia MD Primary Care Provider Jorgito Hyde MD Unavailable [phone] [facility], [facility] Primary Care Provider [facility] Encounter Details Date Type Department Care Team Description 12/27/2014 Granite Countertop Installer Report Medical Records [address] [place] [address] Mauricio Stovall MD Social History Tobacco Use [...] on filedocumented in this encounter Care Teams Plate Mill Mill Hand Relationship Specialty Start Date End Date Smitha Garcia MD PCP - General Internal Medicine 04/03/14 01/01/22 [facility], Pcp [address] [place] [address] PCP - General Internal Medicine 01/02/22 Jorgito Robles MD 300 [facility] [address] [place] [address] Specialist Cardiovascular Disease 08/16/20 documented as of this encounter
--- OUTSIDE RECORDS SUMMARY | 2024-05-12 08:16 | XMS_ITS | Encounter Summary ---
Author Organization [facility] Address [address] [place] [address] Care Team Providers Care Devulcanizer Operator Name Role Phone Smitha Garcia MD Primary Care Provider Jorgito Hyde MD Unavailable [phone] [facility], [facility] Primary Care Provider [facility] e Encounter Details Date Type Department Care Team Description 12/30/2017 Grade Recorder Report Medical Records [address] [place] [address] Mauricio Stovall MD Social History Tobacco Use [...] on filedocumented in this encounter Care Teams Devulcanizer Operator Relationship Specialty Start Date End Date Smitha Garcia MD PCP - General Internal Medicine 04/03/14 01/01/22 [facility], Pcp [address] [place] [address] PCP - General Internal Medicine 01/02/22 Jorgito Roblse MD 300 [facility] [address] [place] [address] Specialist Cardiovascular Disease 08/16/20 documented as of this encounter
--- OUTSIDE RECORDS SUMMARY | 2024-05-12 08:16 | XMS_ITS | Encounter Summary ---
Author Organization [facility] Address [address] [place] [address] Care Team Providers Care Manager Mba Name Role Phone Smitha Garcia MD Primary Care Provider Tarava Jorgito Nevarez MD Unavailable [phone] [facility], [facility] Primary Care Provider Unavailabl e Reason for Referral * Non ABEL (Routine) - Authorized/Booked Specialty Diagnoses / Procedures Referred By Contact Referred To Contact Chiropractor / Chiropractic Diagnoses Cervical radicular pain Procedures REFERRAL TO CHIROPRACTIC Aman Lynn MD [address] [place] [address] Chaitanya Brown D.C. [address] [place] [address] Referral ID Status Reason Start Date Expiration Date V isits Requested Visits Authorized [id number] Authorized/B ooked 05/19/2018 03/22/2019 60 53 Encounter Details Date Type Department Care Team Description 05/17/2018 Pt. Non Urgent Medical Question Medicine/Pediatrics - [address] [phone] Smitha Garcia MD Cervical radicular pain (Primary [...] 8:36 AM ESTFrom: Vanesa Wayne To: Smitha Gracia MD Sent: 05/17/2018 8:03 PM EST Subject: Medication Hi Dr. Garcia, The Ranitidine is helping some. Could you [...] nos documented in this encounter Care Teams Manager Mba Relationship Specialty Start Date End Date Smitha Garcia MD PCP - General Internal Medicine 04/03/14 01/01/22 [facility], Pcp [address] [address] PCP - General Internal Medicine 01/02/22 Jorgito Robles MD [address] [address] Specialist Cardiovascular Disease 08/16/20 documented as of this encounter
--- OUTSIDE RECORDS SUMMARY | 2024-05-12 08:16 | XMS_ITS | Encounter Summary ---
Author Organization [facility] Address [address] [place] [address] Care Team Providers Care Time Study Technician Name Role Phone Smitha Garcia MD Primary Care Provider Jorgito Hyde MD Unavailable [phone] [facility], [facility] Primary Care Provider Unavailabl e Encounter Details Date Type Department Care Team Description 05/06/2021 Refill Medicine/Pediatrics - [address] [phone] Napoleon Lares PA-C Social History Tobacco Use [...] on filedocumented in this encounter Care Teams Time Study Technician Relationship Specialty Start Date End Date Smitha Garcia MD PCP - General Internal Medicine 04/03/14 01/01/22 [facility], Pcp [address] [address] PCP - General Internal Medicine 01/02/22 Jorgito Robles MD 300 [facility] [address] [place] [address] Specialist Cardiovascular Disease 08/16/20 documented as of this encounter
--- OUTSIDE RECORDS SUMMARY | 2024-05-12 08:16 | XMS_ITS | Encounter Summary ---
Author Organization [facility] Address [address] [place] [address] Care Team Providers Care Elevator Technician Name Role Phone Smitha Garcia MD Primary Care Provider Jorgito Hyde MD Unavailable [facility], Pcp Primary Care Provider [facility] e Encounter Details Date Type Department Care Team Description 03/13/2018 Release of Information Medical Records [address] [place] [address] Abstract, Provider Social History Tobacco Use Types [...] on filedocumented in this encounter Care Teams Elevator Technician Relationship Specialty Start Date End Date Smitha Garcia MD PCP - General Internal Medicine 04/03/14 01/01/22 [facility], Pcp [address] [place] [address] PCP - General Internal Medicine 01/02/22 Jorgito Robles MD [facility] [address] [place] [address] Specialist Cardiovascular Disease 08/16/20 documented as of this encounter
--- OUTSIDE RECORDS SUMMARY | 2024-05-12 08:17 | XMS_ITS | Encounter Summary ---
Author Organization [facility] Address [address] [place] [address] Care Team Providers Care Firepot Operator And Tender Name Role Phone Smitha Garcia MD Primary Care Provider Jorgito Hyde MD Unavailable [phone] [facility], Pcp Primary Care Provider [facility] e Encounter Details Date Type Department Care Team Description 02/06/2016 Release of Information Medical Records [address] [place] [address] Abstract, Provider Social History Tobacco Use Types [...] on filedocumented in this encounter Care Teams Firepot Operator And Tender Relationship Specialty Start Date End Date Smitha Garcia MD PCP - General Internal Medicine 04/03/14 01/01/22 [facility], Pcp [address] [place] [address] PCP - General Internal Medicine 01/02/22 Jorgito Robles MD [facility] [address] [place] [address] Specialist Cardiovascular Disease 08/16/20 documented as of this encounter
--- OUTSIDE RECORDS SUMMARY | 2024-05-12 08:17 | XMS_ITS | Encounter Summary ---
Author Organization [facility] Address [address] [place] [address] Care Team Providers Care Product Analyst Name Role Phone Darren Parekh MD Primary Care Provider Smitha Del Rosario MD Primary Care Provider Jorgito Hyde MD Unavailable [phone] [facility], Pcp Primary Care Provider [facility] e Encounter Details Date Type Department Care Team Description 09/01/2012 Park Recreation Manager Report Medical Records [address] [place] [address] Dept., [facility] Occupational & Pt Social History Tobacco Use Types Packs/Day Years [...] on filedocumented in this encounter Care Teams Product Analyst Relationship Specialty Start Date End Date Darren Parekh MD PCP - General 11/17/03 03/22/14 Smitha Garcia MD PCP - General Internal Medicine 04/03/14 01/01/22 [facility], [facility] 300 [facility] [address] [place] [address] PCP - General Internal Medicine 01/02/22 Jorgito Robles MD 300 [facility] [address] [place] [address] Specialist Cardiovascular Disease 08/16/20 documented as of this encounter
--- OUTSIDE RECORDS SUMMARY | 2024-05-12 08:17 | XMS_ITS | Encounter Summary ---
Author Organization [facility] Address [address] [place] [address] Care Team Providers Care Truck Sales Representative Name Role Phone Smitha Garcia MD Primary Care Provider Jorgito Hyde MD Unavailable [phone] [facility], [facility] Primary Care Provider [facility] e Encounter Details Date Type Department Care Team Description 07/27/2020 Die Presser Report Medical Records [address] [place] [address] Nico Hutchinson I., PH.D Social History Tobacco [...] on filedocumented in this encounter Care Teams Truck Sales Representative Relationship Specialty Start Date End Date Smitha Garcia MD PCP - General Internal Medicine 04/03/14 01/01/22 [facility], Pcp [address] [place] [address] PCP - General Internal Medicine 01/02/22 Jorgito Robles MD 300 [facility] [address] [place] [address] Specialist Cardiovascular Disease 08/16/20 documented as of this encounter
--- OUTSIDE RECORDS SUMMARY | 2024-05-12 08:17 | XMS_ITS | Encounter Summary ---
Author Organization [facility] Address [address] [place] [address] Care Team Providers Care Logistics Supervisor Name Role Phone Smitha Garcia MD Primary Care Provider Jorgito Hyde MD Unavailable [phone] [facility], [facility] Primary Care Provider [facility] e Encounter Details Date Type Department Care Team Description 02/22/2018 Pt. Non Urgent Medic al Question Sports Medicine [address] [phone] Aman Lynn MD Social History Tobacco Use [...] on filedocumented in this encounter Care Teams Logistics Supervisor Relationship Specialty Start Date End Date Smitha Garcia MD PCP - General Internal Medicine 04/03/14 01/01/22 [facility], Pcp 300 [facility] [address] [place] [address] PCP - General Internal Medicine 01/02/22 Jorgito Robles MD 300 [facility] [address] [place] [address] Specialist Cardiovascular Disease 08/16/20 documented as of this encounter
--- OUTSIDE RECORDS SUMMARY | 2024-05-12 08:17 | XMS_ITS | Encounter Summary ---
Author Organization [facility] Address [address] [place] [address] Care Team Providers Care Transitional Living Specialist Name Role Phone Smitha Garcia MD Primary Care Provider Jorgito Hyde MD Unavailable [phone] [facility], Pcp Primary Care Provider [facility] e Encounter Details Date Type Department Care Team Description 04/11/2019 Release of Information Medical Records [address] [place] [address] Abstract, Provider Social History Tobacco Use Types [...] on filedocumented in this encounter Care Teams Transitional Living Specialist Relationship Specialty Start Date End Date Smitha Garcia MD PCP - General Internal Medicine 04/03/14 01/01/22 [facility], Pcp [address] [place] [address] PCP - General Internal Medicine 01/02/22 Jorgito Robles MD [facility] [address] [place] [address] Specialist Cardiovascular Disease 08/16/20 documented as of this encounter
--- OUTSIDE RECORDS SUMMARY | 2024-05-12 08:17 | XMS_ITS | Encounter Summary ---
Author Organization [facility] Address [address] [place] [address] Care Team Providers Care Batch Plant Supervisor Name Role Phone Smitha Garcia MD Primary Care Provider Jorgito Hyde MD Unavailable [phone] [facility], [facility] Primary Care Provider [facility] e Encounter Details Date Type Department Care Team Description 09/08/2019 Ice Cutter Report Medical Records [address] [place] [address] Paolo Guerrero MD Social History Tobacco Use [...] on filedocumented in this encounter Care Teams Batch Plant Supervisor Relationship Specialty Start Date End Date Smitha Garcia MD PCP - General Internal Medicine 04/03/14 01/01/22 [facility], Pcp [address] [place] [address] PCP - General Internal Medicine 01/02/22 Jorgito Robles MD [address] [facility] [address] [place] [address] Specialist Cardiovascular Disease 08/16/20 documented as of this encounter
--- OUTSIDE RECORDS SUMMARY | 2024-05-12 08:18 | XMS_ITS | Encounter Summary ---
Author Organization [facility] Address [address] [place] [address] Care Team Providers Care Computer Forensic Examiner Name Role Phone Smitha Garcia MD Primary Care Provider Jorgito Hyde MD Unavailable [phone] [facility] Primary Care Provider [facility] e Encounter Details Date Type Department Care Team Description 07/02/2018 Hospital Medical Records [address] [place] [address] Shahriar Levin MD Social History Tobacco Use [...] on filedocumented in this encounter Care Teams Computer Forensic Examiner Relationship Specialty Start Date End Date Smitha Garcia MD PCP - General Internal Medicine 04/03/14 01/01/22 [facility], Pcp [address] [place] [address] PCP - General Internal Medicine 01/02/22 Jorgito Robles MD 300 [facility] [address] [place] [address] Specialist Cardiovascular Disease 08/16/20 documented as of this encounter
--- OUTSIDE RECORDS SUMMARY | 2024-05-12 08:18 | XMS_ITS | Encounter Summary ---
Author Organization [facility] Address [address] [place] [address] Care Team Providers Care Receiving Checker Name Role Phone Smitha Garcia MD Primary Care Provider Jorgito Hyde MD Unavailable [phone] [facility], Pcp Primary Care Provider [facility] e Encounter Details Date Type Department Care Team Description 04/11/2017 Release of Information Medical Records [address] [place] [address] Abstract, Provider Social History Tobacco Use Types [...] on filedocumented in this encounter Care Teams Receiving Checker Relationship Specialty Start Date End Date Smitha Garcia MD PCP - General Internal Medicine 04/03/14 01/01/22 [facility], Pcp [address] [place] [address] PCP - General Internal Medicine 01/02/22 Jorgito Robles MD [facility] [address] [place] [address] Specialist Cardiovascular Disease 08/16/20 documented as of this encounter
--- OUTSIDE RECORDS SUMMARY | 2024-05-12 08:18 | XMS_ITS | Encounter Summary ---
Author Organization [facility] Address [address] [place] [address] Care Team Providers Care Room Maid Name Role Phone Smitha Garcia MD Primary Care Provider Jorgito Hyde MD Unavailable [phone] Replaced By [facility], [facility] Primary Care Provider [facility] e Encounter Details Date Type Department Care Team Description 05/09/2020 SCAN Medical Records [address] [place] [address] Abstract, Provider Social History Tobacco Use Types [...] on filedocumented in this encounter Care Teams Room Maid Relationship Specialty Start Date End Date Smitha Garcia MD PCP - General Internal Medicine 04/03/14 01/01/22 Replaced By [facility], Pcp 300 [facility] [address] [place] [address] PCP - General Internal Medicine 01/02/22 Jorgito Robles MD 300 [facility] [address] [place] [address] Specialist Cardiovascular Disease 08/16/20 documented as of this encounter
--- OUTSIDE RECORDS SUMMARY | 2024-05-12 08:18 | XMS_ITS | Encounter Summary ---
Author Organization [facility] Address [address] [place] [address] Care Team Providers Care Banking And Finance Instructor Name Role Phone Darren Parekh MD Primary Care Provider Donovan Baez Primary Care Provider [phone] Smitha Garcia MD Primary Care Provider Jorgito Hyde MD Unavailable [phone] [facility] Pcp Primary Care Provider Opal santacruz Encounter Details Date Type Department Care Team Description 04/09/2001 Telephone OBGYN - [place] [address] [place] [address] Social History Tobacco Use Types Packs/Day Years [...] on filedocumented in this encounter Care Teams Banking And Finance Instructor Relationship Specialty Start Date End Date Darren Parekh MD PCP - General 11/17/03 03/22/14 Donovan Maria [address] [place] [address] PCP - General 03/23/1995 11/16/03 Smitha Garcia MD [address] [place] [address] PCP - General Internal Medicine 04/03/14 01/01/22 [facility], Pcp [address] [address] PCP - General Internal Medicine 01/02/22 Jorgito Robles MD [address] [address] Specialist Cardiovascular Disease 08/16/20 documented as of this encounter
--- OUTSIDE RECORDS SUMMARY | 2024-05-12 08:18 | XMS_ITS | Encounter Summary ---
Author Organization [facility] Address [address] [place] [address] Care Team Providers Care Steel Post Installer Name Role Phone Smitha Garcia MD Primary Care Provider Jorgito Hyde MD Unavailable [phone] [facility] Primary Care Provider [facility] e Encounter Details Date Type Department Care Team Description 07/07/2018 Orders Only Medical Records [address] [place] [address] Shahriar Levin MD Social History Tobacco Use [...] on filedocumented in this encounter Care Teams Steel Post Installer Relationship Specialty Start Date End Date Smitha Garcia MD PCP - General Internal Medicine 04/03/14 01/01/22 [facility], Pcp 300 [facility] [address] [place] [address] PCP - General Internal Medicine 01/02/22 Jorgito Robles MD 300 [facility] [address] [place] [address] Specialist Cardiovascular Disease 08/16/20 documented as of this encounter
--- OUTSIDE RECORDS SUMMARY | 2024-05-12 08:18 | XMS_ITS | Encounter Summary ---
Author Organization [facility] Address [address] [place] [address] Care Team Providers Care Tassel Making Machine Operator Name Role Phone Darren Parekh MD Primary Care Provider Smitha Del Rosario MD Primary Care Provider Jorgito Hyde MD Unavailable [phone] [facility], Pcp Primary Care Provider Unavailabl e Reason for Visit * Reason Onset Date Comments REFERRAL 03/10/2013 Encounter Details Date Type Department Care Team Description 03/10/2013 Telephone Adult Medicine [address] [address] Darren Parekh MD REFERRAL Social History Tobacco [...] we can refer her to outside of [facility]. documented in this encounter Plan of Treatment Not on file documented as of this encounter Visit Diagnoses Not on filedocumented in this encounter Care Teams Tassel Making Machine Operator Relationship Specialty Start Date End Date Darren Parekh MD PCP - General 11/17/03 03/22/14 Smitha Garcia MD PCP - General Internal Medicine 04/03/14 01/01/22 [facility], Pcp 300 [facility] [address] [place] [address] PCP - General Internal Medicine 01/02/22 Jorgito Robles MD 300 [facility] [address] [place] [address] Specialist Cardiovascular Disease 08/16/20 documented as of this encounter
--- OUTSIDE RECORDS SUMMARY | 2024-05-12 08:18 | XMS_ITS | Encounter Summary ---
Author Organization [facility] Address [address] [place] [address] Care Team Providers Care Cost And Risk Analysis Manager Name Role Phone Smitha Garcia MD Primary Care Provider Jorgito Hyde MD Unavailable [phone] [facility], [facility] Primary Care Provider [facility] e Encounter Details Date Type Department Care Team Description 12/22/2017 Orders Only Rheumatology - [address] [address] Cyndy Flores DO Positive anti-CCP test (Primary [...] findings documented in this encounter Care Teams Cost And Risk Analysis Manager Relationship Specialty Start Date End Date Smitha Garcia MD PCP - General Internal Medicine 04/03/14 01/01/22 [facility], Pcp [address] [facility] [address] [place] [address] PCP - General Internal Medicine 01/02/22 Jorgito Robles MD [address] [place] [address] Specialist Cardiovascular Disease 08/16/20 documented as of this encounter
--- OUTSIDE RECORDS SUMMARY | 2024-05-12 08:18 | XMS_ITS | Encounter Summary ---
Author Organization [facility] Address [address] [place] [address] Care Team Providers Care Intelligence Support Officer Name Role Phone Smitha Garcia MD Primary Care Provider Jorgito Hyde MD Unavailable [phone] [facility], Pcp Primary Care [facility] Encounter Details Date Type Department Care Team Description 07/29/2018 Pt. Non Urgent Medic al Question Medicine/Pediatrics - [address] [phone] Smitha Garcia MD Social History Tobacco Use [...] on filedocumented in this encounter Care Teams Intelligence Support Officer Relationship Specialty Start Date End Date Smitha Garcia MD PCP - General Internal Medicine 04/03/14 01/01/22 [facility], Pcp 300 [facility] [address] [place] [address] PCP - General Internal Medicine 01/02/22 Jorgito Robles MD 300 [facility] [address] [place] [address] Specialist Cardiovascular Disease 08/16/20 documented as of this encounter
--- OUTSIDE RECORDS SUMMARY | 2024-05-12 08:18 | XMS_ITS | Encounter Summary ---
Author Organization [facility] Address [address] [place] [address] Care Team Providers Care Quality Cloth Tester Name Role Phone Smitha Garcia MD Primary Care Provider Jorgito Hyde MD Unavailable [phone] [facility], [facility] Encounter Details Date Type Department Care Team Description 12/30/2018 Military Technician Report Medical Records [address] [place] [address] Mauricio Stovall MD Social History Tobacco Use [...] on filedocumented in this encounter Care Teams Quality Cloth Tester Relationship Specialty Start Date End Date Smitha Garcia MD PCP - General Internal Medicine 04/03/14 01/01/22 [facility], Pcp [address] [place] [address] PCP - General Internal Medicine 01/02/22 Jorgito Robles MD 300 [facility] [address] [place] [address] Specialist Cardiovascular Disease 08/16/20 documented as of this encounter
--- OUTSIDE RECORDS SUMMARY | 2024-05-12 08:18 | XMS_ITS | Encounter Summary ---
Author Organization [facility] Address [address] [place] [address] Care Team Providers Care Coin Wrapping Machine Operator Name Role Phone Darren Parekh MD Primary Care Provider Smtiha Del Rosario MD Primary Care Provider Jorgito Hyde MD Unavailable [phone] [facility], Pcp Primary Care Provider [facility] e Encounter Details Date Type Department Care Team Description 10/19/2013 Disease And Insect Control Boss Report Medical Records [address] [place] [address] Afshin Barbour MD Social History Tobacco Use [...] on filedocumented in this encounter Care Teams Coin Wrapping Machine Operator Relationship Specialty Start Date End Date Darren Parekh MD PCP - General 11/17/03 03/22/14 Smitha Garcia MD PCP - General Internal Medicine 04/03/14 01/01/22 [facility], Pcp [address] [address] PCP - General Internal Medicine 01/02/22 Jorgito Robles MD 300 [facility] [address] [place] [address] Specialist Cardiovascular Disease 08/16/20 documented as of this encounter
--- OUTSIDE RECORDS SUMMARY | 2024-05-12 08:18 | XMS_ITS | Encounter Summary ---
Author Organization [facility] Address [address] [place] [address] Care Team Providers Care Cloth Baler Name Role Phone Darren Parekh MD Primary Care Provider Smitha Del Rosario MD Primary Care Provider Jorgito Hyde MD Unavailable [phone] [facility], Pcp Primary Care Provider [facility] e Encounter Details Date Type Department Care Team Description 09/12/2013 Leaf Tinner Report Medical Records [address] [place] [address] Afshin Barbour MD Social History Tobacco Use [...] on filedocumented in this encounter Care Teams Cloth Baler Relationship Specialty Start Date End Date Darren Parekh MD PCP - General 11/17/03 03/22/14 Smitha Garcia MD PCP - General Internal Medicine 04/03/14 01/01/22 [facility], Pcp [address] [address] PCP - General Internal Medicine 01/02/22 Jorgito Robles MD 300 [facility] [address] [place] [address] Specialist Cardiovascular Disease 08/16/20 documented as of this encounter
--- OUTSIDE RECORDS SUMMARY | 2024-05-12 08:18 | XMS_ITS | Encounter Summary ---
Author Organization [facility] Address [address] [place] [address] Care Team Providers Care Junior Database Administrator Name Role Phone Smitha Garcia MD Primary Care Provider Jorgito Hyde MD Unavailable [phone] [facility], Pcp [facility] Encounter Details Date Type Department Care Team Description 07/07/2018 Pt. Non Urgent Medic al Question Gastroenterology - [address] [place] [address] Shahriar Levin MD Social History [...] on filedocumented in this encounter Care Teams Junior Database Administrator Relationship Specialty Start Date End Date Smitha Garcia MD PCP - General Internal Medicine 04/03/14 01/01/22 [facility], Pcp 300 [facility] [address] [place] [address] PCP - General Internal Medicine 01/02/22 Jorgito Robles MD 300 [facility] [address] [place] [address] Specialist Cardiovascular Disease 08/16/20 documented as of this encounter
--- OUTSIDE RECORDS SUMMARY | 2024-05-12 08:18 | XMS_ITS | Encounter Summary ---
Author Organization [facility] Address [address] [place] [address] Care Team Providers Care Strip Winder Name Role Phone Smitha Garcia MD Primary Care Provider Jorgito Hyde MD Unavailable [phone] [facility], [facility] Primary Care Provider Unavailabl e Encounter Details Date Type Department Care Team Description 08/21/2017 Orders Only Medicine/Pediatrics - [address] [phone] Kina Kohli PA-C Odynophagia; Dysphagia, unspecified type; [...] specified documented in this encounter Care Teams Strip Winder Relationship Specialty Start Date End Date Smitha Garcia MD PCP - General Internal Medicine 04/03/14 01/01/22 [facility], Pcp 300 [facility] [address] [place] [address] PCP - General Internal Medicine 01/02/22 Jorgito Robles MD 300 [facility] [address] [place] [address] Specialist Cardiovascular Disease 08/16/20 documented as of this encounter
--- OUTSIDE RECORDS SUMMARY | 2024-05-12 08:19 | XMS_ITS | Encounter Summary ---
Author Organization [facility] Address [address] [place] [address] Care Team Providers Care Foundry Manager Name Role Phone Darren Parekh MD Primary Care Provider Smitha Del Rosario MD Primary Care Provider Jorgito Hyde MD Unavailable [phone] [facility], Pcp Primary Care Provider [facility] e Encounter Details Date Type Department Care Team Description 08/21/2011 Outsole Skiver Report Medical Records [address] [place] [address] Martin Morales Social History Tobacco Use Types [...] on filedocumented in this encounter Care Teams Foundry Manager Relationship Specialty Start Date End Date Darren Parekh MD PCP - General 11/17/03 03/22/14 Smitha Garcia MD PCP - General Internal Medicine 04/03/14 01/01/22 [facility], Pcp 300 [facility] [address] [place] [address] PCP - General Internal Medicine 01/02/22 Jorgito Robles MD 300 [facility] [address] [place] [address] Specialist Cardiovascular Disease 08/16/20 documented as of this encounter
--- OUTSIDE RECORDS SUMMARY | 2024-05-12 08:19 | XMS_ITS | Encounter Summary ---
Author Organization [facility] Address [address] [place] [address] Care Team Providers Care Salesforce Specialist Name Role Phone Smitha Garcia MD Primary Care Provider Jorgito Hyde MD Unavailable [phone] [facility], [facility] Primary Care Provider [facility] Encounter Details Date Type Department Care Team Description 09/17/2016 Pt. Non Urgent Medic al Question Medicine/Pediatrics - [address] [phone] Kina Kohli PA-C Social History Tobacco Use [...] possible to get it sooner? Thanks, Deena [phone] documented in this encounter Plan of Treatment Not on file documented as of this encounter Visit Diagnoses Not on filedocumented in this encounter Care Teams Salesforce Specialist Relationship Specialty Start Date End Date Smitha Garcia MD PCP - General Internal Medicine 04/03/14 01/01/22 [facility], Pcp [address] [address] PCP - General Internal Medicine 01/02/22 Jorgito Robles MD 300 [facility] [address] [place] [address] Specialist Cardiovascular Disease 08/16/20 documented as of this encounter
--- OUTSIDE RECORDS SUMMARY | 2024-05-12 08:19 | XMS_ITS | Encounter Summary ---
Author Organization [facility] Address [address] [place] [address] Care Team Providers Care Marklogic Developer Name Role Phone Smitha Garcia MD Primary Care Provider Jorgito Hyde MD Unavailable [phone] [facility], [facility] Encounter Details Date Type Department Care Team Description 10/21/2019 Telephone Gastroenterology - [place] [address] [facility] [address] [place] [address] Shahriar Levin MD Social History [...] on filedocumented in this encounter Care Teams Marklogic Developer Relationship Specialty Start Date End Date Smitha Garcia MD PCP - General Internal Medicine 04/03/14 01/01/22 [facility], Pcp 300 [facility] [address] [place] [address] PCP - General Internal Medicine 01/02/22 Jorgito Robles MD 300 [facility] [address] [place] [address] Specialist Cardiovascular Disease 08/16/20 documented as of this encounter
--- OUTSIDE RECORDS SUMMARY | 2024-05-12 08:19 | XMS_ITS | Encounter Summary ---
Author Organization [facility] Address [address] [place] [address] Care Team Providers Care Creative Director Name Role Phone Darren Parekh MD Primary Care Provider Smitha Del Rosario MD Primary Care Provider Jorgito Hyde MD Unavailable [phone] [facility], Pcp Primary Care Provider Unavailabl e Reason for Visit * Reason Onset Date Comments REFERRAL 07/29/2004 dr nhi drummond Encounter Details Date Type Department Care Team Description 07/29/2004 Telephone Adult Medicine [address] [address] Jah Gordon [address] [place] [id number] REFERRAL (dr nhi drummond) Social History Tobacco [...] * Telephone Encounter - 07/29/2004 2:30 PM [id number] [id number] VISITS-6 START-5.9.05 DX-[id number]=ALLERGIES FAXED TO OFFICE * Telephone Encounter - 07/29/2004 9:52 AM EDT REFERRAL REQUESTS FIRST and LAST NAME of SPECIALIST PATIENT is seeing:dr nhi drummond DIAGNOSIS Patient is being seen for: allergies Have you seen this SPECIALIST for this PROBLEM/DX before?YES If YES, when:05/15/04 Referred to this Specialist by:dr gordon/dr escobedo Is this visit:Initial Visit Address of Specialist:[facility] Phone # of Specialist:[phone] Fax #: (if applicable): Date of Appointment: 08/12/04 If a Retro-Request what should the referral start date be? Patients current Insurance: Payor: [employer]/CAP COMM Plan: [employer] [place] $10 CAP Product Type: HMO PRE- PAID Is this appointment related to: Not MVA, WC or Surgery related documented in this encounter Plan of Treatment Not on file documented as of this encounter Visit Diagnoses Not on filedocumented in this encounter Care Teams Creative Director Relationship Specialty Start Date End Date Darren Parekh MD PCP - General 11/17/03 03/22/14 Smitha Garcia MD PCP - General Internal Medicine 04/03/14 01/01/22 [facility], Pcp [address] [address] PCP - General Internal Medicine 01/02/22 Jorgito Robles MD [address] [address] Specialist Cardiovascular Disease 08/16/20 documented as of this encounter
--- OUTSIDE RECORDS SUMMARY | 2024-05-12 08:19 | XMS_ITS | Encounter Summary ---
Author Organization [facility] Address [address] [place] [address] Care Team Providers Care Hand Etcher Name Role Phone Darren Parekh MD Primary Care Provider Smitha Del Rosario MD Primary Care Provider Jorgito Hyde MD Unavailable [phone] [facility], Pcp Primary Care Provider [facility] Encounter Details Date Type Department Care Team Description 08/06/2010 Release of Information Medical Records [address] [place] [id number] Abstract, Provider Social History Tobacco Use Types [...] on filedocumented in this encounter Care Teams Hand Etcher Relationship Specialty Start Date End Date Iglesia, Darren M., MD PCP - General 11/17/03 03/22/14 Smitha Garcia MD PCP - General Internal Medicine 04/03/14 01/01/22 [facility], Pcp 300 [facility] [address] [place] [address] PCP - General Internal Medicine 01/02/22 Jorgito Robles MD 300 [facility] [address] [place] [address] Specialist Cardiovascular Disease 08/16/20 documented as of this encounter
--- OUTSIDE RECORDS SUMMARY | 2024-05-12 08:19 | XMS_ITS | Encounter Summary ---
Author Organization [facility] Address [address] [place] [address] Care Team Providers Care Collar Trimmer Name Role Phone Darren Parekh MD Primary Care Provider Smitha Del Rosario MD Primary Care Provider Jorgito Hyde MD Unavailable [phone] [facility], Pcp Primary Care Provider [facility] e Encounter Details Date Type Department Care Team Description 07/10/2011 Rehab Rn Report Medical Records [address] [place] [address] Martin Morales Social History Tobacco Use Types [...] on filedocumented in this encounter Care Teams Collar Trimmer Relationship Specialty Start Date End Date Darren Parekh MD PCP - General 11/17/03 03/22/14 Smitha Garcia MD PCP - General Internal Medicine 04/03/14 01/01/22 [facility], Pcp 300 [facility] [address] [place] [address] PCP - General Internal Medicine 01/02/22 Jorgito Robles MD 300 [facility] [address] [place] [address] Specialist Cardiovascular Disease 08/16/20 documented as of this encounter
--- OUTSIDE RECORDS SUMMARY | 2024-05-12 08:20 | XMS_ITS | Encounter Summary ---
Author Organization [facility] Address [address] [place] [address] Care Team Providers Care Sports Physiotherapist Name Role Phone Smitha Garcia MD Primary Care Provider Jorgito Hyde MD Unavailable [phone] [facility], [facility] Primary Care Provider Unavailabl e Reason for Visit * Reason Onset Date Comments Director Of Career Services Feedback 04/10/2014 Dr. Wilman Méndez eurology Encounter Details Date Type Department Care Team Description 04/10/2014 Telephone Medicine/Pediatrics - [address] [phone] Smitha Garcia MD Director Of Career Services Feedback (Dr. Stovall Neurology) Social History Tobacco [...] patient for sensitive information Order faxed to [phone] * Telephone Encounter - Myrtle Castillo - 04/12/2014 8:25 AM EST No insurance referral required. Letter with appointment information mailed to patient. DX tongue numbness and tingling; abn MRI, demyelinating lesions, migraine Message forwarded to fax notes [phone] * Telephone Encounter - Myrtle Castillo - 04/10/2014 2:13 PM EST Faxed the Order and Insurance [phone] documented in this encounter Plan of Treatment Not on file documented as of this encounter Visit Diagnoses Not on filedocumented in this encounter Care Teams Sports Physiotherapist Relationship Specialty Start Date End Date Smitha Garcia MD PCP - General Internal Medicine 04/03/14 01/01/22 [facility], Pcp [address] [address] PCP - General Internal Medicine 01/02/22 Jorgito Robles MD [address] [address] Specialist Cardiovascular Disease 08/16/20 documented as of this encounter
--- OUTSIDE RECORDS SUMMARY | 2024-05-12 08:20 | XMS_ITS | Encounter Summary ---
Author Organization [facility] Address [address] [place] [address] Care Team Providers Care Dry Roaster Name Role Phone Smitha Garcia MD Primary Care Provider Jorgito Hyde MD Unavailable [phone] [facility], Pcp Primary Care [facility] Encounter Details Date Type Department Care Team Description 06/08/2020 Pt. Non Urgent Medical Question Medicine/Pediatrics - [address] [phone] Jennifer Salazar NP [address] [place] [address] Social History Tobacco Use Types Packs/Day Years [...] filedocumented in this encounter Care Teams Dry Roaster Relationship Specialty Start Date End Date Smitha Garcia MD PCP - General Internal Medicine 04/03/14 01/01/22 [facility], Pcp [address] [address] PCP - General Internal Medicine 01/02/22 Jorgito Robles MD 300 [facility] [address] [place] [address] Specialist Cardiovascular Disease 08/16/20 documented as of this encounter
--- OUTSIDE RECORDS SUMMARY | 2024-05-12 08:20 | XMS_ITS | Encounter Summary ---
Author Organization [facility] Address [address] [place] [address] Care Team Providers Care Agriculture Specialist Name Role Phone Smitha Garcia MD Primary Care Provider Jorgito Hyde MD Unavailable [phone] [facility], [facility] Primary Care Provider [facility] e Encounter Details Date Type Department Care Team Description 06/27/2014 Information Developer Report Medical Records [address] [place] [address] Afshin Barbour MD Social History Tobacco Use [...] on filedocumented in this encounter Care Teams Agriculture Specialist Relationship Specialty Start Date End Date Smitha Garcia MD PCP - General Internal Medicine 04/03/14 01/01/22 [facility], Pcp [address] [place] [address] PCP - General Internal Medicine 01/02/22 Jorgito Robles MD 300 [facility] [address] [place] [address] Specialist Cardiovascular Disease 08/16/20 documented as of this encounter
--- NOTE | 2024-05-12 08:35 | MHC.OFFWIV ---
Intake Vital Signs 05/12/24 08:36 Weight 130 lb BP 100/64 Blood Pressure Location Lt brachial Position Sitting Pulse 49 L Pulse Source Pulse Oximeter Temp 97.5 F Temp Source Oral Pulse Oximetry (%) 98 Oxygen Delivery Method Room Air Intake Visit Reasons: EP Upper respiratory symptoms Intake Note: Patient here for cough, chest congestion that has been present for about 2 weeks. Patient Tobacco Use Status: Former Tobacco user Allergies Sulfa (Sulfonamide Antibiotics) Allergy (Unknown, Verified 05/12/24 08:36) Hives Do you need a note to return to daycare/school/sports/work: No HPI HPI Comments History of Present Illness Details Pt is a 69 year old female c/o: - Cough and some yellow mucus, cannot get it out, chest heaviness, gets sob going up/down stairs, for 3 weeks. - Had Flu 2-3 weeks ago and now has residual cough. Flu symptoms have resolved. - Denies sinus pain, ear pain, headaches or fevers, wheezing and fatigue - Drinking tea, lemon and cough drops, has not tried a decongestant yet - uses inhaler when humid weather, has an inhaler at home but has not used it for this infection PFSH Medical History Chest discomfort Screening for colon cancer Sinusitis Conjunctivitis, left eye Upper respiratory infection Conjunctivitis due to adenovirus, left eye Strep pharyngitis Leukopenia Physical exam Anxiety Depression Asthma Osteopenia Osteoarthritis, hand Paresthesias Pulmonary nodule Ground glass opacity present on imaging of lung Diffuse cystic mastopathy of breast Mixed incontinence urge and stress Kidney cyst Esophageal ulcer Hiatal hernia Elevated alkaline phosphatase level Kidney stones Leukopenia Barretts esophagus GERD (gastroesophageal reflux disease) Achalasia and cardiospasm Hypercholesteremia Stable angina Surgical History Status post repair of paraesophageal diaphragmatic hernia S/P total left hip arthroplasty Hx of colonoscopy History of esophagogastroduodenoscopy (EGD) Family History Brother Substance use disorder Progressive supranuclear palsy Mother Progressive supranuclear palsy Social History Household Members: Spouse Housing: House Are you a primary post anesthesia care unit nurse to a significant other at home: No Do you presently have visiting nurse or other home services: No Alcohol intake: current Alcohol intake frequency: holidays/special occasions only Patient Tobacco Use Status: Former Tobacco user e-Cigarette/Vaping Use: Never Used Second Hand Smoke Exposure: No service: No Current occupational status: employed Current occupation: [employer] Current occupational exposures/hazards: No Cognitive needs: No Hearing needs: No Vision needs: No Review of Systems Const All systems reviewed & are unremarkable except as noted in HPI and below Physical Exam Vital Signs: Last Vital Signs Temp 97.5 F 05/12/24 08:36 Pulse 49 L 05/12/24 08:36 BP 100/64 05/12/24 08:36 Pulse Ox 98 05/12/24 08:36 Oxygen Delivery Method Room Air 05/12/24 08:36 Const General: cooperative, healthy appearing, comfortable and no acute distress Orientation/consciousness: patient oriented x3 Limitations: no limitations HEENT Head: Yes normal to inspection Ears: hearing grossly normal bilaterally, external ears normal and TM's normal bilaterally General nose exam: Normal external nose present, Normal nares present and No nasal discharge present Face and sinus: Yes normal facial exam and Yes sinuses nontender Mouth: Normal oral and palatal mucosa present and moist mucous membranes Throat: Yes tonsils normal, Yes uvula midline and Yes posterior oropharynx abnormal (Erythema) Eyes General: appearance normal, both eyes and all related structures Neck Neck: Yes normal visual inspection Resp Effort & Inspection: normal respiratory effort, able to speak in complete sentences, Actively coughing, no respiratory distress, not tachypneic, no tripod positioning and no use of accessory muscles Auscultation: clear to auscultation bilaterally Cardio Rate: bradycardic Rhythm: regular rhythm Heart sounds: normal S1 and S2 Skin General skin exam: no rashes or lesions noted Neuro General: patient oriented x3 Extrem General: Yes normal to inspection and Yes no clubbing, cyanosis or edema Assessment & Plan Assessment & Plan (1) URI, acute: Code(s): J06.9 - Acute upper respiratory infection, unspecified Plan: Vital signs are stable, patient is well-appearing and physical exam was unremarkable. Z-Hebert is contraindicated with her citalopram so I gave her doxycycline with the recommendation to take it for 5 days but I did prescribe 7 in case she needs the extra 2 days. Likely a superimposed bacterial infection on top of the viral flu. Recommended she use her inhaler in the morning and again in the evening to reduce the cough as well as ibuprofen, Benadryl at night and a decongestant during the day. Increase her fluids and rest. Medications: New doxycycline hyclate 100 mg PO BID 14 tabs 0RF Coding Level of Care Code Est Pt Level 3 (38041) Diagnoses URI, acute J06.9
[2024-05-12 08:36] VITALS: BP 100/64; PULSE 49; TEMP 36.4; O2SAT 98
== END 2024-05-12 09:02 | disposition home or self-care (01) ==
PROVIDERS: PCP Nurse Practitioner Family; Visit Provider Physician Assistant
DX: J06.9 Acute upper respiratory infection, unspecified (principal)

== ENCOUNTER → 2024-05-12 08:14 | Outpatient (BNVA) | payer MEDICARE, SELFPAY | PROVIDERS: PCP Nurse Practitioner Family | DX: J06.9 Acute upper respiratory infection, unspecified (principal) | CPT/HCPCS: 99212 ==

== ENCOUNTER 2024-05-16 06:49 | Outpatient (AMB) | payer MEDICARE, SELFPAY ==
--- OUTSIDE RECORDS SUMMARY | 2024-05-16 06:53 | XMS_ITS | Encounter Summary ---
Author Organization [facility] Address [address] [place] [address] Care Team Providers Care Vp Integration Name Role Phone Darren Parekh MD Primary Care Provider Smitha Del Rosario MD Primary Care Provider Jorgito Hyde MD Unavailable [phone] Pending Sale To [facility], Pcp Primary Care Provider [facility] e Encounter Details Date Type Department Care Team Description 09/12/2013 Cable Splicer Report Medical Records [address] [place] [address] Afshin Barbour MD Social History Tobacco Use [...] on filedocumented in this encounter Care Teams Vp Integration Relationship Specialty Start Date End Date Darren Parekh MD PCP - General 11/17/03 03/22/14 Smitha Garcia MD PCP - General Internal Medicine 04/03/14 01/01/22 Pending Sale To [facility], Pcp [address] [address] PCP - General Internal Medicine 01/02/22 Jorgito Robles MD 300 [facility] [address] [place] [address] Specialist Cardiovascular Disease 08/16/20 documented as of this encounter
--- OUTSIDE RECORDS SUMMARY | 2024-05-16 06:53 | XMS_ITS | Encounter Summary ---
Author Organization [facility] Address [address] [place] [address] Care Team Providers Care Senior Java Software Engineer Name Role Phone Smitha Garcia MD Primary Care Provider Jorgito Hyde MD Unavailable [phone] [facility], Pcp Primary Care Provider [facility] Encounter Details Date Type Department Care Team Description 03/24/2019 Release of Information Medical Records [address] [place] [address] Abstract, Provider Social History Tobacco Use Types [...] filedocumented in this encounter Care Teams Senior Java Software Engineer Relationship Specialty Start Date End Date Smitha Garcia MD PCP - General Internal Medicine 04/03/14 01/01/22 [facility], Pcp [address] [place] [address] PCP - General Internal Medicine 01/02/22 Jorgito Robles MD 300 [facility] [address] [place] [address] Specialist Cardiovascular Disease 08/16/20 documented as of this encounter
--- OUTSIDE RECORDS SUMMARY | 2024-05-16 06:53 | XMS_ITS | Encounter Summary ---
Author Organization [facility] Address [address] [place] [address] Care Team Providers Care Ethnographer Name Role Phone Smitha Garcia MD Primary Care Provider Jorgito Hyde MD Unavailable [facility], [facility] Primary Care Provider Unavailabl e Encounter Details Date Type Department Care Team Description 08/21/2017 Orders Only Medicine/Pediatrics - [address] [address] Kina Kohli PA-C Odynophagia; Dysphagia, unspecified type; [...] specified documented in this encounter Care Teams Ethnographer Relationship Specialty Start Date End Date Smitha Garcia MD PCP - General Internal Medicine 04/03/14 01/01/22 [facility], Pcp 300 [facility] [address] [place] [address] PCP - General Internal Medicine 01/02/22 Jorgito Robles MD 300 [facility] [address] [place] [address] Specialist Cardiovascular Disease 08/16/20 documented as of this encounter
--- OUTSIDE RECORDS SUMMARY | 2024-05-16 06:53 | XMS_ITS | Encounter Summary ---
Author Organization [facility] Address [address] [place] [address] Care Team Providers Care Manager Inventory Control Name Role Phone Darren Parekh MD Primary Care Provider Smitha Del Rosario MD Primary Care Provider Jorgito Hyde MD Unavailable [phone] [facility], Pcp Primary Care Provider Unavailabl e Reason for Visit * Reason Onset Date Comments REFERRAL 07/29/2004 dr nhi drummond Encounter Details Date Type Department Care Team Description 07/29/2004 Telephone Adult Medicine [address] [address] Jah Gordon [address] [place] [id number] REFERRAL (dr nhi durmmond) Social History Tobacco Use Types Packs/Day Years [...] * Telephone Encounter - 07/29/2004 2:30 PM [id number] SRG 00 VISITS-6 [id number]-[id number] DX-[id number]=ALLERGIES FAXED TO OFFICE * Telephone Encounter - 07/29/2004 9:52 AM EDT REFERRAL REQUESTS FIRST and LAST NAME of SPECIALIST PATIENT is seeing:dr nhi drummond DIAGNOSIS Patient is being seen for: allergies Have you seen this SPECIALIST for this PROBLEM/DX before?YES If YES, when:05/15/04 Referred to this Specialist by:dr gordon/dr escobedo Is this visit:Initial Visit Address of Specialist:[facility] Phone # of Specialist:[phone] Fax #: (if applicable): Date of Appointment: 08/12/04 If a Retro-Request what should the referral start date be? Patients current Insurance: Payor: [email or web address]/CAP COMM Plan: [employer] [place] $10 CAP Product Type: HMO PRE- PAID Is this appointment related to: Not MVA, WC or Surgery related documented in this encounter Plan of Treatment Not on file documented as of this encounter Visit Diagnoses Not on filedocumented in this encounter Care Teams Manager Inventory Control Relationship Specialty Start Date End Date Darren Parekh MD PCP - General 11/17/03 03/22/14 Smitha Garcia MD PCP - General Internal Medicine 04/03/14 01/01/22 [facility], Pcp [address] [address] PCP - General Internal Medicine 01/02/22 Jorgito Robles MD [address] [address] Specialist Cardiovascular Disease 08/16/20 documented as of this encounter
--- OUTSIDE RECORDS SUMMARY | 2024-05-16 06:53 | XMS_ITS | Encounter Summary ---
Author Organization [facility] Address [address] [place] [address] Care Team Providers Care Boilermaker'S Assistant Name Role Phone Smitha Garcia MD Primary Care Provider Jorgito Hyde MD Unavailable [phone] [facility], [facility] Primary Care Provider Unavailabl e Encounter Details Date Type Department Care Team Description 05/06/2021 Refill Medicine/Pediatrics - [address] [address] Napoleon Lares PA-C Social History Tobacco Use [...] on filedocumented in this encounter Care Teams Boilermaker'S Assistant Relationship Specialty Start Date End Date Smitha Garcia MD PCP - General Internal Medicine 04/03/14 01/01/22 [facility], Pcp [address] [address] PCP - General Internal Medicine 01/02/22 Jorgito Robles MD 300 [facility] 154 [place] [address] Specialist Cardiovascular Disease 08/16/20 documented as of this encounter
--- OUTSIDE RECORDS SUMMARY | 2024-05-16 06:53 | XMS_ITS | Encounter Summary ---
Author Organization [facility] Address [address] [place] [address] Care Team Providers Care Wall Taper Helper Name Role Phone Smitha Garcia MD Primary Care Provider Jorgito Hyde MD Unavailable [phone] [facility], Pcp Primary Care Provider [facility] e Encounter Details Date Type Department Care Team Description 07/29/2018 Pt. Non Urgent Medic al Question Medicine/Pediatrics - [address] [phone] Smitha Garcia MD Social History Tobacco Use [...] on filedocumented in this encounter Care Teams Wall Taper Helper Relationship Specialty Start Date End Date Smitha Garcia MD PCP - General Internal Medicine 04/03/14 01/01/22 [facility], Pcp [address] [facility] [address] [place] [address] PCP - General Internal Medicine 01/02/22 Jorgito Robles MD [address] [facility] [address] [place] [address] Specialist Cardiovascular Disease 08/16/20 documented as of this encounter
--- OUTSIDE RECORDS SUMMARY | 2024-05-16 06:53 | XMS_ITS | Encounter Summary ---
Author Organization [facility] Address [address] [place] [address] Care Team Providers Care De Icer Kit Assembler Name Role Phone Darren Parekh MD Primary Care Provider Smitha Del Rosario MD Primary Care Provider Jorgito Hyde MD Unavailable [phone] [facility], Pcp Primary Care Provider Unavailabl e Reason for Visit * Reason Onset Date Comments REFERRAL 03/10/2013 Encounter Details Date Type Department Care Team Description 03/10/2013 Telephone Adult Medicine [address] [address] Darren Parekh MD REFERRAL Social History Tobacco [...] we can refer her to outside of [facility]. documented in this encounter Plan of Treatment Not on file documented as of this encounter Visit Diagnoses Not on filedocumented in this encounter Care Teams De Icer Kit Assembler Relationship Specialty Start Date End Date Darren Parekh MD PCP - General 11/17/03 03/22/14 Smitha Garcia MD PCP - General Internal Medicine 04/03/14 01/01/22 [facility], Pcp 300 [facility] [address] [place] [address] PCP - General Internal Medicine 01/02/22 Jorgito Robles MD 300 [facility] [address] [place] [address] Specialist Cardiovascular Disease 08/16/20 documented as of this encounter
--- OUTSIDE RECORDS SUMMARY | 2024-05-16 06:53 | XMS_ITS | Encounter Summary ---
Author Organization [facility] Address [address] [place] [address] Care Team Providers Care Airborne Mission Systems Superintendent Name Role Phone Smitha Garcia MD Primary Care Provider Jorgito Hyde MD Unavailable [phone] Counts Include [address] [facility], Pcp Primary Care Provider [facility] e Encounter Details Date Type Department Care Team Description 06/08/2020 Pt. Non Urgent Medical Question Medicine/Pediatrics - [address] [phone] Jennifer Salazar NP [address] [place] [address] Social History Tobacco Use Types Packs/Day Years [...] on filedocumented in this encounter Care Teams Airborne Mission Systems Superintendent Relationship Specialty Start Date End Date Smitha Garcia MD PCP - General Internal Medicine 04/03/14 01/01/22 Counts Include [address] [facility], Pcp [address] [address] PCP - General Internal Medicine 01/02/22 Jorgito Robles MD 300 [facility] 154 [place] [address] Specialist Cardiovascular Disease 08/16/20 documented as of this encounter
--- OUTSIDE RECORDS SUMMARY | 2024-05-16 06:53 | XMS_ITS | Encounter Summary ---
Author Organization [facility] Address [address] [place] [address] Care Team Providers Care Edge Bonder Name Role Phone Smitha Garcia MD Primary Care Provider Jorgito Hyde MD Unavailable [phone] [facility] Primary Care Provider [facility] e Encounter Details Date Type Department Care Team Description 07/07/2018 Orders Only Medical Records [address] [place] [address] Shahriar Levin MD Social History Tobacco Use [...] on filedocumented in this encounter Care Teams Edge Bonder Relationship Specialty Start Date End Date Smitha Garcia MD PCP - General Internal Medicine 04/03/14 01/01/22 [facility], Pcp 300 [facility] 154 [place] [address] PCP - General Internal Medicine 01/02/22 Jorgito Robles MD 300 [facility] [address] [place] [address] Specialist Cardiovascular Disease 08/16/20 documented as of this encounter
--- OUTSIDE RECORDS SUMMARY | 2024-05-16 06:53 | XMS_ITS | Encounter Summary ---
Author Organization [facility] Address [address] [place] [address] Care Team Providers Care Snowmaker Name Role Phone Smitha Garcia MD Primary Care Provider Jorgito Hyde MD Unavailable [phone] [facility], Pcp Primary Care Provider [facility] e Encounter Details Date Type Department Care Team Description 07/07/2018 Pt. Non Urgent Medic al Question Gastroenterology - [address] [place] [address] Shahriar Levin MD Social History [...] on filedocumented in this encounter Care Teams Snowmaker Relationship Specialty Start Date End Date Smitha Garcia MD PCP - General Internal Medicine 04/03/14 01/01/22 [facility], Pcp 300 [facility] 154 [place] [address] PCP - General Internal Medicine 01/02/22 Jorgito Robles MD 300 [facility] [address] [place] [address] Specialist Cardiovascular Disease 08/16/20 documented as of this encounter
--- OUTSIDE RECORDS SUMMARY | 2024-05-16 06:53 | XMS_ITS | Encounter Summary ---
Author Organization [facility] Address [address] [place] [address] Care Team Providers Care Unit Aide Tech Name Role Phone Smitha Garcia MD Primary Care Provider Jorgito Hyde MD Unavailable [phone] [facility], Pcp Primary Care Provider [facility] e Encounter Details Date Type Department Care Team Description 03/13/2018 Release of Information Medical Records [address] [place] [address] Abstract, Provider Social History Tobacco Use Types [...] on filedocumented in this encounter Care Teams Unit Aide Tech Relationship Specialty Start Date End Date Smitha Garcia MD PCP - General Internal Medicine 04/03/14 01/01/22 [facility], Pcp [address] [place] [address] PCP - General Internal Medicine 01/02/22 Jorgito Robles MD 300 [facility] [address] [place] [address] Specialist Cardiovascular Disease 08/16/20 documented as of this encounter
--- OUTSIDE RECORDS SUMMARY | 2024-05-16 06:53 | XMS_ITS | Encounter Summary ---
Author Organization [facility] Address [address] [place] [address] Care Team Providers Care Fan Blade Truer Name Role Phone Darren Parekh MD Primary Care Provider Smitha Del Rosario MD Primary Care Provider Jorgito Hyde MD Unavailable [phone] [facility], Pcp Primary Care Provider [facility] e Encounter Details Date Type Department Care Team Description 09/22/2013 Spring Former Report Medical Records [address] [place] [address] Afshin Barbour MD Social History Tobacco Use [...] on filedocumented in this encounter Care Teams Fan Blade Truer Relationship Specialty Start Date End Date Darren Parekh MD PCP - General 11/17/03 03/22/14 Smitha Garcia MD PCP - General Internal Medicine 04/03/14 01/01/22 [facility], Pcp [address] [address] PCP - General Internal Medicine 01/02/22 Jorgito Robles MD 300 [facility] [address] [place] [address] Specialist Cardiovascular Disease 08/16/20 documented as of this encounter
--- OUTSIDE RECORDS SUMMARY | 2024-05-16 06:53 | XMS_ITS | Encounter Summary ---
Author Organization [facility] Address [address] [place] [address] Care Team Providers Care Restaurant Delivery Driver Name Role Phone Smitha Garcia MD Primary Care Provider Jorgito Hyde MD Unavailable [phone] [facility], [facility] Primary Care Provider [facility] e Encounter Details Date Type Department Care Team Description 10/21/2019 Telephone Gastroenterology - [address] [place] [address] Shahriar Levin MD Social History [...] on filedocumented in this encounter Care Teams Restaurant Delivery Driver Relationship Specialty Start Date End Date Smitha Garcia MD PCP - General Internal Medicine 04/03/14 01/01/22 [facility], Pcp 300 [facility] 154 [place] [address] PCP - General Internal Medicine 01/02/22 Jorgito Robles MD 300 [facility] [address] [place] [address] Specialist Cardiovascular Disease 08/16/20 documented as of this encounter
--- OUTSIDE RECORDS SUMMARY | 2024-05-16 06:53 | XMS_ITS | Encounter Summary ---
Author Organization [facility] Address [address] [place] [address] Care Team Providers Care Architectural Project Manager Name Role Phone Smitha Garcia MD Primary Care Provider Jorgito Hyde MD Unavailable [phone] [facility], [facility] Primary Care Provider [facility] e Encounter Details Date Type Department Care Team Description 07/27/2020 Paper Handler Report Medical Records [address] [place] [address] Nico Hutchinson I., PH.D Social History Tobacco [...] on filedocumented in this encounter Care Teams Architectural Project Manager Relationship Specialty Start Date End Date Smitha Garcia MD PCP - General Internal Medicine 04/03/14 01/01/22 [facility], Pcp [address] [place] [address] PCP - General Internal Medicine 01/02/22 Jorgito Robles MD 300 [facility] [address] [place] [address] Specialist Cardiovascular Disease 08/16/20 documented as of this encounter
--- OUTSIDE RECORDS SUMMARY | 2024-05-16 06:53 | XMS_ITS | Encounter Summary ---
Author Organization [facility] Address [address] [place] [address] Care Team Providers Care Deployment Technician Name Role Phone Smitha Garcia MD Primary Care Provider Jorgito Hyde MD Unavailable [phone] [facility], [facility] Primary Care Provider [facility] e Encounter Details Date Type Department Care Team Description 05/09/2020 SCAN Medical Records [address] [place] [address] Abstract, Provider Social History Tobacco Use Types [...] on filedocumented in this encounter Care Teams Deployment Technician Relationship Specialty Start Date End Date Smitha Garcia MD PCP - General Internal Medicine 04/03/14 01/01/22 [facility], Pcp 300 [facility] [address] [place] [address] PCP - General Internal Medicine 01/02/22 Jorgito Robles MD 300 [facility] 154 [place] [address] Specialist Cardiovascular Disease 08/16/20 documented as of this encounter
--- OUTSIDE RECORDS SUMMARY | 2024-05-16 06:53 | XMS_ITS | Encounter Summary ---
Author Organization [facility] Address [address] [place] [address] Care Team Providers Care Workday Director Name Role Phone Darren Parekh MD Primary Care Provider Smitha Del Rosario MD Primary Care Provider Jorgito Hyde MD Unavailable [phone] [facility], Pcp Primary Care Provider [facility] Encounter Details Date Type Department Care Team Description 08/06/2010 Release of Information Medical Records [address] [place] [address] Abstract, Provider Social History Tobacco Use Types [...] on filedocumented in this encounter Care Teams Workday Director Relationship Specialty Start Date End Date Iglesia, Darren M., MD PCP - General 11/17/03 03/22/14 Smitha Garcia MD PCP - General Internal Medicine 04/03/14 01/01/22 [facility], Pcp 300 [facility] [address] [place] [address] PCP - General Internal Medicine 01/02/22 Jorgito Robles MD 300 [facility] [address] [place] [address] Specialist Cardiovascular Disease 08/16/20 documented as of this encounter
--- OUTSIDE RECORDS SUMMARY | 2024-05-16 06:53 | XMS_ITS | Encounter Summary ---
Author Organization [facility] Address [address] [place] [address] Care Team Providers Care College Archivist Name Role Phone Smitha Garcia MD Primary Care Provider Tarava Jorgito Nevarez MD Unavailable [facility], [facility] Primary Care Provider Unavailabl e Reason for Referral * Non ABEL (Routine) - Authorized/Booked Specialty Diagnoses / Procedures Referred By Contact Referred To Contact Chiropractor / Chiropractic Diagnoses Cervical radicular pain Procedures REFERRAL TO CHIROPRACTIC Aman Lynn MD [address] [place] [address] Chaitanya Brown D.C. [address] [place] [address] Referral ID Status Reason Start Date Expiration Date V isits Requested Visits Authorized [id number] Authorized/B ooked 05/19/2018 03/22/2019 60 53 Encounter Details Date Type Department Care Team Description 05/17/2018 Pt. Non Urgent Medical Question Medicine/Pediatrics - [address] [phone] Smitha Garcia MD Cervical radicular pain (Primary [...] nos documented in this encounter Care Teams College Archivist Relationship Specialty Start Date End Date Smitha Garcia MD PCP - General Internal Medicine 04/03/14 01/01/22 [facility], Pcp [address] [address] PCP - General Internal Medicine 01/02/22 Jorgito Robles MD [address] [address] Specialist Cardiovascular Disease 08/16/20 documented as of this encounter
--- OUTSIDE RECORDS SUMMARY | 2024-05-16 06:53 | XMS_ITS | Encounter Summary ---
Author Organization [facility] Address [address] [place] [address] Care Team Providers Care Intensive Care Nurse Name Role Phone Smitha Garcia MD Primary Care Provider Jorgito Hyde MD Unavailable [phone] [facility] Primary Care Provider [facility] e Encounter Details Date Type Department Care Team Description 06/27/2014 Senior Windows Systems Administrator Report Medical Records [address] [place] [address] Afshin Barbour MD Social History Tobacco Use [...] on filedocumented in this encounter Care Teams Intensive Care Nurse Relationship Specialty Start Date End Date Smitha Garcia MD PCP - General Internal Medicine 04/03/14 01/01/22 [facility], Pcp [address] [place] [address] PCP - General Internal Medicine 01/02/22 Jorgito Robles MD 300 [facility] [address] [place] [address] Specialist Cardiovascular Disease 08/16/20 documented as of this encounter
--- OUTSIDE RECORDS SUMMARY | 2024-05-16 06:53 | XMS_ITS | Encounter Summary ---
Author Organization [facility] Address [address] [place] [address] Care Team Providers Care Pantry Goods Worker Name Role Phone Darren Parekh MD Primary Care Provider Smitha Del Rosario MD Primary Care Provider Jorgito Hyde MD Unavailable [phone] [facility], Pcp Primary Care Provider [facility] e Encounter Details Date Type Department Care Team Description 10/19/2013 Direct Care Supervisor Report Medical Records [address] [place] [address] Afshin Barbour MD Social History Tobacco Use [...] on filedocumented in this encounter Care Teams Pantry Goods Worker Relationship Specialty Start Date End Date Darren Parekh MD PCP - General 11/17/03 03/22/14 Smitha Garcia MD PCP - General Internal Medicine 04/03/14 01/01/22 [facility], Pcp [address] [address] PCP - General Internal Medicine 01/02/22 Jorgito Robles MD 300 [facility] [address] [place] [address] Specialist Cardiovascular Disease 08/16/20 documented as of this encounter
--- OUTSIDE RECORDS SUMMARY | 2024-05-16 06:53 | XMS_ITS | Encounter Summary ---
Author Organization [facility] Address [address] [place] [address] Care Team Providers Care Bench Shear Operator Name Role Phone Smitha Garcia MD Primary Care Provider Jorgito Hyde MD Unavailable [phone] [facility], Pcp Primary Care Provider [facility] e Encounter Details Date Type Department Care Team Description 04/11/2017 Release of Information Medical Records [address] [place] [address] Abstract, Provider Social History Tobacco Use Types [...] on filedocumented in this encounter Care Teams Bench Shear Operator Relationship Specialty Start Date End Date Smitha Garcia MD PCP - General Internal Medicine 04/03/14 01/01/22 [facility], Pcp [address] [place] [address] PCP - General Internal Medicine 01/02/22 Jorgito Robles MD 300 [facility] [address] [place] [address] Specialist Cardiovascular Disease 08/16/20 documented as of this encounter
--- OUTSIDE RECORDS SUMMARY | 2024-05-16 06:53 | XMS_ITS | Encounter Summary ---
Author Organization [facility] Address [address] [place] [address] Care Team Providers Care Transitional Care Manager Name Role Phone Darren Parekh MD Primary Care Provider Donovan Baez Primary Care Provider [phone] Smitha Garcia MD Primary Care Provider Jorgito Hyde MD Unavailable [phone] Formerly [facility] Pcp Primary Care Provider Opal santacruz Encounter Details Date Type Department Care Team Description 03/11/2001 Orders Only OBGYN - [place] [address] [place] [address] Emil Tom MD Social History Tobacco Use [...] filedocumented in this encounter Care Teams Transitional Care Manager Relationship Specialty Start Date End Date Darren Parekh MD PCP - General 11/17/03 03/22/14 Donovan Maria [address] [place] [address] PCP - General 03/23/1995 11/16/03 Smitha Garcia MD [address] [place] [address] PCP - General Internal Medicine 04/03/14 01/01/22 Formerly [facility], Pcp [address] [address] PCP - General Internal Medicine 01/02/22 Jorgito Robles MD 300 [facility] 154 [place] [address] Specialist Cardiovascular Disease 08/16/20 documented as of this encounter
--- OUTSIDE RECORDS SUMMARY | 2024-05-16 06:53 | XMS_ITS | Encounter Summary ---
Author Organization [facility] Address [address] [place] [address] Care Team Providers Care Manager E Commerce Name Role Phone Smitha Garcia MD Primary Care Provider Jorgito Hyde MD Unavailable [phone] [facility], [facility] Primary Care Provider [facility] Encounter Details Date Type Department Care Team Description 12/30/2017 Supervisor Fireworks Assembly Report Medical Records [address] [place] [address] Mauricio Stovall MD Social History Tobacco Use [...] filedocumented in this encounter Care Teams Manager E Commerce Relationship Specialty Start Date End Date Smitha Garcia MD PCP - General Internal Medicine 04/03/14 01/01/22 [facility], Pcp [address] [place] [address] PCP - General Internal Medicine 01/02/22 Jorgito Robles MD 300 [facility] 154 [place] [address] Specialist Cardiovascular Disease 08/16/20 documented as of this encounter
--- OUTSIDE RECORDS SUMMARY | 2024-05-16 06:53 | XMS_ITS | Encounter Summary ---
Author Organization [facility] Address [address] [place] [address] Care Team Providers Care Assembler Fluorescent Lights Name Role Phone Smitha Garcia MD Primary Care Provider Jorgito Hyde MD Unavailable [phone] Formerly [facility], [facility] Primary Care Provider Unavailabl e Encounter Details Date Type Department Care Team Description 2017 Orders Only Pulmonology [address] [place] [address] Klaus France MD 175 [facility] 200 [place] [address] Pulmonary nodule Social History Tobacco [...] nodule documented in this encounter Care Teams Assembler Fluorescent Lights Relationship Specialty Start Date End Date Smitha Garcia MD PCP - General Internal Medicine 04/03/14 01/01/22 [facility]ly [facility], Pcp [address] [place] [address] PCP - General Internal Medicine 01/02/22 Jorgito Robles MD [address] [place] [address] Specialist Cardiovascular Disease 08/16/20 documented as of this encounter
--- OUTSIDE RECORDS SUMMARY | 2024-05-16 06:53 | XMS_ITS | Encounter Summary ---
Author Organization [facility] Address [address] [place] [address] Care Team Providers Care Croze Machine Operator Name Role Phone Smitha Garcia MD Primary Care Provider Jorgito Hyde MD Unavailable [phone] [facility], Pcp Primary Care Provider Unavailabl e Reason for Referral * Non ABEL (Routine) - Closed Specialty Diagnoses / Procedures Referred By Rosalia t Referred To Contact Rheumatology Procedures REFERRAL TO RHEUMATOLOGY Taj Matthews PA-C [address] [place] [address] Rheum/[place] [address] [place] [id number] Referral ID Status Reason Start Date Expiration Date Visits Re quested Visits Authorized [id number] Closed 10/02/2017 10/02/2018 1 1 Encounter Details Date Type Department Care Team Description 10/02/2017 Orders Only Medicine/Pediatrics - [address] [phone] Taj Matthews PA-C Social History Tobacco Use [...] on filedocumented in this encounter Care Teams Croze Machine Operator Relationship Specialty Start Date End Date Smitha Garcia MD PCP - General Internal Medicine 04/03/14 01/01/22 [facility], Pcp [address] [address] PCP - General Internal Medicine 01/02/22 Jorgito Robles MD 300 [facility] 154 [place] [address] Specialist Cardiovascular Disease 08/16/20 documented as of this encounter
--- OUTSIDE RECORDS SUMMARY | 2024-05-16 06:53 | XMS_ITS | Encounter Summary ---
Author Organization [facility] Address [address] [place] [address] Care Team Providers Care Commercial Kitchen Service Technician Name Role Phone Smitha Garcia MD Primary Care Provider Jorgito Hyde MD Unavailable [phone] [facility], [facility] Primary Care Provider [facility] Encounter Details Date Type Department Care Team Description 05/09/2020 Hospital Medical Records [address] [place] [address] Markos Mackay MD Social History Tobacco Use [...] on filedocumented in this encounter Care Teams Commercial Kitchen Service Technician Relationship Specialty Start Date End Date Smitha Garcia MD PCP - General Internal Medicine 04/03/14 01/01/22 [facility], Pcp [address] [place] [address] PCP - General Internal Medicine 01/02/22 Jorgito Robles MD 300 [facility] 154 [place] [address] Specialist Cardiovascular Disease 08/16/20 documented as of this encounter
--- OUTSIDE RECORDS SUMMARY | 2024-05-16 06:53 | XMS_ITS | Encounter Summary ---
Author Organization [facility] Address [address] [place] [address] Care Team Providers Care Professional Advisor Name Role Phone Smitha Garcia MD Primary Care Provider Jorgito Hyde MD Unavailable [phone] [facility], Pcp Primary Care Provider [facility] e Encounter Details Date Type Department Care Team Description 07/02/2020 Pt. Non Urgent Medic al Question Gastroenterology - [address] [place] [address] Shahriar Levin MD Social History [...] on filedocumented in this encounter Care Teams Professional Advisor Relationship Specialty Start Date End Date Smitha Garcia MD PCP - General Internal Medicine 04/03/14 01/01/22 [facility], Pcp [address] [address] PCP - General Internal Medicine 01/02/22 Jorgito Robles MD [address] [address] Specialist Cardiovascular Disease 08/16/20 documented as of this encounter
--- OUTSIDE RECORDS SUMMARY | 2024-05-16 06:53 | XMS_ITS | Encounter Summary ---
Author Organization [facility] Address [address] [place] [address] Care Team Providers Care Crimper Operator Name Role Phone Smitha Garcia MD Primary Care Provider Jorgito Hyde MD Unavailable [facility], [facility] Primary Care Provider [facility] Encounter Details Date Type Department Care Team Description 12/30/2018 Manager Ecommerce Report Medical Records [address] [place] [address] Mauricio Stovall MD Social History Tobacco Use [...] on filedocumented in this encounter Care Teams Crimper Operator Relationship Specialty Start Date End Date Smitha Garcia MD PCP - General Internal Medicine 04/03/14 01/01/22 [facility], Pcp [address] [place] [address] PCP - General Internal Medicine 01/02/22 Jorgito Robles MD 300 [facility] [address] [place] [address] Specialist Cardiovascular Disease 08/16/20 documented as of this encounter
--- OUTSIDE RECORDS SUMMARY | 2024-05-16 06:53 | XMS_ITS | Encounter Summary ---
Author Organization [facility] Address [address] [place] [address] Care Team Providers Care Wood Scrap Handler Name Role Phone Smitha Garcia MD Primary Care Provider Jorgito Hyde MD Unavailable [phone] Formerly [facility], [facility], [facility] Primary Care Provider Unavailabl e Encounter Details Date Type Department Care Team Description 10/19/2019 Orders Only Gastroenterology - [address] [place] [address] Shahriar Levin MD Social History [...] on filedocumented in this encounter Care Teams Wood Scrap Handler Relationship Specialty Start Date End Date Smitha Garcia MD PCP - General Internal Medicine 04/03/14 01/01/22 [facility], [facility], Pcp 300 [facility] 154 [place] [address] PCP - General Internal Medicine 01/02/22 Jorgito Robles MD 300 [facility] [address] [place] [address] Specialist Cardiovascular Disease 08/16/20 documented as of this encounter
--- OUTSIDE RECORDS SUMMARY | 2024-05-16 06:53 | XMS_ITS | Encounter Summary ---
Author Organization [facility] Address [address] [place] [address] Care Team Providers Care Government Property Inspector Name Role Phone Smitha Garcia MD Primary Care Provider Tarava Jorgito Nevarez MD Unavailable [facility] Primary Care Provider Unavailabl e Reason for Visit * Reason Onset Date Comments Faxed Refill 06/08/2020 Encounter Details Date Type Department Care Team Description 06/08/2020 Refill Gastroenterology - [address] [place] [phone] Shahriar Levin MD Faxed Refill Social History [...] on filedocumented in this encounter Care Teams Government Property Inspector Relationship Specialty Start Date End Date Smitha Garcia MD PCP - General Internal Medicine 04/03/14 01/01/22 [facility], Pcp 300 [facility] [address] [place] [address] PCP - General Internal Medicine 01/02/22 Jorgito Robles MD 300 [facility] [address] [place] [address] Specialist Cardiovascular Disease 08/16/20 documented as of this encounter
--- OUTSIDE RECORDS SUMMARY | 2024-05-16 06:53 | XMS_ITS | Encounter Summary ---
Author Organization [facility] Address [address] [place] [address] Care Team Providers Care Tin Roller Hot Mill Name Role Phone Smitha Garcia MD Primary Care Provider Jorgito Hyde MD Unavailable [phone] [facility], [facility] Primary Care Provider [facility] e Encounter Details Date Type Department Care Team Description 10/19/2019 Hospital Medical Records [address] [place] [address] Shahriar Levin MD Social History Tobacco Use [...] on filedocumented in this encounter Care Teams Tin Roller Hot Mill Relationship Specialty Start Date End Date Smitha Garcia MD PCP - General Internal Medicine 04/03/14 01/01/22 [facility], Pcp [address] [place] [address] PCP - General Internal Medicine 01/02/22 Jorgito Robles MD 300 [facility] 154 [place] [address] Specialist Cardiovascular Disease 08/16/20 documented as of this encounter
--- OUTSIDE RECORDS SUMMARY | 2024-05-16 06:53 | XMS_ITS | Encounter Summary ---
Author Organization [facility] Address [address] [place] [address] Care Team Providers Care Licensed Midwife Name Role Phone Smitha Garcia MD Primary Care Provider Jorgito Hyde MD Unavailable [phone] [facility] Primary Care Provider Unavailabl e Reason for Visit * Reason Onset Date Comments Testing 02/17/2017 External Echo CP [id number] Encounter Details Date Type Department Care Team Description 02/17/2017 Telephone Adult Medicine - [address] [id number] Smitha Garcia MD Testing (External Echo [id number]) Social History Tobacco Use Types Packs/Day Years [...] 02/17/2017 12:29 PM EST [facility] Auth # [id number] 02/10/17 - 05/11/17 To be done at [facility] [address]/df documented in this encounter Plan of Treatment Not on file documented as of this encounter Visit Diagnoses Not on filedocumented in this encounter Care Teams Licensed Midwife Relationship Specialty Start Date End Date Smitha Garcia MD PCP - General Internal Medicine 04/03/14 01/01/22 [facility], Pcp [address] [place] [address] PCP - General Internal Medicine 01/02/22 Jorgito Robles MD [address] [place] [address] Specialist Cardiovascular Disease 08/16/20 documented as of this encounter
--- OUTSIDE RECORDS SUMMARY | 2024-05-16 06:53 | XMS_ITS | Encounter Summary ---
Author Organization [facility] Address [address] [place] [address] Care Team Providers Care Foreign Collection Clerk Name Role Phone Smitha Garcia MD Primary Care Provider Jorgito Hyde MD Unavailable [phone] [facility], [facility] Primary Care Provider [facility] e Encounter Details Date Type Department Care Team Description 09/17/2016 Pt. Non Urgent Medic al Question Medicine/Pediatrics - [address] [phone] Kina Kohli PA-C Social History Tobacco Use [...] possible to get it sooner? Thanks, Deena [phone] documented in this encounter Plan of Treatment Not on file documented as of this encounter Visit Diagnoses Not on filedocumented in this encounter Care Teams Foreign Collection Clerk Relationship Specialty Start Date End Date Smitha Garcia MD PCP - General Internal Medicine 04/03/14 01/01/22 [facility], Pcp [address] [address] PCP - General Internal Medicine 01/02/22 Jorgito Robles MD 300 [facility] 154 [place] [address] Specialist Cardiovascular Disease 08/16/20 documented as of this encounter
--- OUTSIDE RECORDS SUMMARY | 2024-05-16 06:53 | XMS_ITS | Encounter Summary ---
Author Organization [facility] Address [address] [place] [address] Care Team Providers Care Industrial Roof Plumber Name Role Phone Smitha Garcia MD Primary Care Provider Jorgito Hyde MD Unavailable [phone] [facility], [facility] Primary Care Provider [facility] Encounter Details Date Type Department Care Team Description 02/08/2016 Pt. Non Urgent Medic al Question Medicine/Pediatrics - [address] [address] Smitha Garcia MD Social History Tobacco Use [...] on filedocumented in this encounter Care Teams Industrial Roof Plumber Relationship Specialty Start Date End Date Smitha Garcia MD PCP - General Internal Medicine 04/03/14 01/01/22 [facility], Pcp [address] [facility] 154 [place] [address] PCP - General Internal Medicine 01/02/22 Jorgito Robles MD 300 [facility] 154 [place] [address] Specialist Cardiovascular Disease 08/16/20 documented as of this encounter
--- OUTSIDE RECORDS SUMMARY | 2024-05-16 06:53 | XMS_ITS | Encounter Summary ---
Author Organization [facility] Address [address] [place] [address] Care Team Providers Care Elevator Examiner Name Role Phone Smitha Garcia MD Primary Care Provider Jorgito Hyde MD Unavailable [phone] [facility] Primary Care Provider [facility] e Encounter Details Date Type Department Care Team Description 10/21/2019 Orders Only Medical Records [address] [place] [address] Shahriar Levin MD Social History Tobacco Use [...] filedocumented in this encounter Care Teams Elevator Examiner Relationship Specialty Start Date End Date Smitha Garcia MD PCP - General Internal Medicine 04/03/14 01/01/22 [facility], Pcp 300 [facility] 154 [place] [address] PCP - General Internal Medicine 01/02/22 Jorgito Robles MD 300 [facility] [address] [place] [address] Specialist Cardiovascular Disease 08/16/20 documented as of this encounter
--- OUTSIDE RECORDS SUMMARY | 2024-05-16 06:53 | XMS_ITS | Encounter Summary ---
Author Organization [facility] Address [address] [place] [address] Care Team Providers Care Branch Coordinator Name Role Phone Darren Parekh MD Primary Care Provider Donovan Baez Primary Care Provider Smitha Garcia MD Primary Care Provider Jorgito Hyde MD Unavailable [phone] [facility] Pcp Primary Care Provider Opal santacruz Encounter Details Date Type Department Care Team Description 04/09/2001 Telephone OBGYN - [place] [address] [place] [address] Social History Tobacco Use Types Packs/Day Years [...] on filedocumented in this encounter Care Teams Branch Coordinator Relationship Specialty Start Date End Date Darren Parekh MD PCP - General 11/17/03 03/22/14 Donovan Maria [address] [place] [address] PCP - General 03/23/1995 11/16/03 Smitha Garcia MD [address] [place] [address] PCP - General Internal Medicine 04/03/14 01/01/22 [facility], Pcp [address] [address] PCP - General Internal Medicine 01/02/22 Jorgito Robles MD [address] [address] Specialist Cardiovascular Disease 08/16/20 documented as of this encounter
--- NOTE | 2024-05-16 08:03 | A.OFFVIS_ITS ---
Intake Visit Reasons: pre op - eye floaters (no ekg or labs) Allergies Sulfa (Sulfonamide Antibiotics) Allergy (Unknown, Verified 05/16/24 08:08) Hives Medication List - Last Reconciled 05/16/24 by MIC WootenP- albuterol sulfate 90 mcg/actuation 2 inhalations inhalation Q4H PRN atorvastatin 10 mg PO BEDTIME calcium carbonate-vitamin D3 600 mg-10 mcg (400 unit) (Calcium with Vitamin D) 1 tab PO BID citalopram 20 mg PO DAILY 90 days doxycycline hyclate 100 mg PO BID epinephrine 0.3 mg IM Q10M PRN esomeprazole magnesium 20 mg PO BID ondansetron 4 mg PO Q12H PRN sucralfate 10 mL PO BID HPI HPI pre op - eye floaters (no ekg or labs): Details: History of Present Illness The patient is a 69-year-old female presenting with the need for medical clearan ce for an upcoming eye procedure associated with visual floaters. The procedure was mentioned but not specifically named. The patient reports no symptoms of infection and is without acute distress. She expresses excitement about the procedure and reports doing well overall. There are no specific details provided regarding the onset of visual floaters or any prior interventions for this condition. The patient sought telehealth consultation to receive clearance for the procedure. Review of Systems - General: Denies signs and symptoms of infection. - Eyes: Denies acute distress. Plan 1. Other vitreous opacities, unspecified eye H43.399 The patient presented for clearance for an eye procedure related to visual floaters. It is stated that no laboratory tests or electrocardiograms are required prior to the procedure. The patient is cleared for the procedure as no contraindications were identified during the telehealth consultation. Discussion Notes The patient was informed that she has been cleared for her upcoming eye procedure. There was a discussion regarding the absence of any signs of infection or acute distress, reinforcing her readiness for the procedure. Consent discussions for the procedure, including potential risks and benefits, were not explicitly detailed in the conversation. The patient's excitement and overall positive outlook towards the procedure were noted. Follow-up arrangements post-procedure and return precautions were not elaborated upon as part of this visit. Patient Instructions - Await further instructions related to the timing and specifics of the eye procedure. - Monitor for any signs of infection and report promptly if symptoms occur. - Follow all pre-procedure guidelines provided by the rack washer or surgical team. - Maintain general wellness and report any new symptoms prior to the procedure. [facility] Medical History Chest discomfort Screening for colon cancer Sinusitis Conjunctivitis, left eye Upper respiratory infection Conjunctivitis due to adenovirus, left eye Strep pharyngitis Leukopenia Physical exam Anxiety Depression Asthma Osteopenia Osteoarthritis, hand Paresthesias Pulmonary nodule Ground glass opacity present on imaging of lung Diffuse cystic mastopathy of breast Mixed incontinence urge and stress Kidney cyst Esophageal ulcer Hiatal hernia Elevated alkaline phosphatase level Kidney stones Leukopenia Barretts esophagus GERD (gastroesophageal reflux disease) Achalasia and cardiospasm Hypercholesteremia Stable angina Surgical History Status post repair of paraesophageal diaphragmatic hernia S/P total left hip arthroplasty Hx of colonoscopy History of esophagogastroduodenoscopy (EGD) Family History Brother Substance use disorder Progressive supranuclear palsy Mother Progressive supranuclear palsy Social History Household Members: Spouse Housing: House Are you a primary day care home provider to a significant other at home: No Do you presently have visiting nurse or other home services: No Alcohol intake: current Alcohol intake frequency: holidays/special occasions only Patient Tobacco Use Status: Former Tobacco user e-Cigarette/Vaping Use: Never Used Second Hand Smoke Exposure: No service: No Current occupational status: employed Current occupation: [employer] Current occupational exposures/hazards: No Cognitive needs: No Hearing needs: No Vision needs: No Telehealth Telehealth [facility] Location of provider rendering services: practice address Location of patient: address on file Patient Identification confirmed using: Name, : Yes Telehealth method: video Patient verbally consented to treatment: Yes Patient verbally consented to billing insurance company: Yes Patient informed of any privacy concerns related to visit: Yes Minutes spent on Phone/Video with Pt.: 10 Assessment & Plan Assessment & Plan (1) Pre-op evaluation: Code(s): Z01.818 - Encounter for other preprocedural examination Category: Medical Plan . Coding Level of Care Code Tele Est Pt Level 3 (41519) Diagnoses Pre-op evaluation Z01.818
== END 2024-05-16 08:05 | disposition home or self-care (01) ==
PROVIDERS: PCP Nurse Practitioner Family; Visit Provider Nurse Practitioner Family
DX: Z01.818 Encounter for other preprocedural examination (principal)

== ENCOUNTER 2024-06-06 13:46 | Outpatient (AMB) | payer MEDICARE, SELFPAY ==
--- NOTE | 2024-06-06 14:02 | AM.OFFVISMDC ---
Intake Vital Signs 06/06/24 14:03 Height 5 ft 1 in Weight 135 lb BMI 25.5 BP 126/70 Blood Pressure Location Lt brachial Position Sitting Pulse 70 Pulse Source Pulse Oximeter Temp 97.9 F Temp Source Oral Pulse Oximetry (%) 97 Oxygen Delivery Method Room Air Intake Visit Reasons: AWV G0438 Intake Note: pt is here for medicare wellness visit Web Press Jogger Required: No Accompanied by: Self / Same As Patient Allergies Sulfa (Sulfonamide Antibiotics) Allergy (Unknown, Verified 06/06/24 14:54) Hives Medication List - Last Reconciled 06/06/24 by AUGIE Wooten albuterol sulfate 90 mcg/actuation 2 inhalations inhalation Q4H PRN atorvastatin 10 mg PO BEDTIME calcium carbonate-vitamin D3 600 mg-10 mcg (400 unit) (Calcium with Vitamin D) 1 tab PO BID citalopram 20 mg PO DAILY 90 days epinephrine 0.3 mg IM Q10M PRN esomeprazole magnesium 20 mg PO BID Do you need a note to return to daycare/school/sports/work: No HPI AWV G0438 HPI Details AWV: CCC in scan pile, PPP in scan pile PFSH Medical History Chest discomfort Screening for colon cancer Sinusitis Conjunctivitis, left eye Upper respiratory infection Conjunctivitis due to adenovirus, left eye Strep pharyngitis Leukopenia Physical exam Anxiety Depression Asthma Osteopenia Osteoarthritis, hand Paresthesias Pulmonary nodule Ground glass opacity present on imaging of lung Diffuse cystic mastopathy of breast Mixed incontinence urge and stress Kidney cyst Esophageal ulcer Hiatal hernia Elevated alkaline phosphatase level Kidney stones Leukopenia Barretts esophagus GERD (gastroesophageal reflux disease) Achalasia and cardiospasm Hypercholesteremia Stable angina Surgical History Status post repair of paraesophageal diaphragmatic hernia S/P total left hip arthroplasty Hx of colonoscopy History of esophagogastroduodenoscopy (EGD) Family History Brother Substance use disorder Progressive supranuclear palsy Mother Progressive supranuclear palsy Social History Household Members: Spouse Housing: House Are you a primary career center advisor to a significant other at home: No Do you presently have visiting nurse or other home services: No Alcohol intake: current Alcohol intake frequency: holidays/special occasions only Patient Tobacco Use Status: Former Tobacco user e-Cigarette/Vaping Use: Never Used Second Hand Smoke Exposure: No service: No Current occupational status: employed Current occupation: [employer] Current occupational exposures/hazards: No Cognitive needs: No Hearing needs: No Vision needs: No Questionnaire Medicare Wellness Checkup [age] 65-71 What gender do you identify with?: female During the past 4 weeks, how much have you been bothered by emotional problems such as feeling anxious, depressed, irritable, sad or downhearted, and blue?: slightly During the past 4 weeks, has your physical & emotional health limited your social activities with family, friends, neighbors, or groups?: not at all During the past 4 weeks, how much bodily pain have you generally had?: mild pain During the past 4 weeks, was someone available to help you if you needed & wanted help?: yes, as much as I wanted During the past 4 weeks, what was the hardest physical activity you could do for at least 2 minutes?: moderate Can you get to places out of walking distance without help? (For eg., can you travel alone on buses, taxis or drive your car?): Yes Can you go shopping for groceries or clothes without someone's help?: Yes Can you prepare your own meals?: Yes Can you do your housework without help?: Yes Because of any health problems, do you need the help of another person with your personal care needs such as eating, bathing, dressing or getting around the house?: No Can you handle your own money without help?: Yes During the past 4 weeks, how would you rate your health in general?: very good During the past 4 weeks how have things been going for you?: pretty well Are you having difficulties driving your car?: no Do you always fasten your seat belt when you are in a car?: yes, usually During past 4 weeks, have you been bothered by the following: never: Falling or dizzy when standing up, Sexual problems?, Trouble eating well?, Teeth or denture problems? and Problems using the telephone? and seldom: Tiredness or fatigue? Have you fallen 2 or more times in the past year?: No Are you afraid of falling?: No Are you a smoker?: no During the past 4 weeks, how many drinks of wine, beer, or other alcoholic beverages did you have?: 1 drink or less per week Do you exercise for about 20 minutes 3 or more times a week?: yes, some of the time Have you been given information to help with the following?: no: Hazards in your house that might hurt you? and no: Keeping track of your medications? How often do you have trouble taking medicines the way you have been told to take them?: I do not have to take medicine How confident are you that you can control & manage most of your health problems?: very confident What is your race?: White Mini Mental State Exam (MMSE) Orientation What is the (year) (season) (date) (day) (month)?: year, season, date, day and month Where are we (state) (county) (town or city) (hospital) (floor)?: state, county, town or city, hospital/clinic and floor Registration Name of 3 unrelated objects clearly and slowly, then ask patient to repeat all 3 of them. (1st repeat determines score. Make sure they can repeat all three): object 1, object 2 and object 3 Attention & Calculation (CHOOSE ONE) Spell WORLD backwards (DLROW): 5 letters Recall Ask patient to repeat the 3 items from question #3.: object 1, object 2 and object 3 Language Show patient a wristwatch & ask what it is. Repeat for pencil.: watch and pencil Ask the patient to repeat the phrase 'No ifs, ands, or buts' after you.: correct Ask the patient to 'take a piece of paper with their right hand' 'fold paper in half' 'place paper on floor': take paper in right hand and place paper on floor Print the sentence 'CLOSE YOUR EYES' on a piece. If patient actually closes eyes then score.: followed written direction Give patient a blank piece of paper & ask to write a sentence. Score if it contains a noun & verb.: sentence contains subject and verb Ask patient to copy figure of intersecting pentagons exactly. Score if all 10 angles & 2 intersects are included.: all 10 angles present & 2 are intersected Score Score: 29 Activity of Daily Living Bathing - sponge bath, tub bath or shower: receives no assistance (gets in/out by self, if usual bathing means Dressing - getting clothes from closets & drawers, including inner/outer garments & fasteners.: gets clothes & gets completely dressed without help Toileting - going to the 'toilet room' for urine/bowel elimination & cleaning self/arranging clothes: goes to toilet room, cleans self, arranges clothes without help Transfer: moves in & out of bed and chair without help (may use support object) Continence: controls urination/bowel movements completely by self Feeding: feeds self without help Total Score: 0 Information obtained from: patient Using telephone: independent Traveling: independent Shopping: independent Preparing meals: independent Housework: independent Taking medicine: independent Managing money: independent PHQ-9 Over the last 2 weeks, how often have you been bothered by any of the following problems? 1. Little interest or pleasure in doing things: not at all 2. Feeling down, depressed, or hopeless: not at all 3. Trouble falling or staying asleep, or sleeping too much: not at all 4. Feeling tired or having little energy: several days 5. Poor appetite or overeating: not at all 6. Feeling bad about yourself - or that you are a failure or have let yourself or your family down: not at all 7. Trouble concentrating on things, such as reading the newspaper or watching television: not at all 8. Moving or speaking so slowly that other people could have noticed. Or the opposite - being so fidgety or restless that you have been moving around a lot more than usual: not at all 9. Thoughts that you would be better off or of hurting yourself in some way: not at all Total score: 1 Depression Screening Interpretation: Negative Depression Screening Done: Yes 42265 - PHQ-9 Billing: Yes Source: Developed by Drs. Donovan Beck, Zohreh Desir, Kaveh Hernandez and colleagues, with an educational aruna from [employer] ([place]). GENNA-7 AMB Questionnaire GENNA-7 Date GENNA - 7 assessed: 06/06/24 Feeling nervous, anxious, or on edge: 0 = Not at all Not being able to stop or control worryin = Not at all Worrying too much about different things: 0 = Not at all Trouble relaxin = Not at all Being so restless that it is hard to sit still: 0 = Not at all Becoming easily annoyed or irritable: 0 = Not at all Feeling afraid as if something awful might happen: 0 = Not at all Total GENNA-7 score (0-4 normal; 5-9 mild; 10-14 moderate; 15-21 severe): 0 Source: Developed by Drs. Donovan Beck, Zohreh Desir, Kaveh Hernandez and colleagues, with an educational aruna from [employer] ([place]). GENNA-7 Assessment Billing GENNA-7 Assessment Tool: GENNA-7 Assessment 22928 AUDIT C Alcohol Use Questionnaire (AUDIT-C) 1. How often do you have a drink containing alcohol?: 2-4 times a month 2. How many drinks containing alcohol do you have on a typical day when you are drinking?: 1 or 2 3. How often do you have six or more drinks on one occasion?: Never Total Score: 2 Score Reviewed/Action Taken: Yes Thrive Questionnaire Date Thrive assessed: 06/06/24 I am a: Patient What is your living situation today?: I have a steady place to live Within the past 12 months, did the food you bought not last and you didn't have the money to get more?: Never true Within the past 12 months, did you worry whether your food would run out before you got money to buy more?: Never true Do you have trouble paying for medicines?: No Do you have trouble getting transportation to medical appointments?: No Do you have trouble paying your heating and electricity bill?: No Do you have trouble taking care of your child, family member or friend?: No Do you have trouble with day-to-day activities such as bathing, preparing meals, shopping, managing finances, etc.?: No Are you currently unemployed and looking for a job?: No Are you interested in more education?: No Please select the resources that you would like help with: None Currently or been in a relationship where the following occur: No concerns reported THRIVE Score: 0 Physical Exam Vital Signs: Last Vital Signs Temp 97.9 F 06/06/24 14:03 Pulse 70 06/06/24 14:03 BP 126/70 06/06/24 14:03 Pulse Ox 97 06/06/24 14:03 Oxygen Delivery Method Room Air 06/06/24 14:03 BMI result Body Mass Index 25.5 Neuro Other: neg rhomberg. able to stand to from sitting position. Able to tandem walk without difficulty. + whisper test Assessment & Plan Assessment & Plan (1) Encounter for annual wellness visit (AWV) in Medicare patient: Code(s): Z00.00 - Encounter for general adult medical examination without abnormal findings Plan . Quality Reporting (2019) Depression/Bipolar (159/160/161/177) PHQ-9: Total score: 1 Coding Level of Care Code Medicare First (G0438) Diagnoses Encounter for annual wellness visit (AWV) in Medicare patient Z00.00 Additional Codes GENNA-7 Assessment Billing - GENNA-7 Assessment Tool: GENNA-7 Assessment 07969 ([id number]) PHQ-9 - 68656 - PHQ-9 Billing: Yes ([id number]) Advance Care Planning Forms completed: Health Care Proxy (form given to pt to fill out), MOLST (form given to pt) and Living will (done, according to pt)
[2024-06-06 14:03] VITALS: BP 126/70; PULSE 70; TEMP 36.6; O2SAT 97; BMI 25.5
== END 2024-06-06 15:09 | disposition home or self-care (01) ==
LOC: HO.HMCC 13:47
PROVIDERS: PCP Nurse Practitioner Family; Visit Provider Nurse Practitioner Family
DX: Z00.00 Encounter for general adult medical examination without abnormal findings (principal)

== ENCOUNTER → 2024-06-06 13:46 | Outpatient (BNVA) | payer MEDICARE, SELFPAY | PROVIDERS: PCP Nurse Practitioner Family; Visit Provider Nurse Practitioner Family | DX: Z00.00 Encounter for general adult medical examination without abnormal findings (principal); E78.00 Pure hypercholesterolemia, unspecified | CPT/HCPCS: 96127 ==

== ENCOUNTER 2024-06-14 04:23 | Emergency (ER) | payer MEDICARE, SELFPAY ==
[2024-06-14 04:29] VITALS: BP 129/61; PULSE 80; RESP 16; TEMP 36.8; O2SAT 96; BMI 23.8
[2024-06-14] MEDS: diphenhydrAMINE HCL 25 MG CAPSULE PO (06:51)
[2024-06-14] MEDS: Famotidine 20 MG TABLET PO (06:51)
[2024-06-14] MEDS: predniSONE 20 MG TABLET 60 MG PO (06:51)
--- NOTE | 2024-06-14 07:16 | ED.ALLEREA ---
HPI - Allergic Reaction General Chief complaint: Allergic Reaction Stated complaint: allergic reaction lips eyes swelling rash Time Seen by Provider: 06/14/24 06:29 Source: patient, RN notes reviewed and old records reviewed Mode of arrival: ambulatory Limitations: no limitations History of Present Illness ED Provider: Brian HPI narrative: Patient is a 69-year-old female with history of asthma, anxiety and depression, chronic sinusitis, GERD, Barretts esophagus, hypercholesterolemia presenting with complaint of pruritic rash and angioedema to upper lip since yesterday. Patient reports that she has many environmental allergies, sees and wire stitcher operator regularly for shots. Unsure what she was exposed to, states symptoms began with a rash to wrists when then spread to legs, ears, then she developed swelling to her upper lip. States she is not on any ACEIs. Took Benadryl yesterday, last dose at midnight. Denies difficulty swallowing or shortness of breath. Reports recent flu-like symptoms. States her rash has lightened but is still pruritic. Complains of upper abdominal pain but states this has been going on for over a week, attributes this to eating large amount of fruit after not eating fruit for an extended period of time. MD complaint: allergic reaction, hives and facial swelling Onset (ago): hour(s) Exposure: unknown Known history of allergy to: environmental allergies Symptoms: rash, itching and lip swelling Treatment prior to arrival: benadryl Related Data Home Medications ?Medication ?Instructions ?Recorded ?Confirmed albuterol sulfate 90 mcg/actuation 2 inh inhalation Q4H PRN Shortness 01/15/24 06/06/24 aerosol inhaler Of Breath Or Wheezing epinephrine 0.3 mg/0.3 mL 0.3 mg IM Q10M PRN Anaphylaxis 02/15/24 06/06/24 injection, auto-injector Previous Rx's ?Medication ?Instructions ?Recorded atorvastatin 10 mg tablet 10 mg PO BEDTIME #90 tabs 12/14/23 calcium 600 mg (as 1 tab PO BID #180 tabs 12/28/23 carbonate)-vitamin D3 10 mcg (400 unit) tablet (Calcium with Vitamin D) esomeprazole magnesium 20 mg 20 mg PO BID #90 caps 04/18/24 capsule,delayed release citalopram 20 mg tablet 20 mg PO DAILY 90 days #90 tabs 05/29/24 famotidine 20 mg tablet 20 mg PO DAILY #7 tabs 06/14/24 prednisone 10 mg tablet See Rx Instructions .Route 06/14/24 .COMPLEX #15 tabs Allergies Allergy/AdvReac Type Severity Reaction Status Date / Time Sulfa (Sulfonamide Allergy Unknown Hives Verified 06/14/24 04:32 Antibiotics) Review of Systems Review of Systems: As per HPI Yes all other systems are reviewed and are negative Constitutional: Constitutional: Reports as per HPI [facility] Past Medical History Medical History Chest discomfort Screening for colon cancer Sinusitis Conjunctivitis, left eye Upper respiratory infection Conjunctivitis due to adenovirus, left eye Strep pharyngitis Leukopenia Physical exam Anxiety Depression Asthma Osteopenia Osteoarthritis, hand Paresthesias Pulmonary nodule Ground glass opacity present on imaging of lung Diffuse cystic mastopathy of breast Mixed incontinence urge and stress Kidney cyst Esophageal ulcer Hiatal hernia Elevated alkaline phosphatase level Kidney stones Leukopenia Barretts esophagus GERD (gastroesophageal reflux disease) Achalasia and cardiospasm Hypercholesteremia Stable angina Surgical History Status post repair of paraesophageal diaphragmatic hernia S/P total left hip arthroplasty Hx of colonoscopy History of esophagogastroduodenoscopy (EGD) Family History Family History Brother Substance use disorder Progressive supranuclear palsy Mother Progressive supranuclear palsy Social History Social History Household Members: Spouse Housing: House Are you a primary ocular care technician to a significant other at home: No Do you presently have visiting nurse or other home services: No Alcohol intake: current Alcohol intake frequency: holidays/special occasions only Patient Tobacco Use Status: Former Tobacco user Smoked in Last 30 Days: No e-Cigarette/Vaping Use: Never Used Second Hand Smoke Exposure: No Use of substances other than those prescribed or required for medical reasons: No Advance Directives: No Advance Directives Information Provided: Yes Do you have a plan to hurt others: No Plan service: No Current occupational status: employed Current occupation: [employer] Current occupational exposures/hazards: No Cognitive needs: No Hearing needs: No Vision needs: No Physical Exam ED Vital Signs: Vital Signs - 24 hr 06/14/24 04:29 06/14/24 08:36 Temperature 98.3 F 98.9 F Pulse Rate 80 63 Respiratory Rate 16 16 Blood Pressure 129/61 104/55 L Pulse Oximetry 96 97 Oxygen Delivery Method Room Air Room Air BMI result Body Mass Index 23.8 Vital signs have been reviewed and appear to be correct. Blood pressure normal. Heart rate normal. Respiratory rate normal. Temperature normal. Oxygen saturation normal. Const General: cooperative, healthy appearing and no acute distress Orientation/consciousness: oriented to person, oriented to place, oriented to time and patient oriented x3 Limitations: no limitations HENMT Head: Yes normocephalic and Yes atraumatic Ears: external ears abnormal (erythematous) General nose exam: Normal external nose present Face and sinus: Yes face symmetric Mouth: Normal oral and palatal mucosa present, tongue normal, oropharynx normal, moist mucous membranes, no audible dysphonia, no drooling, lip abnormal upper swelling and no trismus Throat: Yes uvula midline and No uvular edema Eyes Pupils: Equal, round and reactive pupils present Neck Neck: Yes normal visual inspection and Yes supple Resp Effort & Inspection: normal respiratory effort and able to speak in complete sentences Auscultation: clear to auscultation bilaterally Cardio Rate: regular rate Rhythm: regular rhythm Heart sounds: S1 normal heart sound present and S2 normal heart sound present GI Palpation (GI): Soft to palpation and nontender Auscultation: normoactive bowel sounds General: Yes no CVA tenderness Back/Spine/Pelvis Back: no CVA tenderness Skin Other: faint erythematous macules to bilateral wrists, legs General skin exam: elasticity normal and turgor normal Neuro General: oriented to person, oriented to place, oriented to time, patient oriented x3, moves all extremities, no focal motor deficits and CN's II-XI intact bilaterally Cranial nerves: Yes Equal, round and reactive pupils present Cognition (Neuro): normal cognition Extrem General: Yes full ROM, Yes no pedal edema and Yes no calf tenderness Psych Mental Status: mental status grossly normal Affect: normal affect Thought process: Normal thought process present Medications Administered Discontinued Medications Generic Name Dose Route Start Last Admin Trade Name Freq PRN Reason Stop Dose Admin Al Hydroxide/Mg Hydroxide 30 ml 06/14/24 08:16 06/14/24 09:01 Magnesium Hydrox/Alum Hydrox 30 Ml Oral.Susp PO 06/14/24 08:17 30 ml ONCE ONE Administration Diphenhydramine HCl 25 mg 06/14/24 06:45 06/14/24 06:51 Diphenhydramine Hcl 25 Mg Capsule PO 06/14/24 06:46 25 mg ONCE ONE Administration Famotidine 20 mg 06/14/24 06:45 06/14/24 06:51 Famotidine 20 Mg Tablet PO 06/14/24 06:46 20 mg ONCE ONE Administration Lidocaine HCl 15 ml 06/14/24 08:16 06/14/24 09:01 Lidocaine Hcl Viscous 2 % 15 Ml Solution MUCOUS MEM 06/14/24 08:17 15 ml ONCE ONE Administration Prednisone 60 mg 06/14/24 06:45 06/14/24 06:51 Prednisone 20 Mg Tablet PO 06/14/24 06:46 60 mg ONCE ONE Administration Medical Decision Making Medical Decision Making [facility] Narrative: Patient is a 69-year-old female with history of asthma, anxiety and depression, chronic sinusitis, GERD, Barretts esophagus, hypercholesterolemia presenting with complaint of pruritic rash and angioedema to upper lip since yesterday. On exam patient is awake, A+Ox3, VS WNL, afebrile, normal neurological exam without focal deficits, physical exam findings as above. Given reported symptoms and physical exam findings, initial differential includes but is not limited to urticaria, angioedema, allergic reaction. Unlikely anaphylaxis based on NIAID/FAAN diagnostic criteria. Labs unremarkable. Viral panel negative. Abdominal pain fully resolved with GI cocktail. Improvement in angioedema noted while patient observed in the ED. Patient observed for 5 hours with improvement in symptoms, feel she is stable for discharge home. Will send prescriptions for prednisone taper and famotidine, advised patient to continue with OTC antihistamine such as Benadryl. Follow up with PCP and wire stitcher operator. Return precautions discussed. Patient advised to carry Epi-pen with her at all times. Patient verbalized understanding of and agreement with plan. Differential Diagnosis Differential Diagnoses: The differential diagnosis associated with the presentation includes As per [facility] Admission/Observation Consideration of admission/observation: Escalation of care including admission/observation considered Patient would have been admitted to the hospital had their work up had any findings where hospital admission was appropriate and their clinical presentation warranted hospital admission. Lab Data [facility] Lab Attestation statement: I reviewed the patient's lab results. As per [facility] 06/14/24 07:28 06/14/24 07:28 Labs: Lab Results 06/14/24 Range/Units 07:28 WBC 10.4 (4.8-10.8) X10*3/uL RBC 4.42 (4.20-5.50) X10*6/uL Hgb 13.9 (12.0-16.0) g/dl Hct 39.1 (37.0-47.0) % MCV 88.5 (80.0-98.0) fL MCH 31.4 (27.0-33.0) pg MCHC 35.5 H (31.0-35.0) g/dl RDW 12.8 (11.0-16.0) % Plt Count 241 (160-400) X10*3/uL MPV 9.0 L (9.4-12.3) fL Immature Gran % (Auto) 0.6 H (0.0-0.4) % Neut % (Auto) 77.6 H (45-73) % Lymph % (Auto) 11.9 L (20-40) % [place] % (Auto) 4.9 (2-11) % Eos % (Auto) 4.8 H (0-4) % Baso % (Auto) 0.2 (0-2) % Lymph # (Auto) 1.2 (1.2-4.9) X10*3/uL [place] # (Auto) 0.5 (0.1-1.2) X10*3/uL Eos # (Auto) 0.5 H (0.0-0.4) X10*3/uL Baso # (Auto) 0.0 (0.0-0.2) X10*3/uL Abs Immat Gran (auto) 0.06 H (0.00-0.03) X10*3/uL Absolute Neuts (auto) 8.1 (2.0-8.3) x10*3/uL Absolute Nucleated RBC 0.000 (0.0-0.012) X10*3/uL Nucleated RBC % (auto) 0.0 (0.0-0.2) /100WBC Sodium 141 (135-145) mmol/L Potassium 3.8 (3.3-5.1) mmol/L Chloride 107 (96-108) mmol/L Carbon Dioxide 27 (22-29) mmol/L Anion Gap 11 L (12-20) BUN 10 (9-16) mg/dL Creatinine 0.62 (0.5-1.4) mg/dL Estim Creat Clear Calc 66.4 Estimated GFR > 60 Random Glucose 107 (60-115) mg/dL Calcium 9.1 (8.4-10.2) mg/dL Total Bilirubin 0.6 (0.0-1.0) mg/dL AST 18 (5-31) U/L ALT 18 (0-31) U/L Alkaline Phosphatase 130 H (39-117) U/L Total Protein 6.1 L (6.5-8.0) g/dL Albumin 3.7 (3.5-5.0) g/dL Influenza Type A (PCR) NEGATIVE (Negative) Influenza Type B (PCR) NEGATIVE (Negative) RSV RNA Qual (PCR) NEGATIVE (Negative) SARS-CoV-2 RNA (RT-PCR) NEGATIVE (Negative) External Record Review External record reviewed: Inpatient record, Office record and Outpatient record Prescription Management I considered prescription management with: Other Discharge Plan Discharge Clinical Impression: Allergic reaction Patient Disposition: Home, Self-Care Instructions: Angioedema (ED), General Allergic Reaction (ED) Additional Instructions: You were evaluated in the emergency department today for an allergic reaction. You have been given medications to control your symptoms. You have been observed for several hours in the emergency department and you are stable for discharge at this time. You can take Benadryl, Zyrtec, or Claritin, all of which are available [id number], to help control your symptoms at home. TAKE ONLY ONE, do not take these medications in combination. You have also been given a prescription for steroids, please take them as directed. You have been prescribed famotidine which is a different type of histamine juan. Please schedule an appointment with your primary care physician for follow-up. You can also use over the counter Maalox for your abdominal pain, as this improved your pain in the emergency department today. Return to the emergency department if you experience rashes, difficulty breathing or swallowing, lip/mouth/tongue swelling, vomiting, or for any other concerning symptoms. Be sure to carry your Epi-pen with you at all times, especially until your current symptoms resolve. Prescriptions: New famotidine 20 mg tablet 20 mg PO DAILY Qty: 7 0RF prednisone 10 mg tablet See Rx Instructions .ROUTE .COMPLEX Qty: 15 0RF Rx Instructions: 50mg (5 tabs) x 1 day, then 40mg (4 tabs) x 1 day, then 30mg (3 tabs) x 1 day, then 20mg (2 tabs) x 1 day, then 10mg (1 tab) x 1 day No Action atorvastatin 10 mg tablet 10 mg PO BEDTIME Qty: 90 1RF calcium carbonate-vitamin D3 [Calcium with Vitamin D] 600 mg-10 mcg (400 unit) tablet 1 tab PO BID Qty: 180 1RF esomeprazole magnesium 20 mg capsule,delayed release(DR/EC) 20 mg PO BID Qty: 90 2RF citalopram 20 mg tablet 20 mg PO DAILY 90 Days Qty: 90 1RF albuterol sulfate 90 mcg/actuation HFA aerosol inhaler 2 inh inhalation Q4H PRN (Reason: Shortness Of Breath Or Wheezing) epinephrine 0.3 mg/0.3 mL auto-injector 0.3 mg IM Q10M PRN (Reason: Anaphylaxis) Rx Instructions: for 2 doses Stand Alone Forms: Work/School Release Print Language: Mongolian
[2024-06-14 07:38] LABS: MANUAL DIFF FLAG NO
[2024-06-14 07:42] LABS: Basophils Percent Auto 0.2 % (0-2); Eosinophils Absolute Auto 0.5 X10*3/uL (0.0-0.4); Eosinophils Percent Auto 4.8 % (0-4); Hematocrit 39.1 % (37.0-47.0); Hemoglobin 13.9 g/dl (12.0-16.0); Imm Gran Abs Auto 0.06 X10*3/uL (0.00-0.03); Imm Gran Pct Auto 0.6 % (0.0-0.4); Lymphocytes Absolute Auto 1.2 X10*3/uL (1.2-4.9); Lymphocytes Percent Auto 11.9 % (20-40); Mean Corpuscular HGB Conc 35.5 g/dl (31.0-35.0); Mean Corpuscular Hemoglobin 31.4 pg (27.0-33.0); Mean Corpuscular Volume 88.5 fL (80.0-98.0); Monocytes Absolute Auto 0.5 X10*3/uL (0.1-1.2); Monocytes Percent Auto 4.9 % (2-11); Neutrophils Absolute Auto 8.1 x10*3/uL (2.0-8.3); Neutrophils Percent Auto 77.6 % (45-73); Platelet Count 241 X10*3/uL (160-400); Red Blood Count 4.42 X10*6/uL (4.20-5.50); Red Cell Distribution Width 12.8 % (11.0-16.0); White Blood Count 10.4 X10*3/uL (4.8-10.8)
[2024-06-14 07:55] LABS: Alanine Aminotransferase 18 U/L (0-31); Albumin Level 3.7 g/dL (3.5-5.0); Alkaline Phosphatase 130 U/L (39-117); Anion Gap 11 (12-20); Aspartate Amino Transferase 18 U/L (5-31); Bilirubin Total 0.6 mg/dL (0.0-1.0); Blood Urea Nitrogen 10 mg/dL (9-16); Calcium 9.1 mg/dL (8.4-10.2); Carbon Dioxide 27 mmol/L (22-29); Chloride 107 mmol/L (96-108); Creatinine Clr Calc Pharmacy 66.4; Estimated Glomerular Filt Rate > 60; Glucose Random 107 mg/dL (60-115); Potassium 3.8 mmol/L (3.3-5.1); Sodium 141 mmol/L (135-145); Total Protein 6.1 g/dL (6.5-8.0)
--- NOTE | 2024-06-14 08:35 | PC.NURSE ---
slight swelling of upper lip noted. pt reports feelin gbetter. no rash noted. unlabored resp.
[2024-06-14 08:36] VITALS: BP 104/55; PULSE 63; RESP 16; TEMP 37.2; O2SAT 97
[2024-06-14 08:37] LABS: Influenza A PCR NEGATIVE (Negative); Influenza B PCR NEGATIVE (Negative); Resp Syncy Virus RNA Qual PCR NEGATIVE (Negative); SARS COV2 PCR INHOUSE NEGATIVE (Negative)
[2024-06-14] MEDS: Magnesium Hydrox/Alum Hydrox 30 ML ORAL.SUSP PO (09:01)
[2024-06-14] MEDS: Lidocaine HCl Viscous 2 % 15 ML SOLUTION MUCOUS MEM (09:01)
[2024-06-14 10:35] VITALS: BP 104/55; PULSE 63; RESP 16; TEMP 37.2; O2SAT 97
== END 2024-06-14 10:35 | disposition home or self-care (01) ==
PROVIDERS: Registered Nurse Emergency; Emergency Provider Emergency Medicine Emergency Medical Services; PCP Nurse Practitioner Family
DX: R21 Rash and other nonspecific skin eruption (principal); T78.40XA Allergy, unspecified, initial encounter; X58.XXXA Exposure to other specified factors, initial encounter; J45.909 Unspecified asthma, uncomplicated; Z79.899 Other long term (current) drug therapy; Z03.818 Encounter for observation for suspected exposure to other biological agents ruled out
CPT/HCPCS: 0241U; 80053; 85025; 99284

== ENCOUNTER 2024-09-05 14:23 | Outpatient (REF) | payer MEDICARE, SELFPAY ==
[2024-09-05 15:51] LABS: MANUAL DIFF FLAG NO
[2024-09-05 16:25] LABS: Basophils Percent Auto 0.6 % (0-2); Eosinophils Absolute Auto 0.1 X10*3/uL (0.0-0.4); Eosinophils Percent Auto 2.6 % (0-4); Hematocrit 39.5 % (37.0-47.0); Hemoglobin 13.7 g/dl (12.0-16.0); Imm Gran Abs Auto 0.01 X10*3/uL (0.00-0.03); Imm Gran Pct Auto 0.2 % (0.0-0.4); Lymphocytes Absolute Auto 1.2 X10*3/uL (1.2-4.9); Lymphocytes Percent Auto 22.9 % (20-40); Mean Corpuscular HGB Conc 34.7 g/dl (31.0-35.0); Mean Corpuscular Hemoglobin 31.8 pg (27.0-33.0); Mean Corpuscular Volume 91.6 fL (80.0-98.0); Mean Platelet Volume 9.7 fL (9.4-12.3); Monocytes Absolute Auto 0.3 X10*3/uL (0.1-1.2); Monocytes Percent Auto 6.8 % (2-11); Neutrophils Absolute Auto 3.4 x10*3/uL (2.0-8.3); Neutrophils Percent Auto 66.9 % (45-73); Platelet Count 209 X10*3/uL (160-400); Red Blood Count 4.31 X10*6/uL (4.20-5.50); Red Cell Distribution Width 12.4 % (11.0-16.0)
[2024-09-05 16:58] LABS: Alanine Aminotransferase 23 U/L (0-31); Albumin Level 4.3 g/dL (3.5-5.0); Alkaline Phosphatase 120 U/L (39-117); Anion Gap 13 (12-20); Aspartate Amino Transferase 21 U/L (5-31); Bilirubin Total 0.7 mg/dL (0.0-1.0); Blood Urea Nitrogen 17 mg/dL (9-16); C Reactive Protein < 0.10 mg/dL (< or = 0.50); Calcium 9.5 mg/dL (8.4-10.2); Carbon Dioxide 29 mmol/L (22-29); Chloride 104 mmol/L (96-108); Estimated Glomerular Filt Rate > 60; Glucose Random 95 mg/dL (60-115); Potassium 4.2 mmol/L (3.3-5.1); Sodium 142 mmol/L (135-145); Total Protein 6.7 g/dL (6.5-8.0)
[2024-09-05 17:07] LABS: Ferritin 99 ng/mL (10-250); TSH reflex Free T4 0.64 uIU/mL (0.32-4.0)
[2024-09-05 17:20] LABS: Folate 11.9 ng/mL (> or = 4.0); Vitamin B12 389 pg/mL (200-900)
--- OUTSIDE RECORDS SUMMARY | 2024-09-05 17:34 | XMS_ITS | Encounter Summary ---
Author Organization [facility] Address [address] [place] [address] Care Team Providers Care Powerbuilder Name Role Phone Smitha Garcia MD Primary Care Provider Jorgito Hyde MD Unavailable [phone] [facility], Pcp Primary Care Provider Opal santacruz Encounter Details Date Type Department Care Team Description 09/18/2014 Manager Chemical Report Medical Records [address] [place] [address] Deshawn Nick Social History Tobacco Use Types [...] on filedocumented in this encounter Care Teams Powerbuilder Relationship Specialty Start Date End Date Smitha Garcia MD PCP - General Internal Medicine 04/03/14 01/01/22 [facility], Pcp [address] [facility] [address] [place] [address] PCP - General Internal Medicine 01/02/22 Jorgito Robles MD [address] [facility] [address] [place] [address] Specialist Cardiovascular Disease 08/16/20 documented as of this encounter
== END 2024-09-05 14:24 | disposition home or self-care (01) ==
LOC: HO.LAB 14:23
PROVIDERS: PCP Nurse Practitioner Family; Visit Provider Internal Medicine Gastroenterology
DX: K75.81 Nonalcoholic steatohepatitis (NASH) (principal); R19.8 Other specified symptoms and signs involving the digestive system and abdomen
CPT/HCPCS: 36415; 80053; 82607; 82728; 82746; 84443; 85025; 86140; 99212

== ENCOUNTER 2024-09-05 14:23 | Outpatient (AMB) | payer MEDICARE, SELFPAY ==
--- NOTE | 2024-09-05 14:27 | MHC.OFFVIS ---
Vital Signs 09/05/24 14:32 Height 5 ft 1 in Weight 127 lb 13.89 oz BMI 24.2 BP 105/55 L Blood Pressure Location Lt brachial Position Sitting Pulse 58 Intake Visit Reasons: 4 MO F/U Intake Note: Vanesa presents in the office as a 4 month follow up. CC: She states that she has some bowel movement concerns. Armed Custom Protection Officer Required: No Allergies Sulfa (Sulfonamide Antibiotics) Allergy (Unknown, Verified 09/05/24 14:29) Hives HPI HPI 4 MO F/U: Details: 69 yr old f here for f/u RECAP: she does get pins and needles around her tongue and citalopram helps she gets awful heartburn she takes pantoprazole bid but she feels it makes her worse she has had dysphagia for years, she has had balloon dilation many years ago she has had manometry testing at [facility] she has nausea and regurgitation she has IBS and has diarrhea usually, now recently more constipated last colonoscopy few yrs ago was normal EGD: 11/13 balloon dilation to 20 mm gastritis hiatal hernia erosive esophagitis esophageal stricture She was referred and had hernia repair 03/15 INTERIM: she has been having issues with abn bowel habits--constipation at times then diarrhea no fresh blood dark green, black at times solid usually she has issues with regurgitaiton and food getting stuck she denies abdominal pain, no diet changes, no new meds going on for few months EXAM: GENERAL: The patient is well developed and nontoxic. VITAL SIGNS:see workflow HEENT: Nonicteric sclerae, PERRLA, EOMI. Oropharynx clear. Moist mucous membranes. Conjunctivae appear well perfused. No thyroid mass. CHEST: Chest wall is nontender. HEART: Regular rate and rhythm without murmurs. LUNGS: Clear to auscultation bilaterally. ABDOMEN: Soft, positive bowel sounds, nontender, no organomegaly.no flank tenderness SKIN: No rash, no excessive bruising, petechiae, or purpura. NEUROLOGIC: Cranial nerves II-XII intact without motor/sensory deficit. Psych: nml affect A/P: 1/ Abn bowel habits and color need to r/o IBD, neoplasia, malabsoptive illness PLAN: 1/ cEGD and colo, 2/ check labs ioncl ferritin and CBC, stool lactoferrin [facility] Medical History (Updated 09/05/24 @ 15:05 by Rama Pryor MD) Vitreous degeneration Chest discomfort Screening for colon cancer Sinusitis Conjunctivitis, left eye Upper respiratory infection Conjunctivitis due to adenovirus, left eye Strep pharyngitis Leukopenia Physical exam Anxiety Depression Asthma Osteopenia Osteoarthritis, hand Paresthesias Pulmonary nodule Ground glass opacity present on imaging of lung Diffuse cystic mastopathy of breast Mixed incontinence urge and stress Kidney cyst Esophageal ulcer Hiatal hernia Elevated alkaline phosphatase level Kidney stones Leukopenia Barretts esophagus GERD (gastroesophageal reflux disease) Achalasia and cardiospasm Hypercholesteremia Stable angina Surgical History (Updated 09/05/24 @ 14:33 by LUCINA Felder) Hx of eye surgery H/O vitrectomy Status post repair of paraesophageal diaphragmatic hernia S/P total left hip arthroplasty Hx of colonoscopy History of esophagogastroduodenoscopy (EGD) Family History Brother Substance use disorder Progressive supranuclear palsy Mother Progressive supranuclear palsy Social History Household Members: Spouse Housing: House Are you a primary career based intervention coordinator to a significant other at home: No Do you presently have visiting nurse or other home services: No Alcohol intake: current Alcohol intake frequency: holidays/special occasions only Patient Tobacco Use Status: Former Tobacco user e-Cigarette/Vaping Use: Never Used Second Hand Smoke Exposure: No service: No Current occupational status: employed Current occupation: [employer] Current occupational exposures/hazards: No Cognitive needs: No Hearing needs: No Vision needs: No Physical Exam Vital Signs: Last Vital Signs Pulse 58 09/05/24 14:32 BP 105/55 L 09/05/24 14:32 BMI result Body Mass Index 24.2 Assessment & Plan Assessment & Plan (1) Abnormal bowel habits: Code(s): R19.8 - Other specified symptoms and signs involving the digestive system and abdomen Category: Medical Plan: as above Orders: Orders C Reactive Protein Today R19.8 - Other specified symptoms and signs involving the digestive system and abdomen Comprehensive Met. Panel Today K75.81 - Nonalcoholic steatohepatitis (MAYER), R19.8 - Other specified symptoms and signs involving the digestive system and abdomen Lactoferrin, Fecal, Quant. Today K51.50 - Left sided colitis without complications, R19.8 - Other specified symptoms and signs involving the digestive system and abdomen Vitamin B12 and Folate Today R19.8 - Other specified symptoms and signs involving the digestive system and abdomen Ferritin Today R19.8 - Other specified symptoms and signs involving the digestive system and abdomen Complete Blood Count Auto Diff Today R19.8 - Other specified symptoms and signs involving the digestive system and abdomen TSH reflex Free T4 Today R19.8 - Other specified symptoms and signs involving the digestive system and abdomen Medications: New sodium,potassium,mag sulfates 17.5-3.13-1.6 gram (Suprep Bowel Prep Kit) DILUTE; drink 1/2 at 6-8 pm and half at 11 PM- 1AM 354 mL 0RF Coding Level of Care Code Est Pt Level 3 (48045) Diagnoses Abnormal bowel habits R19.8
[2024-09-05 14:32] VITALS: BP 105/55; PULSE 58; BMI 24.2
== END 2024-09-05 15:17 | disposition home or self-care (01) ==
LOC: HO.HGI 14:24
PROVIDERS: PCP Nurse Practitioner Family; Visit Provider Internal Medicine Gastroenterology
DX: R19.8 Other specified symptoms and signs involving the digestive system and abdomen (principal)
CPT/HCPCS: 99213

== ENCOUNTER 2024-09-06 12:06 | Outpatient (REF) | payer MEDICARE, SELFPAY ==
[2024-09-14 22:53] LABS: Lactoferrin, Fecal, Quant. <6.25 mcg/mL (<7.25)
== END 2024-09-06 12:07 | disposition home or self-care (01) ==
LOC: HO.LNP 12:06
PROVIDERS: Visit Provider Internal Medicine Gastroenterology
DX: R19.8 Other specified symptoms and signs involving the digestive system and abdomen (principal); K51.50 Left sided colitis without complications
CPT/HCPCS: 83631

== ENCOUNTER 2024-09-13 08:50 | Day surgery (SDC) | payer MEDICARE, SELFPAY ==
--- NOTE | 2024-09-12 12:41 | HO.ANESPROP2 ---
Documented by User: Dorothy Deshpande NP 09/12/24 12:44 HPI - Anesthesia Eval Consult details Narrative: 69yo F for Upper Endoscopy and Colonoscopy s/p Hernia Diaphragmatic Lap 02/2024 with GA-ETT 7 s/p EGD 10/2023 with TIVA PMFSH Active Problems Active Problems: All Active Problems Abnormal bowel habits (Acute) Encounter for annual wellness visit (AWV) in Medicare patient (Acute) Pre-op evaluation (Acute) URI, acute (Acute) Right arm pain (Acute) Pain of right scapula (Acute) Right shoulder pain (Acute) Fall (Acute) Status post repair of paraesophageal diaphragmatic hernia (Acute) Anxiety (Acute) Depression (Acute) Asthma (Acute) Osteopenia (Acute) Osteoarthritis, hand (Acute) Diaphragmatic hernia (Acute) ALEXANDRO positive (Acute) Arthralgia (Acute) Fatigue (Acute) Rib pain on left side (Acute) DDD (degenerative disc disease), cervical (Acute) Chronic sinusitis (Acute) Cervical pain (neck) (Acute) Lymphadenopathy (Acute) Arthritis of left hip (Acute) Postmenopausal (Acute) GERD (gastroesophageal reflux disease) (Acute) S/P total left hip arthroplasty (Acute) Barretts esophagus (Acute) Hypercholesteremia (Acute) Past Medical History Medical History Vitreous degeneration Chest discomfort Screening for colon cancer Sinusitis Conjunctivitis, left eye Upper respiratory infection Conjunctivitis due to adenovirus, left eye Strep pharyngitis Leukopenia Physical exam Anxiety Depression Asthma Osteopenia Osteoarthritis, hand Paresthesias Pulmonary nodule Ground glass opacity present on imaging of lung Diffuse cystic mastopathy of breast Mixed incontinence urge and stress Kidney cyst Esophageal ulcer Hiatal hernia Elevated alkaline phosphatase level Kidney stones Leukopenia Barretts esophagus GERD (gastroesophageal reflux disease) Achalasia and cardiospasm Hypercholesteremia Stable angina Family History Family History Brother Substance use disorder Progressive supranuclear palsy Mother Progressive supranuclear palsy Family history of problems with anesthesia: No Surgical History Surgical History Hx of eye surgery H/O vitrectomy Status post repair of paraesophageal diaphragmatic hernia S/P total left hip arthroplasty Hx of colonoscopy History of esophagogastroduodenoscopy (EGD) History of Problems with Anesthesia: No Social History Social History Household Members: Spouse Housing: House Are you a primary vehicle care specialist to a significant other at home: No Do you presently have visiting nurse or other home services: No Alcohol intake: current Alcohol intake frequency: a few times a week Patient Tobacco Use Status: Former Tobacco user e-Cigarette/Vaping Use: Never Used Second Hand Smoke Exposure: No service: No Current occupational status: employed Current occupation: [employer] Current occupational exposures/hazards: No Cognitive needs: No Hearing needs: No Vision needs: No Meds Allergies Allergy/AdvReac Type Severity Reaction Status Date / Time Sulfa (Sulfonamide Allergy Unknown Hives Verified 09/05/24 14:29 Antibiotics) Home Medications ?Medication ?Instructions ?Recorded ?Confirmed ?Last Taken ?Type albuterol sulfate 90 mcg/actuation 2 inh inhalation Q4H PRN Shortness 01/15/24 06/06/24 Unknown History aerosol inhaler Of Breath Or Wheezing epinephrine 0.3 mg/0.3 mL 0.3 mg IM Q10M PRN Anaphylaxis 02/15/24 06/06/24 Unknown History injection, auto-injector Exam Pertinent Lab Results Pertinent Lab Results: Laboratory Tests 09/05/24 15:50 WBC 5.0 Hgb 13.7 Hct 39.5 Plt Count 209 Sodium 142 Potassium 4.2 Chloride 104 Carbon Dioxide 29 BUN 17 H Creatinine 0.81 Assessment and Plan Assessment Anesthesia Assessment: Chart Reviewed Final Anesthetic Review Family History of Problems with Anesthesia: No History of Problems with Anesthesia: No Documented by User: Marcelino Cantu MD 09/13/24 13:07 [facility] Past Medical History Medical History Vitreous degeneration Chest discomfort Screening for colon cancer Sinusitis Conjunctivitis, left eye Upper respiratory infection Conjunctivitis due to adenovirus, left eye Strep pharyngitis Leukopenia Physical exam Anxiety Depression Asthma Osteopenia Osteoarthritis, hand Paresthesias Pulmonary nodule Ground glass opacity present on imaging of lung Diffuse cystic mastopathy of breast Mixed incontinence urge and stress Kidney cyst Esophageal ulcer Hiatal hernia Elevated alkaline phosphatase level Kidney stones Leukopenia Barretts esophagus GERD (gastroesophageal reflux disease) Achalasia and cardiospasm Hypercholesteremia Stable angina Family History Family History Brother Substance use disorder Progressive supranuclear palsy Mother Progressive supranuclear palsy Surgical History Surgical History Hx of eye surgery H/O vitrectomy Status post repair of paraesophageal diaphragmatic hernia S/P total left hip arthroplasty Hx of colonoscopy History of esophagogastroduodenoscopy (EGD) Social History Social History Household Members: Spouse Housing: House Are you a primary vehicle care specialist to a significant other at home: No Do you presently have visiting nurse or other home services: No Alcohol intake: current Alcohol intake frequency: a few times a week Patient Tobacco Use Status: Former Tobacco user e-Cigarette/Vaping Use: Never Used Second Hand Smoke Exposure: No service: No Current occupational status: employed Current occupation: [employer] Current occupational exposures/hazards: No Cognitive needs: No Hearing needs: No Vision needs: No Meds Allergies Allergy/AdvReac Type Severity Reaction Status Date / Time Sulfa (Sulfonamide Allergy Unknown Hives Verified 09/05/24 14:29 Antibiotics) Home Medications ?Medication ?Instructions ?Recorded ?Confirmed ?Last Taken ?Type albuterol sulfate 90 mcg/actuation 2 inh inhalation Q4H PRN Shortness 01/15/24 06/06/24 Unknown History aerosol inhaler Of Breath Or Wheezing epinephrine 0.3 mg/0.3 mL 0.3 mg IM Q10M PRN Anaphylaxis 02/15/24 06/06/24 Unknown History injection, auto-injector Exam Airway Mallampati Class: II TM Dist: <=3cm Neck ROM: Full Heart: ok Lungs: ok Assessment and Plan Assessment Anesthesia Assessment: Anesthesia Plan Discussed Final Anesthetic Review NPO: Yes ASA Class: II Final Preanesthetic Review: No Changes in Pt Med Stat, Meds/Allgs Chart Reviewed, Consent Obtained/Reviewed and Anes Risks/Benef Reviewed Patient Risk: Intermediate Procedure Risk: Low Anesthetic Plan Anesthetic Plan: MAC: and Agree w/ Assess. and Plan Disposition: Standard PACU
[2024-09-13 09:28] VITALS: BP 114/61; PULSE 69; RESP 12; TEMP 37.1; O2SAT 96; BMI 23.6
[2024-09-13] MEDS: Lactated Ringers 1,000 ML 100 ML IVCONT (09:31)
--- NOTE | 2024-09-13 10:56 | MHC.SHP ---
Pre-Procedural Eval Section A - 24 Hr Update-Section A only Date of Service: 09/13/24 The patient is an INPATIENT: No The patient has been examined within 24 hours of the surgical procedure. The History & Physical has been completed within 30 days and I have reviewed it.: Yes Section B - Complete if H&P > 30 days Chief Complaint: Change in bowel habit Allergies: Allergies Allergy/AdvReac Type Severity Reaction Status Date / Time Sulfa (Sulfonamide Allergy Unknown Hives Verified 09/05/24 14:29 Antibiotics) Plan Diagnosis/Plan: Unchanged I have reviewed the history and physical and performed a pertinent physical examination on my patient. No changes have occurred unless specified. Time Spent With Patient Time: Total time managing care of this patient today ____ minutes.
--- NOTE | 2024-09-13 11:45 | HO.OPN-COLON ---
Colonoscopy Operative Note Operative Note Date of Service: 09/13/24 Narrative: Operative Information Procedure Description: EGD, Colonoscopy Indication: abn bowel habits Anesthesia: MAC FLEXIBLE TRANSORAL UPPER GASTROINTESTINAL ENDOSCOPY AND COLONOSCOPY PROCEDURE NOTE UPPER ENDOSCOPY Consent: Indications for the procedure and potential complications of bleeding, perforation, reaction to medications and missed diagnosis were discussed with the patient and informed consent was obtained. Instrument: Olympus GIF H 190 J mid size upper endoscope Monitoring: Vital signs and clinical assessment, continuous EKG monitoring, Pulse oximetry, Carbon Dioxide monitoring and blood pressure monitoring were done throughout the procedure. Procedure: The patient was placed in the left lateral decubitis position and pre-procedure medications were administered and a bite block was placed. The endoscope was inserted into the mouth and advanced under direct vision to the third part of duodenum. A careful inspection was made as the upper endoscope was withdrawn including a retroflexed examination of the proximal stomach; Findings and interventions are described below. Findings: Larynx:normal Esophagus: GE junction at 32 cm, diaphragm hiatus at 35 cm, consistent with 3 cm hiatal hernia, mild bogginess and erythema GEJ, bx taken also from distal esophagus Stomach: Normal mucosa. Biopsies were obtained. Grade 2 flap valve on retroflexed examination of the cardia. few fundic gland polyps noted. Duodenum: Normal bulb and descending duodenum, bx taken Intervention: Biopsies as noted above, COLONOSCOPY Instrument: Olympus variable stiffness pediatric scope 190L Colonoscopy Monitoring: Vital signs and clinical assessment, continuous EKG monitoring, Pulse oximetry, Carbon Dioxide monitoring and blood pressure monitoring were done throughout the procedure. Colon withdrawal time was 18 minutes. Procedure: The patient was placed in the left lateral decubitis position and pre-procedure medications were administered. After a digital rectal examination of the ano-rectum, the video colonoscope was inserted into the rectum and advanced through the colon to the cecum/TI. The colonoscope was slowly withdrawn in a retrograde panoramic fashion and the colon mucosa was carefully examined including a retroflexed view of the rectum. Findings and interventions are described below. Procedure Difficulty:moderate Findings: Terminal Ileum-normal, bx taken Random bx taken from right and left colon and rectum one bx site on the right kept bleeding and clip applied for hemostasis Cecum:normal Ascending Colon: normal Transverse Colon -normal Descending Colon:normal Sigmoid Colon: moderate diverticulosis Rectum: Retroflexion with small internal hemorrhoids, grade I Anorectum - normal Colon preparation: [place] Bowel Preparation Scale Right colon; 2 Transverse colon: 2 Left colon; 2 (0 = Unprepared colon segment with mucosa not seen due to solid stool that cannot be cleared. 1 = Portion of mucosa of the colon segment seen, but other areas of the colon segment not well seen due to staining, residual stool and/or opaque liquid. 2 = Minor amount of residual staining, small fragments of stool and/or opaque liquid, but mucosa of colon segment seen well. 3 = Entire mucosa of colon segment seen well with no residual staining, small fragments of stool or opaque liquid) Impression and Post Procedure Diagnosis: Endoscopy Findings: esophagitis fundic gland polyps hiatal hernia Colonoscopy Findings: diverticulosis internal hemorrhoids Plan: Await Pathology results Repeat Colonoscopy in 10 years or earlier if clinically indicated High fiber diet leaflet avoid straining at stool, epsom salts and sitz bath, anusol supps or cream GERD precautions Above findings were reviewed with the patient and relevant handouts were provided if indicated.
[2024-09-13 11:55] VITALS: BP 106/59; PULSE 76; RESP 16; TEMP 36.4; O2SAT 96
[2024-09-13 12:10] VITALS: BP 119/63; PULSE 68; RESP 18; TEMP 36.4; O2SAT 96
== END 2024-09-13 12:46 | disposition home or self-care (01) ==
PROVIDERS: PCP Nurse Practitioner Family; Visit Provider Internal Medicine Gastroenterology
PROC: (CPT 45380; principal; 2024-09-13 11:10)
DX: R19.4 Change in bowel habit (principal); K57.30 Diverticulosis of large intestine without perforation or abscess without bleeding; K64.0 First degree hemorrhoids; K22.70 Barrett's esophagus without dysplasia; K21.00 Gastro-esophageal reflux disease with esophagitis, without bleeding; K31.7 Polyp of stomach and duodenum; K22.89 Other specified disease of esophagus; K44.9 Diaphragmatic hernia without obstruction or gangrene; E78.00 Pure hypercholesterolemia, unspecified; J45.909 Unspecified asthma, uncomplicated
CPT/HCPCS: 45380; 43239; 88305; 88313; 88342; J2003; J2704; J3010

== ENCOUNTER → 2024-09-13 08:50 | Outpatient (BNV) | payer MEDICARE, SELFPAY | PROVIDERS: PCP Nurse Practitioner Family; Visit Provider Internal Medicine Gastroenterology | DX: R19.4 Change in bowel habit (principal); K57.30 Diverticulosis of large intestine without perforation or abscess without bleeding; K64.0 First degree hemorrhoids; K20.90 Esophagitis, unspecified without bleeding; K31.7 Polyp of stomach and duodenum | CPT/HCPCS: 43239; 45380 ==

== ENCOUNTER 2024-10-05 13:57 | Outpatient (AMB) | payer MEDICARE, SELFPAY ==
[2024-10-05 14:02] VITALS: BP 110/62; PULSE 60; RESP 16; TEMP 36.8; O2SAT 97; BMI 25.3
--- NOTE | 2024-10-05 14:02 | MHC.PC.OV ---
Vital Signs 10/05/24 14:02 Height 5 ft 1 in Weight 134 lb BMI 25.3 BP 110/62 Blood Pressure Location Lt brachial Position Sitting Respiration 16 Pulse 60 Pulse Source Pulse Oximeter Temp 98.3 F Temp Source Oral Pulse Oximetry (%) 97 Oxygen Delivery Method Room Air Intake Visit Reasons: 4m follow up [address] Production Manager Required: No Accompanied by: Self / Same As Patient Allergies Sulfa (Sulfonamide Antibiotics) Allergy (Unknown, Verified 10/05/24 14:51) Hives Medication List - Last Reconciled 10/05/24 by Glen Gusman, [facility]- albuterol sulfate 90 mcg/actuation 2 inhalations inhalation Q4H PRN atorvastatin 10 mg PO BEDTIME calcium carbonate-vitamin D3 600 mg-10 mcg (400 unit) (Calcium with Vitamin D) 1 tab PO BID citalopram 20 mg PO DAILY 90 days epinephrine 0.3 mg IM Q10M PRN famotidine 20 mg PO DAILY lansoprazole 15 mg PO BID sodium,potassium,mag sulfates 17.5-3.13-1.6 gram (Suprep Bowel Prep Kit) DILUTE; drink 1/2 at 6-8 pm and half at 11 PM- 1AM Tobacco use date assessed: 10/05/24 Fall risk assessment: No Falls in past year Last assessed Fall Risk: 10/05/24 Dental Screening Dental Screen Date: 10/05/24 Did you have a dental visit in the last 12 months?: Yes Did you have a dental problem in the last 6 months where you did not have access to dental care?: No Was dental information given to patient?: Patient has dentist HPI 4m follow up HPI Details Chief Complaint The patient presents for a follow-up visit to discuss recent lab results and cardiovascular symptoms. History of Present Illness The patient is a 69-year-old female presenting with cardiovascular concerns and follow-up on recent laboratory results. She reports feeling well overall but experiences intermittent dyspnea on exertion and palpitations. Her father from a myocardial infarction at the age of 68, which raises concerns given her approaching age. Recent laboratory tests indicated elevated alkaline phosphatase levels, although they are trending downwards. An EKG performed today showed sinus bradycardia with a heart rate of 55 bpm. A chest X-ray was ordered to further evaluate the dyspnea on exertion. Social History Health Maintenance - Lipid panel to be repeated in two months - Echocardiogram, stress test, and Holter monitor ordered for further cardiac evaluation - Chest X-ray ordered to evaluate dyspnea on exertion Review of Systems - Cardiovascular: Reports palpitations. Denies chest pain. - Respiratory: Reports dyspnea on exertion. Denies persistent shortness of breath. -denies any dizziness, PND, blurred vision, CASTELLANOS Physical Exam General: Cooperative, healthy appearing, comfortable, no acute distress and well developed Orientation: Patient oriented x3 Limitations: No limitations Head: Normal to inspection Ears: Hearing grossly normal bilaterally Nose: Normal external nose present Face and sinus: Normal facial exam Eyes: Appearance normal, both eyes and all related structures Neck: Normal visual inspection and Yes full ROM, no carotid bruits noted Respiratory: Normal respiratory effort and able to speak in complete sentences. Clear to auscultation bilaterally Cardiovascular: Sinus bradycardia, heart rate 55. Normal S1 and S2 GI: Normal to inspection. Soft to palpation and nontender Skin: No rashes or lesions noted Neuro: Patient oriented x3 Extremities: Normal to inspection, no edema Results - EKG: Sinus bradycardia with a heart rate of 55 bpm Plan The plan includes repeating the lipid panel in two months to monitor hyperlipidemia. An echocardiogram, stress test, and Holter monitor have been ordered to further evaluate the cardiac symptoms, including sinus bradycardia and palpitations. A chest X-ray has been ordered to assess the dyspnea on exertion and rule out any respiratory causes. The patient is advised to seek emergency care if symptoms worsen and is scheduled for a follow-up in six months. Discussion Notes I discussed with the patient the importance of monitoring her lipid levels and the potential implications of her family history of myocardial infarction. We reviewed the need for further cardiac evaluation through an echocardiogram, stress test, and Holter monitor to assess her symptoms of sinus bradycardia and palpitations. I also explained the rationale for ordering a chest X-ray to evaluate her dyspnea on exertion. The patient was advised to seek emergency care if her symptoms worsen and to follow up in six months to review the results of the tests and her overall progress. Patient Instructions - Repeat lipid panel in two months. - Undergo echocardiogram, stress test, and Holter monitor as scheduled. - Get a chest X-ray as ordered. - Go to the ER if symptoms worsen. - Follow up in six months. [facility] Medical History (Updated 10/05/24 @ 14:31 by Glen Gusman [facility]) Chest discomfort Vitreous degeneration Screening for colon cancer Sinusitis Conjunctivitis, left eye Upper respiratory infection Conjunctivitis due to adenovirus, left eye Strep pharyngitis Leukopenia Physical exam Anxiety Depression Asthma Osteopenia Osteoarthritis, hand Paresthesias Pulmonary nodule Ground glass opacity present on imaging of lung Diffuse cystic mastopathy of breast Mixed incontinence urge and stress Kidney cyst Esophageal ulcer Hiatal hernia Elevated alkaline phosphatase level Kidney stones Leukopenia Barretts esophagus GERD (gastroesophageal reflux disease) Achalasia and cardiospasm Hypercholesteremia Stable angina Surgical History Hx of eye surgery H/O vitrectomy Status post repair of paraesophageal diaphragmatic hernia S/P total left hip arthroplasty Hx of colonoscopy History of esophagogastroduodenoscopy (EGD) Family History Brother Substance use disorder Progressive supranuclear palsy Mother Progressive supranuclear palsy Social History Household Members: Spouse Housing: House Are you a primary rn homecare to a significant other at home: No Do you presently have visiting nurse or other home services: No Alcohol intake: current Alcohol intake frequency: a few times a week Patient Tobacco Use Status: Former Tobacco user e-Cigarette/Vaping Use: Never Used Second Hand Smoke Exposure: No service: No Current occupational status: employed Current occupation: [employer] Current occupational exposures/hazards: No Cognitive needs: No Hearing needs: No Vision needs: No Questionnaire PHQ-9 Over the last 2 weeks, how often have you been bothered by any of the following problems? 1. Little interest or pleasure in doing things: not at all 2. Feeling down, depressed, or hopeless: not at all 3. Trouble falling or staying asleep, or sleeping too much: not at all 4. Feeling tired or having little energy: several days 5. Poor appetite or overeating: not at all 6. Feeling bad about yourself - or that you are a failure or have let yourself or your family down: not at all 7. Trouble concentrating on things, such as reading the newspaper or watching television: not at all 8. Moving or speaking so slowly that other people could have noticed. Or the opposite - being so fidgety or restless that you have been moving around a lot more than usual: not at all 9. Thoughts that you would be better off or of hurting yourself in some way: not at all Total score: 1 Depression Screening Interpretation: Negative Depression Screening Done: Yes 16803 - PHQ-9 Billing: Yes Source: Developed by Drs. Donovan Beck, Zohreh Desir, Kaveh Hernandez and colleagues, with an educational aruna from [employer]. Thrive Questionnaire Date Thrive assessed: 10/05/24 I am a: Patient What is your living situation today?: I have a steady place to live Within the past 12 months, did the food you bought not last and you didn't have the money to get more?: Never true Within the past 12 months, did you worry whether your food would run out before you got money to buy more?: Never true Do you have trouble paying for medicines?: No Do you have trouble getting transportation to medical appointments?: No Do you have trouble paying your heating and electricity bill?: No Do you have trouble taking care of your child, family member or friend?: No Do you have trouble with day-to-day activities such as bathing, preparing meals, shopping, managing finances, etc.?: No Are you currently unemployed and looking for a job?: No Are you interested in more education?: No Please select the resources that you would like help with: None Currently or been in a relationship where the following occur: No concerns reported THRIVE Score: 0 AUDIT C Alcohol Use Questionnaire (AUDIT-C) 1. How often do you have a drink containing alcohol?: 2-4 times a month Total Score: 2 GENNA-7 AMB Questionnaire GENNA-7 Date GENNA - 7 assessed: 06/06/24 Feeling nervous, anxious, or on edge: 0 = Not at all Not being able to stop or control worryin = Not at all Worrying too much about different things: 0 = Not at all Trouble relaxin = Not at all Being so restless that it is hard to sit still: 0 = Not at all Becoming easily annoyed or irritable: 0 = Not at all Feeling afraid as if something awful might happen: 0 = Not at all Total GENNA-7 score (0-4 normal; 5-9 mild; 10-14 moderate; 15-21 severe): 0 Source: Developed by Drs. Donovan Beck, Zohreh Desir, Kaveh Hernandez and colleagues, with an educational aruna from [employer]. GENNA-7 Assessment Billing GENNA-7 Assessment Tool: GENNA-7 Assessment 66405 Physical exam (Primary Care) Vital Signs: Last Vital Signs Temp 98.3 F 10/05/24 14:02 Pulse 60 10/05/24 14:02 Resp 16 10/05/24 14:02 BP 110/62 10/05/24 14:02 Pulse Ox 97 10/05/24 14:02 Oxygen Delivery Method Room Air 10/05/24 14:02 BMI result Body Mass Index 25.3 Tobacco/Smoking Status: Tobacco use Status Tobacco use date assessed 10/05/24 10/05/24 14:08 Patient Tobacco Use Status Former Tobacco user 10/05/24 14:08 e-Cigarette/Vaping Use Never Used 10/05/24 14:08 PHQ-9: PHQ-9 Score PHQ-9: Total score 1 10/05/24 14:08 Depression Screening Interpretation: Negative Thrive Assessment: Date of Thrive Assessment Date Thrive assessed 10/05/24 10/05/24 14:08 Currently or been in a relationship where the following occur: No concerns reported Coding Level of Care Code Est Pt Level 3 (74582) Diagnoses Dyslipidemia E78.5 Elevated alkaline phosphatase level R74.8 Palpitations R00.2 Dyspnea on exertion R06.09 Chest discomfort R07.89 Additional Codes GENNA-7 Assessment Billing - GENNA-7 Assessment Tool: GENNA-7 Assessment 28680 ([id number]) PHQ-9 - 61528 - PHQ-9 Billing: Yes ([id number]) Assessment & Plan Assessment & Plan (1) Dyslipidemia: Code(s): E78.5 - Hyperlipidemia, unspecified Category: Medical (2) Elevated alkaline phosphatase level: Code(s): R74.8 - Abnormal levels of other serum enzymes Category: Medical (3) Palpitations: Code(s): R00.2 - Palpitations Category: Medical (4) Dyspnea on exertion: Code(s): R06.09 - Other forms of dyspnea Category: Medical (5) Chest discomfort: Code(s): R07.89 - Other chest pain Category: Medical Plan . Orders: Orders Alkaline Phosphatase Isoenzyme 2 Months E78.5 - Hyperlipidemia, unspecified, R74.8 - Abnormal levels of other serum enzymes Lipid Panel 2 Months E78.5 - Hyperlipidemia, unspecified, R74.8 - Abnormal levels of other serum enzymes Comprehensive [place]. Panel Fast 2 Months E78.5 - Hyperlipidemia, unspecified, R74.8 - Abnormal levels of other serum enzymes ECG 3 day holter monitor Today R00.2 - Palpitations AMB EKG-In Office Today R00.2 - Palpitations B Type Natriuretic Peptide Today R00.2 - Palpitations, R06.09 - Other forms of dyspnea, R07.89 - Other chest pain XR chest 2V Today R00.2 - Palpitations, R06.09 - Other forms of dyspnea CA echo transthoracic complete Today R00.2 - Palpitations, R06.09 - Other forms of dyspnea, R07.89 - Other chest pain
== END 2024-10-05 14:48 | disposition home or self-care (01) ==
LOC: HO.HMCC 13:58
PROVIDERS: PCP Nurse Practitioner Family; Visit Provider Nurse Practitioner Family
DX: E78.5 Hyperlipidemia, unspecified (principal); R74.8 Abnormal levels of other serum enzymes; R00.2 Palpitations; R06.09 Other forms of dyspnea; R07.89 Other chest pain

== ENCOUNTER → 2024-10-05 13:57 | Outpatient (BNVA) | payer MEDICARE, SELFPAY | PROVIDERS: PCP Nurse Practitioner Family; Visit Provider Nurse Practitioner Family | DX: E78.5 Hyperlipidemia, unspecified (principal); R74.8 Abnormal levels of other serum enzymes; R00.2 Palpitations; R06.09 Other forms of dyspnea; R07.89 Other chest pain | CPT/HCPCS: 96127; 99212 ==

== ENCOUNTER 2024-10-10 11:46 | Outpatient (AMB) | payer MEDICARE, SELFPAY ==
--- NOTE | 2024-10-10 11:59 | MHC.OFFVIS ---
Vital Signs 10/10/24 12:03 Height 5 ft 1 in Weight 132 lb BMI 24.9 BP 96/50 L Blood Pressure Location Lt brachial Position Sitting Pulse 61 Pulse Oximetry (%) 97 Oxygen Delivery Method Room Air Intake Visit Reasons: s/p double Intake Note: Patient follow up for s/p double results. Patient cc: between diarrhea and constipation on and off. Denies any other GI issues. Steam Cleaner Required: No Accompanied by: Self / Same As Patient Allergies Sulfa (Sulfonamide Antibiotics) Allergy (Unknown, Verified 10/10/24 11:57) Hives HPI HPI s/p double: Details: 69 yr old f here for f/u RECAP: she does get pins and needles around her tongue and citalopram helps she gets awful heartburn she takes pantoprazole bid but she feels it makes her worse she has had dysphagia for years, she has had balloon dilation many years ago she has had manometry testing [facility] she has nausea and regurgitation she has IBS and has diarrhea usually, now recently more constipated last colonoscopy few yrs ago was normal EGD: 11/13 balloon dilation to 20 mm gastritis hiatal hernia erosive esophagitis esophageal stricture She was referred and had hernia repair 03/15 EGD, colo 09/13/24 Endoscopy Findings: esophagitis fundic gland polyps hiatal hernia Colonoscopy Findings: diverticulosis internal hemorrhoids path- barrets with chronic inflammation INTERIM: she has been taking lansoprazole bid and working ok, start was rough but better now bowels are ok now no dysphagia no n/v appetite is good otherwise doing well taking multi vitamin and vit D supplement EXAM: GENERAL: The patient is well developed and nontoxic. VITAL SIGNS:see workflow HEENT: Nonicteric sclerae, PERRLA, EOMI. Oropharynx clear. Moist mucous membranes. Conjunctivae appear well perfused. No thyroid mass. CHEST: Chest wall is nontender. HEART: Regular rate and rhythm without murmurs. LUNGS: Clear to auscultation bilaterally. ABDOMEN: Soft, positive bowel sounds, nontender, no organomegaly.no flank tenderness SKIN: No rash, no excessive bruising, petechiae, or purpura. NEUROLOGIC: Cranial nerves II-XII intact without motor/sensory deficit. Psych: nml affect A/P: 1/ GERD and Barretts- no dysplasia PLAN: 1/cont with PPI, multivitamin and Vit D 2/ GERD oprecautions 3/ repeat EGD in few years or earlier if needed [facility] Medical History (Updated 10/05/24 @ 14:31 by Glen Gusman [facility]) Chest discomfort Vitreous degeneration Screening for colon cancer Sinusitis Conjunctivitis, left eye Upper respiratory infection Conjunctivitis due to adenovirus, left eye Strep pharyngitis Leukopenia Physical exam Anxiety Depression Asthma Osteopenia Osteoarthritis, hand Paresthesias Pulmonary nodule Ground glass opacity present on imaging of lung Diffuse cystic mastopathy of breast Mixed incontinence urge and stress Kidney cyst Esophageal ulcer Hiatal hernia Elevated alkaline phosphatase level Kidney stones Leukopenia Barretts esophagus GERD (gastroesophageal reflux disease) Achalasia and cardiospasm Hypercholesteremia Stable angina Surgical History Hx of eye surgery H/O vitrectomy Status post repair of paraesophageal diaphragmatic hernia S/P total left hip arthroplasty Hx of colonoscopy History of esophagogastroduodenoscopy (EGD) Family History Brother Substance use disorder Progressive supranuclear palsy Mother Progressive supranuclear palsy Social History Household Members: Spouse Housing: House Are you a primary hemodialysis patient care specialist to a significant other at home: No Do you presently have visiting nurse or other home services: No Alcohol intake: current Alcohol intake frequency: a few times a week Patient Tobacco Use Status: Former Tobacco user e-Cigarette/Vaping Use: Never Used Second Hand Smoke Exposure: No service: No Current occupational status: employed Current occupation: [employer] Current occupational exposures/hazards: No Cognitive needs: No Hearing needs: No Vision needs: No Physical Exam Vital Signs: Last Vital Signs Pulse 61 10/10/24 12:03 BP 96/50 L 10/10/24 12:03 Pulse Ox 97 10/10/24 12:03 Oxygen Delivery Method Room Air 10/10/24 12:03 BMI result Body Mass Index 24.9 Assessment & Plan Assessment & Plan (1) Barretts esophagus: Code(s): K22.70 - Moraes's esophagus without dysplasia Category: Medical Plan: as above Coding Level of Care Code Est Pt Level 3 (86505) Diagnoses Barretts esophagus K22.70
[2024-10-10 12:03] VITALS: BP 96/50; PULSE 61; O2SAT 97; BMI 24.9
--- OUTSIDE RECORDS SUMMARY | 2024-10-10 12:49 | XMS_ITS | Clinical Summary ---
Author Organization [facility] Address [address] [place] [id number] Phone Care Team Providers Care Wire Repairer Name Role Phone Glen Gusman NP Primary Care Provider + Allergies Active Allergy Reactions Criticality Noted Date Comments Omeprazole Diarrhea Low 05/17/2018 diarrhea Sulfacetamide Sodium 02/18/2005 Other reaction(s): Rash/Dermatitis Medications multivitamins capsule Take by mouth daily. Active citalopram (CELEXA) 20 MG tablet Take 1 tablet by mouth daily. 05/07/2021 Active pantoprazole (PROTONIX) 40 MG tablet Take 40 mg by mouth. 07/26/2021 Active estradioL (VAGIFEM) [address] 1 tablet vaginally. 01/23/2021 Active Active Problems No known active problems Immunizations Immunization Administration Dates Next Due Influenza Quadrivalent MDCK Preservative Free IM 01/16/2021,12/06/2019,01/05/2019,2017 Influenza Quadrivalent Prese rvative Free IM 04/21/2017 Influenza Trivalent w/ Prese rvative IM 12/28/2013,12/14/2012,04/07/2012 Td (adult),2 Lf Tetanus Toxo id, PF, Adsorbed 03/13/2005 Tdap 10/13/2011 Zoster recombinant 03/24/2020,01/10/2020 Social History Tobacco Use Types Packs/Day Years Used Date Smoking Tobacco: Former Smokeless Tobacco: Never Education Answer Date Recorded Are you interested in more education? Not on melvi e 07/19/2022 Are you concerned about learning? Not on file 07/19/2022 No 07/19/2022 No 07/19/2022 Digital Access Answer Date Recorded No 08/17/2022 No 08/17/2022 No 08/17/2022 Reliable internet access at home? Not on file 08/17/2022 Device with a working camera? Not on file Comments Unknown Sex and Gender Information Value Date Recorded Sex Assigned at Not on file Legal Sex Female 4:50 PM EDT Gender Identity Not on file Sexual Orientation Not on file Last Filed Vital Signs Vital Sign Reading Time Taken Comments Blood Pressure 110/69 09/30/2021 5:19 PM EDT Pulse 68 09/30/2021 5:19 PM EDT Temperature 36.9 C (98.4 F) 09/30/2021 5:19 PM EDT Respiratory Rate 20 09/30/2021 5:19 PM EDT Oxygen Saturation 98% 09/30/2021 5:19 PM EDT Inhaled Oxygen Concentration - - Weight 63 kg (139 lb) 09/30/2021 5:19 PM EDT Height 154.9 cm (5' 1 ) 09/30/2021 5:19 PM EDT Body Mass Index 26.26 09/30/2021 5:19 PM EDT Plan of Treatment Health Maintenance Due Date Last Done Comments LIPID PANEL 1955 DEPRESSION SCREENING 1969 SMOKING Hx and SMOKELESS TOBACCO SCREENING 1970 HEPATITIS C SCREENING 1975 MAMMOGRAM 1997 COLOGUARD 2002 COLONOSCOPY 2002 COLORECTAL CANCER SCREENING 2002 FIT TEST 2002 FOBT 2002 SIGMOIDOSCOPY 2002 VIRTUAL COLONOSCOPY 2002 PNEUMOCOCCAL VACCINES (50+ years) (1 of 1 - PCV) 2007 Adult Td,Tdap Booster 10/12/2021 10/13/2011 , 03/13/2005 OSTEOPOROSIS SCREENING INITI AL (ONE-TIME) 2022 COVID-19 VACCINE (4 - 2023-2 5 season) 2023 02/17/2021, 06/27/2020, 06/06/2020 RSV VACCINE (1 - 1-dose 75+ series) 2032 ZOSTER VACCINES Completed 03/24/2020, 01/10/2020 HEPATITIS A VACCINES Aged Out No long er eligible based on patient's age to complete this topic HIB VACCINES Aged Out No longer eligi ble based on patient's age to complete this topic MENINGOCOCCAL VACCINES (ACWY) Aged Out No longer eligible based on patient's age to complete this topic MENINGOCOCCAL VACCINES (B) Aged Out N o longer eligible based on patient's age to complete this topic Medical Devices Not on file Insurance [address] [place] [address] [place] [address] [facility] [place] [address] [place] [address] [facility] [place] [address] [facility] [place] [address] [facility] Care Teams Wire Repairer Relationship Specialty Start Date End Date Glen Gusman NP [address] [facility] [place] [id number] [email or web address] PCP - General Family Medicine 09/30/21 Additional Source Comments The information contained in this document represents components of the legal health record. It is not the complete legal health record.[facility]
== END 2024-10-10 12:39 | disposition home or self-care (01) ==
LOC: HO.HGI 11:47
PROVIDERS: PCP Nurse Practitioner Family; Visit Provider Internal Medicine Gastroenterology
DX: K22.70 Barrett's esophagus without dysplasia (principal)
CPT/HCPCS: 99213

== ENCOUNTER → 2024-10-10 11:46 | Outpatient (BNVA) | payer MEDICARE, SELFPAY | PROVIDERS: PCP Nurse Practitioner Family; Visit Provider Internal Medicine Gastroenterology | DX: K22.70 Barrett's esophagus without dysplasia (principal) | CPT/HCPCS: 99212 ==

== ENCOUNTER 2024-10-12 14:11 | Outpatient (REF) | payer MEDICARE, SELFPAY ==
--- NOTE | ~2024-10-12 | XR_ITS ---
EXAMINATION: XR CHEST CLINICAL INFORMATION: R00.2 - Palpitations COMPARISON: October 13, 2023 TECHNIQUE: 2 views of the chest were obtained. FINDINGS: Lungs are clear and well aerated. There is no pleural effusion. Heart size is within normal limits. Impression late rotator cuff repair are stable in the right. Mild compression fracture of superior T4 is new since the prior. Stable mild superior endplate compression fracture of T11 is noted. XR/XR chest 2V IMPRESSION: No acute disease. Mild superior endplate T4 fracture is new since the prior exam one year ago. Mild superior endplate compression fracture of T11 is unchanged. Electronically signed by: Rodriguez Mcfarland MD 10/12/2024 02:44 PM EDT
--- OUTSIDE RECORDS SUMMARY | 2024-10-12 14:54 | XMS_ITS | Clinical Summary ---
Author Organization [facility] Address [address] [place] [phone] Phone Care Team Providers Care Legal Document Assistant Name Role Phone Glen Gusman NP Primary [...] Medical Devices Not on file Insurance [address] [place] [address] [facility] [place] [address] [facility] [place] [address] [facility] [place] [address] [facility] Address: [address] [address] [place] [address] [facility] [place] [address] [facility] Care Teams Legal Document Assistant Relationship Specialty Start Date End Date Glen Gusman NP [address] [facility] [place] [id number] [email or web address] PCP - General Family Medicine 09/30/21 Additional Source Comments The information contained in this document represents components of the legal health record. It is not the complete legal health record.[facility]
--- OUTSIDE RECORDS SUMMARY | 2024-10-12 14:54 | XMS_ITS ---
Author Name [facility] Organization Unknown Care Team Organization Name Specialty Phone Email Start Date End Da te [facility] Termed, PROVIDER Primary Care 01/28/202210/21
[2024-10-12 15:51] LABS: B Type Natriuretic Peptide 47 pg/mL (<100)
== END 2024-10-12 14:12 | disposition home or self-care (01) ==
LOC: HO.XRAY 14:11
PROVIDERS: PCP Nurse Practitioner Family; Visit Provider Nurse Practitioner Family
DX: R07.89 Other chest pain (principal); R00.2 Palpitations; R06.09 Other forms of dyspnea
CPT/HCPCS: 36415; 71046; 83880

== ENCOUNTER → 2024-10-12 14:22 | Outpatient (BNV) | payer MEDICARE, SELFPAY | PROVIDERS: PCP Nurse Practitioner Family; Visit Provider Radiology Diagnostic Radiology | DX: S22.049A Unspecified fracture of fourth thoracic vertebra, initial encounter for closed fracture (principal) | CPT/HCPCS: 71046 ==

== ENCOUNTER → 2024-11-18 09:51 | Outpatient (REF) | payer MEDICARE, SELFPAY ==
--- NOTE | 2024-11-18 09:56 | CA_ITS ---
Transthoracic Echocardiogram Patient (Last, First, Middle): Vanesa Wayne A Gender: F Date of : 1955 Age: 69 Procedure Date: 11/18/2024 Procedure Type: Transthoracic Echocardiogram Location: OP Height: 154.94 cm Weight: 61.24 kg BSA: 1.60 m2 Heart Rate: bpm BP: 128 / 70 mmHg Horticulture Worker: TO Referring MD: Glen Gusman [facility] Symptoms: R00.2 - Palpitations Study Quality: Adequate ECG Rhythm: Sinus Conclusions: - The left ventricular systolic function is normal. The calculated ejection fraction is 58% by biplane method. - No obvious valvular pathology seen on this study. Findings Left Ventricle Normal left ventricular cavity size. There is normal left ventricular wall thickness. The left ventricular systolic function is normal. The calculated ejection fraction is 58% by biplane method. There is no evidence of regional wall motion abnormalities. Diastolic function is normal for age. Right Ventricle Normal right ventricular cavity size and systolic function. Atria Both atria are normal in size. Aortic Valve There is a normal trileaflet aortic valve. There is no aortic valve stenosis. There is no aortic valve regurgitation. Mitral Valve The mitral valve appears normal. There is trace mitral valve regurgitation. There is no mitral valve stenosis. Pulmonic Valve The pulmonic valve is likely normal. Tricuspid Valve Normal tricuspid valve structure. There is trace tricuspid valve regurgitation. There is no evidence of pulmonary hypertension. Great Vessels The asc aorta is normal in size. Venous The inferior vena cava is normal in size and collapses greater than 50% with inspiration. Pericardium/Pleural There is no evidence of pericardial effusion. Prior Study Comparison No prior study available for comparison. Recommendations, Care & Conclusions No obvious valvular pathology seen on this study. Measurements 2D Linear Measurements IVSd: 0.75 0.6-0.9/0.6-1.0 cm LVIDd: 4.14 3.9-5.3/4.2-5.9 cm LVIDd Index: 2.59 2.4-3.2/2.2-3.1 cm/m2 LVIDs: 2.31 2.0-3.6 cm LVPWd: 0.74 0.7-1.1 cm LA Diam: 3.30 2.7-3.8/3.0-4.0 cm LAIDs Index: 2.06 1.5-2.3 cm/m2 LV Mass: 111.70 67-162/88-224 g LV Mass Index: 69.81 43-95/49-115 g/m2 LVOT Diam: 1.90 3.0+(-)1.3 cm 2D Systolic Function EF 4C: 58.60 >55% EF 2C: 57.60 >55% EF BiP: 58.40 >55% Mitral Valve MV Pk E: 0.68 MV PK A: 0.33 MV Decel Time: 227.00 E/A: 2.10 E'Lateral: 9.25 E'Medial: 6.96 E/E' Med: 9.70 E/E' Lat: 7.30 PHT: 67.00 MVA PHT: 3.28 Decel Hemphill: 2.98 Aortic Valve AoV Pk Taz: 1.09 AoV Mn Taz: 0.72 AoV VTI: 0.26 AoV Pk Grad: 5.00 Aov Mn Grad: 2.00 ROBERT Cont.VTI: 2.42 LVOT LVOT Pk Taz: 0.87 LVOT Mn Taz: 0.59 LVOT VTI: 0.22 LVOT Pk Grad: 3.00 LVOT Mn Grad: 2.00 LVOT Diam: 1.90 LVOT Area: 2.84 Diastolic Function MV Pk E: 0.68 MV Pk A: 0.33 E/A: 2.10 E'Medial: 6.96 E/E' Med: 9.70 E' Laterial: 9.25 E/E' Lat: 7.30 Right Ventricle TAPSE (mm): 21.80 TVS' Taz: 10.10 Tricuspid Valve TR Pk Taz: 1.75 TR Pk Grad: 12.00 RA Press: 3.00 RVSP: 15.00 Great Vessels Aorta Sinus of Valsalva: 2.99 2.0-3.5 cm Ao Asc: 3.30 2.1-3.4 cm Pulmonary Veins Pulm Vein S/D 1.30 Updated in Other Vendor System with Status of Final Prabhakar Trujillo MD electronically signed on 11/19/2024 12:51:06 PM with status of Final
--- NOTE | 2024-11-18 09:56 | HM_ITS ---
Conclusion: 1. Patient was monitored for total period of 3 days 2. Baseline was normal sinus rhythm with average heart of 68 beats per minute 3. No significant pauses noted 4. Frequent PACs noted with total burden of 1.6% 5. Patient marked the counter 3 times with symptoms of dizziness and shortness of breath correlating with sinus rhythm MTDD
--- OUTSIDE RECORDS SUMMARY | 2024-11-18 10:40 | XMS_ITS | Clinical Summary ---
Author Organization [facility] Address [address] [place] [phone] Phone Care Team Providers Care Laser Set Up Operator Name Role Phone Glen Gusman NP Primary [...] problems Immunizations Immunization Administration Dates Next Due INFLUENZA, SPLIT VIRUS, TRIV ALENT W/ PRESERVATIVE IM 12/28/2013,12/14/2012,04/07/2012 Influenza Quadrivalent MDCK Preservative Free IM 01/16/2021,12/06/2019,01/05/2019,2017 Influenza Quadrivalent Prese rvative Free IM 04/21/2017 Td (adult),2 Lf Tetanus Toxo id, PF, [...] topic Medical Devices Not on file Insurance O Member Subscriber Plan / Payer (Ef fective 2021-Present) Name:Vanesa Wayne Relation to Subscriber:Spouse Name:AMELIA WAYNE Date of :1961 Address: [address] [place] [address] Payer ID:Not on file Type:HMO Address: [place] [id number] [place] [address] [facility] [place] [address] [facility] [place] [address] [facility] [place] [address] [facility] [place] [address] [facility] [place] [address] [facility] Care Teams Laser Set Up Operator Relationship Specialty Start Date End Date Glen Gusman NP [facility] [address] [place] [id number] PCP - General Family Medicine 09/30/21 Additional Source Comments The information contained in this document represents components of the legal health record. It is not the complete legal health record.[facility]
== END ==
LOC: HO.CARD 09:51
PROVIDERS: PCP Nurse Practitioner Family; Visit Provider Nurse Practitioner Family
DX: R00.2 Palpitations (principal); R06.09 Other forms of dyspnea; R07.89 Other chest pain
CPT/HCPCS: 93242; 93306

== ENCOUNTER → 2024-11-18 09:56 | Outpatient (BNV) | payer MEDICARE, SELFPAY | PROVIDERS: PCP Nurse Practitioner Family; Visit Provider Internal Medicine | DX: R00.2 Palpitations (principal) | CPT/HCPCS: 93306 ==

== ENCOUNTER 2025-02-14 10:54 | Outpatient (AMB) | payer MEDICARE, SELFPAY ==
--- NOTE | 2025-02-14 11:02 | A.OFFVIS_ITS ---
Vital Signs 02/14/25 11:15 Height 5 ft 1 in Weight 127 lb 3.307 oz BMI 24.0 BP 100/60 Blood Pressure Location Lt brachial Position Sitting Pulse 60 Pulse Source Pulse Oximeter Pulse Oximetry (%) 98 Oxygen Delivery Method Room Air Intake Visit Reasons: follow up Intake Note: Patient presents for Osteoarthritis, hand follow up. Allergies bee pollen (bees) Allergy (Severe, Verified 02/14/25 11:15) Swelling Sulfa (Sulfonamide Antibiotics) Allergy (Unknown, Verified 02/14/25 11:13) Hives Medication List - Last Reconciled 02/14/25 by Stephanie Galvez MD albuterol sulfate 90 mcg/actuation 2 inhalations inhalation Q4H PRN atorvastatin 10 mg PO BEDTIME calcium carbonate-vitamin D3 600 mg-10 mcg (400 unit) (Calcium with Vitamin D) 1 tab PO BID citalopram 20 mg PO DAILY 90 days epinephrine 0.3 mg IM Q10M PRN famotidine 20 mg PO DAILY lansoprazole 15 mg PO BID sodium,potassium,mag sulfates 17.5-3.13-1.6 gram (Suprep Bowel Prep Kit) DILUTE; drink 1/2 at 6-8 pm and half at 11 PM- 1AM HPI Comments Details: Patient is a 69-year-old female with GERD, hyperlipidemia, coronary artery disease with stable angina, polyarticular OA (incl bilateral hip OA status post left hip arthroplasty) and osteopenia who presents for follow up Interval History: Patient last seen 02/17/24 with me - New patient visit for positive ALEXANDRO - no evidence of autoimmune disease exam and history consistent with osteoarthritis. Conservative recommendations given Today - Not on any rheum meds - Here today after CXR showed new T spine fractures - Previous bone density testing from 2021 showed osteopenia, with the progressio n to osteoporosis noted after T4 and T11 compression fractures were discovered between April and September. - The patient experiences increased back pain with activity, likely due to the new fractures, and reports previous imaging for degenerative disc disease without fractures. - Current preventive treatment involves calcium and vitamin D supplements. Rheumatologic History: Initial History: Patient reports progressive joint pain involving her bilateral hands, bilateral knees and hips over the past several years. Pain is worse in the evenings. Not associated with prolonged morning stiffness Denies rashes, photosensitivity, alopecia, oral/nasal ulcers, sicca symptoms, lymphadenopathy, chest pain/shortness of breath, inflammatory type joint pain, foamy urine, lower extremity edema, muscle weakness, Raynaud's Also denies history of seizure, CVA, psychosis, history of kidney problems, history of cytopenias, history of VTE including PE or DVTs OB History: Had difficulty getting . Did IVF x2 had to terminate 1 at 6 months due to complications and another was miscarried during the 2nd trimester while she was in her late 30s (about [age]). She finally conceived using her sister's egg. Current Rheumatology Medication(s): [facility] Medical History (Updated 02/14/25 @ 12:00 by Stephanie Galvez MD) Osteoporosis Chest discomfort Vitreous degeneration Screening for colon cancer Sinusitis Conjunctivitis, left eye Upper respiratory infection Conjunctivitis due to adenovirus, left eye Strep pharyngitis Leukopenia Physical exam Anxiety Depression Asthma Osteopenia Osteoarthritis, hand Paresthesias Pulmonary nodule Ground glass opacity present on imaging of lung Diffuse cystic mastopathy of breast Mixed incontinence urge and stress Kidney cyst Esophageal ulcer Hiatal hernia Elevated alkaline phosphatase level Kidney stones Leukopenia Barretts esophagus GERD (gastroesophageal reflux disease) Achalasia and cardiospasm Hypercholesteremia Stable angina Surgical History Hx of eye surgery H/O vitrectomy Status post repair of paraesophageal diaphragmatic hernia S/P total left hip arthroplasty Hx of colonoscopy History of esophagogastroduodenoscopy (EGD) Family History Brother Substance use disorder Progressive supranuclear palsy Mother Progressive supranuclear palsy Social History Household Members: Spouse Housing: House Are you a primary aged or disabled carer to a significant other at home: No Do you presently have visiting nurse or other home services: No Alcohol intake: current Alcohol intake frequency: a few times a week Patient Tobacco Use Status: Former Tobacco user e-Cigarette/Vaping Use: Never Used Second Hand Smoke Exposure: No service: No Current occupational status: employed Current occupation: [employer] Current occupational exposures/hazards: No Cognitive needs: No Hearing needs: No Vision needs: No Review of Systems Narrative Review of Systems - Musculoskeletal: Reports worsening hand pain with decreased strength in the right hand; reports back pain, especially with physical activity. Physical Exam Exam Exam: Vital signs reviewed Physical Examination CONSTITUITIONAL Patient alert and cooperative. Well appearing and in no apparent painful distress MSK Hands * Right Hand: Able to make a fist. No swelling or tenderness to palpation of the MCPs, PIPs or DIPs. * Left Hand: Able to make a fist. No swelling or tenderness to palpation of the MCPs, PIPs or DIPs. * Prominent Herbedens and Bouchards nodes noted bilaterally Wrists * Right Wrist: Full ROM to flexion and extension. No swelling or TTP * Left Wrist: Full ROM to flexion and extension. No swelling or TTP Elbows * Right Elbow: Full ROM. No swelling or TTP. No TTP of the medial epicondyle. No TTP of the lateral epicondyle * Left Elbow: Full ROM. No swelling or TTP. No TTP of the medial epicondyle. No TTP of the lateral epicondyle Shoulders * Right shoulder: Full ROM. No swelling noted. No TTP of the AC joint. No TTP of the subacromial bursa. No TTP of the posterior shoulder * Left shoulder: Full ROM. No swelling noted. No TTP of the AC joint. No TTP of the subacromial bursa. No TTP of the posterior shoulder Knees * Right knee: Full ROM. No swelling noted. No TTP of the knee joint line. No TTP of pes anserine bursa * Left knee: Full ROM. No swelling noted. No TTP of the knee joint line. No TTP of pes anserine bursa. * Crepitations felt bilaterally Ankles * Right ankle: Good ankle dorsiflexion and plantar flexion. No swelling. No TTP of the ankle joint * Left ankle: Good ankle dorsiflexion and plantar flexion. No swelling. No TTP of the ankle joint Feet * Right foot: Negative squeeze test * Left foot: Negative squeeze test Tender points? * No tenderness to palpation of the bilateral trapezius, supraspinatus, anterior costochondral junctions, bilateral suboccipital muscle insertions SKIN No rashes Vital Signs: Last Vital Signs Pulse 60 02/14/25 11:15 BP 100/60 02/14/25 11:15 Pulse Ox 98 02/14/25 11:15 Oxygen Delivery Method Room Air 02/14/25 11:15 BMI result Body Mass Index 24.0 Results Reviewed Results Reviewed: Laboratory Tests 09/05/24 15:50 WBC 5.0 RBC 4.31 Hgb 13.7 Hct 39.5 Plt Count 209 Sodium 142 Potassium 4.2 Chloride 104 Carbon Dioxide 29 BUN 17 H Creatinine 0.81 AST 21 ALT 23 C-Reactive Protein < 0.10 Laboratory Tests 12/09/23 14:35 Rheumatoid Factor < 13.0 Cycl Citrul Peptide IgG <16 ALEXANDRO Screen POSITIVE A ALEXANDRO Titer 1:80 H XR Bilateral Hands 01/2024 FINDINGS: No acute fracture or dislocation. Normal carpal alignment. No significant joint space narrowing. Tiny marginal osteophytes within the distal interphalangeal joints. Osseous erosion. No periarticular osteopenia. No abnormal soft tissue calcification. IMPRESSION: Minimal degenerative arthritis within the distal interphalangeal joints. DEXA 01/2022 FINDINGS: AP SPINE L1-L4: BMD 1.105 g/cm2, Z-score 1.1, T-score -0.6, normal. LEFT FEMUR, NECK: BMD 0.794 g/cm2, Z-score -0.2, T-score -1.8, osteopenia. LEFT FEMUR, TOTAL: BMD 0.817 g/cm2, Z-score -0.3, T-score -1.5, osteopenia. 10-YEAR FRACTURE RISK PREDICTION, FRAX: Major osteoporotic fracture (clinical spine, forearm, hip or shoulder) 9.8%. Hip fracture 1.3%. XR Chest 09/2024 FINDINGS: Lungs are clear and well aerated. There is no pleural effusion. Heart size is within normal limits. Impression late rotator cuff repair are stable in the right. Mild compression fracture of superior T4 is new since the prior. Stable mild superior endplate compression fracture of T11 is noted. IMPRESSION: No acute disease. Mild superior endplate T4 fracture is new since the prior exam one year ago. Mild superior endplate compression fracture of T11 is unchanged. Assessment & Plan Assessment & Plan (1) Osteoporosis: Code(s): M81.0 - Age-related osteoporosis without current pathological fracture Category: Medical Qualifiers: Osteoporosis type: age-related Presence of current pathological fracture: with current pathological fracture Encounter type: initial encounter Qualified Code(s): M80.00XA - Age-related osteoporosis with current pathological fracture, unspecified site, initial encounter for fracture Plan: #Osteoporosis Patient is a 69-year-old female with newly diagnosed osteoporosis based on history of osteopenia and new T4 and T12 compression fractures. Plan - DEXA scan - Check CMP and Vit D - Plan for Evenity after DEXA results - RTC 6 months - Labs before visit: CMP, Vit D (2) Osteoarthritis, hand: Code(s): M19.049 - Primary osteoarthritis, unspecified hand Category: Medical Qualifiers: Osteoarthritis type: primary Laterality: bilateral Qualified Code(s): M19.041 - Primary osteoarthritis, right hand; M19.042 - Primary osteoarthritis, left hand Plan: #Primary Hand OA Patient is a 69-year-old female with polyarticular osteoarthritis today for follow up. Joint disease is stable and is currently being managed with topical diclofenac and CBD oil (3) ALEXANDRO positive: Code(s): R76.8 - Other specified abnormal immunological findings in serum Category: Medical Plan: #Positive ALEXANDRO The presence of antinuclear antibodies (ALEXANDRO) is mainly associated with connective tissue diseases (CTD). ?However, their presence is found in healthy people especially in women and patients >65. ?In healthy individuals, the frequency of ALEXANDRO has been shown to be 31.7% of individuals at 1:40 serum dilution, 13.3% at 1:80, 5.0% at 1:160, and 3.3% at 1:320 (2). Some drugs and xenobiotics are also important for the development of ALEXANDRO (hydralazine, hydrochlorothiazide, minocycline, terbinafine, ciprofloxacin, furosemide, omeprazole). Moreover, the deficiency of vitamin D in the body of patients correlates with occurrence of these antibodies (1). At this time there is low suspicion for a connective tissue disease. ? 1. Cesar Greer, Wilma Méndez, Mac Crowder. Antinuclear antibodies in healthy people and non-rheumatic diseases - diagnostic and clinical implications. Reumatologia. 2018;56(4):243-248. doi: 10.5114/reum.2018.58134. Epub 2017Nov 20. PMID: 97701958; PMCID: [id number]. 2. Elmo EM, Channing TE, Eugenia JS, Evie B, Tim R, Cammy MJ, Patel T, Walker JA, Alvarado JR, Verena RG, Jonny RN, Elaine JS, Fatemeh NF, Glenn RJ, Portillo Y, Nia A, Karthik MR, Keiko KNOWLES. Range of antinuclear antibodies in healthy individuals. Arthritis Rheum. 1996;40(9):1601-11. doi: 10.1002/art.[id number]. PMID: 6450920. Plan During our discussion, it was determined that the patient has developed new vertebral compression fractures since the last imaging, consistent with progression to osteoporosis. We talked about the necessity of transitioning from oral medications to injectable options, such as monthly injections administered at our office for 18 months, owing to their effectiveness in preventing further fractures. These would be followed by alternate infusion or biannual shoulder injections, based on progress. We addressed factors like vitamin D levels critical to bone health. I will ensure that necessary blood work is completed to check for vitamin D levels along with liver and kidney function before follow-up management. The patient was advised on the importance of muscle-strengthening exercises to improve bone strength and was encouraged to maintain calcium with vitamin D supplements. Set a return appointment for six months, with future communication anticipated following initial diagnostics. I spent 30 minutes reviewing the record and labs, seeing the patient, discussing the treatment plan and documenting in the medical record Orders: Orders XR DEXA axial skeleton Today M81.0 - Age-related osteoporosis without current pathological fracture Vitamin D 25-OH Total Today E55.9 - Vitamin D deficiency, unspecified, M81.0 - Age-related osteoporosis without current pathological fracture Vitamin D 25-OH Total 6 Months E55.9 - Vitamin D deficiency, unspecified, M81.0 - Age-related osteoporosis without current pathological fracture Comprehensive Met. Panel Today M81.0 - Age-related osteoporosis without current pathological fracture Comprehensive Met. Panel 6 Months E55.9 - Vitamin D deficiency, unspecified, M81.0 - Age-related osteoporosis without current pathological fracture Coding Level of Care Code Est Pt Level 4 (20824) Complex visit Add On G2211 Diagnoses Age-related osteoporosis with current pathological fracture, initial encounter M80.00XA Osteoporosis type: age-related Presence of current pathological fracture: with current pathological fracture Encounter type: initial encounter Primary osteoarthritis of both hands M19.041; M19.042 Osteoarthritis type: primary Laterality: bilateral ALEXANDRO positive R76.8
[2025-02-14 11:15] VITALS: BP 100/60; PULSE 60; O2SAT 98; BMI 24.0
--- OUTSIDE RECORDS SUMMARY | 2025-02-14 14:17 | XMS_ITS | Clinical Summary ---
Author Organization [facility] Address [address] [place] [id number] Phone Care Team Providers Care Travel Ticketing Reviewer Name Role Phone Glen Gusman NP Primary [...] - PCV) 2007 Adult Td,Tdap Booster 10/12/2021 10/13/2011, 005 OSTEOPOROSIS SCREENING INITIAL (ONE-TIME) 2022 INFLUENZA VACCINE (#1) 2024 , 12/06/2019, 01/05/2019, Additional history exists COVID-19 VACCINE ( - season) 2024 02/17/2021, 06/27/2020, 06/06/2020 RSV VACCINE (1 - [...] topic Medical Devices [place] [id number] [facility] [place] [id number] [facility] [place] [facility] [employer] [place] [id number] [facility] [place] [id number] [facility] [place] [id number] [facility] [place] [id number] COUNTS INCLUDE [address] BEDS AT [facility] [id number] [facility] Care Teams Travel Ticketing Reviewer Relationship Specialty Start Date End Date Glen Gusman NP [address] [place] [address] PCP - General Family Medicine 09/30/21 Additional Source Comments The information contained in this document represents components of the legal health record. It is not the complete legal health record.[facility]
== END 2025-02-14 12:11 | disposition home or self-care (01) ==
LOC: HO.RHES 10:55
PROVIDERS: PCP Nurse Practitioner Family; Visit Provider Student in an Organized Health Care Education/Training Program
DX: M80.00XA Age-related osteoporosis with current pathological fracture, unspecified site, initial encounter for fracture (principal); M19.041 Primary osteoarthritis, right hand; M19.042 Primary osteoarthritis, left hand; R76.89 Other specified abnormal immunological findings in serum
CPT/HCPCS: 99214; G2211

== ENCOUNTER 2025-02-14 10:54 | Outpatient (REF) | payer MEDICARE, SELFPAY ==
--- OUTSIDE RECORDS SUMMARY | 2025-02-14 15:44 | XMS_ITS | Encounter Summary ---
Author Organization [facility] Address [address] [place] [address] Care Team Providers Care Group Sales Representative Name Role Phone Smitha Garcia MD Primary Care Provider Jorgito Hyde MD Unavailable [phone] [facility], [facility] Primary [facility] Encounter Details Date Type Department Care Team Description 12/30/2017 Manager Economic Report Medical Records [address] [place] [address] Mauricio Stovall MD Social History Tobacco Use [...] on filedocumented in this encounter Care Teams Group Sales Representative Relationship Specialty Start Date End Date Smitha Garcia MD PCP - General Internal Medicine 04/03/14 01/01/22 [facility], Pcp [address] [place] [address] PCP - General Internal Medicine 01/02/22 Jorgito Robles MD [address] [facility] [address] [place] [address] Specialist Cardiovascular Disease 08/16/20 documented as of this encounter
--- OUTSIDE RECORDS SUMMARY | 2025-02-14 15:44 | XMS_ITS | Encounter Summary ---
Author Organization [facility] Address [address] [place] [address] Care Team Providers Care Claims Attorney Name Role Phone Darren Parekh MD Primary Care Provider Smitha Del Rosario MD Primary Care Provider Jorgito Hyde MD Unavailable [phone] [facility], Pcp Primary Care Provider [facility] e Encounter Details Date Type Department Care Team Description 10/23/2011 Truck Rental Manager Report Medical Records [address] [place] [id number] Martin Morales Social History Tobacco Use Types [...] on filedocumented in this encounter Care Teams Claims Attorney Relationship Specialty Start Date End Date Darren Parekh MD PCP - General 11/17/03 03/22/14 Smitha Garcia MD PCP - General Internal Medicine 04/03/14 01/01/22 [facility], Pcp [address] [facility] [address] [place] [address] PCP - General Internal Medicine 01/02/22 Jorgito Robles MD [address] [facility] [address] [place] [address] Specialist Cardiovascular Disease 08/16/20 documented as of this encounter
--- OUTSIDE RECORDS SUMMARY | 2025-02-14 15:44 | XMS_ITS | Encounter Summary ---
Author Organization [facility] Address [address] [place] [address] Care Team Providers Care Guide Cruise Name Role Phone Smitha Garcia MD Primary Care Provider Jorgito Hyde MD Unavailable [phone] Counts Include [address] [facility], [facility] Primary Care Provider Unavailabl e Encounter Details Date Type Department Care Team Description 03/26/2018 Orders Only Pulmonology [address] [place] [address] Klaus France MD 175 [facility] [address] [place] [address] Pulmonary nodule; Gastroesophageal reflux disease without esophagitis; Ground glass opacity present on imaging of lung; Abnormal CT of the chest Social History Tobacco Use Types Packs/Day Years [...] CAT SCAN OF CHEST NO CONTRAST Routine 03/26/2018 Pulmonary nodule Gastroesophageal reflux disease without esophagitis Ground glass opacity present on imaging of lung Abnormal CT of the chest documented in this encounter Results * CAT SCAN OF CHEST NO CONTRAST (03/26/2018) Klaus France MD CT SCANS documented in this encounter Visit Diagnoses Diagnosis Pulmonary nodule Solitary pulmonary nodule Gastroesophageal reflux disease without esophagitis Esophageal reflux Ground glass opacity present on imaging of lung Abnormal CT of the chest Nonspecific (abnormal) findings on radiological and other examination of other intrathoracic organs documented in this encounter Care Teams Guide Cruise Relationship Specialty Start Date End Date Smitha Garcia MD PCP - General Internal Medicine 04/03/14 01/01/22 Counts Include [address] [facility], Pcp [address] [facility] [address] [place] [address] PCP - General Internal Medicine 01/02/22 Jorgito Robles MD 300 [facility] [address] [place] [address] Specialist Cardiovascular Disease 08/16/20 documented as of this encounter
--- OUTSIDE RECORDS SUMMARY | 2025-02-14 15:44 | XMS_ITS | Encounter Summary ---
Author Organization [facility] Address [address] [place] [address] Care Team Providers Care Charge Aide Name Role Phone Smitha Garcia MD Primary Care Provider Jorgito Hyde MD Unavailable [phone] [facility], [facility] Primary Care [facility] Encounter Details Date Type Department Care Team Description 01/28/2018 Pt. Non Urgent Medic al Question Sports Medicine [address] [phone] Aman Lynn MD Social History Tobacco Use [...] on filedocumented in this encounter Care Teams Charge Aide Relationship Specialty Start Date End Date Smitha Garcia MD PCP - General Internal Medicine 04/03/14 01/01/22 [facility], Pcp 300 [facility] [address] [place] [address] PCP - General Internal Medicine 01/02/22 Jorgito Robles MD 300 [facility] [address] [place] [address] Specialist Cardiovascular Disease 08/16/20 documented as of this encounter
--- OUTSIDE RECORDS SUMMARY | 2025-02-14 15:44 | XMS_ITS | Encounter Summary ---
Author Organization [facility] Address [address] [place] [address] Care Team Providers Care Director Of Music Name Role Phone Smitha Garcia MD Primary Care Provider Jorgito Hyde MD Unavailable [phone] [facility], Pcp Primary Care [facility] Encounter Details Date Type Department Care Team Description 04/11/2019 Release of Information Medical Records [address] [place] [id number] Abstract, Provider Social History Tobacco Use Types [...] in this encounter Care Teams Director Of Music Relationship Specialty Start Date End Date Smitha Garcia MD PCP - General Internal Medicine 04/03/14 01/01/22 [facility], Pcp [address] [place] [address] PCP - General Internal Medicine 01/02/22 [facility]ito Robles MD [facility] [address] [place] [address] Specialist Cardiovascular Disease 08/16/20 documented as of this encounter
--- OUTSIDE RECORDS SUMMARY | 2025-02-14 15:44 | XMS_ITS | Encounter Summary ---
Author Organization [facility] Address [address] [place] [address] Care Team Providers Care Sales And Marketing Specialist Name Role Phone Smitha Garcia MD Primary Care Provider Jorgito Hyde MD Unavailable [facility] Primary Care Provider Unavailabl e Reason for Visit * Reason Onset Date Comments TEST RESULTS 06/28/2015 Encounter Details Date Type Department Care Team Description 06/28/2015 Telephone Medicine/Pediatrics - [address] [phone] Smitha Garcia MD TEST RESULTS Social History [...] on filedocumented in this encounter Care Teams Sales And Marketing Specialist Relationship Specialty Start Date End Date Smitha Garcia MD PCP - General Internal Medicine 04/03/14 01/01/22 [facility], Pcp [address] [place] [address] PCP - General Internal Medicine 01/02/22 Jorgito Robles MD [address] [place] [address] Specialist Cardiovascular Disease 08/16/20 documented as of this encounter
--- OUTSIDE RECORDS SUMMARY | 2025-02-14 15:44 | XMS_ITS | Encounter Summary ---
Author Organization [facility] Address [address] [place] [address] Care Team Providers Care Conservation Enforcement Officer Name Role Phone Smitha Garcia MD Primary Care Provider Jorgito Hyde MD Unavailable [phone] [facility] Primary Care [facility] Encounter Details Date Type Department Care Team Description 12/30/2018 Residency Director Report Medical Records [address] [place] [address] Mauricio Stovall MD Social History Tobacco Use [...] on filedocumented in this encounter Care Teams Conservation Enforcement Officer Relationship Specialty Start Date End Date Smitha Garcia MD PCP - General Internal Medicine 04/03/14 01/01/22 [facility], Pcp [address] [place] [address] PCP - General Internal Medicine 01/02/22 Jorgito Robles MD 300 [facility] [address] [place] [address] Specialist Cardiovascular Disease 08/16/20 documented as of this encounter
--- OUTSIDE RECORDS SUMMARY | 2025-02-14 15:44 | XMS_ITS | Encounter Summary ---
Author Organization [facility] Address [address] [place] [address] Care Team Providers Care Airplane Flight Attendant Supervisor Name Role Phone Smitha Garcia MD Primary Care Provider Jorgito Hyde MD Unavailable [phone] [facility] Primary Care Provider Opal santacruz Encounter Details Date Type Department Care Team Description 05/20/2016 Hospital Medical Records [address] [place] [address] Deshawn Nick Social History Tobacco Use Types [...] on filedocumented in this encounter Care Teams Airplane Flight Attendant Supervisor Relationship Specialty Start Date End Date Smitha Garcia MD PCP - General Internal Medicine 04/03/14 01/01/22 [facility] 300 [facility] [address] [place] [address] PCP - General Internal Medicine 01/02/22 Jorgito Robles MD 300 [facility] [address] [place] [address] Specialist Cardiovascular Disease 08/16/20 documented as of this encounter
--- OUTSIDE RECORDS SUMMARY | 2025-02-14 15:44 | XMS_ITS | Encounter Summary ---
Author Organization [facility] Address [address] [place] [address] Care Team Providers Care Thermal Cutting Tracer Machine Operator Name Role Phone Smitha Garcia MD Primary Care Provider Jorgito Hyde MD Unavailable [phone] [facility] Primary Care [facility] Encounter Details Date Type Department Care Team Description 10/21/2019 Orders Only Medical Records [address] [place] [address] Shahriar Levin MD Social History Tobacco Use [...] on filedocumented in this encounter Care Teams Thermal Cutting Tracer Machine Operator Relationship Specialty Start Date End Date Smitha Garcia MD PCP - General Internal Medicine 04/03/14 01/01/22 [facility], Pcp 300 [facility] [address] [place] [address] PCP - General Internal Medicine 01/02/22 Jorgito Robles MD 300 [facility] [address] [place] [address] Specialist Cardiovascular Disease 08/16/20 documented as of this encounter
--- OUTSIDE RECORDS SUMMARY | 2025-02-14 15:44 | XMS_ITS | Encounter Summary ---
Author Organization [facility] Address [address] [place] [address] Care Team Providers Care Gear Generator Set Up Operator Name Role Phone Smitha Garcia MD Primary Care Provider Tarava Jorgito Nevarez MD Unavailable [phone] [facility], [facility] Primary Care Provider Unavailabl e Reason for Referral * Non ABEL (Routine) - Authorized/Booked Specialty Diagnoses / Procedures Referred By Contact Referred To Contact Chiropractor / Chiropractic Diagnoses Cervical radicular pain Procedures REFERRAL TO CHIROPRACTIC Aman Lynn MD [address] [place] [address] Chaitanya Brown D.C. [address] [place] [address] Referral ID Status Reason Start Date Expiration Date V isits Requested Visits Authorized [id number] Authorized/B ooked 05/19/2018 03/22/2019 60 53 Encounter Details Date Type Department Care Team Description 05/17/2018 Pt. Non Urgent Medical Question Medicine/Pediatrics - [address] [id number] Smitha Garcia MD Cervical radicular pain (Primary [...] nos documented in this encounter Care Teams Gear Generator Set Up Operator Relationship Specialty Start Date End Date Smitha Garcia MD PCP - General Internal Medicine 04/03/14 01/01/22 [facility], Pcp [address] [address] PCP - General Internal Medicine 01/02/22 Jorgito Robles MD [address] [address] Specialist Cardiovascular Disease 08/16/20 documented as of this encounter
--- OUTSIDE RECORDS SUMMARY | 2025-02-14 15:44 | XMS_ITS | Encounter Summary ---
Author Organization [facility] Address [address] [place] [address] Care Team Providers Care Reinstatement Clerk Name Role Phone Smitha Garcia MD Primary Care Provider Jorgito Hyde MD Unavailable [phone] [facility] Primary Care Provider [facility] Encounter Details Date Type Department Care Team Description 02/22/2018 Pt. Non Urgent Medic al Question Sports Medicine [address] [address] Aman Lynn MD Social History Tobacco Use [...] on filedocumented in this encounter Care Teams Reinstatement Clerk Relationship Specialty Start Date End Date Smitha Garcia MD PCP - General Internal Medicine 04/03/14 01/01/22 [facility] Pcp 300 [facility] [address] [place] [address] PCP - General Internal Medicine 01/02/22 Jorgito Robles MD 300 [facility] [address] [place] [address] Specialist Cardiovascular Disease 08/16/20 documented as of this encounter
--- OUTSIDE RECORDS SUMMARY | 2025-02-14 15:44 | XMS_ITS | Encounter Summary ---
Author Organization [facility] Address [address] [place] [address] Care Team Providers Care Insurance Rater Name Role Phone Smitha Garcia MD Primary Care Provider Jorgito Hyde MD Unavailable [phone] [facility], [facility] Primary Care Provider Unavailabl e Encounter Details Date Type Department Care Team Description 05/06/2021 Refill Medicine/Pediatrics - [address] [address] Napoleon Lares PA-C Social History Tobacco Use [...] on filedocumented in this encounter Care Teams Insurance Rater Relationship Specialty Start Date End Date Smitha Garcia MD PCP - General Internal Medicine 04/03/14 01/01/22 [facility], Pcp [address] [address] PCP - General Internal Medicine 01/02/22 Jorgito Robles MD 300 [facility] [address] [place] [address] Specialist Cardiovascular Disease 08/16/20 documented as of this encounter
--- OUTSIDE RECORDS SUMMARY | 2025-02-14 15:44 | XMS_ITS | Encounter Summary ---
Author Organization [facility] Address [address] [place] [address] Care Team Providers Care Residential Driver Name Role Phone Smitha Garcia MD Primary Care Provider Jorgito Hyde MD Unavailable [phone] [facility], [facility] Primary Care Provider [facility] e Encounter Details Date Type Department Care Team Description 10/19/2019 Orders Only Gastroenterology - [address] [place] [address] Shahriar Levin MD Social History [...] on filedocumented in this encounter Care Teams Residential Driver Relationship Specialty Start Date End Date Smitha Garcia MD PCP - General Internal Medicine 04/03/14 01/01/22 [facility], Pcp 300 [facility] [address] [place] [address] PCP - General Internal Medicine 01/02/22 Jorgito Robles MD 300 [facility] [address] [place] [address] Specialist Cardiovascular Disease 08/16/20 documented as of this encounter
--- OUTSIDE RECORDS SUMMARY | 2025-02-14 15:44 | XMS_ITS | Encounter Summary ---
Author Organization [facility] Address [address] [place] [address] Care Team Providers Care Mallet And Die Cutter Name Role Phone Smitha Garcia MD Primary Care Provider Jorgito Hyde MD Unavailable [phone] [facility], Pcp Primary Care Provider Opal santacruz Encounter Details Date Type Department Care Team Description 09/18/2014 Parts Data Writer Report Medical Records [address] [place] [address] Deshawn Nick Social History Tobacco Use Types [...] on filedocumented in this encounter Care Teams Mallet And Die Cutter Relationship Specialty Start Date End Date Smitha Garcia MD PCP - General Internal Medicine 04/03/14 01/01/22 [facility], Pcp [address] [facility] [address] [place] [address] PCP - General Internal Medicine 01/02/22 Jorgito Robles MD 300 [facility] [address] [place] [address] Specialist Cardiovascular Disease 08/16/20 documented as of this encounter
--- OUTSIDE RECORDS SUMMARY | 2025-02-14 15:45 | XMS_ITS | Encounter Summary ---
Author Organization [facility] Address [address] [place] [address] Care Team Providers Care Graduate Nurse Name Role Phone Smitha Garcia MD Primary Care Provider Jorgito Hyde MD Unavailable [phone] [facility], Pcp Primary Care Provider [facility] e Encounter Details Date Type Department Care Team Description 06/08/2020 Pt. Non Urgent Medical Question Medicine/Pediatrics - [address] [phone] Jennifer Salazar NP [address] [place] [address] Social History Tobacco Use Types Packs/Day Years [...] on filedocumented in this encounter Care Teams Graduate Nurse Relationship Specialty Start Date End Date Smitha Garcia MD PCP - General Internal Medicine 04/03/14 01/01/22 [facility], Pcp [address] [address] PCP - General Internal Medicine 01/02/22 Jorgito Robles MD [address] [facility] [address] [place] [address] Specialist Cardiovascular Disease 08/16/20 documented as of this encounter
--- OUTSIDE RECORDS SUMMARY | 2025-02-14 15:45 | XMS_ITS | Encounter Summary ---
Author Organization [facility] Address [address] [place] [address] Care Team Providers Care Wharf Builder Name Role Phone Smitha Garcia MD Primary Care Provider Jorgito Hyde MD Unavailable [phone] [facility] Primary Care Provider Unavailabl e Encounter Details Date Type Department Care Team Description 08/21/2017 Orders Only Medicine/Pediatrics - [address] [address] Kina Kohli PA-C Odynophagia; Dysphagia, unspecified type; [...] specified documented in this encounter Care Teams Wharf Builder Relationship Specialty Start Date End Date Smitha Garcia MD PCP - General Internal Medicine 04/03/14 01/01/22 [facility], Pcp 300 [facility] [address] [place] [address] PCP - General Internal Medicine 01/02/22 Jorgito Robles MD 300 [facility] [address] [place] [address] Specialist Cardiovascular Disease 08/16/20 documented as of this encounter
--- OUTSIDE RECORDS SUMMARY | 2025-02-14 15:45 | XMS_ITS | Encounter Summary ---
Author Organization [facility] Address [address] [place] [address] Care Team Providers Care Tester Operator Name Role Phone Darren Parekh MD Primary Care Provider Smitha Del Rosario MD Primary Care Provider Jorgito Hyde MD Unavailable [phone] [facility], Pcp Primary Care Provider [facility] Encounter Details Date Type Department Care Team Description 09/12/2013 Unit Director Report Medical Records [address] [place] [address] Afshin Barbour MD Social History Tobacco Use [...] on filedocumented in this encounter Care Teams Tester Operator Relationship Specialty Start Date End Date Darren Parekh MD PCP - General 11/17/03 03/22/14 Smitha Garcia MD PCP - General Internal Medicine 04/03/14 01/01/22 [facility], Pcp [address] [address] PCP - General Internal Medicine 01/02/22 Jorgito Robles MD [address] [facility] [address] [place] [address] Specialist Cardiovascular Disease 08/16/20 documented as of this encounter
--- OUTSIDE RECORDS SUMMARY | 2025-02-14 15:45 | XMS_ITS | Encounter Summary ---
Author Organization [facility] Address [address] [place] [address] Care Team Providers Care Consultant Rn Name Role Phone Darren Parekh MD Primary Care Provider Smitha Del Rosario MD Primary Care Provider Jorgito Hyde MD Unavailable [phone] [facility], Pcp Primary Care Provider [facility] e Encounter Details Date Type Department Care Team Description 08/21/2011 Sanipractic Physician Report Medical Records [address] [place] [address] Martin Morales Social History Tobacco Use Types [...] on filedocumented in this encounter Care Teams Consultant Rn Relationship Specialty Start Date End Date Darren Parekh MD PCP - General 11/17/03 03/22/14 Smitha Garcia MD PCP - General Internal Medicine 04/03/14 01/01/22 [facility], Pcp 300 [facility] [address] [place] [address] PCP - General Internal Medicine 01/02/22 Jorgito Robles MD 300 [facility] [address] [place] [address] Specialist Cardiovascular Disease 08/16/20 documented as of this encounter
--- OUTSIDE RECORDS SUMMARY | 2025-02-14 15:45 | XMS_ITS | Encounter Summary ---
Author Organization [facility] Address [address] [place] [address] Care Team Providers Care Group Home Manager Name Role Phone Smitha Garcia MD Primary Care Provider Jorgito Hyde MD Unavailable [phone] [facility], [facility] Primary [facility] Encounter Details Date Type Department Care Team Description 08/28/2014 Organ Teacher Report Medical Records [address] [place] [address] Mauricio Stovall MD Social History Tobacco Use [...] filedocumented in this encounter Care Teams Group Home Manager Relationship Specialty Start Date End Date Smitha Garcia MD PCP - General Internal Medicine 04/03/14 01/01/22 [facility], Pcp [address] [place] [address] PCP - General Internal Medicine 01/02/22 Jorgito Robles MD 300 [facility] [address] [place] [address] Specialist Cardiovascular Disease 08/16/20 documented as of this encounter
--- OUTSIDE RECORDS SUMMARY | 2025-02-14 15:45 | XMS_ITS | Encounter Summary ---
Author Organization [facility] Address [address] [place] [address] Care Team Providers Care Reactor Kettle Operator Name Role Phone Smitha Garcia MD Primary Care Provider Jorgito Hyde MD Unavailable [phone] [facility] Primary Care Provider [facility] e Encounter Details Date Type Department Care Team Description 12/22/2017 Orders Only Rheumatology - [address] [address] Cyndy Flores DO Positive anti-CCP test (Primary [...] findings documented in this encounter Care Teams Reactor Kettle Operator Relationship Specialty Start Date End Date Smitha Garcia MD PCP - General Internal Medicine 04/03/14 01/01/22 [facility], Pcp [address] [facility] [address] [place] [address] PCP - General Internal Medicine 01/02/22 Jorgito Robles MD [address] [place] [address] Specialist Cardiovascular Disease 08/16/20 documented as of this encounter
--- OUTSIDE RECORDS SUMMARY | 2025-02-14 15:45 | XMS_ITS | Encounter Summary ---
Author Organization [facility] Address [address] [place] [address] Care Team Providers Care Bi Application Developer Name Role Phone Darren Parekh MD Primary Care Provider Smitha Del Rosario MD Primary Care Provider Jorgito Hyde MD Unavailable [phone] [facility], Pcp Primary Care Provider [facility] e Encounter Details Date Type Department Care Team Description 07/10/2011 Deckhand Clam Dredge Report Medical Records [address] [place] [address] Martin Morales Social History Tobacco Use Types [...] on filedocumented in this encounter Care Teams Bi Application Developer Relationship Specialty Start Date End Date Darren Parekh MD PCP - General 11/17/03 03/22/14 Smitha Garcia MD PCP - General Internal Medicine 04/03/14 01/01/22 [facility], Pcp 300 [facility] [address] [place] [address] PCP - General Internal Medicine 01/02/22 Jorgito Robles MD 300 [facility] [address] [place] [address] Specialist Cardiovascular Disease 08/16/20 documented as of this encounter
--- OUTSIDE RECORDS SUMMARY | 2025-02-14 15:45 | XMS_ITS | Encounter Summary ---
Author Organization [facility] Address [address] [place] [address] Care Team Providers Care Store Management Trainee Name Role Phone Darren Parekh MD Primary Care Provider Smitha Del Rosario MD Primary Care Provider Jorgito Hyde MD Unavailable [phone] [facility], Pcp Primary Care Provider [facility] Encounter Details Date Type Department Care Team Description 12/27/2013 Block Sawyer Report Medical Records [address] [place] [address] Afshin Barbour MD Social History Tobacco Use [...] on filedocumented in this encounter Care Teams Store Management Trainee Relationship Specialty Start Date End Date Darren Parekh MD PCP - General 11/17/03 03/22/14 Smitha Garcia MD PCP - General Internal Medicine 04/03/14 01/01/22 [facility], Pcp [address] [address] PCP - General Internal Medicine 01/02/22 Jorgito Robles MD 300 [facility] [address] [place] [address] Specialist Cardiovascular Disease 08/16/20 documented as of this encounter
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
--- OUTSIDE RECORDS SUMMARY | 2025-02-14 15:45 | XMS_ITS | Encounter Summary ---
Author Organization [facility] Address [address] [place] [address] Care Team Providers Care Rn Icu Name Role Phone Smitha Garcia MD Primary Care Provider Jorgito Hyde MD Unavailable [phone] [facility], [facility] Primary Care Provider Unavailabl e Encounter Details Date Type Department Care Team Description 2017 Orders Only Pulmonology [address] [place] [address] Klaus France MD 175 [facility] [address] [place] [address] Pulmonary nodule Social History Tobacco [...] nodule documented in this encounter Care Teams Rn Icu Relationship Specialty Start Date End Date Smitha Garcia MD PCP - General Internal Medicine 04/03/14 01/01/22 [facility], Pcp [address] [place] [address] PCP - General Internal Medicine 01/02/22 Jorgito Robles MD [address] [place] [address] Specialist Cardiovascular Disease 08/16/20 documented as of this encounter
--- OUTSIDE RECORDS SUMMARY | 2025-02-14 15:45 | XMS_ITS | Encounter Summary ---
Author Organization [facility] Address [address] [place] [address] Care Team Providers Care Usps Letter Carrier Name Role Phone Smitha Garcia MD Primary Care Provider Jorgito Hyde MD Unavailable [phone] [facility], Pcp Primary Care Provider [facility] e Encounter Details Date Type Department Care Team Description 07/07/2018 Pt. Non Urgent Medic al Question Gastroenterology - [address] [place] [address] Shahriar Levin MD Social History [...] on filedocumented in this encounter Care Teams Usps Letter Carrier Relationship Specialty Start Date End Date Smitha Garcia MD PCP - General Internal Medicine 04/03/14 01/01/22 [facility], Pcp 300 [facility] [address] [place] [address] PCP - General Internal Medicine 01/02/22 Jorgito Robles MD 300 [facility] [address] [place] [address] Specialist Cardiovascular Disease 08/16/20 documented as of this encounter
--- OUTSIDE RECORDS SUMMARY | 2025-02-14 15:45 | XMS_ITS | Encounter Summary ---
Author Organization [facility] Address [address] [place] [address] Care Team Providers Care Grant Writer Name Role Phone Darren Parekh MD Primary Care Provider Smitah Del Rosario MD Primary Care Provider Jorgito Hyde MD Unavailable [phone] [facility], Pcp Primary Care Provider [facility] Encounter Details Date Type Department Care Team Description 09/22/2013 Binder And Box Builder Report Medical Records [address] [place] [address] Afshin Barbour MD Social History Tobacco Use [...] on filedocumented in this encounter Care Teams Grant Writer Relationship Specialty Start Date End Date Darren Parekh MD PCP - General 11/17/03 03/22/14 Smitha Garcia MD PCP - General Internal Medicine 04/03/14 01/01/22 [facility], Pcp [address] [address] PCP - General Internal Medicine 01/02/22 Jorgito Robles MD 300 [facility] [address] [place] [address] Specialist Cardiovascular Disease 08/16/20 documented as of this encounter
--- OUTSIDE RECORDS SUMMARY | 2025-02-14 15:45 | XMS_ITS | Encounter Summary ---
Author Organization [facility] Address [address] [place] [address] Care Team Providers Care Element Burner Name Role Phone Darren Parekh MD Primary Care Provider Smitha Del Rosario MD Primary Care Provider Jorgito Hyde MD Unavailable [facility], Pcp Primary Care Provider Unavailabl e Reason for Visit * Reason Onset Date Comments REFERRAL 03/10/2013 Encounter Details Date Type Department Care Team Description 03/10/2013 Telephone Adult Medicine [address] [address] Darren Parekh MD REFERRAL Social History Tobacco [...] we can refer her to outside of [facility]. documented in this encounter Plan of Treatment Not on file documented as of this encounter Visit Diagnoses Not on filedocumented in this encounter Care Teams Element Burner Relationship Specialty Start Date End Date Darren Parekh MD PCP - General 11/17/03 03/22/14 Smitha Garcia MD PCP - General Internal Medicine 04/03/14 01/01/22 [facility], Pcp 300 [facility] [address] [place] [address] PCP - General Internal Medicine 01/02/22 Jorgito Robles MD 300 [facility] [address] [place] [address] Specialist Cardiovascular Disease 08/16/20 documented as of this encounter
--- OUTSIDE RECORDS SUMMARY | 2025-02-14 15:45 | XMS_ITS | Encounter Summary ---
Author Organization [facility] Address [address] [place] [address] Care Team Providers Care Sole Leveler Name Role Phone Smitha Garcia MD Primary Care Provider Jorgito Hyde MD Unavailable [phone] [facility], [facility] Primary Care Provider Unavailabl e Reason for Visit * Reason Onset Date Comments Stonecutter Apprentice Hand Feedback 04/10/2014 Dr. Wilman Méndez eurology Encounter Details Date Type Department Care Team Description 04/10/2014 Telephone Medicine/Pediatrics - [address] [phone] Smitha Garcia MD Stonecutter Apprentice Hand Feedback (Dr. Stovall Neurology) Social History Tobacco [...] patient for sensitive information Order faxed to [phone] * Telephone Encounter - Myrtle Castillo - 04/12/2014 8:25 AM EST No insurance referral required. Letter with appointment information mailed to patient. DX tongue numbness and tingling; abn MRI, demyelinating lesions, migraine Message forwarded to fax notes [phone] * Telephone Encounter - Myrtle Castillo - 04/10/2014 2:13 PM EST Faxed the Order and Insurance [phone] documented in this encounter Plan of Treatment Not on file documented as of this encounter Visit Diagnoses Not on filedocumented in this encounter Care Teams Sole Leveler Relationship Specialty Start Date End Date Smitha Garcia MD PCP - General Internal Medicine 04/03/14 01/01/22 [facility], Pcp [address] [address] PCP - General Internal Medicine 01/02/22 Jorgito Robles MD [address] [address] Specialist Cardiovascular Disease 08/16/20 documented as of this encounter
--- OUTSIDE RECORDS SUMMARY | 2025-02-14 15:45 | XMS_ITS | Encounter Summary ---
Author Organization [facility] Address [address] [place] [address] Care Team Providers Care Wood Grinder Operator Name Role Phone Smitha Garcia MD Primary Care Provider Jorgito Hyde MD Unavailable [phone] [facility], [facility], [facility] Primary Care Provider [facility] Encounter Details Date Type Department Care Team Description 09/17/2016 Pt. Non Urgent Medic al Question Medicine/Pediatrics - [address] [phone] Kina Kohli PA-C Social History Tobacco Use [...] possible to get it sooner? Thanks, Deena [phone] documented in this encounter Plan of Treatment Not on file documented as of this encounter Visit Diagnoses Not on filedocumented in this encounter Care Teams Wood Grinder Operator Relationship Specialty Start Date End Date Smitha Garcia MD PCP - General Internal Medicine 04/03/14 01/01/22 [facility], Pcp [address] [address] PCP - General Internal Medicine 01/02/22 Jorgito Robles MD 300 [facility] [address] [place] [address] Specialist Cardiovascular Disease 08/16/20 documented as of this encounter
--- OUTSIDE RECORDS SUMMARY | 2025-02-14 15:45 | XMS_ITS | Encounter Summary ---
Author Organization [facility] Address [address] [place] [address] Care Team Providers Care Char Puller Name Role Phone Smitha Garcia MD Primary Care Provider Jorgito Hyde MD Unavailable [phone] [facility], [facility] Primary Care [facility] Encounter Details Date Type Department Care Team Description 06/27/2014 Incendiaries Supervisor Report Medical Records [address] [place] [address] Afshin Barbour MD Social History Tobacco Use [...] on filedocumented in this encounter Care Teams Char Puller Relationship Specialty Start Date End Date Smitha Garcia MD PCP - General Internal Medicine 04/03/14 01/01/22 [facility], Pcp [address] [place] [address] PCP - General Internal Medicine 01/02/22 Jorgito Robles MD 300 [facility] [address] [place] [address] Specialist Cardiovascular Disease 08/16/20 documented as of this encounter
--- OUTSIDE RECORDS SUMMARY | 2025-02-14 15:45 | XMS_ITS | Encounter Summary ---
Author Organization [facility] Address [address] [place] [address] Care Team Providers Care Home Depot Rep Name Role Phone Darren Parekh MD Primary Care Provider Smitha Del Rosario MD Primary Care Provider Jorgito Hyde MD Unavailable [phone] [facility], Pcp Primary Care Provider [facility] Encounter Details Date Type Department Care Team Description 06/03/2013 Hospital Medical Records [address] [place] [address] Benedicto Austin MD Social History Tobacco Use [...] on filedocumented in this encounter Care Teams Home Depot Rep Relationship Specialty Start Date End Date Darren Parekh MD PCP - General 11/17/03 03/22/14 Smitha Garcia MD PCP - General Internal Medicine 04/03/14 01/01/22 [facility], Pcp [address] [address] PCP - General Internal Medicine 01/02/22 Jorgito Robles MD 300 [facility] [address] [place] [address] Specialist Cardiovascular Disease 08/16/20 documented as of this encounter
--- OUTSIDE RECORDS SUMMARY | 2025-02-14 15:45 | XMS_ITS | Encounter Summary ---
Author Organization [facility] Address [address] [place] [address] Care Team Providers Care Industrial Welder Name Role Phone Smitha Garcia MD Primary Care Provider Jorgito Hyde MD Unavailable [phone] [facility], [facility] Primary Care Provider [facility] e Encounter Details Date Type Department Care Team Description 07/02/2018 Hospital Medical Records [address] [place] [address] Shahriar Levin MD Social History Tobacco Use [...] filedocumented in this encounter Care Teams Industrial Welder Relationship Specialty Start Date End Date Smitha Garcia MD PCP - General Internal Medicine 04/03/14 01/01/22 [facility], Pcp [address] [place] [address] PCP - General Internal Medicine 01/02/22 Jorgito Robles MD 300 [facility] [address] [place] [address] Specialist Cardiovascular Disease 08/16/20 documented as of this encounter
--- OUTSIDE RECORDS SUMMARY | 2025-02-14 15:45 | XMS_ITS | Encounter Summary ---
Author Organization [facility] Address [address] [place] [address] Care Team Providers Care Furniture Builder Name Role Phone Smitha Garcia MD Primary Care Provider Jorgito Hyde MD Unavailable [phone] [facility], [facility] Primary Care Provider [facility] Encounter Details Date Type Department Care Team Description 10/21/2019 Telephone Gastroenterology - [address] [place] [address] Shahriar Levin MD Social History [...] on filedocumented in this encounter Care Teams Furniture Builder Relationship Specialty Start Date End Date Smitha Garcia MD PCP - General Internal Medicine 04/03/14 01/01/22 [facility], Pcp 300 [facility] [address] [place] [address] PCP - General Internal Medicine 01/02/22 Jorgito Robles MD 300 [facility] [address] [place] [address] Specialist Cardiovascular Disease 08/16/20 documented as of this encounter
--- OUTSIDE RECORDS SUMMARY | 2025-02-14 15:45 | XMS_ITS | Encounter Summary ---
Author Organization [facility] Address [address] [place] [address] Care Team Providers Care Felt Hat Flanging Operator Name Role Phone Darren Parekh MD Primary Care Provider Smitha Del Rosario MD Primary Care Provider Jorgito Hyde MD Unavailable [phone] [facility], Pcp Primary Care Provider [facility] Encounter Details Date Type Department Care Team Description 06/01/2013 Hospital Medical Records [address] [place] [address] Social History Tobacco Use Types Packs/Day [...] on filedocumented in this encounter Care Teams Felt Hat Flanging Operator Relationship Specialty Start Date End Date Darren Parekh MD PCP - General 11/17/03 03/22/14 Smitha Garcia MD PCP - General Internal Medicine 04/03/14 01/01/22 [facility], Pcp [address] [address] PCP - General Internal Medicine 01/02/22 Jorgito Robles MD 300 [facility] [address] [place] [address] Specialist Cardiovascular Disease 08/16/20 documented as of this encounter
--- OUTSIDE RECORDS SUMMARY | 2025-02-14 15:45 | XMS_ITS | Encounter Summary ---
Author Organization [facility] Address [address] [place] [address] Care Team Providers Care Power System Engineer Name Role Phone Smitha Garcia MD Primary Care Provider Jorgito Hyde MD Unavailable [phone] [facility], [facility] Primary Care Provider [facility] Encounter Details Date Type Department Care Team Description 05/24/2020 [facility] Medical Records [address] [place] [address] Abstract, Provider Social History Tobacco Use Types [...] on filedocumented in this encounter Care Teams Power System Engineer Relationship Specialty Start Date End Date Smitha Garcia MD PCP - General Internal Medicine 04/03/14 01/01/22 [facility], Pcp 300 [facility] [address] [place] [address] PCP - General Internal Medicine 01/02/22 Jorgito Robles MD 300 [facility] [address] [place] [address] Specialist Cardiovascular Disease 08/16/20 documented as of this encounter
--- OUTSIDE RECORDS SUMMARY | 2025-02-14 15:45 | XMS_ITS | Encounter Summary ---
Author Organization [facility] Address [address] [place] [address] Care Team Providers Care Office Clinician Name Role Phone Darren Parekh MD Primary Care Provider Donovan Baez Primary Care Provider [phone] Smitha Garcia MD Primary Care Provider Jorgito Hyde MD Unavailable [phone] [facility] Pcp Primary Care Provider Opal Reason for Visit * Reason Comments other Encounter Details Date Type Department Care Team Description 05/17/2001 Telephone OBGYN - [place] [address] [place] [address] MusaFawn salazar [facility] [address] [place] [address] other Social History Tobacco Use Types Packs/Day [...] 05/17/2001 10:18 PM ESTCALL RECEIVED. Contact: self [phone] due June 02,some contractions,passing fluid, call to Arleen Vigil, Hospitality Associate documented in this encounter Plan of Treatment Not on file documented as of this encounter Visit Diagnoses Not on filedocumented in this encounter Care Teams Office Clinician Relationship Specialty Start Date End Date Darren Parekh MD PCP - General 11/17/03 03/22/14 Donovan Maria [address] [place] [address] PCP - General 03/23/1995 11/16/03 Smitha Garcia MD [address] [place] [address] PCP - General Internal Medicine 04/03/14 01/01/22 [facility], Pcp [address] [address] PCP - General Internal Medicine 01/02/22 Jorgito Robles MD 300 [facility] [address] [place] [address] Specialist Cardiovascular Disease 08/16/20 documented as of this encounter
--- OUTSIDE RECORDS SUMMARY | 2025-02-14 15:45 | XMS_ITS | Encounter Summary ---
Author Organization [facility] Address [address] [place] [address] Care Team Providers Care Evaluation Manager Name Role Phone Smitha Garcia MD Primary Care Provider Jorgito Hyde MD Unavailable [phone] [facility] Encounter Details Date Type Department Care Team Description 07/07/2018 Orders Only Medical Records [address] [place] [address] Shahriar Levin MD Social History Tobacco Use [...] on filedocumented in this encounter Care Teams Evaluation Manager Relationship Specialty Start Date End Date Smitha Garcia MD PCP - General Internal Medicine 04/03/14 01/01/22 [facility], Pcp 300 [facility] [address] [place] [address] PCP - General Internal Medicine 01/02/22 Jorgito Robles MD 300 [facility] [address] [place] [address] Specialist Cardiovascular Disease 08/16/20 documented as of this encounter
--- OUTSIDE RECORDS SUMMARY | 2025-02-14 15:45 | XMS_ITS | Encounter Summary ---
Author Organization [facility] Address [address] [place] [address] Care Team Providers Care Nuclear Fuels Research Engineer Name Role Phone Smitha Garcia MD Primary Care Provider Jorgito Hyde MD Unavailable [phone] [facility], [facility], [facility] Primary Care Provider [facility] Encounter Details Date Type Department Care Team Description 05/09/2020 [facility] Medical Records [address] [place] [address] Abstract, Provider Social History Tobacco Use Types [...] on filedocumented in this encounter Care Teams Nuclear Fuels Research Engineer Relationship Specialty Start Date End Date Smitha Garcia MD PCP - General Internal Medicine 04/03/14 01/01/22 [facility], [facility], Pcp 300 [facility] [address] [place] [address] PCP - General Internal Medicine 01/02/22 Jorgito Robles MD 300 [facility] [address] [place] [address] Specialist Cardiovascular Disease 08/16/20 documented as of this encounter
--- OUTSIDE RECORDS SUMMARY | 2025-02-14 15:45 | XMS_ITS | Encounter Summary ---
Author Organization [facility] Address [address] [place] [address] Care Team Providers Care Metal Mixer Name Role Phone Smitha Garcia MD Primary Care Provider Jorgito Hyde MD Unavailable [phone] [facility], Pcp Primary Care Provider Unavailabl e Reason for Referral * Non ABEL (Routine) - Closed Specialty Diagnoses / Procedures Referred By Rosalia t Referred To Contact Rheumatology Procedures REFERRAL TO RHEUMATOLOGY Taj Matthews PA-C [address] [place] [address] Rheum/Kinta [address] [place] [address] Referral ID Status Reason Start Date Expiration Date Visits Re quested Visits Authorized [id number] Closed 10/02/2017 10/02/2018 1 1 Encounter Details Date Type Department Care Team Description 10/02/2017 Orders Only Medicine/Pediatrics - [address] [phone] Taj Matthews PA-C Social History Tobacco Use [...] on filedocumented in this encounter Care Teams Metal Mixer Relationship Specialty Start Date End Date Smitha Garcia MD PCP - General Internal Medicine 04/03/14 01/01/22 [facility], Pcp [address] [address] PCP - General Internal Medicine 01/02/22 Jorgito Robles MD 300 [facility] [address] [place] [address] Specialist Cardiovascular Disease 08/16/20 documented as of this encounter
[2025-02-14 19:00] LABS: Alanine Aminotransferase 22 U/L (0-31); Albumin Level 4.3 g/dL (3.5-5.0); Alkaline Phosphatase 123 U/L (39-117); Anion Gap 12 (12-20); Aspartate Amino Transferase 25 U/L (5-31); Blood Urea Nitrogen 15 mg/dL (9-16); Calcium 9.3 mg/dL (8.4-10.2); Carbon Dioxide 28 mmol/L (22-29); Chloride 104 mmol/L (96-108); Estimated Glomerular Filt Rate > 60; Potassium 4.0 mmol/L (3.3-5.1); Sodium 140 mmol/L (135-145); Total Protein 6.5 g/dL (6.5-8.0)
== END 2025-02-14 10:55 | disposition home or self-care (01) ==
LOC: HO.HKASLDS 10:54
PROVIDERS: PCP Nurse Practitioner Family; Visit Provider Student in an Organized Health Care Education/Training Program
DX: M80.08XA Age-related osteoporosis with current pathological fracture, vertebra(e), initial encounter for fracture (principal); M19.041 Primary osteoarthritis, right hand; M19.042 Primary osteoarthritis, left hand; R76.89 Other specified abnormal immunological findings in serum
CPT/HCPCS: 36415; 80053; 82306; 99212

== ENCOUNTER → 2025-02-23 07:46 | Outpatient (REF) | payer MEDICARE, SELFPAY ==
--- NOTE | ~2025-02-23 | NM_ITS ---
EXERCISE MYOCARDIAL PERFUSION STUDY INDICATION: Shortness of breath TECHNIQUE: The patient was brought in for an exercise perfusion study on 02/23/2025. Patient performed exercise as per Casper protocol and was injected 25 mCi of sestamibi once target heart rate was achieved. Images were obtained using the SPECT gamma camera interlaced with the gating device. Images were obtained in supine position. Resting perfusion study was performed on 02/24/2025. Patient was administered 25 mCi of sestamibi intravenously at rest. Images were then obtained in supine position. Total DLP 60 mGy-cm. Images were processed with the software and compared side to side in short axis, horizontal long axis and vertical long axis views. FINDINGS: Raw aquisition reviewed. The stress perfusion study showed no significant perfusion abnormality. Both uncorrected as well as CT attenuation corrected images were reviewed. The gated study shows normal LV systolic function with calculated LVEF of 74%. LV cavity is normal in size. The gated study shows normal wall thickening and contraction of segments. Resting study shows no significant perfusion abnormality. Gating at rest reveals normal wall motion with ejection fraction at 68%. The findings are consistent with no clear reversible or fixed perfusion abnormality. NM/NM cardiolite stress test IMPRESSION: 1. Myocardial perfusion imaging study shows probably normal myocardial perfusion. 2. Gated LVEF is > 70% during stress and 68% during rest. 3. Transient ischemic dilatation not present. EKG component of the test reported separately. Electronically signed by: Prabhakar Trujillo MD 02/26/2025 01:22 PM [facility]
--- NOTE | 2025-02-23 07:49 | CA_ITS ---
Acquisition Time: 2025-02-23 08:05:32 Total Exercise Time: 00:08:50 Test Indications: Dyspnea,Palpitations Medications: SEE H&P Protocol: MESERET Max HR: 131 BPM 85% of Pred: 153 BPM Max BP: 138/80 mmHG Max Work Load: 10.1 METS Exercise stress test with exercise 8 mins 50 secs of Meseret Protocol, achieving 85% MPHR, with reports of SOB, no chest pain, with isolated PACs, with normotensive response to exercise. Without any EKG changes meeting criteria for ischemia. In recovery, breathing slowly improved to baseline. Nuclear images pending. Test reviewed with Dr. Trujillo. Referred By: Glen Gusman Electronically Signed By: Trace Gilbert
--- OUTSIDE RECORDS SUMMARY | 2025-02-23 07:49 | XMS_ITS | Clinical Summary ---
Author Organization [facility] Address [address] [place] [address] Phone Care Team Providers Care Pen Rider Name Role Phone Glen Gusman NP Primary [...] Devices [place] [id number] [facility] [address] [facility] [place] [facility] [place] [address] [place] [address] [facility] [address] [place] [address] [facility] [place] [address] [facility] Care Teams Pen Rider Relationship Specialty Start Date End Date Glen Gusman NP [address] [facility] [place] [address] PCP - General Family Medicine 09/30/21 Additional Source Comments The information contained in this document represents components of the legal health record. It is not the complete legal health record.[facility]
== END ==
LOC: HO.CARD 07:46
PROVIDERS: PCP Nurse Practitioner Family; Visit Provider Nurse Practitioner Family
DX: R07.89 Other chest pain (principal); R00.2 Palpitations; R06.09 Other forms of dyspnea
CPT/HCPCS: 78452; 93017; A9500

== ENCOUNTER → 2025-02-23 07:49 | Outpatient (BNV) | payer MEDICARE, SELFPAY | PROVIDERS: PCP Nurse Practitioner Family | DX: R06.02 Shortness of breath (principal) | CPT/HCPCS: 78452; 93016; 93018 ==

== ENCOUNTER 2025-03-08 15:29 | Outpatient (REF) | payer MEDICARE, SELFPAY ==
--- NOTE | ~2025-03-08 | CT_ITS ---
EXAMINATION: CT CHEST WITHOUT IV CONTRAST INDICATION: R07.89 - Other chest pain COMPARISON: Previous chest CT most recent February 2017 and chest x-ray most recent September 2024 TECHNIQUE: Helical CT scan of the chest was performed without intravenous contrast. Coronal and sagittal reformatted images were generated and reviewed. This CT exam was performed with one or more of the following dose reduction techniques: automated exposure control, adjustment of the mA and/or kV according to patient size, use of iterative reconstruction technique. DLP: 95 mGy-cm CHEST: THYROID: The thyroid is unremarkable. LUNGS: Small pulmonary nodules are stable for example measuring 2 mm in the peripheral or subpleural right upper lobe adjacent to the major fissure axial image 121 series 6, 3 mm along the left pleural fissure in the upper lobe to 68 and left lower lobe 276 and 266 series 6 and right middle lobe measuring 5 mm axial image 06/06/2005. Again these likely represent small peripheral or subpleural and intrapulmonary lymph nodes based on location and shape. Several small clustered 2 mm right middle lobe nodules axial image 2 47, 246 and 235 and in the right lower lobe measuring 3 mm axial image 280 series 6 probably representing endobronchial soft tissue opacification mucous plugging. Central airways are clear. MEDIASTINUM: There is no mediastinal lymphadenopathy. TREY: Evaluation of the hilar regions is limited by lack of intravenous contrast material. CARDIOVASCULATURE: The heart is normal in size. There is no pericardial effusion. The thoracic aorta is normal in caliber. DEGREE OF CORONARY CALCIFICATION: none PLEURA: There is no pleural effusion. No pneumothorax. MAIN AIRWAYS: The mainstem bronchi and proximal branches are patent. AXILLA: There is no axillary lymphadenopathy. No chest wall mass. BONES AND SOFT TISSUES: Slight loss of height of the T4 vertebral body questionable for mild inferior endplate compression fracture versus Schmorl's node. This is new in the interval 2017 exam. There is a partially visualized surgical hardware in the right humeral head. There is arthritis at the right glenohumeral joint. There is a small right shoulder joint effusion and periarticular ossifications that may represent ossified intra-articular loose bodies. UPPER ABDOMEN: There may be a 9 mm calcified splenic artery aneurysm. In retrospect this does not appear appreciably changed in size from 2017 exams. There is mild dilatation of the visualized left renal collecting system and left renal pelvis/mild hydronephrosis. There is a small nonobstructing left upper pole renal stone. CT/CT chest wo IV con IMPRESSION: Stable small bilateral pulmonary nodules probably representing peripheral or subpleural and intrapulmonary lymph nodes, largest measuring 5 mm in the right middle lobe. Several small new 2 to 3 mm pulmonary nodules in the right middle and right lower lobes probably related to endobronchial soft tissue opacification or mucous plugging. Old appearing mild T4 vertebral body inferior endplate compression fracture versus Schmorl's node. This is new in the interval from 2017 exam. Arthritis and postsurgical change to the right shoulder. Probable 9 mm calcified splenic artery aneurysm. Question increasing left hydronephrosis. Small nonobstructing left renal stone. Follow-up renal ultrasound recommended. Electronically signed by: Jazmine Rider MD 03/08/2025 04:16 PM [facility]
--- OUTSIDE RECORDS SUMMARY | 2025-03-08 20:24 | XMS_ITS | Clinical Summary ---
Author Organization [facility] Address [address] [place] [address] Phone Care Team Providers Care Manugrapher Name Role Phone Glen Gusman NP Primary [...] Devices [place] [id number] [facility] [address] [facility] [place] [facility] [place] [address] [facility] [place] [address] [facility] [place] [address] [facility] [place] [address] [facility] [place] [address] [facility] Care Teams Manugrapher Relationship Specialty Start Date End Date Glen Gusman NP [address] [facility] [place] [address] PCP - General Family Medicine 09/30/21 Additional Source Comments The information contained in this document represents components of the legal health record. It is not the complete legal health record.[facility]
== END 2025-03-08 15:30 | disposition home or self-care (01) ==
LOC: HO.CT 15:29
PROVIDERS: PCP Nurse Practitioner Family; Visit Provider Nurse Practitioner Family
DX: R06.09 Other forms of dyspnea (principal); R07.89 Other chest pain
CPT/HCPCS: 71250

== ENCOUNTER → 2025-03-08 15:31 | Outpatient (BNV) | payer MEDICARE, SELFPAY | PROVIDERS: PCP Nurse Practitioner Family; Visit Provider Radiology Diagnostic Radiology | DX: R91.8 Other nonspecific abnormal finding of lung field (principal); M19.011 Primary osteoarthritis, right shoulder | CPT/HCPCS: 71250 ==